=== PATIENT | male | born 1950 | race Caucasian/White ===

== ENCOUNTER → 2018-01-27 12:49 | Outpatient (CLI) | payer MEDICARE, OTHER, SELFPAY | PROVIDERS: Family Provider Family Medicine Geriatric Medicine; PCP Family Medicine Geriatric Medicine; Visit Provider Nurse Practitioner Adult Health | DX: N39.0 Urinary tract infection, site not specified (principal) | CPT/HCPCS: 87086; 87088; 87186 ==

== ENCOUNTER 2018-01-28 20:57 | Emergency (ER) | payer MEDICARE, OTHER, SELFPAY ==
[2018-01-28 20:58] VITALS: BP 137/77; PULSE 73; RESP 16; TEMP 36.6; O2SAT 94; BMI 28.8
--- NOTE | 2018-01-28 22:08 | ED.DCSUM_ITS ---
- ER Visit Summary Date of Service: 01/28/18 Chief Complaint: Urinary retention History of Present Illness: The patient is a 67 M who has urinary retention. He has not urinated since this afternoon. He was diagnosed with UTI yesterday. He is currently on Bactrim. He denies a fever. No history of retention or prostate problems. He sees Dr. Hemphill as his urologist. Physical Examination: Vital signs reviewed. HEENT exam unremarkable. Heart is regular rate and rhythm without murmurs. Lungs are clear to auscultation. Abdomen is soft with suprapubic tenderness to palpation. Extremities reveal no edema. Skin exam normal. Neurologic exam normal. Test Results: Urine culture obtained Emergency Department Course and Treatment: Patient had Zelaya catheter placed and had 800 cc of urine returned. He feels much better. He is on Bactrim which is appropriate. I will send a urine culture. He will follow-up with either his urologist or his PCP on Thursday for Zelaya removal Treatment Plan: [] Disposition: Discharge Impression: Urinary retention, UTI This note was generated with [employer] dictation software. It may contain incorrect words, spelling, and punctuation that were not noted in review of the chart prior to signing ED Disposition - Plan for ED Patient: Chief Complaint: Complaint Referrals: Torito Azul Chi, MD [Primary Care Provider] -
--- NOTE | 2018-01-28 22:08 | ED.DEP ---
ED Disposition - Plan for ED Patient: Disposition: Home or Assisted Living Chief Complaint: Complaint Instructions: ED UTI Cystitis Male Referrals: Torito Azul Chi, MD [Primary Care Provider] -
[2018-01-28 22:33] VITALS: BP 132/60; PULSE 75; RESP 18; O2SAT 96
--- NOTE | 2018-01-28 22:47 | ED.RN ---
first catheter was accidently pulled out (balloon was not inflated)- 2nd catheter inserted. pt tolerated well and pleasant.
== END 2018-01-28 22:33 | disposition home or self-care (01) ==
LOC: ED 22:16
PROVIDERS: Emergency Provider Emergency Medicine; Family Provider Family Medicine Geriatric Medicine; PCP Family Medicine Geriatric Medicine
DX: R33.9 Retention of urine, unspecified (principal); N39.0 Urinary tract infection, site not specified; Z79.1 Long term (current) use of non-steroidal anti-inflammatories (NSAID); Z79.02 Long term (current) use of antithrombotics/antiplatelets; Z79.82 Long term (current) use of aspirin; Z79.899 Other long term (current) drug therapy
CPT/HCPCS: 51702; 87086; 99283

== ENCOUNTER 2018-01-30 13:15 | Emergency (ER) | payer MEDICARE, OTHER, SELFPAY ==
[2018-01-30 13:17] VITALS: BP 126/63; PULSE 75; RESP 14; TEMP 36.1; O2SAT 98; BMI 28.7
--- NOTE | 2018-01-30 13:44 | ED.DCSUM_ITS ---
- ER Visit Summary Date of Service: 01/30/18 Chief Complaint: Zelaya dysfunction History of Present Illness: The patient is a 67 M no Zelaya output since 9 AM this morning after draining it. Increasing suprapubic distention. Placed 2 days ago due to urine retention. He is on Flomax. Appointment with urology Dr. Hemphill in 2 days. Diagnosed UTI 3 days ago is on Bactrim. No fevers. No back pain. No vomiting. States mild leakage around Zelaya. States he was 700 mL of output with Zelaya placement 2 days ago. Physical Examination: General: Alert and oriented ?3, no acute distress HEENT: Normocephalic, atraumatic. Moist mucosa membranes Neck: supple, nontender. Cardiovascular: Regular rate and rhythm, no murmurs Respiratory: Normal breath sounds, symmetric, no distress Abdomen: Soft, suprapubic distention with tenderness, no guarding or rebound, nondistended Extremities: Nontender, no edema, pulses intact ?4 Neuro: no focal neurological deficits. Test Results: [] Emergency Department Course and Treatment: Patient Zelaya attempted flushing by nursing, reported 200 cc input with no output. Zelaya catheter was exchanged. There is good urine output, improved distention. Bedside ultrasound performed noted no urine in the bladder. Review records noted he had E. coli pansensitive on the . He is currently on Bactrim. He will finish his antibiotics. He is currently on Flomax. He will keep his appointment on Thursday with urology. Return if any worsening symptoms. Treatment Plan: [] Disposition: Discharge Impression: 1. Zelaya catheter dysfunction This note was generated with [employer] dictation software. It may contain incorrect words, spelling, and punctuation that were not noted in review of the chart prior to signing ED Disposition - Plan for ED Patient: Disposition: Home or Assisted Living Chief Complaint: Zelaya C/O Diagnosis: Zelaya catheter dysfunction Instructions: ED Catheter Care Zelaya Referrals: Torito Azul Chi, MD [Primary Care Provider] - Jeffery Hemphill MD [STAFF PHYSICIAN] - Keep Nancy appointment Additional Instructions: Finish current antibiotics, continue Flomax.
[2018-01-30] MEDS: Lidocaine Jelly 2% 20 ML Syringe (URO-JET) 20 APPLIC TOPICAL (14:07)
[2018-01-30 15:31] VITALS: BP 128/90; PULSE 62; RESP 18
== END 2018-01-30 15:32 | disposition home or self-care (01) ==
PROVIDERS: Emergency Provider Emergency Medicine; Family Provider Family Medicine Geriatric Medicine; PCP Family Medicine Geriatric Medicine
DX: T83.038A Leakage of other urinary catheter, initial encounter (principal); I25.10 Atherosclerotic heart disease of native coronary artery without angina pectoris; E11.9 Type 2 diabetes mellitus without complications; I10 Essential (primary) hypertension; Z79.84 Long term (current) use of oral hypoglycemic drugs; Z79.02 Long term (current) use of antithrombotics/antiplatelets; Z79.82 Long term (current) use of aspirin; Z79.899 Other long term (current) drug therapy; I25.2 Old myocardial infarction; Z87.440 Personal history of urinary (tract) infections; Z87.19 Personal history of other diseases of the digestive system; Z95.1 Presence of aortocoronary bypass graft
CPT/HCPCS: 51702; 99283

== ENCOUNTER → 2018-05-03 06:46 | Outpatient (CLI) | payer MEDICARE, OTHER, SELFPAY ==
[2018-05-03 07:50] LABS: AST(SGOT) 23 U/L (15-37); Alanine Aminotransfer ALT/SGPT 46 U/L (16-61); Alkaline Phosphatase 52 U/L (45-117); Bilirubin, Direct 0.27 mg/dL (0.00-0.30); Cholesterol 159 mg/dL (200); Globulin 3.1 g/dL (2.2-4.2); High Density Lipoprotein 42 mg/dL; Protein, Total 7.1 g/dL (6.4-8.2); Triglycerides 215 mg/dL; Very Low Density Lipoprotein 43 mg/dL (5-40)
== END ==
PROVIDERS: Family Provider Family Medicine Geriatric Medicine; PCP Family Medicine Geriatric Medicine; Visit Provider Physician Assistant Medical
DX: E78.5 Hyperlipidemia, unspecified (principal); Z79.899 Other long term (current) drug therapy
CPT/HCPCS: 36415; 80061; 80076

== ENCOUNTER → 2018-09-13 11:37 | Outpatient (CLI) | payer MEDICARE, OTHER, SELFPAY ==
[2018-05-06 09:24] VITALS: BMI 28.8
[2018-09-13 13:15] LABS: Absolute Lymphocyte Count 1.55 X10^3/ul (0.83-4.51); Absolute Neutrophil Count 3.3 X10^3/uL (2.0-7.7); Basophil# 0.04 X10^3/uL; Basophil% 0.7 % (0-1); Eosinophil# 0.11 X10^3/uL; Hematocrit 41.9 % (40-54); Hemoglobin 14.4 g/dl (13.0-16.5); Lymphocyte # 1.55 X10^3/ul (4.0); Lymphocyte % 28.8 % (19-41); Mean Corp Hgb Conc 34.4 g/gl (32-36); Mean Corpuscular Hgb 32.5 pg (27.0-32.0); Mean Corpuscular Volume 94.6 fL (80-94); Mean Platelet Vol. 10.9 fl (6.2-12.0); Monocyte# 0.42 X10^3/uL; Monocyte% 7.8 % (0-10); Neutrophil # 3.25 X10^3/uL (2.7-7.7); Neutrophil % 60.5 % (47-70); Platelet Count 204 K/mm3 (150-450); RBC Distribution Width CV 12.2 % (11.6-14.6); RBC Distribution Width SD 41.1 fl (35.1-43.9); Red Blood Count 4.43 M/mm3 (4.6-6.2); White Blood Count 5.4 K/mm3 (4.4-11.0)
[2018-09-13 13:17] LABS: POSITIVE COUNT NO; POSITIVE DIFFERENTIAL NO; POSITIVE MORPHOLOGY NO
[2018-09-13 13:20] LABS: Vitamin D,25 Hydroxy 21.9 ng/mL (29.95-100.01)
[2018-09-13 13:21] LABS: ALB/GLOB Ratio 1.2 RATIO (0.9-2.4); AST(SGOT) 31 U/L (15-37); Alanine Aminotransfer ALT/SGPT 64 U/L (16-61); Alkaline Phosphatase 54 U/L (45-117); Anion Gap 10 (5-15); BUN 17 mg/dL (7-18); BUN/Creat Ratio 18.6 RATIO (10-20); Calcium,Total 9.4 mg/dL (8.5-10.1); Chloride 103 mmol/L (98-107); Creatinine, Serum 0.91 mg/dL (0.70-1.30); EST Glomerular Filtration Rate 87 mL/min (>60); Est Glom Filt Rate - Afr Amer 106 mL/min (>60); Globulin 3.3 g/dL (2.2-4.2); Glucose 190 mg/dL (74-106); PSA,Total - Annual Screen 1.19 ng/mL (0.00-4.00); Potassium 3.9 mmol/L (3.5-5.1); Protein, Total 7.3 g/dL (6.4-8.2); Sodium Level 141 mmol/L (136-145); Thyroid Stim Hormone (TSH) 1.09 uIU/mL (0.358-3.74)
== END ==
PROVIDERS: Family Provider Family Medicine Geriatric Medicine; PCP Family Medicine Geriatric Medicine; Visit Provider Family Medicine Geriatric Medicine
DX: E11.9 Type 2 diabetes mellitus without complications (principal); I10 Essential (primary) hypertension; E78.49 Other hyperlipidemia; E55.9 Vitamin D deficiency, unspecified; Z12.5 Encounter for screening for malignant neoplasm of prostate
CPT/HCPCS: 36415; 80053; 82306; 84153; 84443; 85025; G0103

== ENCOUNTER → 2018-09-16 07:39 | Outpatient (CLI) | payer MEDICARE, OTHER, SELFPAY ==
[2018-05-06 09:24] VITALS: BMI 28.8
--- NOTE | 2018-09-16 07:44 | US_ITS ---
STUDY: ABDOMINAL ULTRASOUND - RIGHT UPPER QUADRANT REASON FOR VISIT: Male, 67 years old. Bloating. Pain. TECHNIQUE: Ultrasound evaluation of the right upper quadrant was performed with real-time and static arenas-scale imaging. TECHNICAL QUALITY: Adequate. COMPARISON: CT dated 11/02/2015 FINDINGS: Liver: The liver measures 16.8 cm. There is increased echogenicity consistent with fatty infiltration. The bile ducts are within normal limits. There is hepatic color flow. The direction of portal flow is hepatopetal. There is no demonstrated mass lesion. Gallbladder: Normal distended gallbladder. The gallbladder wall measures 3 mm. There is a negative sonographic Phillip's sign. There is no pericholecystic fluid. There is a solitary echogenic gallstone within the gallbladder. Common Bile Duct (C.B.D.): The common bile duct measures 4 mm. Pancreas: Normal size of the head, body and tail of the pancreas. There is normal echogenicity of the pancreas. There is no demonstrated pancreatic mass or cyst. Right Kidney: Normal size of the right kidney. The right kidney measures 11.0 cm. Normal renal cortex. There is no demonstrated renal mass or cyst. There is no right hydronephrosis. US/Gallbladder IMPRESSION: Fatty liver. No focal hepatic lesions. Cholelithiasis without sonographic evidence of acute cholecystitis. Electronically Signed: Michael Day, at 22:32 EST Tel , Service support ,
--- OUTSIDE RECORDS SUMMARY | 2018-11-02 00:49 | XMS RPT_ITS ---
:1950 Author Organization OHIP Support Name Relationship Address Phone R Unavailable Unavailable Unavailable SAUTTER, ROSETTE Unavailable [address] + [place] [address] R Unavailable Unavailable Unavailable SAUTTER, ROSETTE Unavailable [address] + [place] [address] R Unavailable Unavailable Unavailable SAUTTER, ROSETTE Unavailable [address] + [place] [address] R Unavailable Unavailable Unavailable SAUTTER, ROSETTE Unavailable [address] + [place] [address] R Unavailable Unavailable Unavailable SAUTTER, ROSETTE Unavailable [address] + [place] [address] R Unavailable Unavailable Unavailable SAUTTER, ROSETTE Unavailable [address] + [place] [address] R Unavailable Unavailable Unavailable SAUTTER, ROSETTE Unavailable [address] + [place] [address] R Unavailable Unavailable Unavailable SAUTTER, ROSETTE Unavailable [address] + [place] [address] R Unavailable Unavailable Unavailable SAUTTER, ROSETTE Unavailable [address] + [place] [address] R Unavailable Unavailable Unavailable SAUTTER, ROSETTE Unavailable [address] + [place] [address] R Unavailable Unavailable Unavailable SAUTTER, ROSETTE Unavailable [address] + [place] [address] R Unavailable Unavailable Unavailable SAUTTER, ROSETTE Unavailable [address] + [place] [address] R Unavailable Unavailable Unavailable SAUTTER, ROSETTE Unavailable [address] + [place] [address] Care Team Providers Name Role Phone Jorge Alberto, Torito Chi Attending Unavailable Jorge Alberto, Torito Chi Referring Unavailable Jorge Alberto, Torito Chi Primary Care Unavailable Jorge Alberto, Torito Chi Attending Unavailable Jorge Alberto, Torito Chi Referring Unavailable Jorge Alberto, Torito Chi Primary Care Unavailable Tere Ibrahim Attending Unavailable Clinton, Elkin Attending Unavailable Jorge Alberto, Torito Chi Referring Unavailable Jorge Alberto, Torito Chi Primary Care Unavailable Clinton, Elkin Attending Unavailable Clinton, Elkin Referring Unavailable Jorge Alberto, Torito Chi Primary Care Unavailable Evon Cyr Attending Unavailable [place], Elkin Attending Unavailable SaySintia M Attending Unavailable Jorge Alberto, Torito Chi Primary Care Unavailable Sintia Deal M Referring Unavailable Jorge Alberto, Torito Chi Primary Care Unavailable Adriel Mackenzie Attending Unavailable Jorge Alberto, Torito Chi Primary Care Unavailable Solis Redding Attending Unavailable WestbrookKarina Attending Unavailable Karina Westbrook Referring Unavailable Jorge Alberto, Torito Chi Primary Care Unavailable Karina Westbrook Attending Unavailable Jorge Alberto, Torito Chi Referring Unavailable Jorge Alberto, Torito Chi Attending Unavailable Jorge Alberto, Torito Chi Primary Care Unavailable PROBLEMS PROBLEMS DATE TYPE CONDITION / CODE ATTENDING STATUS SOURCE 01/27/2018 Unknown N39.0 - Urinary Say, [place] Active [place] tract infection, M Community site not specified Hospital / N39.0(ICD-10) Repository 12/11/2017 Unknown Z86.79 - Personal [place], [place] Active [place] history of other Community diseases of the Hospital circulatory system Repository / Z86.79(ICD-10) 12/11/2017 Unknown R00.2 - [place], [place] Active [place] Palpitations / Community R00.2(ICD-10) Hospital Repository PROCEDURES PROCEDURES No Procedure Records FoundRESULTS RESULTS HEPATOBILLIARY IMG Observed: 09/21/2018 Status: F Source: [place] W/PHARM INT 11:24 AM [facility] REPOSITORY [facility] Imaging Services [address] [place] [address] Hepatobilliary Img w/Pharm Int MR#: [id number] Acct: [id number] Name: JUANJO KILLIAN Rep #: [id number] : 1950 M 67 From: Santo Catalan DO PCP: Jorge Alberto ENCARNACION,Torito Greenfield Status: REG CLI Study: Hepatobilliary Img w/Pharm Int Date of Exam: 09/21/18 Exam# [id number] Ordering Dr: Torito Azul MD CLINICAL: 67-year-old male with reported history of abdominal pain. RADIONUCLIDE HEPATOBILIARY SCINTIGRAPHY COMPARISON: Abdominal ultrasound report 09/16/2018 FINDINGS: Following the intravenous administration of 5.3 mCi of 99m Tc Mebrofenin, hepatobiliary images reveal: 1. Relatively prompt and homogeneous radiopharmaceutical concentration is noted by a normal sized liver. No parenchymal defects are identified. 2. Gallbladder activity is identified at 45 minutes post radiopharmaceutical administration. 3. Small intestinal tract is observed at 30 minutes following tracer injection. 4. Washout of the radiopharmaceutical by the hepatic parenchyma appears qualitatively normal. The patient was administered a fatty meal (8 ounces BOOST- 30 grams fat). The post fatty meal consumption gallbladder ejection fraction calculated at 60 minutes was noted to be 70.0 % (normal greater than 30%). NM/Hepatobilliary Img w/Pharm Int IMPRESSION: 1. NORMAL 99m Tc Mebrofenin hepatobiliary imaging examination with fatty meal ingestion. A. A gallbladder ejection fraction calculated to be greater than 30% following the administration of a consumed fatty meal makes the probability of functional hepatobiliary disease (gallbladder and/or sphincter of Oddi dyskinesia) and/or organic hepatobiliary disease (chronic acalculous cholecystitis and/or cystic duct syndrome) to be low. (Archie and Howard, J Nucl Med 43: 1603, 2002). Electronically Signed: Santo Catalan DO at 22:13 EST Tel , Service support , CC: Torito Azul MD Supervisor Plate Forming: Signed GALLBLADDER Observed: 09/16/2018 Status: F Source: [place] 7:44 AM [facility] Imaging Services [address] [place] [address] Gallbladder MR#: [id number] Acct: [id number] Name: JUANJO KILLIAN Rep #: [id number] : 1950 M 67 From: Michael Day MD PCP: Torito Azul MD, Chi Status: REG CLI Study: Gallbladder Date of Exam: 09/16/18 Exam# [id number] Ordering Dr: Torito Azul MD STUDY: ABDOMINAL ULTRASOUND - RIGHT UPPER QUADRANT REASON FOR VISIT: Male, 67 years old. Bloating. Pain. TECHNIQUE: Ultrasound evaluation of the right upper quadrant was performed with real-time and static arenas-scale imaging. TECHNICAL QUALITY: Adequate. COMPARISON: CT dated 11/02/2015 FINDINGS: Liver: The liver measures 16.8 cm. There is increased echogenicity consistent with fatty infiltration. The bile ducts are within normal limits. There is hepatic color flow. The direction of portal flow is hepatopetal. There is no demonstrated mass lesion. Gallbladder: Normal distended gallbladder. The gallbladder wall measures 3 mm. There is a negative sonographic Phillip's sign. There is no pericholecystic fluid. There is a solitary echogenic gallstone within the gallbladder. Common Bile Duct (C.B.D.): The common bile duct measures 4 mm. Pancreas: Normal size of the head, body and tail of the pancreas. There is normal echogenicity of the pancreas. There is no demonstrated pancreatic mass or cyst. Right Kidney: Normal size of the right kidney. The right kidney measures 11.0 cm. Normal renal cortex. There is no demonstrated renal mass or cyst. There is no right hydronephrosis. US/Gallbladder IMPRESSION: Fatty liver. No focal hepatic lesions. Cholelithiasis without sonographic evidence of acute cholecystitis. Electronically Signed: Michael Barb, at 22:32 EST Tel , Service support , CC: Torito Azul MD Supervisor Plate Forming: Signed CBC W/DIFF, AUTOMATED Collected: 09/13/2018 Status: F Source: [place] 11:40 AM [facility] TYPE CODE TESTS RESULT OUT OF RANGE REFERENCE UNITS LAB L100.1000 4.4-11.0 K/mm3 Normal WBC 5.4 LAB L100.1200 4.6-6.2 M/mm3 Low RBC 4.43 LAB L100.1300 13.0-16.5 g/dl Normal HGB 14.4 LAB L100.1400 40-54 % Normal HCT 41.9 LAB L100.1500 80-94 fL High MCV 94.6 LAB L100.1600 27.0-32.0 pg High MCH 32.5 LAB L100.1700 32-36 g/gl Normal MCHC 34.4 LAB L100.1810 11.6-14.6 % Normal RDW CV 12.2 LAB L100.1820 35.1-43.9 fl Normal RDW SD 41.1 LAB L100.1900 150-450 K/mm3 Normal PLT 204 LAB L100.2000 6.2-12.0 fl Normal MPV 10.9 LAB L100.2100 47-70 % Normal NEUT% 60.5 LAB L100.2200 19-41 % Normal LY% 28.8 LAB L100.2300 0-10 % Normal MONO% 7.8 LAB L100.2400 0-5 % Normal EO% 2.0 LAB L100.2500 0-1 % Normal BASO% 0.7 LAB L100.2550 0.0-0.9 % Normal IM GRAN % 0.200 Result Comment: IG% - Immature Granulocytes (promyelocytes, myelocytes and metamyelocytes) > 1% indicates that a LEFT SHIFT is Present. LAB L100.2620 2.0-7.7 X10 3/uL Normal Absolute Neut 3.3 LAB L100.2720 0.83-4.51 X10 3/ul Normal Absolute Lymph 1.55 Performed By: #### L100.0100 #### [facility] [address] [place], [address] VITAMIN D,25 HYDROXY Collected: 09/13/2018 Status: F Source: [place] 11:40 AM [facility] TYPE CODE TESTS RESULT OUT OF REFERENCE UNITS RANGE LAB L506.1000 29.95-100.01 ng/mL Low Vitamin D 21.9 25-OH Result Comment: Vitamin D 25(OH) Status Range Deficiency <20 ng/mL (50nmol/L) Insuffciency 20 - 30 ng/mL (50 - 75 nmol/L) Sufficiency 30 - 100 ng/mL (75 - 250 nmol/L) Toxicity >100 ng/mL (>250 nmol/L) Performed By: #### L506.1000 #### [facility] [address] [place], [address] COMPREHENSIVE METABOLIC Collected: 09/13/2018 Status: F Source: [place] [facility] 11:40 AM [facility] TYPE CODE TESTS RESULT OUT OF RANGE REFERENCE UNITS LAB L501.0100 74-106 mg/dL High GLU 190 Result Comment: Fasting Glucose result greater than or equal to 126 mg/dL suggests DIABETES MELLITUS per A.D.A. criteria. Please note revised GLUCOSE reference range effective 2017. LAB L501.1000 7-18 mg/dL Normal BUN 17 LAB L501.1100 0.70-1.30 mg/dL Normal CREAT,SERUM 0.91 Result Comment: The validity of the calculated GFR AND GFRAA in patients over 70 years has not been determined. Clinical correlation is essential. LAB L501.1110 >60 mL/min Normal EST GFR 87 Result Comment: Non- GFR Calc LAB L501.1115 >60 mL/min Normal EST GFR - AA 106 Result Comment: GFR Calc LAB L501.1300 10-20 RATIO Normal BUN/CRE 18.6 LAB L501.1500 6.4-8.2 g/dL T Normal PROT 7.3 LAB L501.1800 3.2-5.0 g/dL Normal ALB 4.0 LAB L501.1950 2.2-4.2 g/dL Normal GLOB 3.3 LAB L501.2000 0.9-2.4 RATIO Normal A/G 1.2 LAB L501.2200 8.5-10.1 mg/dL CA Normal 9.4 LAB L501.4100 15-37 U/L Normal AST 31 LAB L501.4305 45-117 U/L Normal ALK P 54 LAB L501.4405 16-61 U/L High ALT 64 LAB L501.4600 0.20-1.00 mg/dL High T BILI 1.50 LAB L501.5300 136-145 mmol/L NA Normal 141 LAB L501.5600 3.5-5.1 mmol/L K Normal 3.9 LAB L501.5900 98-107 mmol/L CL Normal 103 LAB L501.6100 21.0-32.0 mmol/L Normal CO2 28.0 LAB L501.6200 5-15 Normal GAP 10 Performed By: #### L500.4050, L501.9520, L501.9910 #### [facility] [address] [place], [address] THYROID STIM HORMONE Collected: 09/13/2018 Status: F Source: [place] (TSH) 11:40 AM [facility] TYPE CODE TESTS RESULT OUT OF RANGE REFERENCE UNITS LAB L501.9520 0.358-3.74 uIU/mL Normal TSH 1.09 Performed By: #### L500.4050, L501.9520, L501.9910 #### [facility] [address] [place], [address] PSA,TOTAL - ANNUAL Collected: 09/13/2018 Status: F Source: [place] SCREEN 11:40 AM [facility] TYPE CODE TESTS RESULT OUT OF RANGE REFERENCE UNITS LAB L501.9910 0.00-4.00 ng/mL Normal PSA,TOT 1.19 SCREEN Result Comment: This test was performed using the TPSA assay method for the Sypherlink chemistry system. Values obtained with different assay methods cannot be used interchangably. When changing PSA assays in the course of monitoring a patient, additional sequential testing should be carried out to confirm baseline values. Performed By: #### L500.4050, L501.9520, L501.9910 #### [facility] [address] [place], [address] CARDIOLOGY VISIT Observed: 05/07/2018 Status: F Source: [place] REPORT 6:35 AM [facility] [address] [place] [address] OFFICE VISIT Date of Service: 05/06/18 MR#: [id number] Acct: [id number] Name: JUANJO KILLIAN Rep #: [id number] : 1950 Provider: Karina Westbrook Age/Sex: 67/M Location: [facility] Status: Signed HPI HPI Details: JUANJO KILLIAN, is a 67 M who presents to the office today for a cardiovascular follow-up. He has a history of coronary artery disease with bypass surgery in 2002. He had an ROSE to the LAD, left radial to the first diagonal and SVG to the first obtuse and PDA. In 2015 he had stenting to his RCA. He also has a history of hypertension, hyperlipidemia and diabetes. From a cardiac standpoint, patient is doing well. He does not have any chest discomfort/heaviness/tightness. His exercise tolerance is stable for his age. He does not have any worsening symptoms of shortness of breath. He denies any PND. He does not have any orthopnea. He does not have any symptoms of congestive heart failure. He does not have any palpitations that he is aware of. He does not have any lightheadedness or dizziness. He does not have any near-syncope or syncope. He does not have any lower extremity edema. He does not have any symptoms of claudication. Intake Vital Signs05/06/18 Body Mass Index (BMI) 28.8 05/06/18 Blood Pressure 100/60 05/06/18 Height 5 ft 8 in 05/06/18 Weight: 194 lb 05/06/18 Body Mass Index (BMI) 29.5 05/06/18 Blood Pressure 144/70 05/06/18 Blood Pressure Location Lt brachial Intake Visit Reasons: 5 M Director Of Safety And Security Required: No Accompanied by: None Is patient in pain?: No Allergies Penicillins Allergy (Severe, Verified 05/06/18 09:25) Anaphylaxis chocolate Allergy (Severe, Uncoded 01/28/18 21:00) Respiratory Distress Medications Metformin HCl [Glucophage] 500 mg PO BIDCM 08/04/16 [History Confirmed 05/06/18] Aspirin [Adult Low Dose Aspirin EC] 81 mg PO 08/21/16 [History Confirmed 05/06/18] amlodipine 10 mg tablet 10 mg PO DAILY #90 tab 10/28/17 [Rx Confirmed 05/06/18] omega-3 acid ethyl esters 1 gram capsule 1 g PO BID #180 cap 10/28/17 [Rx Confirmed 05/06/18] multivitamin tablet 1 tab PO QDAY 01/31/18 [History Confirmed 05/06/18] nitroglycerin 0.4 mg sublingual tablet 0.4 mg SUBLINGUAL Q5M #30 tab 11/05/17 [Rx Confirmed 05/06/18] tamsulosin 0.4 mg capsule 0.4 mg PO QDAY 11/05/17 [History Confirmed 05/06/18] rosuvastatin 10 mg tablet 10 mg PO QDAY #90 tab 02/19/18 [Rx Confirmed 05/06/18] clopidogrel 75 mg tablet 75 mg PO DAILY #90 tab 05/06/18 [Rx Confirmed 05/06/18] lisinopril 5 mg tablet 5 mg PO DAILY #90 tab 05/06/18 [Rx Confirmed 05/06/18] Ejection fraction %: 55 to 59 PFSH Medical History Palpitations (Acute) History of non-ST elevation myocardial infarction (NSTEMI) (Chronic) History of atrial fibrillation (Chronic) Sinus bradycardia (Chronic) Diabetes mellitus, type II (Chronic) Hyperlipidemia (Chronic) Hypertension (Chronic) 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) History of diverticulitis (Chronic) History of partial colectomy (Resolved) Surgical History History of left heart catheterization (Chronic) S/P CABG x 4 (Chronic) Stented coronary artery (Chronic) History of appendectomy (Resolved) History of tonsillectomy (Resolved) Family History Father , age 81 blood clot in brain Congestive heart failure Heart valve disorder Mother , age 83 of CVA, had first CVA age 55 CVA (cerebral vascular accident) Sister , of lung cancer Lung cancer CAD (coronary artery disease) Hx angioplasty Sister Cardiac pacemaker in situ Brother Heart disease Brother Heart disease Social History Smoking Status: Former smoker alcohol intake: current alcohol intake frequency: 0-2 drinks per day Alcohol type: wine caffeine: Yes Type: coffee Number of servings: 1 ROS Const Const: Negative for weakness, fatigue, fever(s) or headache(s) Eyes Eyes: Negative for blind spots, loss of peripheral vision or transient loss of vision ENT ENT: Negative for headache(s), dizziness, tinnitus or Nosebleed/epistaxis Cardio Chest Pain: No Palpitations: No Edema: None Muscle aches with walking: None Resp Respiratory: Negative for SOB with activity, SOB at rest, SOB orthopnea\SOB lying down or Cough GI GI: Negative nausea, vomiting, heartburn or vomiting blood/hematemesis : Negative for hematuria Musc Musc: Negative for muscle aches/ myalgia Neuro Neuro: Negative for weakness, headache(s), dizziness, near syncope, syncope, lightheadedness or orthostatic symptoms Andrez Hematologic/Lymphatic: Negative for easy bleeding Endo Endo: Negative for fatigue Cardiology Exam Const Appearance: cooperative, no acute distress and well developed Orientation: alert, awake and oriented x3 Head Head: normocephalic and atraumatic Mouth: moist mucous membranes Eyes General: appearance normal, both eyes and all related structures Conjunctivae: conjunctivae normal Pupils: PERRL EOM: EOM intact bilaterally Neck Neck: normal visual inspection, no lymphadenopathy and no JVD Carotids: Negative bruit Neck Mass: Negative Neck mass Chest Chest inspection: normal inspection of the chest, symmetric chest movement and midline sternotomy incision Auscultation: Bilateral: Clear to Auscultation Cardio Palpation: normal PMI Rate: regular rate Rhythm: regular rhythm and ectopic beats Heart sounds: S1 normal and S2 normal; negative rub, gallop or murmur Murmur: soft, Grade 2/6 and mid systolic GI GI: normal to inspection, soft, no hepatosplenomegaly and bowel sounds present; negative tender Neuro General: alert, awake, oriented x3, CN's II-XI intact bilaterally and moves all extremities Extremities Pulses: Normal: Right Posterior Tibial Pulse, Left Posterior Tibial Pulse, Left Radial Pulse Lower Extremity Edema: None: Bilateral Psych Psychological: normal affect Supplemental Info Stress test in 2017 was negative for ischemia at a high workload. Assessment AND Plan 1. Atherosclerosis of robinson coronary artery of robinson heart without angina pectoris I25.10 ROSE to LAD, reverse SVG to First OM, to PDA and left radial to first DX 11/29/[address] @ [facility]; PTCA and OLI to distal RCA 08/04/16 @ [facility] per [address] Shah Plan MIYA Hyde Stable, from a cardiac standpoint patient does not have any symptoms of angina. We recommend that they continue with current aggressive medical management and risk factor modification. 2. Essential hypertension I10 MIYA Pate Blood pressure is well controlled on current medications, we do not recommend any changes at this time. 3. Pure hypercholesterolemia E78.00 Plan - MIYA Phillips We did decrease his Crestor at his last office visit. Recent lipid profile demonstrates total cholesterol 159, HDL 74, LDL 42. Triglycerides are slightly elevated at 215. His A1c is adequately controlled. For now we will continue with current medications and will continue to monitor. 4. History of atrial fibrillation Z86.79 Plan - MIYA Phillips Patient has occasionally had palpitations but they are not anything significant. He did have a 30 day event monitor in January which did not demonstrate any arrhythmias. He will continue with his current medications. We will continue to monitor. Plan Detail Other Medications New: Additional Comments - MIYA Phillips The above patient was discussed with Dr. Alonzo, he agrees with plan of care. Thank you for allowing us to participate in patient's plan of care, if you have any questions please do not hesitate to call. This note was generated using a voice recognition system and there may be incorrect words, spelling or punctuation errors that were not noted when reviewing the office note prior to saving. 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 transplanted heart: robinson heart Essential hypertension I10 Hypertension type: essential hypertension Pure hypercholesterolemia E78.00 Hyperlipidemia type: pure hypercholesterolemia History of atrial fibrillation Z86.79 Coding Level of Care Code Off vis,est,level 3 Diagnoses Atherosclerosis of robinson coronary artery of robinson heart without angina pectoris I25.10 [place] vs. transplanted heart: robinson heart Essential hypertension I10 Hypertension type: essential hypertension Pure hypercholesterolemia E78.00 Hyperlipidemia type: pure hypercholesterolemia History of atrial fibrillation Z86.79 05/06/18 1015 <Electronically signed by Karina HOLLIDAY> Date Karina HOLLIDAY 05/07/18 0635<Electronically signed by Elkin Alonzo MD> Cosigner Signature: Date (if applicable) Elkin Alonzo MD CC: Torito Azul MD LIVER PROFILE Collected: 05/03/2018 Status: F Source: [place] 6:51 AM [facility] TYPE CODE TESTS RESULT OUT OF RANGE REFERENCE UNITS LAB L501.1500 6.4-8.2 g/dL Normal T PROT 7.1 LAB L501.1800 3.2-5.0 g/dL Normal ALB 4.0 LAB L501.1950 2.2-4.2 g/dL Normal GLOB 3.1 LAB L501.4100 15-37 U/L Normal AST 23 LAB L501.4305 45-117 U/L Normal ALK P 52 LAB L501.4405 16-61 U/L Normal ALT 46 LAB L501.4600 0.20-1.00 mg/dL High T BILI 1.40 LAB L501.4700 0.00-0.30 mg/dL Normal D BILI 0.27 Performed By: #### L500.3400, L500.4100 #### [facility] [address] [place], [place], [address] LIPID PROFILE Collected: 05/03/2018 Status: F Source: [place] 6:51 AM [facility] TYPE CODE TESTS RESULT OUT OF RANGE REFERENCE UNITS LAB L501.4900 200 mg/dL Normal CHOL 159 Result Comment: <200 mg/dL Desirable 200-240 mg/dL Borderline >240 mg/dL High Risk LAB L501.5000 mg/dL High TRIG 215 Result Comment: The drugs N-Acetylcysteine and Metamizole may falsely depress this assay. Serum Triglycerides Reference Interval Normal <150 mg/dL Borderline high 150 - 199 mg/dL High 200 - 499 mg/dL Very High > or = 500 mg/dL LAB L501.6400 mg/dL Normal HDL 42 Result Comment: The drugs N-Acetylcysteine and Metamizole may falsely depress this assay. Reference Range HDL <40 mg/dL Low HDL Cholesterol HDL >or= 60 mg/dL High HDL Cholesterol LAB L501.6500 0-130 mg/dL Normal LDL 74 LAB L501.6600 5-40 mg/dL High VLDL 43 Performed By: #### L500.3400, L500.4100 #### [facility] [address] [facility] [place], [address] EMERGENCY DEPARTMENT Observed: 01/30/2018 Status: F Source: [place] SUMMARY 3:08 PM [facility] Medical Records Department [address] [place] [address] Emergency Department Summary 01/30/18 1343 MR#: [id number] Acct: [id number] Name: JUANJO KILLIAN Rep #: [id number] : 1950 67 From: Solis Kumari PCP: Torito Azul MD, Chi Status: REG ER - ER Visit Summary Date of Service: 01/30/18 Chief Complaint: Zelaya dysfunction History of Present Illness: The patient is a 67 M no Zelaya output since 9 AM this morning after draining it. Increasing suprapubic distention. Placed 2 days ago due to urine retention. He is on Flomax. Appointment with urology Dr. Hemphill in 2 days. Diagnosed UTI 3 days ago is on Bactrim. No fevers. No back pain. No vomiting. States mild leakage around Zelaya. States he was 700 mL of output with Zelaya placement 2 days ago. Physical Examination: General: Alert and oriented 3, no acute distress HEENT: Normocephalic, atraumatic. Moist mucosa membranes Neck: supple, nontender. Cardiovascular: Regular rate and rhythm, no murmurs Respiratory: Normal breath sounds, symmetric, no distress Abdomen: Soft, suprapubic distention with tenderness, no guarding or rebound, nondistended Extremities: Nontender, no edema, pulses intact 4 Neuro: no focal neurological deficits. Test Results: [] Emergency Department Course and Treatment: Patient Zelaya attempted flushing by nursing, reported 200 cc input with no output. Zelaya catheter was exchanged. There is good urine output, improved distention. Bedside ultrasound performed noted no urine in the bladder. Review records noted he had E. coli pansensitive on the . He is currently on Bactrim. He will finish his antibiotics. He is currently on Flomax. He will keep his appointment on Thursday with urology. Return if any worsening symptoms. Treatment Plan: [] Disposition: Discharge Impression: 1. Zelaya catheter dysfunction This note was generated with Arthena dictation software. It may contain incorrect words, spelling, and punctuation that were not noted in review of the chart prior to signing ED Disposition - Plan for ED Patient: Disposition: Home or Assisted Living Chief Complaint: Zelaya C/O Diagnosis: Zelaya catheter dysfunction Instructions: ED Catheter Care Zelaya Referrals: Torito Azul Chi, MD [Primary Care Provider] - Jeffery Hemphill MD [STAFF PHYSICIAN] - Keep Nancy appointment Additional Instructions: Finish current antibiotics, continue Flomax. What to do if you have Problems For any increased pain, shortness of breath, bleeding, nausea or vomiting, chest pain, or any unexpected problems, contact your Primary Care Provider. Call [facility] ([phone]) or report to the closest Emergency Room. Call 911 if necessary. 01/30/18 1508 <Electronically signed by Solis Kumari> Date Solis Kumari Cosigner Signature (If Indicated): Date CC: Torito Azul MD DISCHARGE INSTRUCTION Observed: 01/28/2018 Status: F Source: [place] 10:09 PM [facility] Medical Records Department [address] [place] [address] Discharge Instruction 01/28/182207 MR#: [id number] Acct: [id number] Name: JUANJO KILLIAN Rep #: [id number] : 1950 67 From: Adriel Mackenzie MD PCP: Torito Azul MD, Chi Status: PRE ER ED Disposition - Plan for ED Patient: Disposition: Home or Assisted Living Chief Complaint: Complaint Instructions: ED UTI Cystitis Male Referrals: Torito Azul Chi, MD [Primary Care Provider] - What to do if you have Problems For any increased pain, shortness of breath, bleeding, nausea or vomiting, chest pain, or any unexpected problems, contact your Primary Care Provider. Call [facility] ([phone]) or report to the closest Emergency Room. Call 911 if necessary. 01/28/182208 <Electronically signed by Adriel Mackenzie MD> Date Adriel Mackenzie MD Cosigner Signature (If Indicated): Date CC: Torito Azul MD EMERGENCY DEPARTMENT Observed: 01/28/2018 Status: F Source: [place] SUMMARY 10:08 PM [facility] Medical Records Department [address] [place] [address] Emergency Department Summary 01/28/182206 MR#: [id number] Acct: [id number] Name: JUANJO KILLIAN Rep #: [id number] : 1950 67 From: Adriel Mackenzie MD PCP: Torito Azul MD, Chi Status: PRE ER - ER Visit Summary Date of Service: 01/28/18 Chief Complaint: Urinary retention History of Present Illness: The patient is a 67 M who has urinary retention. He has not urinated since this afternoon. He was diagnosed with UTI yesterday. He is currently on Bactrim. He denies a fever. No history of retention or prostate problems. He sees Dr. Hemphill as his urologist. Physical Examination: Vital signs reviewed. HEENT exam unremarkable. Heart is regular rate and rhythm without murmurs. Lungs are clear to auscultation. Abdomen is soft with suprapubic tenderness to palpation. Extremities reveal no edema. Skin exam normal. Neurologic exam normal. Test Results: Urine culture obtained Emergency Department Course and Treatment: Patient had Zelaya catheter placed and had 800 cc of urine returned. He feels much better. He is on Bactrim which is appropriate. I will send a urine culture. He will follow-up with either his urologist or his PCP on Thursday for Zelaya removal Treatment Plan: [] Disposition: Discharge Impression: Urinary retention, UTI This note was generated with Client24ation software. It may contain incorrect words, spelling, and punctuation that were not noted in review of the chart prior to signing ED Disposition - Plan for ED Patient: Chief Complaint: Complaint Referrals: Torito Azul Chi, MD [Primary Care Provider] - What to do if you have Problems For any increased pain, shortness of breath, bleeding, nausea or vomiting, chest pain, or any unexpected problems, contact your Primary Care Provider. Call [facility] ([phone]) or report to the closest Emergency Room. Call 911 if necessary. 01/28/182207 <Electronically signed by Adriel Mackenzie MD> Date Adriel Mackenzie MD Cosigner Signature (If Indicated): Date CC: Torito Azul MD Observed: 01/28/2018 Status: F Source: JOSH CULTURE, URINE 10:04 PM [facility] Order Date: 01/28/18 Comments: [facility] Urine Culture Culture exhibits no growth. Performed By: #### M100.0650 #### [facility] [place], [address] Observed: 01/27/2018 Status: F Source: JOSH CULTURE, URINE 9:26 AM [facility] Urine Culture ORGANISM 1: Presumptive E. coli [place] Count >100,000 Presumptive E. coli: REACTION Amoxacillin/Clavulanic Acid $ <=2 S Ampicillin $ 4 S Ampicillin/Sulbactam $ <=2 S Cefazolin $ <=4 S Cefepime $ <=1 S Ceftriaxone $ <=1 S Ciprofloxacin $ <=0.25 S ESBL - Ertapenim $$$ <=0.5 S Gentamicin $ <=1 S Imipenem *NF <=0.25 S Levofloxacin $ <=0.12 S Nitrofurantoin $ <=16 S Piperacillin/Tazobactam $$ <=4 S Tobramycin $ <=1 S Trimethoprim/Sulfametho $ <=20 S (NF) indicates non-formulary drug at [facility]. Approval by Infectious Disease Specialist required before non-formulary drugs may be ordered and/or dispensed. Performed By: #### M100.0650 #### [facility] [address] [place], [address] CARDIOLOGY VISIT Observed: 11/06/2017 Status: F Source: [place] REPORT 3:31 PM [facility] [address] [place] [address] OFFICE VISIT Date of Service: 11/05/17 MR#: [id number] Acct: [id number] Name: JUANJO KILLIAN Rep #: [id number] : 1950 Provider: Elkin Alonzo MD Age/Sex: 66/M Location: [facility] Status: Signed HPI 6 M FU (we moved from 10-20-17): Chief Complaint: Follow-up visit. Details: JUANJO KILLIAN, is a 66 M who presents to the office today for a follow-up visit. He is a gentleman who sustained a non-ST elevation myocardial infarction in July 2016. He underwent angioplasty and stenting of the saphenous vein graft to the lateral extension of the right coronary artery. He returns for routine follow-up visit he denies any chest pain or shortness breath or paroxysmal nocturnal dyspnea or pedal edema has been compliant with his medications he wants to know if he can discontinue his omeprazole. He has had no neck arm or jaw discomfort suggest angina. He did undergo stress testing in October 2016 which demonstrated no evidence of ischemia. He does continue to have some residual disease which will be defined below. His physical exam today demonstrates clear lung amador regular rate and rhythm with frequent ectopic beats and no pedal edema. His electrocardiogram did confirm that he is still in sinus rhythm with a rate of 69 bpm and occasional premature atrial complexes. Intake Vital Signs11/05/17 Height 5 ft 8 in 11/05/17 Weight: 190 lb 11/05/17 Body Mass Index (BMI) 28.8 11/05/17 Blood Pressure 100/60 Intake Visit Reasons: 6 M FU (we moved from 10-20-17) Is patient in pain?: No Allergies Penicillins Allergy (Severe, Verified 11/04/17 08:51) Anaphylaxis chocolate Allergy (Severe, Uncoded 11/04/17 08:51) Respiratory Distress Medications Metformin HCl [Glucophage] 500 mg PO BIDCM 08/04/16 [History Confirmed 11/05/17] Aspirin [Adult Low Dose Aspirin EC] 81 mg PO 08/21/16 [History Confirmed 11/05/17] Clopidogrel Bisulfate [Plavix] 75 mg PO DAILY 08/21/16 [History Confirmed 11/05/17] Lisinopril [Zestril] 5 mg PO DAILY 08/21/16 [History Confirmed 11/05/17] amlodipine 10 mg tablet 10 mg PO DAILY #90 tab 10/28/17 [Rx Confirmed 11/05/17] omega-3 acid ethyl esters 1 gram capsule 1 g PO BID #180 cap 10/28/17 [Rx Confirmed 11/05/17] rosuvastatin 20 mg tablet 20 mg PO DAILY #90 tab 10/28/17 [Rx Confirmed 11/05/17] multivitamin tablet 1 tab PO QDAY 11/04/17 [History Confirmed 11/05/17] nitroglycerin 0.4 mg sublingual tablet 0.4 mg SUBLINGUAL Q5M #30 tab 11/05/17 [Rx Confirmed 11/05/17] tamsulosin 0.4 mg capsule 0.4 mg PO QDAY 11/05/17 [History Confirmed 11/05/17] Ejection fraction %: 50 to 54 [facility] Medical History History of non-ST elevation myocardial infarction (NSTEMI) (Chronic) History of atrial fibrillation (Chronic) Sinus bradycardia (Chronic) Diabetes mellitus, type II (Chronic) Hyperlipidemia (Chronic) Hypertension (Chronic) 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) Surgical History History of left heart catheterization (Chronic) S/P CABG x 4 (Chronic) Stented coronary artery (Chronic) Family History Father , age 81 blood clot in brain Congestive heart failure Heart valve disorder Mother , age 83 of CVA, had first CVA age 55 CVA (cerebral vascular accident) Sister , of lung cancer Lung cancer CAD (coronary artery disease) Hx angioplasty Sister Cardiac pacemaker in situ Social History Smoking Status: Former smoker ROS Const Const: Positive for fatigue (Has had two upper respiratory infections since September); negative for body ache, fever(s), chills, night sweats, daytime sleepiness, difficulty sleeping, weight gain, weight loss, increased appetite, poor appetite, anorexia or other Eyes Eyes: Negative for blind spots, loss of peripheral vision, transient loss of vision, blurry vision, change in vision, double vision, floaters, tunnel vision or other Cardio Chest Pain: No Palpitations: Negative for Yes or No Edema: None Muscle aches with walking: None Resp Respiratory: Positive for other (Productive cough, clear sputum); negative for SOB with activity, SOB at rest, SOB orthopnea\SOB lying down, Coughing up blood/hemoptysis, chest congestion, pain on inspiration, snoring, stridor, wheezing, crackles or paroxysmal nocturnal dyspnea GI GI: Negative nausea, vomiting, heartburn, constipation, belching, bloating, cramping, vomiting blood/hematemesis, bright, red blood in stools, black,tarry stools, loose stools, Difficulty Swallowing or other Musc Musc: Negative for muscle aches/ myalgia, muscle weakness or joint pain Neuro Neuro: Negative for blurry vision, Negative for double vision Endo Endo: Positive for fatigue (Has had two upper respiratory infections since September) Cardiology Exam Const Appearance: cooperative, healthy appearing, well developed, well groomed and no acute distress Nutritional Appearance: well nourished and average body habitus Orientation: alert, awake and oriented x3 Head Head: normal to inspection, normocephalic and atraumatic Ears: hearing grossly normal bilaterally and external ears normal Nose: external nose normal, nasal mucous membranes and turbinates normal, nares normal, septum normal, no nasal discharge Face and Sinus: face symmetric Mouth: oral mucosae normal, tongue normal, oropharynx normal and moist mucous membranes Teeth and gingiva: dentition normal Throat: posterior oropharynx normal, tonsils normal and uvula midline Eyes General: appearance normal, both eyes and all related structures Eyelids: eyelids normal Conjunctivae: conjunctivae normal Pupils: PERRL, normal by confrontation and accommodation normal EOM: EOM intact bilaterally Neck Neck: normal visual inspection, trachea midline and no JVD JVD: +5 Carotids: normal carotid upstroke and bounding pulses Chest Chest inspection: normal inspection of the chest, symmetric chest movement and normal respiratory effort Auscultation: Bilateral: Clear to Auscultation Cardio Palpation: normal PMI Rate: regular rate Rhythm: regular rhythm and ectopic beats Heart sounds: S1 normal and S2 normal GI GI: normal to inspection, soft, no hepatosplenomegaly and bowel sounds present Neuro General: alert, awake, oriented x3, no focal sensory deficit, gait normal and moves all extremities Skin Skin: no rashes or lesions noted Extremities Pulses: Normal: Right Femoral Pulse, Left Femoral Pulse, Right Dorsalis Pedis Pulse, Left Dorsalis Pedis Pulse, Right Posterior Tibial Pulse, Left Posterior Tibial Pulse, Right Radial Pulse, Left Radial Pulse Lower Extremity Edema: None: Bilateral Musculoskel Musculoskeletal: No joint tenderness Psych Psychological: normal affect Assessment AND Plan 1. History of non-ST elevation myocardial infarction (NSTEMI) I25.06 July 2016 Plan He appears to be doing well at this time his last catheterization in July 2016 demonstrated total occluded left anterior descending artery 90% circumflex artery stenosis right coronary to 95% stenosis which was angioplastied and stented. The saphenous vein graft to the right coronary artery was 100% occluded and this was also angioplastied and stented. With his last stress test done a year ago demonstrating no evidence of ischemia my recommendation is that we will continue him on the current medical therapy without making any changes. 2. S/P CABG x 4 Z95.1 ROSE to LAD, reverse SVG to First OM, to PDA and left radial to first DX 11/29/[address] @ [facility] Plan Patient appears to be stable with lesions as noted above. 3. History of atrial fibrillation Z86.79 Plan As remember his Eliquis was discontinued he is not in atrial fibrillation anymore as evidenced by his EKG today. He does have premature atrial complexes however noted. No changes to his medications will be made. Orders Orders: 4. Essential hypertension I10 Plan His blood pressure appears to be under excellent control no major changes will be made he will remain on his lisinopril as well as amlodipine. He is not on a beta-sher because he developed significant bradycardia from the above. 5. Pure hypercholesterolemia E78.00; E78.0 Plan His most recent lipid profile demonstrated total cholesterol 143 HDL 46 LDL 64 and triglycerides of 163. His liver function tests were within normal limits. He also tells me that his gastroesophageal reflux disease has improved and at this time we can stop his omeprazole and see how he does. Thank you for allowing me to participate in his care. You remember we had wanted to enroll him in the CIRT trial but he does have a history of Gilbert's disease and we did not want to risk putting him on for this. We would however keep him in mind should the entry criteria change. Plan Detail Other Medications Changed: Discontinued: Follow Up 6 Months (mmm) Coding Level of Care Code Off vis,est,level 4 Diagnoses History of non-ST elevation myocardial infarction (NSTEMI) I25.2 S/P CABG x 4 Z95.1 History of atrial fibrillation Z86.79 Essential hypertension I10 Hypertension type: essential hypertension Pure hypercholesterolemia E78.00; E78.0 Hyperlipidemia type: pure hypercholesterolemia Coding Level of Care Code Off vis,est,level 4 Diagnoses History of non-ST elevation myocardial infarction (NSTEMI) I25.2 S/P CABG x 4 Z95.1 History of atrial fibrillation Z86.79 Essential hypertension I10 Hypertension type: essential hypertension Pure hypercholesterolemia E78.00; E78.0 Hyperlipidemia type: pure hypercholesterolemia 11/06/17 1531 <Electronically signed by Elkin Alonzo MD> Date Elkin Alonzo MD Cosigner Signature: Date (if applicable) CC: ALLERGIES ALLERGIES DATE TYPE / CODE NAME / CODE REACTION SEVERITY SOURCE Drug Penicillins/F0 Anaphylaxis [place] 8 Allergy/230556883( 75119618(RXNOR [facility]) M) Hospital Repository Miscellaneous chocolate respiratory SV [place] 8 Allergy/217951699( distress [facility]) Hospital Repository ENCOUNTERS ENCOUNTERS ADMIT/DISCHARGE ACCOUNT ADMITTING ENCOUNTER LOCATION SOURCE NUMBER CLASS 09/21/2018 [id number] Ambulatory [place] 7 [facility] ing:NM Repository 09/16/2018 [id number] Ambulatory Josh [place] 4 [facility] ing:US Repository 09/13/2018 [id number] Ambulatory Josh [place] 7 [facility] ing:POLAB3 Repository 05/06/2018/ [id number] Ambulatory BMSBuilding:B [place] 8 1 [facility] Repository 05/03/2018 [id number] Ambulatory [place] 3 [facility] ing:LAB Repository 01/30/2018/ [id number] Emergency [place] 8 1 [facility] ing:ED Repository 01/28/2018/ [id number] Emergency Josh [place] 8 0 [facility] ing:ED Repository 01/27/2018 [id number] Ambulatory Josh [place] 3 [facility] ing:LABSPEC Repository 01/06/2018 [id number] Ambulatory BMSBuilding:B [place] 1 [facility] Repository 12/11/2017 [id number] Ambulatory [place] 1 [facility] ing:[facility]S Repository 12/11/2017 [id number] Ambulatory BMSBuilding:W [place] 1 [facility] Repository 11/05/2017/ [id number] Ambulatory BMSBuilding:B [place] 8 9 [facility] Repository 11/04/2017 [id number] Ambulatory BMSBuilding:B [place] 0 [facility] Repository PAYERS PAYERS ENCOUNTER GUARANTOR PAYER SUBSCRIBER SOURCE 09/21/2018 JUANJO Altamirano Primary JUANJO Moreno [id number] E Insurance:MEDICARE SAUTTERDOB: [facility] PART A BPolicy Number: [id number] [id number] Repository 11178Rql: (330) Date:2018-09-13 [phone] () 09/21/2018 Secondary JUANJO Moreno Insurance:HUMANA SAUTTERDOB: Community COMMERCIALPolicy [id number] Hospital Number: Repository [id number] Date:1342-62-23TI [address] [place] [address]TY: 09/21/2018 Tertiary NOT GIVENUNK [place] Insurance:SELF PAY [facility] Number: Effective Repository Date:2018-09-13 09/16/2018 JUANJO Altamirano Primary JUANJO Brunneroster [id number] E Insurance:MEDICARE SAUTTERDOB: Community CALE PART A BPolicy Number: [id number] [id number] Repository [address]Pwx: (672) Date:2018-09-13 [phone] () 09/16/2018 Secondary JUANJO L [place] Insurance:HUMANA SAUTTERDOB: Community COMMERCIALPolicy [id number] Hospital Number: Repository [id number] Date:8575-28-44[address] [address]YY: 09/16/2018 Tertiary NOT GIVENUNK [place] Insurance:SELF PAY [facility] Number: Effective Repository Date:2018-09-13 09/13/2018 JUANJO Altamirano Primary JUANJO Brun[address]oster [id number] E Insurance:MEDICARE SAUTTERDOB: Community CALE PART A BPolicy Number: [id number], [place] [id number] Repository [address]Hva: 330) Date:2018-09-13 [phone] () 09/13/2018 Secondary JUANJO L Josh Insurance:HUMANA SAUTTERDOB: Community COMMERCIALPolicy [id number] Hospital Number: Repository [id number] Date:9340-03-12OV [address] [place] [address]DF: 09/13/2018 Tertiary NOT GIVENUNK Josh Insurance:SELF PAY [facility] Number: Effective Repository Date:2018-09-13 05/06/2018 JUANJO L Primary JUANJO L Josh [id number] E Insurance:MEDICARE SAUTTERDOB: Community CALE PART A BPolicy Number: [id number], [place] [id number] Repository [address]Bec: (330) Date:2017-11-05 [phone] () 05/06/2018 Secondary JUANJO Altamirano [place] Insurance:HUMANA SAUTTERDOB: Community COMMERCIALPolicy [id number] Hospital Number: Repository [id number] Date:8681-65-12NA [address] [place] [address]CJ: 05/06/2018 Tertiary NOT GIVENUNK [place] Insurance:SELF PAY [facility] Number: Effective Repository Date:2018-05-06 05/03/2018 JUANJO Altamirano Primary JUANJO Moreno [id number] E Insurance:MEDICARE SAUTTERDOB: Community CALE PART A BPolicy Number: [id number], [place] [id number] Repository [address]Uvm: (330) Date:2018-05-03 [phone] () 05/03/2018 Secondary JUANJO L [place] Insurance:HUMANA SAUTTERDOB: [facility] COMMERCIALPolicy [id number] Hospital Number: Repository [id number] Date:5101-66-32VB [address] [place] [address]QT: 05/03/2018 Tertiary NOT GIVENUNK Josh Insurance:SELF PAY [facility] Number: Effective Repository Date:2018-05-03 01/30/2018 JUANJO L Primary JUANJO Moreno [id number] E Insurance:MEDICARE SAUTTERDOB: Community CALE PART A BPolicy Number: [id number] [id number] Repository [address]Qsp: (330) Date:2018-01-30 [phone] () 01/30/2018 Secondary JUANJO L Josh Insurance:HUMANA SAUTTERDOB: Community COMMERCIALPolicy [id number] Hospital Number: Repository [id number] Date:6905-87-97YH [address] [place] [address]XE: 01/30/2018 Tertiary NOT GIVENUNK [place] Insurance:SELF PAY [facility] Number: Effective Repository Date:2018-01-30 01/28/2018 JUANJO Moreno [id number] E Insurance:MEDICARE SAUTTERDOB: Community CALE PART A BPolicy Number: [id number], [place] [id number] Repository 689[address]Ehg: (330) Date:2018-01-28 [phone] () 01/28/2018 Secondary JUANJO Moreno Insurance:HUMANA SAUTTERDOB: Community COMMERCIALPolicy [id number] Hospital Number: Repository [id number] Date:1030-61-92VM [address] [address]AM: 01/28/2018 Tertiary NOT GIVENUNK Josh Insurance:SELF PAY [facility] Number: Effective Repository Date:2018-01-28 01/27/2018 JUANJO Moreno [id number] E Insurance:MEDICARE SAUTTERDOB: Community CALE PART A BPolicy Number: [id number], [place] [id number] Repository [address]Rav: (330) Date:2018-01-27 [phone] () 01/27/2018 Secondary JUANJO Moreno Insurance:HUMANA SAUTTERDOB: [facility] [id number] Hospital Number: Repository [id number] Date:3783-23-29IQ [address] [place] [address]LY: 01/27/2018 Tertiary NOT GIVENUNK [place] Insurance:SELF PAY [facility] Hospital Number: Effective Repository Date:2018-01-27 01/06/2018 JUANJO Moreno [id number] E Insurance:MEDICARE SAUTTERDOB: Community CALE PART A BPolicy Number: [id number], [place] [id number] Repository [address]Dsf: (330) Date:2018-01-06 [phone] (HP) 01/06/2018 Secondary JUANJO L Josh Insurance:HUMANA SAUTTERDOB: Community COMMERCIALPolicy [id number] Hospital Number: Repository [id number] Date:1590-20-55TF [address] [place] [address]YU: 01/06/2018 Tertiary NOT GIVENUNK Josh Insurance:SELF PAY [facility] Number: Effective Repository Date:2018-01-06 12/11/2017 JUANJO Altamirano Primary Insurance:SELF NOT GIVENUNK [place] [id number] E PAY [facility] Number: Effective [place] Date:2017-12-09 Repository 539[address]Mug: () 12/11/2017 JUANJO Altamirano Primary JUANJO Brunneroster [id number] E Insurance:MEDICARE SAUTTERDOB: Community CALE PART A BPolicy Number: [id number], [place] [id number] Repository 880[address]Plq: (758) Date:2017-09-09 [phone] (HP) 12/11/2017 Secondary JUANJO Altamirano Josh Insurance:HUMANA SAUTTERDOB: Community COMMERCIALPolicy [id number] Hospital Number: Repository [id number] Date:9281-70-39ZU [address] [place] [address]UY: 12/11/2017 Tertiary NOT GIVENUNK [place] Insurance:SELF PAY [facility] Number: Effective Repository Date:2017-12-11 11/05/2017 JUANJO Altamirano Primary JUANJO Moreno [id number] E Insurance:MEDICARE SAUTTERDOB: Community CALE PART A BPolicy Number: [id number], [place] [id number] Repository [address]Ffw: (575) Date:2017-09-09 [phone] (HP) 11/05/2017 Secondary JUANJO Altamirano Josh Insurance:HUMANA SAUTTERDOB: Community COMMERCIALPolicy [id number] Hospital Number: Repository [id number] Date:8131-27-17UZ [address] [place] [address]CD: 11/05/2017 Tertiary NOT GIVENUNK Josh Insurance:SELF PAY Critical [facility] Effective Repository Date:2017-09-09 11/04/2017 Juanjo Altamirano Primary Juanjo Moreno [id number] E Insurance:MEDICARE SautterDOB: Community [place] PART A BPolicy Number: [id number] [id number] Repository 10013Els: (330) Date:2017-11-04 [phone] (HP) 11/04/2017 Secondary Juanjo Moreno Insurance:HUMANA SautterDOB: Community COMMERCIALPolicy [id number] Hospital Number: Repository [id number] Date:8496-45-33BR [address] [address]ON: 11/04/2017 Tertiary NOT GIVENUNK [place] Insurance:SELF PAY [facility] Number: Effective Repository Date:2017-11-04
== END ==
PROVIDERS: Family Provider Family Medicine Geriatric Medicine; PCP Family Medicine Geriatric Medicine; Referring Provider Family Medicine Geriatric Medicine; Visit Provider Family Medicine Geriatric Medicine
DX: R10.9 Unspecified abdominal pain (principal)
CPT/HCPCS: 76705

== ENCOUNTER → 2018-09-21 11:18 | Outpatient (CLI) | payer MEDICARE, OTHER, SELFPAY ==
[2018-05-06 09:24] VITALS: BMI 28.8
--- NOTE | 2018-09-21 11:24 | NM_ITS ---
CLINICAL: 67-year-old male with reported history of abdominal pain. RADIONUCLIDE HEPATOBILIARY SCINTIGRAPHY COMPARISON: Abdominal ultrasound report 09/16/2018 FINDINGS: Following the intravenous administration of 5.3 mCi of 99m Tc Mebrofenin, hepatobiliary images reveal: 1. Relatively prompt and homogeneous radiopharmaceutical concentration is noted by a normal sized liver. No parenchymal defects are identified. 2. Gallbladder activity is identified at 45 minutes post radiopharmaceutical administration. 3. Small intestinal tract is observed at 30 minutes following tracer injection. 4. Washout of the radiopharmaceutical by the hepatic parenchyma appears qualitatively normal. The patient was administered a fatty meal (8 ounces BOOST-30 grams fat). The post fatty meal consumption gallbladder ejection fraction calculated at 60 minutes was noted to be 70.0 % (normal greater than 30%). UT/Hepatobilliary Img w/Pharm Int IMPRESSION: 1. NORMAL 99m Tc Mebrofenin hepatobiliary imaging examination with fatty meal ingestion. A. A gallbladder ejection fraction calculated to be greater than 30% following the administration of a consumed fatty meal makes the probability of functional hepatobiliary disease (gallbladder and/or sphincter of Oddi dyskinesia) and/or organic hepatobiliary disease (chronic acalculous cholecystitis and/or cystic duct syndrome) to be low. (Archie and Howard, J Nucl Med 43: 1603, 2002). Electronically Signed: Santo Catalan DO at 22:13 EST Tel , Service support ,
--- OUTSIDE RECORDS SUMMARY | 2018-12-23 20:14 | XMS RPT_ITS ---
:1950 Author Organization OHIP Support Name Relationship Address Phone R Unavailable Unavailable Unavailable SAUTTER, ROSETTE Unavailable [address] + [place] [address] R Unavailable Unavailable Unavailable SAUTTER, ROSETTE Unavailable [address] + [place] [address] R Unavailable Unavailable Unavailable SAUTTER, ROSETTE Unavailable [address] + [place] [address] R Unavailable Unavailable Unavailable SAUTTER, ROSETTE Unavailable [address] + [place] [address] R Unavailable Unavailable Unavailable SAUTTER, ROSETTE Unavailable [address] + [place] [address] R Unavailable Unavailable Unavailable SAUTTER, ROSETTE Unavailable [address] + [place] [address] R Unavailable Unavailable Unavailable SAUTTER, ROSETTE Unavailable [address] + [place] [address] R Unavailable Unavailable Unavailable SAUTTER, ROSETTE Unavailable [address] + [place] [address] R Unavailable Unavailable Unavailable SAUTTER, ROSETTE Unavailable [address] + [place] [address] R Unavailable Unavailable Unavailable SAUTTER, ROSETTE Unavailable [address] + [place] [address] R Unavailable Unavailable Unavailable SAUTTER, ROSETTE Unavailable [address] + [place] [address] R Unavailable Unavailable Unavailable SAUTTER, ROSETTE Unavailable [address] + [place] [address] R Unavailable Unavailable Unavailable SAUTTER, ROSETTE Unavailable [address] + [place] [address] Care Team Providers Name Role Phone Jorge [...] Repository 12/11/2017 Unknown Z86.79 - Personal [place] Active [place] history of other Community diseases of the Hospital circulatory system Repository / Z86.79(ICD-10) 12/11/2017 Unknown R00.2 - [place] Active [place] Palpitations / Community R00.2(ICD-10) Hospital Repository PROCEDURES PROCEDURES No Procedure Records FoundRESULTS RESULTS HEPATOBILLIARY IMG Observed: 09/21/2018 Status: F Source: [place] W/PHARM INT 11:24 AM [facility] Imaging Services [address] [place] [address] Hepatobilliary Img w/Pharm Int MR#: [id number] Acct: [id number] Name: JUANJO KILLIAN Rep #: [id number] : 1950 M 67 From: Santo Catalan DO PCP: Jorge Alberto ENCARNACION,Torito Greenfield Status: REG CLI Study: Hepatobilliary Img w/Pharm Int Date of Exam: 09/21/18 Exam# [id number] Ordering Dr: Torito Azul MD CLINICAL: 67-year-old [...] Service support , CC: Torito Azul MD [place] Worker: Signed GALLBLADDER Observed: 09/16/2018 Status: F Source: [place] 7:[address] [facility] REPOSITORY [facility] Imaging Services [address] [place] [address] Gallbladder MR#: [id number] Acct: [id number] Name: JUANJO KILLIAN Rep #: [id number] : 1950 M 67 From: Michael Day MD PCP: Torito Azul MD, Chi Status: REG CLI Study: Gallbladder Date of Exam: 09/16/18 Exam# [id number] Ordering Dr: Torito Azul MD STUDY: ABDOMINAL [...] Service support , CC: Torito Azul MD [place] Worker: Signed CBC W/DIFF, AUTOMATED Collected: 09/13/2018 Status: F Source: [place] 11:[address] [facility] REPOSITORY TYPE CODE TESTS RESULT OUT OF [...] Lymph 1.55 Performed By: #### L100.0100 #### [facility] [address] [place], [address] VITAMIN D,25 HYDROXY Collected: 09/13/2018 Status: F Source: [place] 11:[address] [facility] REPOSITORY TYPE CODE TESTS RESULT OUT OF REFERENCE UNITS RANGE LAB L506.1000 29.95-100.01 ng/mL Low Vitamin D 21.9 25-OH Result Comment: Vitamin D 25(OH) Status Range Deficiency <20 ng/mL (50nmol/L) Insuffciency 20 - 30 ng/mL (50 - 75 nmol/L) Sufficiency 30 - 100 ng/mL (75 - 250 nmol/L) Toxicity >100 ng/mL (>250 nmol/L) Performed By: #### L506.1000 #### [facility] [address] [place], [address] COMPREHENSIVE METABOLIC Collected: 09/13/2018 Status: F Source: [place] [facility] 11:[address] [facility] REPOSITORY TYPE CODE TESTS RESULT OUT OF [...] Performed By: #### L500.4050, L501.9520, L501.9910 #### [facility] [address] [place], [address] THYROID STIM HORMONE Collected: 09/13/2018 Status: F Source: [place] (TSH) 11:[address] [facility] REPOSITORY TYPE CODE TESTS RESULT OUT OF RANGE REFERENCE UNITS LAB L501.9520 0.358-3.74 uIU/mL Normal TSH 1.09 Performed By: #### L500.4050, L501.9520, L501.9910 #### [facility] [address] [place], [address] PSA,TOTAL - ANNUAL Collected: 09/13/2018 Status: F Source: [place] SCREEN 11:[address] [facility] REPOSITORY TYPE CODE TESTS RESULT OUT OF RANGE REFERENCE UNITS LAB L501.9910 0.00-4.00 ng/mL Normal PSA,TOT 1.19 SCREEN Result Comment: This test was performed using the TPSA assay method for the [employer] chemistry system. Values obtained with different assay methods cannot be used interchangably. When changing PSA assays in the course of monitoring a patient, additional sequential testing should be carried out to confirm baseline values. Performed By: #### L500.4050, L501.9520, L501.9910 #### [facility] [address] [place], [address] CARDIOLOGY VISIT Observed: 05/07/2018 Status: F Source: [place] REPORT 6:[address] [facility] REPOSITORY [facility] [address] [place] [address] OFFICE VISIT Date of Service: 05/06/18 MR#: [id number] Acct: [id number] Name: JUANJO KILLIAN Rep #: [id number] : 1950 Provider: Karina Westbrook Age/Sex: 67/M [...] Lt brachial Intake Visit Reasons: 5 M Grizzlyman Required: No Accompanied by: None Is patient [...] (Chronic) Hypertension (Chronic) Atherosclerotic heart disease of [place] coronary artery without angina pectoris (Chronic) History [...] workload. Assessment AND Plan 1. Atherosclerosis of [place] coronary artery of [place] heart without angina pectoris I25.10 ROSE to LAD, reverse SVG to First OM, to PDA and left radial to first DX 11/29/[address] @ [facility]; PTCA and OLI to distal RCA 08/04/16 [...] prior to saving. 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 transplanted heart: [place] heart Essential hypertension I10 Hypertension type: essential hypertension Pure hypercholesterolemia E78.00 Hyperlipidemia type: pure hypercholesterolemia History of atrial fibrillation Z86.79 Coding Level of Care Code Off vis,est,level 3 Diagnoses Atherosclerosis of [place] coronary artery of [place] heart without angina pectoris I25.10 [place] vs. transplanted heart: [place] heart Essential hypertension I10 Hypertension type: essential hypertension Pure hypercholesterolemia E78.00 Hyperlipidemia type: pure hypercholesterolemia History of atrial fibrillation Z86.79 05/06/18 1015 <Electronically signed by Karina HOLLIDAY> Date Karina HOLLIDAY 05/07/18 0635<Electronically signed by Eklin Alonzo MD> Cosigner Signature: Date (if applicable) Elkin Alonzo MD CC: Torito Azul MD LIVER PROFILE Collected: 05/03/2018 Status: F Source: [place] 6:[address] [facility] REPOSITORY TYPE CODE TESTS RESULT OUT OF [...] 0.27 Performed By: #### L500.3400, L500.4100 #### [facility] [address] [place], [place], [address] LIPID PROFILE Collected: 05/03/2018 Status: F Source: [place] 6:[address] [facility] REPOSITORY TYPE CODE TESTS RESULT OUT OF [...] 43 Performed By: #### L500.3400, L500.4100 #### [facility] [address] [place], [address] EMERGENCY DEPARTMENT Observed: 01/30/2018 Status: F Source: [place] SUMMARY 3:[address] [facility] REPOSITORY [facility] Medical Records Department [address] [place] [address] Emergency Department Summary 01/30/18 1343 MR#: [id number] Acct: [id number] Name: JUANJO KILLIAN Rep #: [id number] : 1950 67 From: Solis Kumari PCP: [...] catheter dysfunction This note was generated with Neocleus dictation software. It may contain incorrect words, [...] your Primary Care Provider. Call [facility] ([phone]) or report to the closest Emergency Room. Call 911 if necessary. 01/30/18 1508 <Electronically signed by Solis Kumari> Date Solis Kumari Cosigner Signature (If Indicated): Date CC: Torito Azul MD DISCHARGE INSTRUCTION Observed: 01/28/2018 Status: F Source: [place] 10:[address] [facility] REPOSITORY [facility] Medical Records Department [address] [place] [address] Discharge Instruction 01/28/182207 MR#: [id number] Acct: [id number] Name: JUANJO KILLIAN Rep #: [id number] : 1950 67 From: Adriel Mackenzie MD [...] your Primary Care Provider. Call [facility] ([phone]) or report to the closest Emergency Room. Call 911 if necessary. 01/28/182208 <Electronically signed by Adriel Mackenzie MD> Date Adriel Mackenzie MD Cosigner Signature (If Indicated): Date CC: Torito Azul MD EMERGENCY DEPARTMENT Observed: 01/28/2018 Status: F Source: [place] SUMMARY 10:[address] [facility] RE[facility]ITORY [facility] Medical Records Department [address] [place] [address] Emergency Department Summary 01/28/182206 MR#: [id number] Acct: [id number] Name: JUANJO KILLIAN Rep #: [id number] : 1950 67 From: Adriel Mackenzie MD [...] retention, UTI This note was generated with [employer] Loveation software. It may contain incorrect words, spelling, [...] your Primary Care Provider. Call [facility] ([phone]) or report to the closest Emergency Room. Call 911 if necessary. 01/28/182207 <Electronically signed by Adriel Mackenzie MD> Date Adriel Mackenzie MD Cosigner Signature (If Indicated): Date CC: Torito Azul MD Observed: 01/28/2018 Status: F Source: [place] CULTURE, URINE 10:[address] [facility] REPOSITORY Order Date: 01/28/18 Comments: [facility] Urine Culture Culture exhibits no growth. Performed By: #### M100.0650 #### [facility] [place], [address] Observed: 01/27/2018 Status: F Source: [place] CULTURE, URINE 9:[address] [facility] REPOSITORY Urine Culture ORGANISM 1: Presumptive E. coli [place] Count >100,000 Presumptive E. coli: REACTION Amoxacillin/Clavulanic [...] <=20 S (NF) indicates non-formulary drug at [facility]. Approval by Infectious Disease Specialist required before non-formulary drugs may be ordered and/or dispensed. Performed By: #### M100.0650 #### [facility] [address] [place], [address] CARDIOLOGY VISIT Observed: 11/06/2017 Status: F Source: [place] REPORT 3:[address] [facility] REPOSITORY [facility] [address] [place] [address] OFFICE VISIT Date of Service: 11/05/17 MR#: [id number] Acct: [id number] Name: JUANJO KILLIAN Rep #: [id number] : 1950 Provider: Elkin Alonzo MD Age/Sex: 66/M Location: [facility] [place] Status: Signed HPI 5 M [...] 11/05/17] Ejection fraction %: 50 to 54 [facility] Medical History History of non-ST elevation myocardial infarction (NSTEMI) (Chronic) History of atrial fibrillation (Chronic) Sinus bradycardia (Chronic) Diabetes mellitus, type II (Chronic) Hyperlipidemia (Chronic) Hypertension (Chronic) Atherosclerotic heart disease of [place] coronary artery without angina pectoris (Chronic) Surgical [...] first DX 11/29/[address] @ [facility] Plan Patient appears to be stable with [...] REACTION SEVERITY SOURCE Drug Penicillins/F0 Anaphylaxis SV [place] 8 Allergy/772151937( 59497949(RXNOR Community SNOMED CT) M) Hospital Repository Miscellaneous chocolate respiratory SV [place] 8 Allergy/865767083( distress Community SNOMED CT) Hospital Repository ENCOUNTERS ENCOUNTERS ADMIT/DISCHARGE ACCOUNT ADMITTING ENCOUNTER LOCATION SOURCE NUMBER CLASS 09/21/2018 [id number] Ambulatory [place] 7 [facility] Hospital ing:NM Repository 09/16/2018 [id number] Ambulatory [place] 4 [facility] Hospital ing:US Repository 09/13/2018 [id number] Ambulatory [place] 7 [facility] ing:POLAB3 Repository 05/06/2018/ [id number] Ambulatory BMSBuilding:B [place] 8 1 [facility] Repository 05/03/2018 [id number] Ambulatory [place] [facility] ing:LAB Repository 01/30/2018/ [id number] Emergency [place] 8 1 [facility] ing:ED Repository 01/28/2018/ [id number] Emergency [place] 8 0 [facility] ing:ED Repository 01/27/2018 [id number] Ambulatory [place] 3 [facility] ing:LABSPEC Repository 01/06/2018 [id number] Ambulatory BMSBuilding:B [place] 1 [facility] Repository 12/11/2017 [id number] Ambulatory [place] 1 [facility] Hospital ing:CVS Repository 12/11/2017 [id number] Ambulatory BMSBuilding:W [place] 1 [facility] Repository 11/05/2017/ [id number] Ambulatory BMSBuilding:B [place] 8 9 [facility] Repository 11/04/2017 [id number] Ambulatory BMSBuilding:B [place] 0 [facility] Repository PAYERS PAYERS ENCOUNTER GUARANTOR PAYER SUBSCRIBER SOURCE 09/21/2018 JUANJO Altamirano Primary JUANJO Moreno [id number] E Insurance:MEDICARE SAUTTERDOB: [facility] PART A BPolicy Number: [id number] [id number] Repository [address]Jyw: (330) Date:2018-09-13 [phone] () 09/21/2018 Secondary JUANJO Moreno Insurance:HUMANA SAUTTERDOB: Community COMMERCIALPolicy [id number] Hospital Number: Repository [id number] Date:2616-75-21NH [address] [place] [address]OL: 09/21/2018 Tertiary NOT GIVENUNK [place] Insurance:SELF PAY [facility] Number: Effective Repository Date:2018-09-13 09/16/2018 JUANJO Altamirano Primary JUANJO Brunneroster [id number] E Insurance:MEDICARE SAUTTERDOB: Community [place] PART A BPolicy Number: [id number] [id number] Repository [address]Kxj: (402) Date:2018-09-13 [phone] () 09/16/2018 Secondary JUANJO L [place] Insurance:HUMANA SAUTTERDOB: Community COMMERCIALPolicy [id number] Hospital Number: Repository [id number] Date:5880-17-[address] [address]LU: 09/16/2018 Tertiary NOT GIVENUNK [place] Insurance:SELF PAY [facility] Hospital Number: Effective Repository Date:2018-09-13 09/13/2018 JUANJO Altamirano Primary JUANJO Brunneroster [id number] E Insurance:MEDICARE SAUTTERDOB: Community [place] PART A BPolicy Number: [id number], [place] [id number] Repository [address]Azn: 330) Date:2018-09-13 [phone] () 09/13/2018 Secondary JUANJO L [place] Insurance:HUMANA SAUTTERDOB: Community COMMERCIALPolicy [id number] Hospital Number: Repository [id number] Date:5817-10-10FG [address] [place] [address]OI: 09/13/2018 Tertiary NOT GIVENUNK [place] Insurance:SELF PAY [facility] Hospital Number: Effective Repository Date:2018-09-13 05/06/2018 JUANJO L Primary JUANJO L [place] [id number] E Insurance:MEDICARE SAUTTERDOB: Community [place] PART A BPolicy Number: [id number], [place] [id number] Repository [address]Mrb: (330) Date:2017-11-05 [phone] () 05/06/2018 Secondary JUANJO Altamirano [place] Insurance:HUMANA SAUTTERDOB: Community COMMERCIALPolicy [id number] Hospital Number: Repository [id number] Date:5969-18-12WY [address] [place] [address]UY: 05/06/2018 Tertiary NOT GIVENUNK [place] Insurance:SELF PAY [facility] Hospital Number: Effective Repository Date:2018-05-06 05/03/2018 JUANJO Altamirano Primary JUANJO Moreno [id number] E Insurance:MEDICARE SAUTTERDOB: Community [place] PART A BPolicy Number: [id number], [place] [id number] Repository [address]Kso: (330) Date:2018-05-03 [phone] () 05/03/2018 Secondary JUANJO L [place] Insurance:HUMANA SAUTTERDOB: [facility] COMMERCIALPolicy [id number] Hospital Number: Repository [id number] Date:3312-89-02DS [address] [place] [address]AW: 05/03/2018 Tertiary NOT GIVENUNK [place] Insurance:SELF PAY [facility] Hospital Number: Effective Repository Date:2018-05-03 01/30/2018 JUANJO L Primary JUANJO Moreno [id number] E Insurance:MEDICARE SAUTTERDOB: Community [place] PART A BPolicy Number: [id number], [place] [id number] Repository [address]Nlu: (330) Date:2018-01-30 [phone] () 01/30/2018 Secondary JUANJO L [place] Insurance:HUMANA SAUTTERDOB: Community COMMERCIALPolicy [id number] Hospital Number: Repository [id number] Date:3331-26-45AF [address] [place] [address]TP: 01/30/2018 Tertiary NOT GIVENUNK [place] Insurance:SELF PAY [facility] Hospital Number: Effective Repository Date:2018-01-30 01/28/2018 JUANJO Moreno [id number] E Insurance:MEDICARE SAUTTERDOB: Community [place] PART A BPolicy Number: [id number], [place] [id number] Repository [address]Cjw: (330) Date:2018-01-28 [phone] () 01/28/2018 Secondary JUANJO Moreno Insurance:HUMANA SAUTTERDOB: Community COMMERCIALPolicy [id number] Hospital Number: Repository [id number] Date:0453-44-54AW [address] [address]VU: 01/28/2018 Tertiary NOT GIVENUNK [place] Insurance:SELF PAY [facility] Hospital Number: Effective Repository Date:2018-01-28 01/27/2018 JUANJO Moreno [id number] E Insurance:MEDICARE SAUTTERDOB: Community [place] PART A BPolicy Number: [id number], [place] [id number] Repository [address]Azt: (330) Date:2018-01-27 [phone] () 01/27/2018 Secondary JUANJO Moreno Insurance:HUMANA SAUTTERDOB: [facility] [id number] Hospital Number: Repository [id number] Date:9440-57-30MO [address] [place] [address]JC: 01/27/2018 Tertiary NOT GIVENUNK [place] Insurance:SELF PAY [facility] Hospital Number: Effective Repository Date:2018-01-27 01/06/2018 JUANJO Moreno [id number] E Insurance:MEDICARE SAUTTERDOB: Community [place] PART A BPolicy Number: [id number], [place] [id number] Repository [address]Ncu: (330) Date:2018-01-06 [phone] (HP) 01/06/2018 Secondary JUANJO L [place] Insurance:HUMANA SAUTTERDOB: Community COMMERCIALPolicy [id number] Hospital Number: Repository [id number] Date:5301-12-98DD [address] [place] [address]OA: 01/06/2018 Tertiary NOT GIVENUNK [place] Insurance:SELF PAY [facility] Hospital Number: Effective Repository Date:2018-01-06 12/11/2017 JUANJO Altamirano Primary Insurance:SELF NOT GIVENUNK [place] [id number] E PAY Community Health Number: Effective [place] Date:2017-12-09 Repository 985[address]Lvs: () 12/11/2017 JUANJO Altamirano Primary JUANJO Brunneroster [id number] E Insurance:MEDICARE SAUTTERDOB: Community [place] PART A BPolicy Number: [id number], [place] [id number] Repository [address]Vnj: (190) Date:2017-09-09 [phone] (HP) 12/11/2017 Secondary JUANJO Altamirano Josh Insurance:HUMANA SAUTTERDOB: Community COMMERCIALPolicy [id number] Hospital Number: Repository [id number] Date:6469-79-14CS [address] [place] [address]WR: 12/11/2017 Tertiary NOT GIVENUNK [place] Insurance:SELF PAY [facility] Hospital Number: Effective Repository Date:2017-12-11 11/05/2017 JUANJO Altamirano Primary JUANJO Moreno [id number] E Insurance:MEDICARE SAUTTERDOB: Community [place] PART A BPolicy Number: [id number], [place] [id number] Repository 17776Sea: (969) Date:2017-09-09 [phone] (HP) 11/05/2017 Secondary JUANJO Altamirano Josh Insurance:HUMANA SAUTTERDOB: Community COMMERCIALPolicy [id number] Hospital Number: Repository [id number] Date:5093-18-19YF [address] [place] [address]CS: 11/05/2017 Tertiary NOT GIVENUNK Josh Insurance:SELF PAY [facility] Hospital Number: Effective Repository Date:2017-09-09 11/04/2017 Juanjo Altamirano Primary Juanjo Mroeno [id number] E Insurance:MEDICARE SautterDOB: Community [place] PART A BPolicy Number: [id number], [place] [id number] Repository 555[address]Dfh: (330) Date:2017-11-04 [phone] (HP) 11/04/2017 Secondary Juanjo Moreno Insurance:HUMANA SautterDOB: Community COMMERCIALPolicy [id number] Hospital Number: Repository [id number] Date:3191-04-71AN [address] [address]ON: 11/04/2017 Tertiary NOT GIVENUNK [place] Insurance:SELF PAY [facility] Hospital Number: Effective Repository Date:2017-11-04
== END ==
PROVIDERS: Family Provider Family Medicine Geriatric Medicine; PCP Family Medicine Geriatric Medicine; Referring Provider Family Medicine Geriatric Medicine; Visit Provider Family Medicine Geriatric Medicine
DX: R10.9 Unspecified abdominal pain (principal)
CPT/HCPCS: 78227; A9537

== ENCOUNTER → 2019-03-17 06:51 | Outpatient (CLI) | payer MEDICARE, OTHER, SELFPAY ==
[2018-05-06 09:24] VITALS: BMI 28.8
[2019-03-17 07:50] LABS: AST(SGOT) 31 U/L (15-37); Alanine Aminotransfer ALT/SGPT 64 U/L (16-61); Albumin, Serum 4.1 g/dL (3.2-5.0); Alkaline Phosphatase 52 U/L (45-117); Bilirubin, Direct 0.31 mg/dL (0.00-0.30); Cholesterol 138 mg/dL (200); Globulin 3.3 g/dL (2.2-4.2); High Density Lipoprotein 40 mg/dL; Protein, Total 7.4 g/dL (6.4-8.2); Triglycerides 155 mg/dL; Very Low Density Lipoprotein 31 mg/dL (5-40)
== END ==
PROVIDERS: Physician Assistant Medical; Family Provider Family Medicine Geriatric Medicine; PCP Family Medicine Geriatric Medicine; Referring Provider Internal Medicine Cardiovascular Disease; Visit Provider Internal Medicine Cardiovascular Disease
DX: E78.5 Hyperlipidemia, unspecified (principal)
CPT/HCPCS: 36415; 80061; 80076

== ENCOUNTER → 2019-08-09 12:11 | Outpatient (CLI) | payer MEDICARE, OTHER, SELFPAY ==
[2019-03-18 09:10] VITALS: BMI 29.7
--- NOTE | 2019-08-09 12:13 | RAD_ITS ---
STUDY: X-RAY CHEST REASON FOR EXAM: Male, 68 years old. Chest pain TECHNIQUE: PA and lateral views of the chest. COMPARISON: Prior study of 08/04/2016 FINDINGS: There is a calcified granuloma of the right lung base. There is no demonstrated pleural abnormality. The heart size is within normal limits. Status post sternotomy changes are present. Normal mediastinum and richard. Normal visualized pulmonary arteries. There are calcified plaques of the aortic arch. There are diffuse degenerative changes of the visualized thoracic spine. Normal visualized ribs, clavicles, and shoulders. There is no demonstrated abnormality of the visualized soft tissue structures of the upper abdomen. RAD/Chest PA and Lateral IMPRESSION: 1. Calcified granuloma the right lung base. 2. Status post sternotomy. 3. Calcified plaques of the aortic arch. 4. Mild degenerative changes of the thoracic spine. Electronically Signed: Tom Rai MD at 22:52 EST , Service support ,
[2019-08-09 13:27] LABS: Absolute Lymphocyte Count 1.92 X10^3/uL (0.83-4.51); Absolute Neutrophil Count 4.1 X10^3/uL (2.0-7.7); Basophil# 0.06 X10^3/uL; Basophil% 0.9 % (0-1); Eosinophil# 0.12 X10^3/uL; Eosinophils% 1.7 % (0-5); Hematocrit 45.6 % (40-54); Hemoglobin 15.4 g/dL (13.0-16.5); Lymphocyte # 1.92 X10^3/ul (4.0); Lymphocyte % 27.7 % (19-41); Mean Corp Hgb Conc 33.8 g/dL (32-36); Mean Corpuscular Hgb 32.4 pg (27.0-32.0); Mean Corpuscular Volume 95.8 fL (80-94); Mean Platelet Vol. 10.6 fl (6.2-12.0); Monocyte# 0.68 X10^3/uL; Monocyte% 9.8 % (0-10); NRBC Flagged by Analyzer 0 % (0-5); Neutrophil # 4.13 X10^3/uL (2.7-7.7); Neutrophil % 59.6 % (47-70); Platelet Count 224 K/mm3 (150-450); RBC Distribution Width CV 11.8 % (11.6-14.6); RBC Distribution Width SD 41.6 fl (35.1-43.9); Red Blood Count 4.76 M/mm3 (4.6-6.2); White Blood Count 6.9 K/mm3 (4.4-11.0)
[2019-08-09 13:50] LABS: ALB/GLOB Ratio 1.2 RATIO (0.9-2.4); AST(SGOT) 32 U/L (15-37); Alanine Aminotransfer ALT/SGPT 71 U/L (16-61); Albumin, Serum 4.3 g/dL (3.2-5.0); Alkaline Phosphatase 56 U/L (45-117); Anion Gap 5 (5-15); BUN 14 mg/dL (7-18); BUN/Creat Ratio 16.6 RATIO (10-20); Calcium,Total 9.9 mg/dL (8.5-10.1); Chloride 103 mmol/L (98-107); Creatinine, Serum 0.84 mg/dL (0.70-1.30); EST Glomerular Filtration Rate 96 mL/min (>60); Est Glom Filt Rate - Afr Amer 116 mL/min (>60); Globulin 3.6 g/dL (2.2-4.2); Glucose 130 mg/dL (74-106); Potassium 3.7 mmol/L (3.5-5.1); Protein, Total 7.9 g/dL (6.4-8.2); Sodium Level 138 mmol/L (136-145); Thyroid Stim Hormone (TSH) 1.44 uIU/mL (0.358-3.74)
== END ==
PROVIDERS: Family Provider Family Medicine Geriatric Medicine; PCP Family Medicine Geriatric Medicine; Referring Provider Family Medicine Geriatric Medicine; Visit Provider Family Medicine Geriatric Medicine
DX: R07.9 Chest pain, unspecified (principal); R53.83 Other fatigue
CPT/HCPCS: 36415; 71046; 80053; 84443; 85025

== ENCOUNTER → 2019-08-10 17:39 | Outpatient (CLI) | payer MEDICARE, OTHER, SELFPAY ==
[2019-03-18 09:10] VITALS: BMI 29.7
--- NOTE | 2019-08-10 18:10 | CT_ITS ---
STUDY: CT ABDOMEN AND PELVIS WITH CONTRAST REASON FOR EXAM: Male, 68 years old. Right upper quadrant pain. RADIATION DOSAGE (If Supplied By Facility): CTDIvol = ( 12.74 ) mGy, DLP = ( 1194.08 ) mGycm TECHNIQUE: Transaxial images were obtained from the dome of the diaphragm to the symphysis pubis with oral contrast. IV/Oral Isovue 300 50 was administered. Sagittal and coronal images were reconstructed. Individualized dose optimization techniques were used for this CT. COMPARISON: None. FINDINGS: The visualized lung bases are unremarkable. Stable calcified granuloma in the right lung base. The visualized portions of the heart are within normal limits. Normal liver. There is a solitary gallstone. Normal spleen. Normal pancreas. Normal bilateral adrenal glands. Normal right kidney. Normal left kidney. Normal visualized stomach. Normal small intestine. Moderate to marked diffuse fecal retention throughout the colon. There is non-visualization of the appendix. There is diffuse atherosclerotic calcification of the abdominal aorta, without a demonstrated aneurysm. Normal inferior vena cava. Normal retroperitoneum. Normal urinary bladder. There is enlargement of the prostate gland. Radiotherapy seeds are seen in the prostate consistent with prostate cancer. Normal abdominal wall. Bilateral pars defects of L5 with mild anterolisthesis and degenerative disc disease at L5-S1. CT/Abdomen/Pelvis WITH Contrast IMPRESSION: No definite acute abnormality. [id number] diffuse fecal retention. Cholelithiasis which was also present previously. Electronically Signed: Lonnie Harrington MD at 19:32 EST , Service support ,
== END ==
PROVIDERS: Family Provider Family Medicine Geriatric Medicine; PCP Family Medicine Geriatric Medicine; Referring Provider Family Medicine Geriatric Medicine; Visit Provider Family Medicine Geriatric Medicine
DX: R10.9 Unspecified abdominal pain (principal)
CPT/HCPCS: 74177; Q9967; A4216

== ENCOUNTER → 2019-09-20 14:43 | Outpatient (CLI) | payer MEDICARE, OTHER, SELFPAY ==
[2019-03-18 09:10] VITALS: BMI 29.7
[2019-09-20 17:10] LABS: Absolute Lymphocyte Count 1.88 X10^3/uL (0.83-4.51); Absolute Neutrophil Count 4.4 X10^3/uL (2.0-7.7); Basophil# 0.06 X10^3/uL; Basophil% 0.8 % (0-1); Eosinophil# 0.16 X10^3/uL; Eosinophils% 2.2 % (0-5); Hemoglobin 14.5 g/dL (13.0-16.5); Lymphocyte # 1.88 X10^3/ul (4.0); Lymphocyte % 25.9 % (19-41); Mean Corp Hgb Conc 34.5 g/dL (32-36); Mean Corpuscular Hgb 32.8 pg (27.0-32.0); Mean Platelet Vol. 10.9 fl (6.2-12.0); Monocyte# 0.67 X10^3/uL; Monocyte% 9.2 % (0-10); NRBC Flagged by Analyzer 0 % (0-5); Neutrophil # 4.44 X10^3/uL (2.7-7.7); Neutrophil % 61.3 % (47-70); Platelet Count 197 K/mm3 (150-450); RBC Distribution Width CV 11.9 % (11.6-14.6); RBC Distribution Width SD 41.1 fl (35.1-43.9); Red Blood Count 4.42 M/mm3 (4.6-6.2); White Blood Count 7.3 K/mm3 (4.4-11.0)
[2019-09-20 17:38] LABS: ALB/GLOB Ratio 1.3 RATIO (0.9-2.4); AST(SGOT) 34 U/L (15-37); Alanine Aminotransfer ALT/SGPT 81 U/L (16-61); Albumin, Serum 4.1 g/dL (3.2-5.0); Alkaline Phosphatase 56 U/L (45-117); Anion Gap 6 (5-15); BUN 18 mg/dL (7-18); BUN/Creat Ratio 18.3 RATIO (10-20); Calcium,Total 9.7 mg/dL (8.5-10.1); Chloride 106 mmol/L (98-107); Creatinine, Serum 0.98 mg/dL (0.70-1.30); EST Glomerular Filtration Rate 80 mL/min (>60); Est Glom Filt Rate - Afr Amer 97 mL/min (>60); Globulin 3.2 g/dL (2.2-4.2); Glucose 190 mg/dL (74-106); PSA,Total - Annual Screen 1.37 ng/mL (0.00-4.00); Protein, Total 7.3 g/dL (6.4-8.2); Sodium Level 141 mmol/L (136-145); Thyroid Stim Hormone (TSH) 1.65 uIU/mL (0.358-3.74)
[2019-09-20 17:49] LABS: Vitamin D,25 Hydroxy 21.2 ng/mL (29.95-100.01)
== END ==
PROVIDERS: Family Provider Family Medicine Geriatric Medicine; PCP Family Medicine Geriatric Medicine; Visit Provider Family Medicine Geriatric Medicine
DX: E11.9 Type 2 diabetes mellitus without complications (principal); I10 Essential (primary) hypertension; E55.9 Vitamin D deficiency, unspecified; Z12.5 Encounter for screening for malignant neoplasm of prostate
CPT/HCPCS: 36415; 80053; 82306; 84153; 84443; 85025; G0103

== ENCOUNTER → 2019-11-22 14:02 | Outpatient (CLI) | payer MEDICARE, OTHER, SELFPAY ==
[2019-03-18 09:10] VITALS: BMI 29.7
== END ==
PROVIDERS: PCP Family Medicine Geriatric Medicine; Referring Provider Physician Assistant Medical; Visit Provider Physician Assistant Medical
DX: I25.810 Atherosclerosis of coronary artery bypass graft(s) without angina pectoris (principal); Z95.1 Presence of aortocoronary bypass graft; I10 Essential (primary) hypertension; I48.0 Paroxysmal atrial fibrillation; I25.2 Old myocardial infarction; Z95.5 Presence of coronary angioplasty implant and graft; E78.5 Hyperlipidemia, unspecified
CPT/HCPCS: 93225; 93226

== ENCOUNTER → 2019-12-16 11:42 | Outpatient (CLI) | payer MEDICARE, OTHER, SELFPAY ==
[2019-12-16 11:02] VITALS: BMI 30.2
[2019-12-16 13:22] LABS: AST(SGOT) 40 U/L (15-37); Alanine Aminotransfer ALT/SGPT 84 U/L (16-61); Albumin, Serum 4.3 g/dL (3.2-5.0); Alkaline Phosphatase 58 U/L (45-117); Bilirubin, Direct 0.36 mg/dL (0.00-0.30); Cholesterol 157 mg/dL (200); Globulin 3.5 g/dL (2.2-4.2); High Density Lipoprotein 38 mg/dL; Protein, Total 7.8 g/dL (6.4-8.2); Triglycerides 290 mg/dL; Very Low Density Lipoprotein 58 mg/dL (5-40)
== END ==
PROVIDERS: PCP Family Medicine Geriatric Medicine; Referring Provider Internal Medicine Cardiovascular Disease; Visit Provider Internal Medicine Cardiovascular Disease
DX: E78.00 Pure hypercholesterolemia, unspecified (principal); Z95.1 Presence of aortocoronary bypass graft
CPT/HCPCS: 36415; 80061; 80076

== ENCOUNTER → 2019-12-26 06:14 | Outpatient (CLI) | payer MEDICARE, OTHER, SELFPAY ==
[2019-12-16 11:02] VITALS: BMI 30.2
--- NOTE | 2019-12-26 06:16 | ECHOD_ITS ---
Reason For Study: Arrhythmia Procedure This was a 2D Doppler, Color Flow transthoracic echocardiogram. Exam performed in department. Left Ventricle Normal LV size. Left ventricular systolic function is lower limits of normal. The estimated ejection fraction is 53 %. Post operative septal motion. Mid-anteroseptal : Hypokinetic. Right Ventricle Normal RV size. Normal systolic function. Atria Normal left atrium. Normal right atrium. Bubble contrast study negative for right to left interatrial shunt. Mitral Valve Normal mitral valve. Mild (1+) anteriorly directed mitral valve insufficiency. Tricuspid Valve Normal tricuspid valve. Mild (1+) tricuspid valve insufficiency. Pulmonary artery systolic pressure is 28 mmHg. Aortic Valve Trisinus/trileaflet aortic valve. Mild focal aortic valve calcification. Great Vessels Normal aortic root. The pulmonary artery is normal size. Normal inferior vena cava. Pericardium/Pleural No pericardial effusion. Medication Performed a rapid injection of agitated mix of 9 cc saline and 1cc air to assess for atrial septal defect. MMode/2D Measurements & Calculations LVIDd: 4.9 cm IVSd: 1.0 cm Ao root diam: 3.7 cm LVIDs: 3.2 cm LVPWd: 1.1 cm RVDd: 3.8 cm FS: 35.7 % LAV(MOD-bp): 55.2 ml LA A4 area: 17.1 cm2 LA dimension(2D): 4.6 cm LAV(MOD-bp) Indexed: 27.1 ml/m2 LAV(MOD-sp2): 63.2 ml LAV(MOD-sp4): 47.7 ml RA A4 area: 12.0 cm2 Doppler Measurements & Calculations MV E max hayes: 58.6 cm/sec Lat Peak E' Hayes: 8.1 cm/sec Med Peak E' Hayes: 6.2 cm/sec MV A max hayes: 89.2 cm/sec E/E' lat: 7.2 E/E' med: 9.4 MV E/A: 0.66 Ao V2 max: 157.7 cm/sec LV V1 max: 115.4 cm/sec PA V2 max: 106.8 cm/sec Ao max P.0 mmHg LV V1 max P.3 mmHg TR max hayes: 241.7 cm/sec TR max P.4 mmHg Interpretation Summary Normal LV size. Left ventricular systolic function is lower limits of normal. The estimated ejection fraction is 53 %. Bubble contrast study negative for right to left interatrial shunt. Compared to previous study, the left ventricular systolic function is the same.. Ordering Physician: Elkin Alonzo Referring Physician: Torito Azul Chi Performed By: Stefany Ireland RDCS
--- NOTE | 2019-12-26 12:37 | STRESSREP ---
Stress Test Report Pharmacologic myocardial perfusion stress test. 69-year-old man with a history of previous coronary artery bypass surgery with a saphenous vein graft to the obtuse marginal branch, PDA, radial graft to the diagonal branch and ROSE to the LAD. Stress protocol: Resting EKG demonstrates normal sinus rhythm with premature atrial complexes. The maximum heart rate is 74 bpm with a resting heart rate of 63 bpm. The resting blood pressure 132/84 mmHg. At rest there were no ST or T wave changes noted to suggest abnormal flow reserve a peak infusion nonspecific ST-T wave changes were noted with no meet the criteria for abnormal flow reserve. No clinical angina was noted. The resting blood pressure was 132/84 with a final blood pressure 122/70. Myocardial perfusion protocol. 14.3 mCi of technetium 99m sestamibi was injected at rest. 0.4 mg of regadenoson was infused per usual protocol peak infusion 44.5 mCi of technetium 99m sestamibi was injected stress images were obtained stress and rest images were reconstructed and compared in the short axis vertical long horizontal long axis. Gated images were also obtained Perfusion SPECT analysis: Review of the stress images demonstrate normal uptake of tracer noted in all areas of the myocardium the resting images similarly demonstrate normal uptake of tracer noted in all areas of the myocardium. No reversibility is noted to suggest ischemia and no previous infarct is noted. Gated SPECT analysis: The gated ejection fraction is noted to be 62%. Conclusion: Normal pharmacologic myocardial perfusion stress test. Preserved ejection fraction.
== END ==
PROVIDERS: PCP Family Medicine Geriatric Medicine; Referring Provider Internal Medicine Cardiovascular Disease; Visit Provider Internal Medicine Cardiovascular Disease
DX: I25.810 Atherosclerosis of coronary artery bypass graft(s) without angina pectoris (principal); I25.10 Atherosclerotic heart disease of native coronary artery without angina pectoris; Z95.1 Presence of aortocoronary bypass graft
CPT/HCPCS: 78452; 93017; 93306; A9500; A4216; J2785

== ENCOUNTER → 2020-03-15 | Outpatient (CLI) | payer MEDICARE, OTHER, SELFPAY ==
[2019-12-16 11:02] VITALS: BMI 30.2
[2020-03-15 08:40] LABS: AST(SGOT) 20 U/L (15-37); Alanine Aminotransfer ALT/SGPT 58 U/L (16-61); Albumin, Serum 4.1 g/dL (3.2-5.0); Alkaline Phosphatase 50 U/L (45-117); Bilirubin, Direct 0.36 mg/dL (0.00-0.30); Cholesterol 181 mg/dL (200); Globulin 3.3 g/dL (2.2-4.2); High Density Lipoprotein 45 mg/dL; Protein, Total 7.4 g/dL (6.4-8.2); Triglycerides 183 mg/dL; Very Low Density Lipoprotein 37 mg/dL (5-40)
== END | disposition home or self-care (01) ==
LOC: LAB 07:34
PROVIDERS: PCP Family Medicine Geriatric Medicine; Referring Provider Internal Medicine Cardiovascular Disease; Visit Provider Internal Medicine Cardiovascular Disease
DX: E78.5 Hyperlipidemia, unspecified (principal)
CPT/HCPCS: 36415; 80061; 80076

== ENCOUNTER → 2020-06-12 | Outpatient (CLI) | payer MEDICARE, OTHER, SELFPAY ==
[2019-12-16 11:02] VITALS: BMI 30.2
== END | disposition home or self-care (01) ==
LOC: LABSPEC 17:21
PROVIDERS: PCP Family Medicine Geriatric Medicine; Visit Provider Urology
DX: R39.15 Urgency of urination (principal)
CPT/HCPCS: 87086

== ENCOUNTER → 2020-10-04 14:20 | Outpatient (CLI) | payer MEDICARE, OTHER, SELFPAY ==
[2020-10-04 16:02] LABS: Absolute Lymphocyte Count 1.78 X10^3/uL (0.83-4.51); Absolute Neutrophil Count 3.9 X10^3/uL (2.0-7.7); Basophil# 0.05 X10^3/uL; Basophil% 0.8 % (0-1); Eosinophil# 0.12 X10^3/uL; Eosinophils% 1.9 % (0-5); Hematocrit 41.8 % (40-54); Hemoglobin 14.6 g/dL (13.0-16.5); Lymphocyte # 1.78 X10^3/ul (4.0); Lymphocyte % 28.2 % (19-41); Mean Corp Hgb Conc 34.9 g/dL (32-36); Mean Corpuscular Hgb 32.2 pg (27.0-32.0); Mean Corpuscular Volume 92.3 fL (80-94); Mean Platelet Vol. 10.9 fl (6.2-12.0); Monocyte# 0.47 X10^3/uL; Monocyte% 7.4 % (0-10); NRBC Flagged by Analyzer 0 % (0-5); Neutrophil # 3.86 X10^3/uL (2.7-7.7); Neutrophil % 61.2 % (47-70); Platelet Count 218 K/mm3 (150-450); RBC Distribution Width CV 11.7 % (11.6-14.6); RBC Distribution Width SD 39.7 fl (35.1-43.9); Red Blood Count 4.53 M/mm3 (4.6-6.2); White Blood Count 6.3 K/mm3 (4.4-11.0)
[2020-10-04 16:17] LABS: Vitamin D,25 Hydroxy 17.9 ng/mL
[2020-10-04 16:31] LABS: ALB/GLOB Ratio 1.3 RATIO (0.9-2.4); AST(SGOT) 25 U/L (15-37); Alanine Aminotransfer ALT/SGPT 62 U/L (16-61); Albumin, Serum 4.2 g/dL (3.2-5.0); Alkaline Phosphatase 58 U/L (45-117); Anion Gap 8 (5-15); BUN 17 mg/dL (7-18); BUN/Creat Ratio 15.7 RATIO (10-20); Calcium,Total 9.9 mg/dL (8.5-10.1); Chloride 105 mmol/L (98-107); Creatinine, Serum 1.08 mg/dL (0.70-1.30); EST Glomerular Filtration Rate 72 mL/min (>60); Est Glom Filt Rate - Afr Amer 87 mL/min (>60); Globulin 3.2 g/dL (2.2-4.2); Glucose 214 mg/dL (74-106); Potassium 3.7 mmol/L (3.5-5.1); Protein, Total 7.4 g/dL (6.4-8.2); Sodium Level 141 mmol/L (136-145); Thyroid Stim Hormone (TSH) 1.05 uIU/mL (0.358-3.74)
[2020-10-13 03:06] LABS: Lyme IgG P18 Ab Absent (.); Lyme IgG P23 Ab Present (.); Lyme IgG P28 Ab Absent (.); Lyme IgG P30 Ab Absent (.); Lyme IgG P39 Ab Absent (.); Lyme IgG P41 Ab Absent (.); Lyme IgG P45 Ab Absent (.); Lyme IgG P58 Ab Absent (.); Lyme IgG P66 Ab Absent (.); Lyme IgG P93 Ab Present (.); Lyme IgM P23 Ab Absent (.); Lyme IgM P39 Ab Absent (.); Lyme IgM P41 Ab Absent (.)
[2020-10-13 08:37] LABS: Lyme IgG WB Interpretation Negative (.); Lyme IgM WB Interpretation Negative (.)
== END ==
PROVIDERS: PCP Family Medicine Geriatric Medicine; Visit Provider Family Medicine Geriatric Medicine
DX: E11.9 Type 2 diabetes mellitus without complications (principal); I10 Essential (primary) hypertension; E55.9 Vitamin D deficiency, unspecified; Z12.5 Encounter for screening for malignant neoplasm of prostate
CPT/HCPCS: 36415; 80053; 82306; 84153; 84443; 85025; 86617; G0103

== ENCOUNTER → 2020-10-19 07:56 | Outpatient (CLI) | payer MEDICARE, OTHER, SELFPAY ==
--- NOTE | 2020-10-19 08:10 | US_ITS ---
STUDY: ABDOMINAL ULTRASOUND - RIGHT UPPER QUADRANT REASON FOR VISIT: Male, 69 years old fatty liver TECHNIQUE: Ultrasound evaluation of the right upper quadrant was performed with real-time and static arenas-scale imaging. TECHNICAL QUALITY: Adequate. COMPARISON: Comparison is made with prior examination dated 09/16/2018. FINDINGS: Liver: The liver measures 17.8 cm. There is increased echogenicity consistent with fatty infiltration. The bile ducts are within normal limits. There is hepatic color flow. The direction of portal flow is hepatopetal. There is no demonstrated mass lesion. Gallbladder: Normal distended gallbladder. The gallbladder wall measures 2.2 mm. There is a negative sonographic Phillip''s sign. There is no pericholecystic fluid. There is a solitary echogenic gallstone within the gallbladder. Common Bile Duct (C.B.D.): The common bile duct measures 3.3 mm. Pancreas: Normal size of the head, body and tail of the pancreas. There is increased echogenicity of the pancreas. There is no demonstrated pancreatic mass or cyst. Right Kidney: Normal size of the right kidney. The right kidney measures 11.5 cm x 6.2 cm x 5.8 cm. Normal renal cortex. The right cortex measures 1.5 cm. There is no demonstrated renal mass or cyst. There is no right hydronephrosis. IMPRESSION: Fatty infiltration of the liver. Solitary gallstone. Electronically Signed: Jaleel Monroy, at 13:44 EST , Service support , STUDY: ABDOMINAL ULTRASOUND - ELASTOGRAPHY REASON FOR VISIT: Male, 69 years old. Fatty infiltration of the liver. TECHNIQUE: Liver stiffness measurements were obtained on a Little1 85 ultrasound machine using a CA 1-7 probe following the SRU guidelines. 3 measurements were obtained using a 2-D-SWE method. The IQR/M was 19% suggesting a quality data set. TECHNICAL QUALITY: Adequate. COMPARISON: None. FINDINGS: Liver: Diffuse fatty infiltration of the liver. Median liver stiffness measured 7.3 kPa. US/Abdomen Limited IMPRESSION: Liver stiffness measures 7.3 kPa compatible with F2 -- F3 Metavir score. Electronically Signed: Jaleel Monroy, at 13:46 EST , Service support ,
[2020-10-19 08:50] LABS: AST(SGOT) 22 U/L (15-37); Alanine Aminotransfer ALT/SGPT 49 U/L (16-61); Albumin, Serum 4.3 g/dL (3.2-5.0); Alkaline Phosphatase 54 U/L (45-117); Bilirubin, Direct 0.33 mg/dL (0.00-0.30); Cholesterol 135 mg/dL (200); High Density Lipoprotein 38 mg/dL; Protein, Total 7.3 g/dL (6.4-8.2); Triglycerides 168 mg/dL; Very Low Density Lipoprotein 34 mg/dL (5-40)
[2020-10-20 05:07] LABS: HEPATITIS B SURFACE AG Negative (Negative); Hepatitis A AB, Total Negative (Negative); Hepatitis A IgM Antibody Negative (Negative); Hepatitis B Core AB IgM Negative (Negative); Hepatitis B Core Ab Total Negative (Negative); Hepatitis C Ab 0.1 s/co ratio (0.0-0.9)
[2020-10-20 07:58] LABS: Hep B Surface Antibodies Non Reactive (.)
== END ==
PROVIDERS: Internal Medicine Cardiovascular Disease; PCP Family Medicine Geriatric Medicine; Referring Provider Family Medicine Geriatric Medicine; Visit Provider Family Medicine Geriatric Medicine
DX: R74.8 Abnormal levels of other serum enzymes (principal); K76.0 Fatty (change of) liver, not elsewhere classified; E78.00 Pure hypercholesterolemia, unspecified; E78.5 Hyperlipidemia, unspecified
CPT/HCPCS: 36415; 76705; 76981; 80061; 80076; 86704; 86705; 86706; 86708; 86709; 86803; 87340

== ENCOUNTER → 2021-01-02 15:09 | Outpatient (CLI) | payer MEDICARE, OTHER, SELFPAY ==
[2021-01-02 16:39] LABS: Absolute Lymphocyte Count 1.65 X10^3/uL (0.83-4.51); Absolute Neutrophil Count 3.4 X10^3/uL (2.0-7.7); Basophil# 0.07 X10^3/uL; Basophil% 1.2 % (0-1); Eosinophil# 0.15 X10^3/uL; Eosinophils% 2.6 % (0-5); Hematocrit 42.1 % (40-54); Lymphocyte # 1.65 X10^3/ul (4.0); Lymphocyte % 28.1 % (19-41); Mean Corp Hgb Conc 33.3 g/dL (32-36); Mean Corpuscular Hgb 31.9 pg (27.0-32.0); Mean Corpuscular Volume 95.9 fL (80-94); Mean Platelet Vol. 10.7 fl (6.2-12.0); Monocyte# 0.54 X10^3/uL; Monocyte% 9.2 % (0-10); NRBC Flagged by Analyzer 0 % (0-5); Neutrophil # 3.44 X10^3/uL (2.7-7.7); Neutrophil % 58.6 % (47-70); Platelet Count 222 K/mm3 (150-450); RBC Distribution Width CV 12.2 % (11.6-14.6); RBC Distribution Width SD 43.5 fl (35.1-43.9); Red Blood Count 4.39 M/mm3 (4.6-6.2); White Blood Count 5.9 K/mm3 (4.4-11.0)
[2021-01-02 17:11] LABS: Vitamin D,25 Hydroxy 28.3 ng/mL
[2021-01-02 17:23] LABS: ALB/GLOB Ratio 1.3 RATIO (0.9-2.4); AST(SGOT) 15 U/L (15-37); Alanine Aminotransfer ALT/SGPT 34 U/L (16-61); Albumin, Serum 4.1 g/dL (3.2-5.0); Alkaline Phosphatase 46 U/L (45-117); Anion Gap 3 (5-15); BUN 20 mg/dL (7-18); BUN/Creat Ratio 22.8 RATIO (10-20); Calcium,Total 9.7 mg/dL (8.5-10.1); Chloride 106 mmol/L (98-107); Creatinine, Serum 0.88 mg/dL (0.70-1.30); EST Glomerular Filtration Rate 91 mL/min (>60); Est Glom Filt Rate - Afr Amer 110 mL/min (>60); Globulin 3.1 g/dL (2.2-4.2); Glucose 126 mg/dL (74-106); Potassium 3.7 mmol/L (3.5-5.1); Protein, Total 7.2 g/dL (6.4-8.2); Sodium Level 140 mmol/L (136-145); Thyroid Stim Hormone (TSH) 0.96 uIU/mL (0.358-3.74)
== END ==
PROVIDERS: PCP Family Medicine Geriatric Medicine; Visit Provider Family Medicine Geriatric Medicine
DX: E11.9 Type 2 diabetes mellitus without complications (principal); E55.9 Vitamin D deficiency, unspecified; I10 Essential (primary) hypertension
CPT/HCPCS: 36415; 80053; 82306; 84443; 85025

== ENCOUNTER → 2021-04-04 10:18 | Outpatient (CLI) | payer MEDICARE, OTHER, SELFPAY ==
[2021-03-07 09:16] VITALS: BMI 28.4
[2021-04-04 12:05] LABS: Absolute Lymphocyte Count 1.65 X10^3/uL (0.83-4.51); Absolute Neutrophil Count 4.5 X10^3/uL (2.0-7.7); Basophil# 0.06 X10^3/uL; Basophil% 0.9 % (0-1); Eosinophil# 0.09 X10^3/uL; Eosinophils% 1.3 % (0-5); Hemoglobin 14.8 g/dL (13.0-16.5); Lymphocyte # 1.65 X10^3/ul (0.83-4.51); Lymphocyte % 24.1 % (19-41); Mean Corp Hgb Conc 33.6 g/dL (32-36); Mean Corpuscular Hgb 32.2 pg (27.0-32.0); Mean Corpuscular Volume 95.9 fL (80-94); Mean Platelet Vol. 10.6 fl (6.2-12.0); Monocyte# 0.55 X10^3/uL; NRBC Flagged by Analyzer 0 % (0-5); Neutrophil # 4.47 X10^3/uL (2.7-7.7); Neutrophil % 65.1 % (47-70); Platelet Count 225 K/mm3 (150-450); RBC Distribution Width CV 12.7 % (11.6-14.6); RBC Distribution Width SD 44.7 fl (35.1-43.9); Red Blood Count 4.59 M/mm3 (4.6-6.2); White Blood Count 6.9 K/mm3 (4.4-11.0)
[2021-04-04 12:16] LABS: Vitamin D,25 Hydroxy 29.6 ng/mL
[2021-04-04 12:26] LABS: ALB/GLOB Ratio 1.3 RATIO (0.9-2.4); AST(SGOT) 17 U/L (15-37); Alanine Aminotransfer ALT/SGPT 33 U/L (16-61); Albumin, Serum 4.1 g/dL (3.2-5.0); Alkaline Phosphatase 44 U/L (45-117); Anion Gap 4 (5-15); BUN 15 mg/dL (7-18); BUN/Creat Ratio 17.8 RATIO (10-20); Calcium,Total 9.6 mg/dL (8.5-10.1); Chloride 103 mmol/L (98-107); Creatinine, Serum 0.84 mg/dL (0.70-1.30); EST Glomerular Filtration Rate 96 mL/min (>60); Est Glom Filt Rate - Afr Amer 116 mL/min (>60); Globulin 3.1 g/dL (2.2-4.2); Glucose 152 mg/dL (74-106); Potassium 3.7 mmol/L (3.5-5.1); Protein, Total 7.2 g/dL (6.4-8.2); Sodium Level 138 mmol/L (136-145)
== END ==
PROVIDERS: PCP Family Medicine Geriatric Medicine; Visit Provider Family Medicine Geriatric Medicine
DX: E11.9 Type 2 diabetes mellitus without complications (principal); E55.9 Vitamin D deficiency, unspecified; I10 Essential (primary) hypertension
CPT/HCPCS: 36415; 80053; 82306; 84443; 85025

== ENCOUNTER → 2021-07-29 08:27 | Outpatient (CLI) | payer MEDICARE, OTHER, SELFPAY | PROVIDERS: PCP Family Medicine Geriatric Medicine; Referring Provider Physician Assistant; Visit Provider Physician Assistant | DX: Z11.59 Encounter for screening for other viral diseases (principal) | CPT/HCPCS: 87635; C9803; U0005; U0003 ==

== ENCOUNTER 2021-10-30 13:16 | Outpatient (CLI) | payer MEDICARE, OTHER, SELFPAY ==
[2021-10-30 16:10] LABS: Absolute Lymphocyte Count 2.12 X10^3/uL (0.83-4.51); Absolute Neutrophil Count 6.4 X10^3/uL (2.0-7.7); Basophil# 0.06 X10^3/uL; Basophil% 0.6 % (0-1); Eosinophils% 1.1 % (0-5); Hematocrit 43.1 % (40-54); Hemoglobin 14.9 g/dL (13.0-16.5); Lymphocyte # 2.12 X10^3/ul (0.83-4.51); Lymphocyte % 22.6 % (19-41); Mean Corp Hgb Conc 34.6 g/dL (32-36); Mean Corpuscular Hgb 32.4 pg (27.0-32.0); Mean Corpuscular Volume 93.7 fL (80-94); Mean Platelet Vol. 10.7 fl (6.2-12.0); Monocyte# 0.67 X10^3/uL; Monocyte% 7.1 % (0-10); NRBC Flagged by Analyzer 0 % (0-5); Neutrophil # 6.41 X10^3/uL (2.7-7.7); Neutrophil % 68.2 % (47-70); Platelet Count 247 K/mm3 (150-450); RBC Distribution Width CV 12.5 % (11.6-14.6); RBC Distribution Width SD 42.5 fl (35.1-43.9); White Blood Count 9.4 K/mm3 (4.4-11.0)
[2021-10-31 07:21] LABS: ALB/GLOB Ratio 1.3 RATIO (0.9-2.4); AST(SGOT) 21 U/L (15-37); Alanine Aminotransfer ALT/SGPT 36 U/L (16-61); Albumin, Serum 4.2 g/dL (3.2-5.0); Alkaline Phosphatase 49 U/L (45-117); Anion Gap 5 (5-15); BUN 15 mg/dL (7-18); Calcium,Total 9.7 mg/dL (8.5-10.1); Chloride 105 mmol/L (98-107); EST Glomerular Filtration Rate 78 mL/min (>60); Est Glom Filt Rate - Afr Amer 95 mL/min (>60); Globulin 3.3 g/dL (2.2-4.2); Glucose 122 mg/dL (74-106); PSA,Total - Annual Screen 1.44 ng/mL (0.00-4.00); Potassium 3.8 mmol/L (3.5-5.1); Protein, Total 7.5 g/dL (6.4-8.2); Sodium Level 142 mmol/L (136-145); Thyroid Stim Hormone (TSH) 1.53 uIU/mL (0.358-3.74)
== END 2021-10-30 23:59 | disposition short-term general hospital (02) ==
LOC: POLAB3 13:17
PROVIDERS: PCP Family Medicine Geriatric Medicine; Visit Provider Family Medicine Geriatric Medicine
DX: E11.9 Type 2 diabetes mellitus without complications (principal); E55.9 Vitamin D deficiency, unspecified; I10 Essential (primary) hypertension; Z12.5 Encounter for screening for malignant neoplasm of prostate
CPT/HCPCS: 36415; 80053; 82306; 84153; 84443; 85025; G0103

== ENCOUNTER → 2022-03-14 | Outpatient (CLI) | payer MEDICARE, OTHER, SELFPAY ==
[2022-03-14 08:34] LABS: AST(SGOT) 25 U/L (15-37); Alanine Aminotransfer ALT/SGPT 40 U/L (16-61); Albumin, Serum 4.1 g/dL (3.2-5.0); Alkaline Phosphatase 46 U/L (45-117); Bilirubin, Direct 0.32 mg/dL (0.00-0.30); Cholesterol 128 mg/dL (200); Globulin 3.2 g/dL (2.2-4.2); High Density Lipoprotein 40 mg/dL; Protein, Total 7.3 g/dL (6.4-8.2); Triglycerides 160 mg/dL; Very Low Density Lipoprotein 32 mg/dL (5-40)
== END | disposition home or self-care (01) ==
LOC: LAB 07:50
PROVIDERS: PCP Family Medicine Geriatric Medicine; Referring Provider Internal Medicine Cardiovascular Disease; Visit Provider Internal Medicine Cardiovascular Disease
DX: E78.00 Pure hypercholesterolemia, unspecified (principal)
CPT/HCPCS: 36415; 80061; 80076

== ENCOUNTER → 2022-05-05 | Outpatient (CLI) | payer MEDICARE, OTHER, SELFPAY ==
[2022-05-05 10:30] LABS: Absolute Lymphocyte Count 1.56 X10^3/uL (0.83-4.51); Absolute Neutrophil Count 3.5 X10^3/uL (2.0-7.7); Basophil# 0.07 X10^3/uL; Basophil% 1.2 % (0-1); Eosinophil# 0.15 X10^3/uL; Eosinophils% 2.6 % (0-5); Hematocrit 42.7 % (40-54); Hemoglobin 14.7 g/dL (13.0-16.5); Lymphocyte # 1.56 X10^3/ul (0.83-4.51); Mean Corp Hgb Conc 34.4 g/dL (32-36); Mean Corpuscular Hgb 32.5 pg (27.0-32.0); Mean Corpuscular Volume 94.3 fL (80-94); Mean Platelet Vol. 10.4 fl (6.2-12.0); Monocyte# 0.49 X10^3/uL; Monocyte% 8.5 % (0-10); NRBC Flagged by Analyzer 0 % (0-5); Neutrophil # 3.49 X10^3/uL (2.7-7.7); Neutrophil % 60.4 % (47-70); Platelet Count 206 K/mm3 (150-450); RBC Distribution Width CV 12.2 % (11.6-14.6); RBC Distribution Width SD 42.4 fl (35.1-43.9); Red Blood Count 4.53 M/mm3 (4.6-6.2); White Blood Count 5.8 K/mm3 (4.4-11.0)
[2022-05-05 10:48] LABS: Vitamin D,25 Hydroxy 38.6 ng/mL
[2022-05-05 10:52] LABS: ALB/GLOB Ratio 1.2 RATIO (0.9-2.4); AST(SGOT) 18 U/L (15-37); Alanine Aminotransfer ALT/SGPT 36 U/L (16-61); Albumin, Serum 4.1 g/dL (3.2-5.0); Alkaline Phosphatase 49 U/L (45-117); Anion Gap 5 (5-15); BUN 16 mg/dL (7-18); Calcium,Total 9.9 mg/dL (8.5-10.1); Chloride 103 mmol/L (98-107); Creatinine, Serum 0.89 mg/dL (0.70-1.30); EST Glomerular Filtration Rate 90 mL/min (>60); Est Glom Filt Rate - Afr Amer 108 mL/min (>60); Globulin 3.3 g/dL (2.2-4.2); Glucose 192 mg/dL (74-106); Potassium 3.7 mmol/L (3.5-5.1); Protein, Total 7.4 g/dL (6.4-8.2); Sodium Level 138 mmol/L (136-145); Thyroid Stim Hormone (TSH) 1.44 uIU/mL (0.358-3.74)
== END | disposition home or self-care (01) ==
LOC: POLAB3 09:08
PROVIDERS: PCP Family Medicine Geriatric Medicine; Visit Provider Family Medicine Geriatric Medicine
DX: I10 Essential (primary) hypertension (principal); E11.9 Type 2 diabetes mellitus without complications; E55.9 Vitamin D deficiency, unspecified
CPT/HCPCS: 36415; 80053; 82306; 84443; 85025

== ENCOUNTER → 2022-05-13 | Outpatient (CLI) | payer MEDICARE, OTHER, SELFPAY ==
--- NOTE | 2022-05-13 14:12 | RAD_ITS ---
STUDY: X-RAY - SACRUM/COCCYX REASON FOR EXAM: Male, 71 years old. PAIN TECHNIQUE: 3 view(s) of the sacrum and coccyx were obtained. COMPARISON: None. FINDINGS: There is degenerative arthrosis of the bilateral sacroiliac joints. Normal visualized sacral ala and fused sacral bodies. Normal sacrococcygeal junction with a normal angulation. Normal coccygeal segments. Grade 1 anterior listhesis of L4-5 on S1 with spondylolysis. The presacral soft tissue structures are unremarkable. Phleboliths are seen in the pelvis. 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 RAD/Sacrum-Coccyx min 2 Views IMPRESSION: Degenerative changes. Grade 1 anterolisthesis of L5 on S1 with spondylolysis of the pars interarticularis of the L5 vertebrae. Electronically Signed: Jaleel Monroy MD at 15:39 EDT ,
== END | disposition home or self-care (01) ==
LOC: RAD 13:58
PROVIDERS: PCP Family Medicine Geriatric Medicine; Referring Provider Surgery; Visit Provider Surgery
DX: M53.3 Sacrococcygeal disorders, not elsewhere classified (principal)
CPT/HCPCS: 72220

== ENCOUNTER 2022-07-17 08:43 | Day surgery (SDC) | payer MEDICARE, OTHER, SELFPAY ==
--- NOTE | 2022-07-14 08:11 | EKG12_ITS ---
Test Reason : PREOP Blood Pressure : / mmHG Vent. Rate : 057 BPM Atrial Rate : 057 BPM P-R Int : 210 ms QRS Dur : 104 ms QT Int : 400 ms P-R-T Axes : 025 -16 042 degrees QTc Int : 389 ms Sinus bradycardia with marked sinus arrhythmia with 1st degree A-V block Septal infarct , age undetermined Inferior infarct , age undetermined Abnormal ECG Confirmed by BRI ENCARNACION, DANNY ([id number]), editor managing newspaper MATTEO SIN ([id number]) on 07/15/2022 9:19:20 AM Referred By: JEAN-PIERRE Confirmed By:DANNY GREGORY MD
[2022-07-14 08:44] LABS: Hematocrit 40.8 % (40-54); Hemoglobin 13.8 g/dL (13.0-16.5); Mean Corp Hgb Conc 33.8 g/dL (32-36); Mean Corpuscular Hgb 32.3 pg (27.0-32.0); Mean Corpuscular Volume 95.6 fL (80-94); Mean Platelet Vol. 10.3 fl (6.2-12.0); Platelet Count 211 K/mm3 (150-450); RBC Distribution Width CV 12.1 % (11.6-14.6); RBC Distribution Width SD 42.4 fl (35.1-43.9); Red Blood Count 4.27 M/mm3 (4.6-6.2); White Blood Count 6.2 K/mm3 (4.4-11.0)
[2022-07-14 09:36] LABS: Anion Gap 6 (5-15); BUN 17 mg/dL (7-18); BUN/Creat Ratio 21.2 RATIO (10-20); Calcium,Total 9.4 mg/dL (8.5-10.1); Chloride 103 mmol/L (98-107); EST Glomerular Filtration Rate 101 mL/min (>60); Est Glom Filt Rate - Afr Amer 122 mL/min (>60); Glucose 194 mg/dL (74-106); Potassium 3.7 mmol/L (3.5-5.1); Sodium Level 138 mmol/L (136-145)
[2022-07-17] VITALS (8 sets, daily range): BP systolic 99–141; BP diastolic 59–95; PULSE 53–65; RESP 16–18; TEMP 36.1–36.3; O2SAT 96–97; BMI 29.1
[2022-07-17] MEDS: Lactated Ringers 1,000 ML 15 ML IV (09:00)
--- NOTE | 2022-07-17 09:19 | HP.PCM_ITS ---
History and Physical Date of Admission: 07/17/22 Allergies Penicillins Allergy (Severe, Verified 06/06/22 11:58) Anaphylaxis Medications multivitamin 1 tab PO QDAY 11/04/17 [History Confirmed 06/06/22] tamsulosin 0.4 mg capsule 0.4 mg PO DAILY 07/13/20 [History Confirmed 06/06/22] metformin 500 mg tablet 1,000 mg PO BIDCM 03/07/21 [History Confirmed 06/06/22] aspirin 81 mg tablet,delayed release (Adult Low Dose Aspirin) 81 mg PO .QOD #60 tabs 09/20/21 [Rx Confirmed 06/06/22] icosapent ethyl 1 gram capsule (Vascepa) See Rx Instructions .Route .COMPLEX #360 caps 10/24/21 [Rx Confirmed 06/06/22] lisinopril 5 mg tablet 5 mg PO DAILY #90 tabs 11/15/21 [Rx Confirmed 06/06/22] rosuvastatin 10 mg tablet (Crestor) 10 mg PO QDAY #90 tabs 11/15/21 [Rx Confirmed 06/06/22] apixaban 5 mg tablet (Eliquis) 5 mg PO BID #180 tabs 12/23/21 [Rx Confirmed 06/06/22] metoprolol tartrate 25 mg tablet 12.5 mg PO DAILY #45 tabs 01/14/22 [Rx Confirmed 06/06/22] nitroglycerin 0.4 mg sublingual tablet 0.4 mg sublingual Q5M #25 tabs 03/21/22 [Rx Confirmed 06/06/22] amlodipine 10 mg tablet (Norvasc) 10 mg PO DAILY 05/13/22 [History Confirmed 06/06/22] ipratropium bromide 42 mcg (0.06 %) nasal spray 2 spray intranasal TID 05/13/22 [History Confirmed 06/06/22] PFSH Medical History? Atherosclerosis of coronary artery bypass graft without angina pectoris Atherosclerotic heart disease of [place] coronary artery without angina pectoris Essential (primary) hypertension [place] disease History of diverticulitis History of non-ST elevation myocardial infarction (NSTEMI) (07/2016) Hyperlipidemia Palpitations Paroxysmal atrial fibrillation Sinus bradycardia Type 2 diabetes mellitus Surgical History? H/O coronary artery bypass surgery (11/29/02) History of appendectomy History of coronary artery stent placement (08/04/16) History of left heart catheterization History of partial colectomy History of tonsillectomy prostate lift Family History? Father?? ,? age 81 blood clot in brain Congestive heart failure Heart valve disorderMother?? ,? age 83 of CVA, had first CVA age 55 CVA (cerebral vascular accident)Sister?? ,? of lung cancer Lung cancer CAD (coronary artery disease) ?? ? Hx angioplastySister Cardiac pacemaker in situBrother Heart diseaseBrother Heart disease Social History? Smoking Status:? Former smoker alcohol intake:? current alcohol intake frequency: 0-2 drinks per day Alcohol type: wine caffeine:? Yes Type: coffee Number of servings: 1 HPI HPI HPI: 71-year-old gentleman presents today to discuss potential treatment options for what is felt to be a recurrent pilonidal cyst.? I initially saw this patient on May 13, 2022.? He had had a pilonidal cystectomy 50 years prior.? He claims that he had had a partial coccygectomy but we got coccygeal x-rays on him and it does not demonstrate that.? I questioned whether I should offer the patient a more limited resection.? The patient presents today stating that for the last couple days its become more angry and is seeping a clear fluid. Visit Reasons:?PILONIDAL CYST Chief Complaint: lump near tailbone Director Of Infection Prevention Required: No Is patient in pain?: No Allergies Penicillins Allergy (Severe, Verified 05/13/22 13:29) Anaphylaxis Medications multivitamin 1 tab PO QDAY 11/04/17 [History Confirmed 05/13/22] tamsulosin 0.4 mg capsule 0.4 mg PO DAILY 07/13/20 [History Confirmed 05/13/22] metformin 500 mg tablet 1,000 mg PO BIDCM 03/07/21 [History Confirmed 05/13/22] aspirin 81 mg tablet,delayed release (Adult Low Dose Aspirin) 81 mg PO .QOD #60 tabs 09/20/21 [Rx Confirmed 05/13/22] icosapent ethyl 1 gram capsule (Vascepa) See Rx Instructions .Route .COMPLEX #360 caps 10/24/21 [Rx Confirmed 05/13/22] lisinopril 5 mg tablet 5 mg PO DAILY #90 tabs 11/15/21 [Rx Confirmed 05/13/22] rosuvastatin 10 mg tablet (Crestor) 10 mg PO QDAY #90 tabs 11/15/21 [Rx Confirmed 05/13/22] apixaban 5 mg tablet (Eliquis) 5 mg PO BID #180 tabs 12/23/21 [Rx Confirmed 05/13/22] metoprolol tartrate 25 mg tablet 12.5 mg PO DAILY #45 tabs 01/14/22 [Rx Confirmed 05/13/22] nitroglycerin 0.4 mg sublingual tablet 0.4 mg sublingual Q5M #25 tabs 03/21/22 [Rx Confirmed 05/13/22] amlodipine 10 mg tablet (Norvasc) 10 mg PO DAILY 05/13/22 [History Confirmed 05/13/22] ipratropium bromide 42 mcg (0.06 %) nasal spray 2 spray intranasal TID 05/13/22 [History Confirmed 05/13/22] PFSH Medical History? Atherosclerosis of coronary artery bypass graft without angina pectoris Atherosclerotic heart disease of [place] coronary artery without angina pectoris Essential (primary) hypertension [place] disease History of diverticulitis History of non-ST elevation myocardial infarction (NSTEMI) (07/2016) Hyperlipidemia Palpitations Paroxysmal atrial fibrillation Sinus bradycardia Type 2 diabetes mellitus Surgical History? H/O coronary artery bypass surgery (11/29/02) History of appendectomy History of coronary artery stent placement (08/04/16) History of left heart catheterization History of partial colectomy History of tonsillectomy prostate lift Family History? Father?? ,? age 81 blood clot in brain Congestive heart failure Heart valve disorderMother?? ,? age 83 of CVA, had first CVA age 55 CVA (cerebral vascular accident)Sister?? ,? of lung cancer Lung cancer CAD (coronary artery disease) ?? ? Hx angioplastySister Cardiac pacemaker in situBrother Heart diseaseBrother Heart disease Social History? Smoking Status:? Former smoker alcohol intake:? current alcohol intake frequency: 0-2 drinks per day Alcohol type: wine caffeine:? Yes Type: coffee Number of servings: 1 HPI HPI HPI: EMELY KILLIAN, is a 71 M who presents to the office today for surgical consultation regarding a draining left buttock lesion.? By report the patient has a history of a pilonidal cyst.? The patient is referred by Dr. Torito Azul and a written compromise surgical consult and recommendations will return to him.? Among his other medications he is on Eliquis and low-dose aspirin therapy with a history of coronary artery disease and atrial fibrillation..? He also has diabetes mellitus and sleep apnea. Patient states that literally 50 years ago he had a pilonidal cystectomy.? He has had no spines I that a portion of the coccyx was excised at that time.? He healed and has not had any further problem until just a month ago were drainage started.? Apparently this occurred after he was sitting for a long time on a hard bench.? It has intermittently drained from the small site on the left.? He states that he can feel a little nodule in that area.? He states that it was inflamed to a degree get a little bit larger little bit tender but then it will drain.? Currently he states its not tender ROS General General: No weight change, appetite, fatigue, colon cancer, breast cancer or weakness HEENT HEENT: No difficulty swallowing, eye injury, eye surgery, swollen glands or hoarseness Endo Endocrine: Yes diabetes mellitus; No thyroid disease, thyroid cancer, Hair loss, heat intolerance or cold intolerance Musc Musculoskeletal: Yes arthritis; No back problems, rheumatoid arthritis, gout or joint pain Cardio Cardiovascular: Yes atrial fibrillation, high blood pressure, heart attack and heart stent; No murmur, pacemaker, heart disease, palpitations, shortness of breat with exertion or chest pain Psych Psychiatric: No depression, anxiety or hearing voices Resp Respiratory: No shortness of breath, Yes sleep apnea, No cough, No COPD, No asthma, No emphysema and No wheezing Gastro Gastrointestinal: No abdominal pain, No nausea or vomiting, No diarrhea, No constipation, No blood in stool, No acid reflux, No hemorrhoids, No ulcers, No gallbladder problem and No black,tarry stools Andrez Hematologic: Yes blood thinners, No blood disorders, No bleeding, No anemia and No blood clots Neuro Neurologic: No weakness Exam Const General: cooperative, healthy appearing and comfortable [facility] Head: normal to inspection Resp Effort & Inspection: normal respiratory effort Auscultation: clear to auscultation bilaterally Cardio Rate: regular rate Rhythm: regular rhythm GI Inspection: normal to inspection Skin Other: Vertical scar overlying the sacrococcygeal area with a small pilonidal pit inferiorly but no erythema no drainage no significant hair excrescence.? To the left there is a punctate 5 mm area of erythema with some mild induration.? No expressible drainage. Neuro General: patient alert and patient awake Assessment and Plan Assessment and Plan (1) Cyst near coccyx: ?Status:?Acute ?Plan: The patient's presentation is unusual.? To have had a pilonidal cystectomy 50 years ago and only now have recurrent disease is unusual.? The patient states that at his original surgery he had a partial coccygectomy.? That also seems like that would have been unusual when the patient was just 19.? We are not able to get medical records from that far back. I recommend to him that we obtain plain films of the coccyx.? This will be in an effort to see if there is normal anatomy present or whether there is evidence of a previous resection.? The patient may very well have chronic indolent osteomyelitis of the coccyx and if that is the case then the surgical treatment would be different and require some bone resection. Otherwise if the coccyx is completely intact then we could offer the patient a pilonidal pit ectomy that area could also be treated with phenol.? I do not believe that he would benefit at this moment from an aggressive review pilonidal resection as there is no obvious active midline disease. He has had an opportunity to ask and have questions answered.? He does not want the cure to be worse than the disease.? We will obtain x-rays of the coccyx and then we will contact the patient with additional thoughts and recommendations.? I appreciate the opportunity of assisting with the surgical care. Copy: Ирина Husain chi.D., F.A.C.S [facility] General General: No weight change, appetite, fatigue, colon cancer, breast cancer or weakness HEENT HEENT: No difficulty swallowing, eye injury, eye surgery, swollen glands or hoarseness Endo Endocrine: Yes diabetes mellitus; No thyroid disease, thyroid cancer, Hair loss, heat intolerance or cold intolerance Musc Musculoskeletal: Yes arthritis; No back problems, rheumatoid arthritis, gout or joint pain Cardio Cardiovascular: Yes atrial fibrillation, high blood pressure, heart attack and heart stent; No murmur, pacemaker, heart disease, palpitations, shortness of breat with exertion or chest pain Psych Psychiatric: No depression, anxiety or hearing voices Resp Respiratory: No shortness of breath, Yes sleep apnea, No cough, No COPD, No asthma, No emphysema and No wheezing Gastro Gastrointestinal: No abdominal pain, No nausea or vomiting, No diarrhea, No constipation, No blood in stool, No acid reflux, No hemorrhoids, No ulcers, No gallbladder problem and No black,tarry stools Andrez Hematologic: Yes blood thinners, No blood disorders, No bleeding, No anemia and No blood clots Neuro Neurologic: No weakness Exam Skin Other: Left pericoccygeal buttock there is a 9 mm long exophytic area of erythema suspected granulation tissue. Assessment and Plan Assessment and Plan (1) Pilonidal abscess: ?Status:?Acute ?Plan: To the left of the midline pericoccygeal there appears to be a pilonidal abscess track.? Very unusual that would present 50 years after original surgery.? The patient on previous x-ray did not show any defect of the coccyx suggesting no coccygectomy at the time of his previous her surgery.? There is some induration that seems to extend from the external drainage site down to the coccygeal area.? I propose for the patient a cleft lift procedure.? I described technique, benefit, risk and alternatives.? Unfortunately there are no guarantees of success.? He has had an opportunity ask and have questions answered He does take Eliquis for paroxysmal atrial fibrillation.? Dr. 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 We will have the patient hold his Eliquis 2 days prior the day of and likely he will require at least 2 days postprocedure being off the medication.? He may be maintained on his low-dose aspirin therapy.? He is aware that we may need to place a drain.? He is aware that even though I am planning a significant resection that there is still risk of recurrence. He has had an opportunity to ask and have questions answered.? He would like to schedule and proceed as noted. Copy: Dr. Elkin Alonzo and Dr. Torito Montague M.D., F.A.C.S The patient notes that since his most recent office visit he has had intermittent swelling and then drainage from the pilonidal site. Currently he just drained several days ago. It is superficially tender. Does not seem to have any deep tenderness. He does elect to proceed with a complete excision of the area. He and his have had an opportunity to ask and have questions answered and we will proceed as noted. Félix Montague M.D., F.A.C.S.
--- NOTE | 2022-07-17 09:36 | EKG12_ITS ---
Test Reason : PRE OP Blood Pressure : / mmHG Vent. Rate : 060 BPM Atrial Rate : 060 BPM P-R Int : 230 ms QRS Dur : 094 ms QT Int : 408 ms P-R-T Axes : 023 -10 049 degrees QTc Int : 408 ms Sinus rhythm with marked sinus arrhythmia with 1st degree A-V block Septal infarct , age undetermined Abnormal ECG Confirmed by CRYS ENCARNACION, PIPE ([id number]), writer editor MATTEO SIN ([id number]) on 07/22/2022 11:07:58 AM Referred By: Félix Montague Confirmed By:PIPE SPANGLER MD
[2022-07-17 10:10] LABS: Bedside Glucose 179 mg/dL (74-106)
--- NOTE | 2022-07-17 10:18 | EX.PCM.DISCH ---
Discharge Instructions Diet Discharge Diet: Light diet - advance as tolerated Activity Discharge Activity: May Not Drive (No driving for 3 days.) and May Not Shower Lifting Restrictions: No lifting more than 10 pounds Dressing / Incision Call your doctor if your incision/area has: Continuous Slow Oozing, Increased Redness and Foul Smelling Discharge Call your doctor if you observe: Fever of 101 or Higher Suture Line Care: Avoid Pulling/Pushing Additional Dressing/Incision Instructions:: You may use a Q-tip and peroxide to cleanse around the drain exit site once daily and then reapply dry gauze and tape Follow Up Care Please Follow Up With: Félix Montague MD When: [phone] Please call for office follow-up as instructed by myself If you have no bleeding you may resume your Eliquis therapy on Wednesday, July 20, 2022 Test Results: Empty, measure, record drain output and bring to your office visit please Discharge Plan Admission Primary Reason for Your Visit: Recurrent pilonidal abscess Attending Provider: Félix Montague Primary Care Provider: Torito Azul Chi Discharge Orders/Prescriptions Prescriptions: New hydrocodone-acetaminophen 5-325 mg tablet 1 tab PO Q8H PRN (Reason: pain) 2 Days Qty: 6 0RF Continued multivitamin tablet 1 tab PO QDAY tamsulosin 0.4 mg capsule 0.4 mg PO DAILY aspirin [Adult Low Dose Aspirin] 81 mg tablet,delayed release (DR/EC) 81 mg PO .QOD Qty: 60 3RF nitroglycerin 0.4 mg tablet, sublingual 0.4 mg SUBLINGUAL Q5M Qty: 25 2RF amlodipine [Norvasc] 10 mg tablet 10 mg PO DAILY ipratropium bromide 42 mcg (0.06 %) spray,non-aerosol 2 spray intranasal DAILY Label Comments: Take 2 Sprays intranasally once per Day for 30 Days Take in evening metformin 500 mg tablet 1,000 mg PO BIDCM Vascepa 1 gram capsule See Rx Instructions .ROUTE .COMPLEX Qty: 360 3RF Dose Instruction: TAKE 2 CAPSULES TWICE A DAY Rx Instructions: TAKE 2 CAPSULES TWICE A DAY lisinopril 5 mg tablet 5 mg PO DAILY Qty: 90 3RF rosuvastatin [Crestor] 10 mg tablet 10 mg PO QDAY Qty: 90 3RF Eliquis 5 mg tablet 5 mg PO BID Qty: 180 3RF Rx Instructions: LAST DOSE 10/10 PM metoprolol tartrate 25 mg tablet 12.5 mg PO DAILY Qty: 45 3RF Other Ambulatory Orders: 12 Lead EKG (Routine) Timeframe: [id number] Location: None Selected Ordered By: Dr. Félix Montague Referrals / Follow Up: Torito Azul Chi, MD [Primary Care Provider] - Disposition Disposition (needs filled in before D/C Order can be placed): Home, Self Care
[2022-07-17] MEDS: Clindamycin 900 MG/50 ML BAG 75 MG IV (10:22)
--- NOTE | 2022-07-17 10:30 | PILCYST_PTH ---
PATIENT: EMELY KILLIAN LOC: [facility] [place] U[place][id number] AGE/SX: 71/M ROOM: RE07/17/[address]: Dr. Félix Montague MD : 1950 BED: DIS: 07/17/2022 SPEC #: [id number] RECD: 07/17/22 14:33 STATUS: CHICHO REQ #: [id number] FATOU: 07/17/22 10:[address]: Félix Montague DEPT: SURGICAL PATHOLOGY RECD BY: Wendy Null ENTERED: 07/18/22 07:56 SP TYPE: Pilonidal OTHR DR: Dr. Torito Azul MD Tissues: PILONIDAL TISSUE Procedures: Surgery Specimen Level III HEADER OPERATION: Pilonidal cystectomy with cleft lift procedure PRE-OP DIAGNOSIS: Pilonidal abscess TISSUE SUBMITTED: Pilonidal abscess MICROSCOPIC DIAGNOSIS Pilonidal cyst, excision: Pilonidal cyst with associated acute and chronic inflammation and granulation. AM:miguel 07/21/2022 MICROSCOPIC DESCRIPTION Slides are reviewed. GROSS DESCRIPTION Received in fixative is one container labeled with the patient's name and designated pilonidal abscess. The specimen consists of a piece of skin with underlying tissue measuring 9.8 x 4 cm and up to 1.7 cm in thickness. Also present in the container is a small piece of beltre-white skin measuring 0.7 x 0.7 x 0.5 cm. A lesion is noted with blue dye discoloration on the site of the cyst. The cyst is present up to a depth of 1 cm. Toy Painter sections are submitted in two cassettes. / SJ:miguel 07/18/2022 TC:2 CPT: 34272
--- NOTE | 2022-07-17 12:08 | PCM.OPRPT ---
Report of Operation Date of Procedure: 07/17/22 Pre-Operative Diagnosis: Left pericoccygeal pilonidal abscess Post-Operative Diagnosis: Same Surgery/Procedure Performed:: Pilonidal cystectomy with cleft lift procedure Description of Surgical Findings:: Timeout informed consent was obtained. 71-year-old gentleman was taken to the operating room underwent general endotracheal ovation esthesia he was placed prone on the table the pericoccygeal area was taped exposed and then prepped with Betadine. Based to the left of the midline the apex and inferior portion of the incision was mapped out and then a incision was made on the right aspect of the ellipse down through the skin and subtenons tissue I then raised flaps to the right very generously due to the amount of tissue that had to be removed. 6 cm length flaps were required to get the skin to move laterally. I then excised the tissue to the left of the pilonidal abscess and I had previously injected the abscess with methylene blue. The C excised tissue failed to demonstrate any blue dye tracking. There was scar tissue midline from the previous vertical pilonidal cystectomy and this was transected. There was no purulence encountered I felt they had good clearance. 10 round drain was exited to the left of the midline in place mostly to the right side where the flap was. I then brought the flap over and approximated to the deep tissue with interrupted 3-0 Vicryl's to try to obliterate space. Then approximated to the opposite incision with subdermal tissues of interrupted 3-0 Vicryl. Good approximation was achieved. The skin edges were then approximated with 3-0 nylon's. Small dogear inferiorly was excised and approximated. Good closure and approximation was achieved. The periincisional areas anesthetized with 0.25% Marcaine. 30 cc was used. Sterile dressings applied. Sponge and instrument and needle counts were reported to the surgeon to be correct. Specimen is pilonidal abscess and skin. Drains 10 round DYLAN. Blood loss minimal. The patient was taken to recovery room in status condition without apparent complication Félix Montague M.D., F.A.C.S. Surgeon: Félix Montague Type of Anesthesia: General and Local Anesthesiologist: Amado Mullen
[2022-07-17] MEDS: Acetaminophen 325 MG Tablet 650 MG PO (14:53)
== END 2022-07-17 15:10 | disposition home or self-care (01) ==
LOC: SDC 08:45 → AC 08:45
PROVIDERS: PCP Family Medicine Geriatric Medicine; Referring Provider Surgery; Visit Provider Surgery
PROC: (CPT 11772; principal; 2022-07-17 10:15)
DX: L05.01 Pilonidal cyst with abscess (principal); I48.0 Paroxysmal atrial fibrillation; E11.9 Type 2 diabetes mellitus without complications; I25.810 Atherosclerosis of coronary artery bypass graft(s) without angina pectoris; I25.10 Atherosclerotic heart disease of native coronary artery without angina pectoris; G47.30 Sleep apnea, unspecified; I10 Essential (primary) hypertension; E80.4 Gilbert syndrome; E78.00 Pure hypercholesterolemia, unspecified; I25.2 Old myocardial infarction; Z79.01 Long term (current) use of anticoagulants; Z79.84 Long term (current) use of oral hypoglycemic drugs; Z87.891 Personal history of nicotine dependence; Z90.49 Acquired absence of other specified parts of digestive tract; Z95.1 Presence of aortocoronary bypass graft; Z95.5 Presence of coronary angioplasty implant and graft
CPT/HCPCS: 11772; 00300; 36415; 80048; 82962; 85027; 88304; 93005; J7120; Q9968

== ENCOUNTER → 2022-09-18 | Outpatient (CLI) | payer MEDICARE, OTHER, SELFPAY ==
[2022-09-18 08:00] LABS: AST(SGOT) 17 U/L (15-37); Alanine Aminotransfer ALT/SGPT 34 U/L (16-61); Albumin, Serum 3.9 g/dL (3.2-5.0); Alkaline Phosphatase 50 U/L (45-117); Bilirubin, Direct 0.29 mg/dL (0.00-0.30); Cholesterol 131 mg/dL (200); Globulin 3.2 g/dL (2.2-4.2); High Density Lipoprotein 37 mg/dL; Protein, Total 7.1 g/dL (6.4-8.2); Triglycerides 173 mg/dL; Very Low Density Lipoprotein 35 mg/dL (5-40)
== END | disposition home or self-care (01) ==
LOC: LAB 06:26
PROVIDERS: PCP Family Medicine Geriatric Medicine; Referring Provider Internal Medicine Cardiovascular Disease; Visit Provider Internal Medicine Cardiovascular Disease
DX: E78.5 Hyperlipidemia, unspecified (principal)
CPT/HCPCS: 36415; 80061; 80076

== ENCOUNTER 2022-11-02 08:34 | Emergency (ER) | payer MEDICARE, OTHER, SELFPAY ==
[2022-11-02 08:36] VITALS: BP 122/75; PULSE 75; RESP 17; TEMP 35.9; O2SAT 94; BMI 29.4
--- NOTE | 2022-11-02 08:58 | EX.ED.GUMALE ---
HPI History of Present Illness Chief Complaint: Complaint Detail of Chief Complaint: Dysuria and difficulty urinating. Informant: patient Pain Onset: Days Context: Gradual Onset Timing: Continuous Current Severity: Mild Maximum Severity: Mild Narrative Narrative: 71-year-old male history of BPH. Diabetes and hypertension. 86 prior MS. He had mild hematuria 1 to 2 weeks ago. Had a scope done by his urologist Dr. Dandy Hemphill who found a large prostate and the patient's had a prior UroLift procedure. They found a loose staple. He is scheduled to have an upcoming TURP procedure and removal that stable. In the last several days he has had difficulty urinating and urinary frequency with some dysuria. No gross blood or clots. No fever but he has had some chills. Prior similar symptoms: Yes Recent Illness/Hospitalization: No PFSH PFS Medical History Abrasion Acute coccygeal pain Alcohol use Atherosclerosis of coronary artery bypass graft without angina pectoris Atherosclerotic heart disease of [place] coronary artery without angina pectoris BPH (benign prostatic hyperplasia) Cardiology follow-up encounter CPAP (continuous positive airway pressure) dependence Diabetes Easy bruising Essential (primary) hypertension Former smoker [place] disease High cholesterol History of atrial fibrillation History of diverticulitis History of echocardiogram History of non-ST elevation myocardial infarction (NSTEMI) (07/2016) History of stress test Hyperlipidemia Palpitations Paroxysmal atrial fibrillation Paroxysmal atrial fibrillation Pilonidal abscess Prostate disease Sinus bradycardia Sleep apnea Type 2 diabetes mellitus Wears glasses Home Medications multivitamin 1 tab PO QDAY 11/04/17 [History Last Taken 01/30/18] tamsulosin 0.4 mg capsule 0.4 mg PO DAILY 07/13/20 [History Last Taken Unknown] metformin 500 mg tablet 1,000 mg PO BIDCM 03/07/21 [History Last Taken Unknown] aspirin 81 mg tablet,delayed release (Adult Low Dose Aspirin) 81 mg PO .QOD #60 tabs 09/20/21 [Rx Last Taken 07/14/22] icosapent ethyl 1 gram capsule (Vascepa) See Rx Instructions .Route .COMPLEX #360 caps 10/24/21 [Rx Last Taken Unknown] lisinopril 5 mg tablet 5 mg PO DAILY #90 tabs 11/15/21 [Rx Last Taken Unknown] rosuvastatin 10 mg tablet (Crestor) 10 mg PO QDAY #90 tabs 11/15/21 [Rx Last Taken Unknown] apixaban 5 mg tablet (Eliquis) 5 mg PO BID #180 tabs 12/23/21 [Rx Last Taken Unknown] metoprolol tartrate 25 mg tablet 12.5 mg PO DAILY #45 tabs 01/14/22 [Rx Last Taken Unknown] nitroglycerin 0.4 mg sublingual tablet 0.4 mg sublingual Q5M #25 tabs 03/21/22 [Rx Last Taken Unknown] amlodipine 10 mg tablet (Norvasc) 10 mg PO DAILY 05/13/22 [History Last Taken 07/17/22 09:00] ipratropium bromide 42 mcg (0.06 %) nasal spray 2 spray intranasal DAILY 05/13/22 [History Last Taken Unknown] ciprofloxacin HCl 500 mg tablet (Cipro) 500 mg PO BID 10 days #20 tabs 11/02/22 [Rx Last Taken Unknown] Allergy/AdvReac Type Severity Reaction Status Date / Time Penicillins Allergy Severe Anaphylaxis Verified 11/02/22 08:35 Family History Father , age 81 blood clot in brain Congestive heart failure Heart valve disorder Mother , age 83 of CVA, had first CVA age 55 CVA (cerebral vascular accident) Sister , of lung cancer Lung cancer CAD (coronary artery disease) Hx angioplasty Sister Cardiac pacemaker in situ Brother Heart disease Brother Heart disease Surgical History H/O coronary artery bypass surgery (11/29/02) History of appendectomy History of coronary artery stent placement (08/04/16) History of excision of pilonidal cyst History of left heart catheterization History of partial colectomy History of tonsillectomy prostate lift Social History Smoking Status: Former smoker alcohol intake: current alcohol intake frequency: 0-2 drinks per day Alcohol type: wine caffeine: Yes Type: coffee Number of servings: 1 ROS ROS ED ROS Narrative Chills. Dysuria. Urinary frequency. Review of Systems ROS Unobtainable: Denies due to encephalopathy Constitutional Constitutional ED: Reports chills; Denies fever(s) Eyes Eyes: Denies blurry vision ENT ENT ED: Denies ear pain Cardiovascular Cardiovascular: Denies chest pain Respiratory/Chest Respiratory/Chest: Denies cough or dyspnea Gastrointestinal Gastrointestinal: Denies abdominal pain, constipation, diarrhea, melena, nausea or vomiting Genitourinary Genitourinary ED: Reports dysuria and urinary frequency; Denies hematuria Musculoskeletal Musculoskeletal: Denies arthralgias or back pain Integumentary Denies abscess Neurologic Neurologic: Denies headache(s) Psychiatric Psychiatric: Denies anxiety Endocrine Endocrinology: Denies polydipsia Hematologic/Lymphatic Hematologic/Lymphatic: Denies easy bleeding Allergic/Immunologic Allergic/Immunologic ED: Denies mouth swelling or tongue swelling EXAM Physical Exam Narrative Exam Narrative: Well-appearing 71-year-old male vital signs stable afebrile. He does not look septic or toxic. He is in no distress. Significant other at bedside. H EENT exam unremarkable. Moist Riis membranes. Lungs clear. Heart regular rhythm. Abdomen soft, nontender, nondistended normal bowel sounds no peritoneal signs. No suprapubic tenderness. Moving all 4 extremities. Calves are nontender without edema or cords. Neurologically is awake and alert. Back nontender. Const Vital Signs: 11/02/22 08:36 11/02/22 10:45 Temperature 96.6 F L Temperature Source Temporal Pulse Rate 75 Respiratory Rate 17 16 Blood Pressure 122/75 H Blood Pressure Mean 90 Pulse Ox 94 Oxygen Delivery Method Room Air Positive well nourished and well developed; Negative for obese, cachectic, contractures or unkempt General Appearance ED: well developed and NAD; Negative for unkempt, cachectic, contractures or pallor Nutritional Appearance: Negative for cachectic or obese HEENT Reports moist mucous membranes; Denies dry mucous membranes normocephalic and atraumatic; Negative for trauma or tenderness Mouth ED: No dry mucous membranes Mouth: No dry mucous membranes Eyes PERRL and EOMs intact bilaterally General Eye ED: Negative for pale conjunctiva or scleral icterus Neck no lymphadenopathy, supple and no JVD General: Negative for tenderness Resp normal respiratory effort and clear to auscultation bilaterally Effort and Inspection: Negative for retractions Auscultation: Negative for rales, rhonchi or wheezes Cardio regular rate, regular rhythm, S1 normal heart sound, S2 normal heart sound and no murmurs Rhythm: Negative for abnormal rhythm GI non-tender, non-distended and no masses Inspection: Negative for abdominal distention Auscultation: normoactive bowel sounds Palpation: soft; Negative for tender or guarding no CVA tenderness Bladder / Kidney Exam: No CVA tenderness Groin / Perineum Exam: Negative for edema or lesions Back/Spine no CVA tenderness General Back: Negative for CVA tenderness Cervical Spine: Negative for cervical spine tenderness Thoracic Spine / Upper Back: Negative for thoracic spinal tenderness Lumbar Spine / Lower Back: Negative for lumbar spinal tenderness Extremity normal to inspection General Extremety ED: Negative for edema or pulses abnormal General Extremity: Negative for edema or pulses abnormal Neuro oriented x3, CN's II-XII intact bilaterally, moves all extremities, no focal motor deficits and no sensory deficits noted Sensorium / Orientation: alert, oriented to person, oriented to place and oriented to time; Negative for orientation impaired, confused, lethargic or stuporous Motor Exam: strength 5/5 throughout Psych mental status grossly normal Appearance: Negative for unkempt Attitude: No agitated Mood & Affect: Negative for depressed, anxious or tearful Thought Process: normal thought process Thought Content: normal thought content Skin General Skin Exam: Negative for jaundice or pallor Lesions: no lesions Rashes: no rashes MDM MDM MDM Narrative Medical decision making narrative: 71-year-old male history of BPH prior UroLift procedure. Complaining of dysuria and urinary frequency. Differential would include urinary retention secondary to BPH, UTI versus other etiologies. CBC and chemistry being obtained. Urinalysis and bladder scan. He is in no distress. Repeat exam at 11:12 AM patient is doing well. He is able to urinate urinated after they did a bladder scan. Will be treated as UTI. Urine culture be sent. He will be started on Cipro 500 twice daily for 10 days. He will follow-up with Dr. Dr. Dandy Hemphill his urologist. He has a scheduled TURP procedure on November 12. He has been on the antibiotics Cipro before and it worked well for him. He knows return if he is unable to urinate. Patient is already on Flomax. Lab Data Attestation: I reviewed the patient's lab results. Lab results narrative: Bladder scan postvoid residual is 140. CBC shows elevated white count of 14.5. H&H 13.3 and 39. Platelets of 200. Electrolytes unremarkable gap of 8 normal BUN of 15 creatinine 0.8. Glucose 204. Urine had positive nitrates 5-10 white cells no bacteria. No red cells. A culture will be sent. This will be treated as a UTI. Labs: Laboratory Results - last 24 hr 11/02/22 11/02/22 11/02/22 09:00 09:10 09:10 WBC 14.5 H RBC 4.25 L Hgb 13.3 Hct 39.7 L MCV 93.4 MCH 31.3 MCHC 33.5 RDW Std Deviation 45.9 H RDW Coeff of Andrea 13.5 Plt Count 200 MPV 10.3 Immature Gran % (Auto) 0.500 Neut % (Auto) 78.5 H Lymph % (Auto) 11.8 L [place] % (Auto) 8.5 Eos % (Auto) 0.3 Baso % (Auto) 0.4 Absolute Neuts (auto) 11.4 H Absolute Lymphs (auto) 1.72 Nucleated RBC % 0 Sodium 137 Potassium 3.8 Chloride 101 Carbon Dioxide 28.0 Anion Gap 8 BUN 15 Creatinine 0.83 Estim Creat Clear Calc 77.83 Est GFR (MDRD) Af Amer 117 Est GFR (MDRD) Non-Af 96 BUN/Creatinine Ratio 18.1 Glucose 204 H Calcium 9.7 Urine Color Radha Urine Clarity Clear Urine pH 6.0 Ur Specific [employer] 1.015 Urine Protein 30 H Urine Glucose (UA) Normal Urine Ketones 15 H Urine Occult Blood 10 H Urine Nitrite Positive H Urine Bilirubin 3 H Urine Urobilinogen 4 H Ur Leukocyte Esterase 25 H Urine RBC 0 SEEN Urine WBC 5-10 SEEN Ur Squamous Epith Cells 0 SEEN Urine Bacteria 0 SEEN Urine Mucus 0 SEEN Discharge Plan Triage Chief Complaint: Complaint ED Provider: Nathan Grissom Dx/Rx/DC Orders Clinical Impression: Acute UTI, Paroxysmal atrial fibrillation, History of coronary artery stent placement, Benign prostatic hyperplasia, Urinary retention Instructions: ED Urinary Tract Infections in Men Prescriptions: New ciprofloxacin HCl [Cipro] 500 mg tablet 500 mg PO BID 10 Days Qty: 20 0RF No Action multivitamin tablet 1 tab PO QDAY tamsulosin 0.4 mg capsule 0.4 mg PO DAILY aspirin [Adult Low Dose Aspirin] 81 mg tablet,delayed release (DR/EC) 81 mg PO .QOD Qty: 60 3RF nitroglycerin 0.4 mg tablet, sublingual 0.4 mg SUBLINGUAL Q5M Qty: 25 2RF amlodipine [Norvasc] 10 mg tablet 10 mg PO DAILY ipratropium bromide 42 mcg (0.06 %) spray,non-aerosol 2 spray intranasal DAILY Label Comments: Take 2 Sprays intranasally once per Day for 30 Days Take in evening metformin 500 mg tablet 1,000 mg PO BIDCM Vascepa 1 gram capsule See Rx Instructions .ROUTE .COMPLEX Qty: 360 3RF Dose Instruction: TAKE 2 CAPSULES TWICE A DAY Rx Instructions: TAKE 2 CAPSULES TWICE A DAY lisinopril 5 mg tablet 5 mg PO DAILY Qty: 90 3RF rosuvastatin [Crestor] 10 mg tablet 10 mg PO QDAY Qty: 90 3RF Eliquis 5 mg tablet 5 mg PO BID Qty: 180 3RF Rx Instructions: LAST DOSE 10/10 PM metoprolol tartrate 25 mg tablet 12.5 mg PO DAILY Qty: 45 3RF Primary Care Provider: Torito Azul Chi Referrals: Jeffery Hemphill MD [Med Staff - Active Staff] - As soon as possible Torito Azul Chi, MD [Primary Care Provider] - Activity Restrictions/Additional Instructions: The antibiotics Cipro 1 pill twice a day for the next 10 days for urinary tract infection. Continue your other medications. Follow-up with Dr. Hemphill. If it gets worse and you are unable to urinate return to the emergency department to have Zelaya catheter placed. Disposition Disposition: Home, Self Care
[2022-11-02 09:15] LABS: Bacteria 0 SEEN /hpf (None Seen); Mucous, Urine 0 SEEN /hpf (<or=2+); Red Blood Cells-Urine 0 SEEN /hpf (0-5); Squamous Epithelial Cells - UA 0 SEEN /hpf (0-5)
[2022-11-02 09:32] LABS: Absolute Lymphocyte Count 1.72 X10^3/uL (0.83-4.51); Absolute Neutrophil Count 11.4 X10^3/uL (2.0-7.7); Basophil# 0.06 X10^3/uL; Basophil% 0.4 % (0-1); Eosinophil# 0.05 X10^3/uL; Eosinophils% 0.3 % (0-5); Hematocrit 39.7 % (40-54); Hemoglobin 13.3 g/dL (13.0-16.5); Lymphocyte # 1.72 X10^3/ul (0.83-4.51); Lymphocyte % 11.8 % (19-41); Mean Corp Hgb Conc 33.5 g/dL (32-36); Mean Corpuscular Hgb 31.3 pg (27.0-32.0); Mean Corpuscular Volume 93.4 fL (80-94); Mean Platelet Vol. 10.3 fl (6.2-12.0); Monocyte# 1.24 X10^3/uL; Monocyte% 8.5 % (0-10); NRBC Flagged by Analyzer 0 % (0-5); Neutrophil # 11.39 X10^3/uL (2.7-7.7); Neutrophil % 78.5 % (47-70); Platelet Count 200 K/mm3 (150-450); RBC Distribution Width CV 13.5 % (11.6-14.6); RBC Distribution Width SD 45.9 fl (35.1-43.9); Red Blood Count 4.25 M/mm3 (4.6-6.2); White Blood Count 14.5 K/mm3 (4.4-11.0)
[2022-11-02 09:33] LABS: Anion Gap 8 (5-15); BUN 15 mg/dL (7-18); BUN/Creat Ratio 18.1 RATIO (10-20); Calcium,Total 9.7 mg/dL (8.5-10.1); Chloride 101 mmol/L (98-107); Creatinine, Serum 0.83 mg/dL (0.70-1.30); EST Glomerular Filtration Rate 96 mL/min (>60); Est Glom Filt Rate - Afr Amer 117 mL/min (>60); Estimated Creatinine Clearance 77.83 ml/min; Glucose 204 mg/dL (74-106); Potassium 3.8 mmol/L (3.5-5.1); Sodium Level 137 mmol/L (136-145)
[2022-11-02 09:33] LABS: Color, Urine Amber (Yellow); Glucose, Dipstick Normal (Normal); Ketone-Dipstick 15 mg/dl (Negative); Leukocyte Esterase-Dipstick 25 /ul (Negative); Nitrite-Dipstick Positive (Negative); Occult Blood-Urine 10 /ul (Negative); Protein-Dipstick 30 mg/dl (Negative); Specific Gravity, Urine 1.015 (1.002-1.030); Urine Bilirubin Dipstick 3 mg/dL (Negative); Urine Clarity Clear (Clear); Urine Urobilinogen 4 mg/dl (Normal)
[2022-11-02 09:49] LABS: White Blood Cells 5-10 SEEN /hpf (0-5)
[2022-11-02 10:45] VITALS: RESP 16
[2022-11-02 11:29] VITALS: RESP 18
[2022-11-02] MEDS: Ciprofloxacin 500 MG Tablet PO (11:30)
[2022-11-05 15:32] LABS: AST(SGOT) 21 U/L (15-37); Alanine Aminotransfer ALT/SGPT 23 U/L (16-61); Albumin, Serum 3.5 g/dL (3.2-5.0); Alkaline Phosphatase 55 U/L (45-117); Thyroid Stim Hormone (TSH) 1.18 uIU/mL (0.358-3.74)
== END 2022-11-02 11:36 | disposition home or self-care (01) ==
PROVIDERS: Emergency Provider Emergency Medicine; PCP Family Medicine Geriatric Medicine; Visit Provider Emergency Medicine
DX: N39.0 Urinary tract infection, site not specified (principal); I48.0 Paroxysmal atrial fibrillation; E11.9 Type 2 diabetes mellitus without complications; N40.1 Benign prostatic hyperplasia with lower urinary tract symptoms; R33.8 Other retention of urine; R35.0 Frequency of micturition; I25.10 Atherosclerotic heart disease of native coronary artery without angina pectoris; I10 Essential (primary) hypertension; E78.00 Pure hypercholesterolemia, unspecified; I25.2 Old myocardial infarction; Z87.891 Personal history of nicotine dependence; Z95.5 Presence of coronary angioplasty implant and graft
CPT/HCPCS: 80048; 81001; 82040; 82247; 84075; 84443; 84450; 84460; 85025; 87086; 99283; A4216

== ENCOUNTER 2022-11-12 09:57 | Observation (INO) | payer MEDICARE, OTHER, SELFPAY ==
[2022-11-12] VITALS (10 sets, daily range): BP systolic 107–132; BP diastolic 57–83; PULSE 40–78; RESP 16–18; TEMP 36.1–36.6; O2SAT 95–100; BMI 28.5; BMI 28.3
--- NOTE | 2022-11-12 | IMM_PTH ---
PATIENT: EMELY KILLIAN LOC: [facility] U#:[id number] AGE/SX: 71/M ROOM: [facility] – [place], [place] RE11/12/[address]: [address]. Jeffery Hemphill MD : 1950 BED: 1 DIS: 11/13/2022 SPEC #: [id number] RECD: 11/14/22 12:37 STATUS: CHICHO REQ #: [id number] FATOU: 11/12/22 00:[address]: Jeffery Hemphill DEPT: IMMUNOHISTOCHEMISTRY RECD BY: Amelie Tavares ENTERED: 11/14/22 12:40 SP TYPE: IMMUNO OTHR DR: Dr. Torito Azul MD Tissues: A - Prostate, NOS Procedures: BCL-2 (add) CD15 (add) CD20 (add) CD30 (add) CD45 (add) CD5 (add) CD79A (add) CD3 (initial) PHYSICIAN & INSTITUTION [place] [id number] SPECIMEN INFORMATION: Tissue Source: A ? Prostate chips Clinical Info: Gross hematuria Specimen Number: [id number] CPT code: 93891, 38966 x7 METHODOLOGY: Deparaffinized sections of prefer/formalin-fixed tissue or PAP/DQ stained slides are incubated with monoclonal/polyclonal antibodies/oligonucleotide probes. Localization is made via biotin free immunoperoxidase method. Appropriate controls are performed and reacted as expected. Results on target cell population are indicated in the following table: RESULTS: ANTIBODY / CLONE RESULT Block A9 CD3 (PS1) positive CD5 (SP10) positive CD20 (L26) positive CD45 (RP2/18) positive CD79a (11E3) positive CD15 (MMA) negative CD30 (Neel-H2) negative BCL-2 (bcl-2/100/D5) positive These tests were developed and their performance characteristics determined by [facility]. They may not have been cleared or approved by the U.S. Food and Drug Administration. The FDA has determined that such clearance or approval is not necessary. The above immunohistochemical/dualISH markers are ordered and reviewed by the Pathologist. INTERPRETATION: A. Prostate chips, transurethral resection: Polytypic (benign) lymphoid tissue. AM:miguel 11/17/2022
[2022-11-12] MEDS: Lactated Ringers 1,000 ML 15 ML IV (07:15)
--- NOTE | 2022-11-12 07:28 | EKG12_ITS ---
Test Reason : Blood Pressure : / mmHG Vent. Rate : 060 BPM Atrial Rate : 053 BPM P-R Int : 000 ms QRS Dur : 098 ms QT Int : 420 ms P-R-T Axes : 000 -18 011 degrees QTc Int : 420 ms Normal sinus rhythm Premature atrial complexes Inferior infarct , age undetermined Anteroseptal infarct , age undetermined Abnormal ECG No previous ECGs available Confirmed by BRI ENCARNACION, DANNY ([id number]), publication editor MATTEO SIN ([id number]) on 11/17/2022 12:50:04 PM Referred By: Jeffery Hemphill Confirmed By:DANNY GREGORY MD
[2022-11-12] MEDS: levoFLOXacin IV 500 MG/100 ML BAG 100 MG IV (08:38)
--- NOTE | 2022-11-12 08:55 | PROS_PTH ---
PATIENT: EMELY KILLIAN LOC: [facility] U#:[id number] AGE/SX: 71/M ROOM: [facility] [place] RE11/12/[address]: Dr. Jeffery Hemphill MD : 1950 BED: 1 DIS: 11/13/2022 SPEC #: [id number] RECD: 11/12/22 13:57 STATUS: CHICHO CRUZ #: [id number] FATOU: 11/12/22 08:[address]: Jeffery Hemphill DEPT: SURGICAL PATHOLOGY RECD BY: Ivelisse Magdaleno ENTERED: 11/13/22 09:56 SP TYPE: TURP OTHR DR: Dr. Torito Azul MD Tissues: A - Prostate, NOS B - FOREIGN BODY Procedures: Surgery Specimen Level I Surgery Specimen Level IV HEADER OPERATION: Cysto, TUR prostate, Olympus, removal of UroLift clips PRE-OP DIAGNOSIS: Gross hematuria, PH TISSUE SUBMITTED: A ? Prostate chips, B ? UroLift clips MICROSCOPIC DIAGNOSIS A. Prostate, transurethral resection: Benign nodular hyperplasia. Chronic prostatitis with focal acute prostatitis. Non-necrotizing granulomatous inflammation. See comment. B. UroLift clips, removal: Unremarkable clips (gross diagnosis only). SHON:miguel 11/14/2022 COMMENT A. Immunohistochemistry ([id number]) supports the above diagnosis. MICROSCOPIC DESCRIPTION Slides are reviewed. GROSS DESCRIPTION A - Received is one container labeled with the patient's name and designated prostate tissue. The specimen consists of multiple irregular fragments of pink-beltre, rubbery, soft tissue that in aggregate weigh 11.7 gm and measure in aggregate 5 x 5 x 2 cm. A few metallic clips are also noted. Neuroscientist sections are submitted in ten cassettes. The metallic clips are for gross identification. 90% of the specimen is submitted. B - Received is one container labeled with the patient's name and designated UroLift. The specimen consists of three metallic clips each measuring 0.8 cm in length and 0.1 cm in width. The specimen is for gross identification only. / SJ:miguel 11/13/2022 TC:3 CPT: 45623
--- NOTE | 2022-11-12 09:57 | HP.PCM_ITS ---
HPI - General HPI Narrative EMELY KILLIAN, is a 71 M who presents for resection of a bladder obstructing prostate with BPH and also removal of stone and UroLift clips [facility] Medical History (Updated 11/10/22 @ 00:01 by Background Corey) Abrasion Acute coccygeal pain Alcohol use Atherosclerosis of coronary artery bypass graft without angina pectoris Atherosclerotic heart disease of [place] coronary artery without angina pectoris BPH (benign prostatic hyperplasia) Cardiology follow-up encounter CPAP (continuous positive airway pressure) dependence Diabetes Easy bruising Essential (primary) hypertension Former smoker [place] disease High cholesterol History of atrial fibrillation History of diverticulitis History of echocardiogram History of non-ST elevation myocardial infarction (NSTEMI) (07/2016) History of stress test Hyperlipidemia Palpitations Paroxysmal atrial fibrillation Paroxysmal atrial fibrillation Pilonidal abscess Prostate disease Sinus bradycardia Sleep apnea Type 2 diabetes mellitus Wears glasses Home Medications multivitamin 1 tab PO QDAY 11/04/17 [History Last Taken 11/11/22] tamsulosin 0.4 mg capsule 0.4 mg PO DAILY 07/13/20 [History Last Taken 11/11/22] metformin 500 mg tablet 1,000 mg PO BIDCM 03/07/21 [History Last Taken 11/11/22] aspirin 81 mg tablet,delayed release (Adult Low Dose Aspirin) 81 mg PO .QOD #60 tabs 09/20/21 [Rx Last Taken 11/04/22] lisinopril 5 mg tablet 5 mg PO DAILY #90 tabs 11/15/21 [Rx Last Taken 11/12/22] rosuvastatin 10 mg tablet (Crestor) 10 mg PO QDAY #90 tabs 11/15/21 [Rx Last Taken 11/11/22] apixaban 5 mg tablet (Eliquis) 5 mg PO BID #180 tabs 12/23/21 [Rx Last Taken 11/08/22] metoprolol tartrate 25 mg tablet 12.5 mg PO DAILY #45 tabs 01/14/22 [Rx Last Taken 11/12/22] nitroglycerin 0.4 mg sublingual tablet 0.4 mg sublingual Q5M #25 tabs 03/21/22 [Rx Last Taken Unknown] ipratropium bromide 42 mcg (0.06 %) nasal spray 2 spray intranasal DAILY 05/13/22 [History Last Taken 11/11/22] ciprofloxacin HCl 500 mg tablet (Cipro) 500 mg PO BID 10 days #20 tabs 11/02/22 [Rx Last Taken 11/11/22] icosapent ethyl 1 gram capsule (Vascepa) See Rx Instructions .Route .COMPLEX #360 caps 11/03/22 [Rx Last Taken 11/11/22] amlodipine 10 mg tablet (Norvasc) 10 mg PO DAILY #90 tabs 11/10/22 [Rx Last Taken 11/11/22] ciprofloxacin HCl 500 mg tablet (Cipro) 500 mg PO BID #10 tabs 11/12/22 [Rx Last Taken Unknown] Allergy/AdvReac Type Severity Reaction Status Date / Time Penicillins Allergy Severe Anaphylaxis Verified 11/05/22 11:22 Family History Father , age 81 blood clot in brain Congestive heart failure Heart valve disorder Mother , age 83 of CVA, had first CVA age 55 CVA (cerebral vascular accident) Sister , of lung cancer Lung cancer CAD (coronary artery disease) Hx angioplasty Sister Cardiac pacemaker in situ Brother Heart disease Brother Heart disease Surgical History (Updated 11/02/22 @ 11:[address] Nathan Grissom MD) H/O coronary artery bypass surgery (11/29/02) History of appendectomy History of coronary artery stent placement (08/04/16) History of excision of pilonidal cyst History of left heart catheterization History of partial colectomy History of tonsillectomy prostate lift Social History Smoking Status: Former smoker alcohol intake: current alcohol intake frequency: 0-2 drinks per day Alcohol type: wine caffeine: Yes Type: coffee Number of servings: 1 Vital Signs Vital Signs Vital Signs: 11/12/22 07:38 11/12/22 07:38 Temperature 97.1 F L Temperature Source Temporal Pulse Rate 40 L Respiratory Rate 18 Respiratory Pattern Normal Blood Pressure 131/83 H Blood Pressure Mean 99 Blood Pressure Source Monitor Blood Pressure Position Semi-Fowlers Blood Pressure Location Left Arm Pulse Ox 97 Oxygen Delivery Method Room Air Weight Weight: 85 kg Body Mass Index (BMI) 28.5
--- NOTE | 2022-11-12 09:58 | DCINST_ITS ---
Discharge Instructions Diet Discharge Diet: No restrictions, Light diet - advance as tolerated and Soft diet Follow Up Care Please Follow Up With: Jeffery Hemphill MD When: Call for appointment 2 weeks Test Results: Test results from this visit will be discussed in further detail at your follow- up appointment, if applicable. Discharge Plan Admission Primary Reason for Your Visit: turp Attending Provider: Jeffery Hemphill Primary Care Provider: Torito Azul Chi Discharge Orders/Prescriptions Prescriptions: New ciprofloxacin HCl [Cipro] 500 mg tablet 500 mg PO BID Qty: 10 0RF Continued multivitamin tablet 1 tab PO QDAY tamsulosin 0.4 mg capsule 0.4 mg PO DAILY aspirin [Adult Low Dose Aspirin] 81 mg tablet,delayed release (DR/EC) 81 mg PO .QOD Qty: 60 3RF nitroglycerin 0.4 mg tablet, sublingual 0.4 mg SUBLINGUAL Q5M Qty: 25 2RF ipratropium bromide 42 mcg (0.06 %) spray,non-aerosol 2 spray intranasal DAILY Label Comments: Take 2 Sprays intranasally once per Day for 30 Days Take in evening metformin 500 mg tablet 1,000 mg PO BIDCM ciprofloxacin HCl [Cipro] 500 mg tablet 500 mg PO BID 10 Days Qty: 20 0RF lisinopril 5 mg tablet 5 mg PO DAILY Qty: 90 3RF rosuvastatin [Crestor] 10 mg tablet 10 mg PO QDAY Qty: 90 3RF metoprolol tartrate 25 mg tablet 12.5 mg PO DAILY Qty: 45 3RF Vascepa 1 gram capsule See Rx Instructions .ROUTE .COMPLEX Qty: 360 4RF Dose Instruction: TAKE 2 CAPSULES TWICE A DAY Rx Instructions: TAKE 2 CAPSULES TWICE A DAY amlodipine [Norvasc] 10 mg tablet 10 mg PO DAILY Qty: 90 3RF Held Eliquis 5 mg tablet 5 mg PO BID Qty: 180 3RF Hold Instructions: Resume on 11/26/22. Rx Instructions: LAST DOSE 10/10 PM Referrals / Follow Up: Jeffery Hemphill MD [Med Staff - Active Staff] - Torito Azul Chi, MD [Primary Care Provider] - Disposition Disposition (needs filled in before D/C Order can be placed): Home, Self Care
--- NOTE | 2022-11-12 09:58 | PCM.OPRPT ---
Report of Operation Date of Procedure: 11/12/22 Pre-Operative Diagnosis: BPH with obstruction UroLift clips with the stones Post-Operative Diagnosis: Same Surgery/Procedure Performed:: Cystolitholapaxy removal of foreign object and bladder stones UroLift clips and transurethral resection of the prostate Description of Surgical Findings:: This is a 71-year-old male who had a UroLift procedure many years ago and he comes back to the office been having more difficulties with blood in the urine difficulty with urination on cystoscopy was found to have a UroLift clip that migrated into the bladder at the bladder neck and a stone stuck in the clip that is causing irritation of the bladder and also has a significant blockage of the urinary channel and continues to have significant urinary symptoms so because of this recommended we proceed with the removal of the UroLift clips and the stones and also transurethral resection of the prostate Patient was taken back to the operating room at the formerly [facility] of anesthesia he was placed in dorsolithotomy position. The penis testicles prepped and draped in usual fashion. Went into the bladder with the cystoscope with 30 degree lens and inspected and identified the stone that was on the UroLift clip on the lateral aspect of the bladder neck I then used a grasper to grab this and extract extract the stone and the clip. I then switched over to the resectoscope and started resecting the prostate as it came a clot cross UroLift clips these prostate was switched over the button to then cauterize the clips and then remove the clips and intact and then continue with resection of the prostate until I had a nice wide open channel resected the right lobe of the prostate left lobe of the prostate the floor and then resected all the way down to the sphincter the sphincter was intact had a wide open flow cauterized extensively to get a good hemostasis and then once had hemostasis removed removed all the chips out of the bladder and up at the bladder continuous irrigation patient anesthetic was reversed he was taken back to the PACU in good condition successful removal of the clips and bladder stone and also TURP of the prostate. Surgeon: Jeffery Hemphill Type of Anesthesia: General Drains: vaughn Admit VTE Documentation VTE Present on Admission: No VTE Mechan Device Prophylaxis: SCD's VTE Pharm Prophylaxis ordered?: No
[2022-11-12 10:35] LABS: Bedside Glucose 137 mg/dL (74-106)
[2022-11-12] MEDS: Ketorolac 15 MG/ML Vial IV (11:37)
[2022-11-12] MEDS: 0.9% Normal Saline 1,000 ML 125 ML IV ×2 (11:39→18:43)
[2022-11-12 12:36] LABS: Bedside Glucose 159 mg/dL (74-106)
[2022-11-12] MEDS: metFORMIN HCl 500 MG Tablet 1000 MG PO (16:22)
[2022-11-12] MEDS: Atorvastatin Calcium 20 MG Tablet PO (20:19)
[2022-11-12] MEDS: Tamsulosin HCl 0.4 MG Capsule PO (20:19)
[2022-11-12] MEDS: Docusate Sodium 100 MG Capsule 200 MG PO (22:12)
[2022-11-13 02:06] VITALS: BP 118/74; PULSE 63; RESP 16; TEMP 36.5; O2SAT 92
[2022-11-13] MEDS: 0.9% Normal Saline 1,000 ML 125 ML IV (02:10)
[2022-11-13 05:52] VITALS: BP 136/73; PULSE 65; RESP 18; TEMP 36.8; O2SAT 94
[2022-11-13 07:46] VITALS: PULSE 76
[2022-11-13] MEDS: Lisinopril 5 MG Tablet PO (07:46)
[2022-11-13] MEDS: Metoprolol Tartrate 25 MG Tablet 12.5 MG PO (07:46)
[2022-11-13] MEDS: metFORMIN HCl 500 MG Tablet 1000 MG PO (07:47)
[2022-11-13] MEDS: Docusate Sodium 100 MG Capsule 200 MG PO (07:47)
[2022-11-13] MEDS: Multivitamins,Therapeutic Tablet 1 TABLET PO (07:48)
[2022-11-13] MEDS: levoFLOXacin IV 500 MG/100 ML BAG 100 MG IV (07:54)
[2022-11-13 08:00] VITALS: BP 148/68; PULSE 76; RESP 18; TEMP 36.7; O2SAT 98
[2022-11-13 09:12] VITALS: BP 148/68; PULSE 76; RESP 18; TEMP 36.7; O2SAT 97
== END 2022-11-13 11:00 | disposition home or self-care (01) ==
LOC: SDC 10:11 → MS3 10:11
PROVIDERS: Admitting Provider Urology; PCP Family Medicine Geriatric Medicine; Referring Provider Urology; Visit Provider Urology
PROC: (CPT 52601; principal; 2022-11-12 08:45)
DX: N40.1 Benign prostatic hyperplasia with lower urinary tract symptoms (principal); I48.0 Paroxysmal atrial fibrillation; E11.9 Type 2 diabetes mellitus without complications; I25.10 Atherosclerotic heart disease of native coronary artery without angina pectoris; N32.0 Bladder-neck obstruction; Z87.891 Personal history of nicotine dependence; I25.2 Old myocardial infarction; G47.30 Sleep apnea, unspecified; E78.00 Pure hypercholesterolemia, unspecified; Z79.899 Other long term (current) drug therapy; Z79.01 Long term (current) use of anticoagulants; Z79.82 Long term (current) use of aspirin; Z79.84 Long term (current) use of oral hypoglycemic drugs; Z95.1 Presence of aortocoronary bypass graft; R31.0 Gross hematuria
CPT/HCPCS: 52601; 00914; 52317; 82962; 88300; 88305; 88341; 88342; 93005; 94668; 96361; 96365; 96375; 99221; 99252; J7030; J7120; G0378; G0463; J2405

== ENCOUNTER → 2023-03-30 | Outpatient (CLI) | payer MEDICARE, OTHER, SELFPAY ==
[2023-03-30 10:05] LABS: PSA,Total - Annual Screen 1.35 ng/mL (0.00-4.00)
== END | disposition home or self-care (01) ==
LOC: LAB 09:00
PROVIDERS: PCP Family Medicine Geriatric Medicine; Referring Provider Urology; Visit Provider Urology
DX: Z12.5 Encounter for screening for malignant neoplasm of prostate (principal)
CPT/HCPCS: 36415; 84153; G0103

== ENCOUNTER → 2023-04-20 | Outpatient (CLI) | payer MEDICARE, OTHER, SELFPAY ==
[2023-04-20 08:08] LABS: AST(SGOT) 20 U/L (15-37); Alanine Aminotransfer ALT/SGPT 29 U/L (16-61); Alkaline Phosphatase 50 U/L (45-117); Bilirubin, Direct 0.36 mg/dL (0.00-0.30); Cholesterol 113 mg/dL (200); Globulin 3.2 g/dL (2.2-4.2); High Density Lipoprotein 41 mg/dL; Protein, Total 7.2 g/dL (6.4-8.2); Triglycerides 131 mg/dL; Very Low Density Lipoprotein 26 mg/dL (5-40)
== END | disposition home or self-care (01) ==
LOC: LAB 06:42
PROVIDERS: PCP Family Medicine Geriatric Medicine; Referring Provider Nurse Practitioner Family; Visit Provider Nurse Practitioner Family
DX: E78.00 Pure hypercholesterolemia, unspecified (principal)
CPT/HCPCS: 36415; 80061; 80076

== ENCOUNTER → 2023-05-06 | Outpatient (CLI) | payer MEDICARE, OTHER, SELFPAY ==
[2023-05-06 17:25] LABS: Absolute Lymphocyte Count 1.94 X10^3/uL (0.83-4.51); Absolute Neutrophil Count 4.5 X10^3/uL (2.0-7.7); Basophil# 0.06 X10^3/uL; Basophil% 0.8 % (0-1); Eosinophil# 0.15 X10^3/uL; Eosinophils% 2.1 % (0-5); Hematocrit 42.9 % (40-54); Hemoglobin 14.7 g/dL (13.0-16.5); Lymphocyte # 1.94 X10^3/ul (0.83-4.51); Lymphocyte % 26.6 % (19-41); Mean Corp Hgb Conc 34.3 g/dL (32-36); Mean Corpuscular Hgb 32.8 pg (27.0-32.0); Mean Corpuscular Volume 95.8 fL (80-94); Mean Platelet Vol. 10.8 fl (6.2-12.0); Monocyte# 0.62 X10^3/uL; Monocyte% 8.5 % (0-10); NRBC Flagged by Analyzer 0 % (0-5); Neutrophil # 4.47 X10^3/uL (2.7-7.7); Neutrophil % 61.3 % (47-70); Platelet Count 250 K/mm3 (150-450); RBC Distribution Width CV 12.3 % (11.6-14.6); RBC Distribution Width SD 42.9 fl (35.1-43.9); Red Blood Count 4.48 M/mm3 (4.6-6.2); White Blood Count 7.3 K/mm3 (4.4-11.0)
[2023-05-06 18:09] LABS: Vitamin D,25 Hydroxy 33.4 ng/mL
[2023-05-06 18:14] LABS: ALB/GLOB Ratio 1.2 RATIO (0.9-2.4); AST(SGOT) 21 U/L (15-37); Alanine Aminotransfer ALT/SGPT 34 U/L (16-61); Alkaline Phosphatase 53 U/L (45-117); Anion Gap 4 (5-15); BUN 16 mg/dL (7-18); BUN/Creat Ratio 18.5 RATIO (10-20); Calcium,Total 9.4 mg/dL (8.5-10.1); Chloride 107 mmol/L (98-107); Creatinine, Serum 0.87 mg/dL (0.70-1.30); EST Glomerular Filtration Rate 92 mL/min (>60); Est Glom Filt Rate - Afr Amer 111 mL/min (>60); Globulin 3.3 g/dL (2.2-4.2); Glucose 121 mg/dL (74-106); Potassium 3.9 mmol/L (3.5-5.1); Protein, Total 7.3 g/dL (6.4-8.2); Sodium Level 141 mmol/L (136-145); Thyroid Stim Hormone (TSH) 0.88 uIU/mL (0.358-3.74)
[2023-05-06 18:27] LABS: Hemoglobin A1c 6.2 % (3.8-5.6)
== END | disposition home or self-care (01) ==
PROVIDERS: PCP Family Medicine Geriatric Medicine; Visit Provider Family Medicine Geriatric Medicine
DX: E11.65 Type 2 diabetes mellitus with hyperglycemia (principal); E55.9 Vitamin D deficiency, unspecified; I10 Essential (primary) hypertension
CPT/HCPCS: 36415; 80053; 82306; 83036; 84443; 85025

== ENCOUNTER → 2023-11-11 | Outpatient (CLI) | payer MEDICARE, OTHER, SELFPAY ==
[2023-11-11 14:51] LABS: Absolute Lymphocyte Count 1.87 X10^3/uL (0.83-4.51); Absolute Neutrophil Count 4.2 X10^3/uL (2.0-7.7); Basophil# 0.06 X10^3/uL; Basophil% 0.9 % (0-1); Eosinophil# 0.13 X10^3/uL; Eosinophils% 1.9 % (0-5); Hematocrit 40.1 % (40-54); Hemoglobin 13.5 g/dL (13.0-16.5); Lymphocyte # 1.87 X10^3/ul (0.83-4.51); Lymphocyte % 27.1 % (19-41); Mean Corp Hgb Conc 33.7 g/dL (32-36); Mean Corpuscular Hgb 31.6 pg (27.0-32.0); Mean Corpuscular Volume 93.9 fL (80-94); Mean Platelet Vol. 10.2 fl (6.2-12.0); Monocyte# 0.61 X10^3/uL; Monocyte% 8.8 % (0-10); NRBC Flagged by Analyzer 0 % (0-5); Neutrophil # 4.21 X10^3/uL (2.7-7.7); Neutrophil % 60.9 % (47-70); Platelet Count 238 K/mm3 (150-450); RBC Distribution Width CV 12.3 % (11.6-14.6); RBC Distribution Width SD 41.9 fl (35.1-43.9); Red Blood Count 4.27 M/mm3 (4.6-6.2); White Blood Count 6.9 K/mm3 (4.4-11.0)
[2023-11-11 15:14] LABS: ALB/GLOB Ratio 1.4 RATIO (0.9-2.4); AST(SGOT) 21 U/L (15-37); Alanine Aminotransfer ALT/SGPT 35 U/L (16-61); Alkaline Phosphatase 53 U/L (45-117); Anion Gap 3 (5-15); BUN 23 mg/dL (7-18); BUN/Creat Ratio 24.2 RATIO (10-20); Calcium,Total 9.6 mg/dL (8.5-10.1); Chloride 107 mmol/L (98-107); Cholesterol 124 mg/dL (200); Creatinine, Serum 0.95 mg/dL (0.70-1.30); EST Glomerular Filtration Rate 82 mL/min (>60); Est Glom Filt Rate - Afr Amer 100 mL/min (>60); Globulin 2.9 g/dL (2.2-4.2); Glucose 141 mg/dL (74-106); High Density Lipoprotein 37 mg/dL; Potassium 3.5 mmol/L (3.5-5.1); Protein, Total 6.9 g/dL (6.4-8.2); Sodium Level 139 mmol/L (136-145); Thyroid Stim Hormone (TSH) 1.26 uIU/mL (0.358-3.74); Triglycerides 285 mg/dL; Very Low Density Lipoprotein 57 mg/dL (5-40)
[2023-11-11 16:50] LABS: Vitamin D,25 Hydroxy 27.6 ng/mL
== END | disposition home or self-care (01) ==
LOC: POLAB3 13:53
PROVIDERS: PCP Family Medicine Geriatric Medicine; Visit Provider Family Medicine Geriatric Medicine
DX: E11.65 Type 2 diabetes mellitus with hyperglycemia (principal); E55.9 Vitamin D deficiency, unspecified; E78.5 Hyperlipidemia, unspecified; I10 Essential (primary) hypertension
CPT/HCPCS: 36415; 80053; 80061; 82306; 84443; 85025

== ENCOUNTER → 2024-03-31 | Outpatient (CLI) | payer MEDICARE, OTHER, SELFPAY ==
[2024-03-31 09:06] LABS: PSA,Total - Annual Screen 1.17 ng/mL (0.00-4.00)
== END | disposition home or self-care (01) ==
LOC: LAB 08:15
PROVIDERS: PCP Family Medicine Geriatric Medicine; Referring Provider Nurse Practitioner; Visit Provider Nurse Practitioner
DX: Z12.5 Encounter for screening for malignant neoplasm of prostate (principal)
CPT/HCPCS: 36415; 84153; G0103

== ENCOUNTER → 2024-04-19 | Outpatient (CLI) | payer MEDICARE, OTHER, SELFPAY ==
[2024-04-19 07:56] LABS: AST(SGOT) 18 U/L (15-37); Alanine Aminotransfer ALT/SGPT 30 U/L (16-61); Albumin, Serum 4.1 g/dL (3.2-5.0); Alkaline Phosphatase 56 U/L (45-117); Bilirubin, Direct 0.34 mg/dL (0.00-0.30); Cholesterol 131 mg/dL (200); Globulin 3.3 g/dL (2.2-4.2); High Density Lipoprotein 43 mg/dL; Protein, Total 7.4 g/dL (6.4-8.2); Triglycerides 120 mg/dL; Very Low Density Lipoprotein 24 mg/dL (5-40)
== END | disposition home or self-care (01) ==
PROVIDERS: PCP Family Medicine Geriatric Medicine; Referring Provider Nurse Practitioner Family; Visit Provider Nurse Practitioner Family
DX: E78.00 Pure hypercholesterolemia, unspecified (principal)
CPT/HCPCS: 36415; 80061; 80076

== ENCOUNTER → 2024-05-17 | Outpatient (CLI) | payer MEDICARE, OTHER, SELFPAY ==
[2024-05-17 10:26] LABS: Absolute Lymphocyte Count 1.87 X10^3/uL (0.83-4.51); Absolute Neutrophil Count 5.2 X10^3/uL (2.0-7.7); Basophil# 0.05 X10^3/uL; Basophil% 0.6 % (0-1); Eosinophil# 0.12 X10^3/uL; Eosinophils% 1.5 % (0-5); Hematocrit 40.4 % (40-54); Hemoglobin 13.6 g/dL (13.0-16.5); Lymphocyte # 1.87 X10^3/ul (0.83-4.51); Lymphocyte % 23.5 % (19-41); Mean Corp Hgb Conc 33.7 g/dL (32-36); Mean Corpuscular Hgb 32.2 pg (27.0-32.0); Mean Corpuscular Volume 95.7 fL (80-94); Monocyte% 8.8 % (0-10); NRBC Flagged by Analyzer 0 % (0-5); Neutrophil # 5.19 X10^3/uL (2.7-7.7); Neutrophil % 65.2 % (47-70); Platelet Count 270 K/mm3 (150-450); RBC Distribution Width CV 12.5 % (11.6-14.6); RBC Distribution Width SD 43.1 fl (35.1-43.9); Red Blood Count 4.22 M/mm3 (4.6-6.2)
[2024-05-17 10:56] LABS: Vitamin D,25 Hydroxy 45.6 ng/mL
[2024-05-17 11:38] LABS: AST(SGOT) 17 U/L (15-37); Alanine Aminotransfer ALT/SGPT 24 U/L (16-61); Albumin, Serum 3.8 g/dL (3.2-5.0); Alkaline Phosphatase 60 U/L (45-117); Anion Gap 5 (5-15); BUN 20 mg/dL (7-18); BUN/Creat Ratio 21.5 RATIO (10-20); Chloride 103 mmol/L (98-107); Creatinine, Serum 0.93 mg/dL (0.70-1.30); EST Glomerular Filtration Rate 84 mL/min (>60); Est Glom Filt Rate - Afr Amer 102 mL/min (>60); Glucose 215 mg/dL (74-106); Potassium 3.7 mmol/L (3.5-5.1); Protein, Total 7.8 g/dL (6.4-8.2); Sodium Level 138 mmol/L (136-145)
== END | disposition home or self-care (01) ==
LOC: POLAB3 10:13
PROVIDERS: PCP Family Medicine Geriatric Medicine; Visit Provider Family Medicine Geriatric Medicine
DX: E11.65 Type 2 diabetes mellitus with hyperglycemia (principal); I10 Essential (primary) hypertension; E55.9 Vitamin D deficiency, unspecified
CPT/HCPCS: 36415; 80053; 82306; 84443; 85025

== ENCOUNTER → 2024-11-14 | Outpatient (CLI) | payer MEDICARE, OTHER, SELFPAY ==
[2024-11-14 09:46] LABS: Absolute Lymphocyte Count 2.02 X10^3/uL (0.83-4.51); Absolute Neutrophil Count 3.4 X10^3/uL (2.0-7.7); Basophil# 0.05 X10^3/uL; Basophil% 0.8 % (0-1); Eosinophil# 0.15 X10^3/uL; Eosinophils% 2.4 % (0-5); Hematocrit 41.1 % (40-54); Hemoglobin 14.2 g/dL (13.0-16.5); Lymphocyte # 2.02 X10^3/ul (0.83-4.51); Lymphocyte % 32.5 % (19-41); Mean Corp Hgb Conc 34.5 g/dL (32-36); Mean Corpuscular Hgb 32.6 pg (27.0-32.0); Mean Corpuscular Volume 94.3 fL (80-94); Mean Platelet Vol. 10.2 fl (6.2-12.0); Monocyte# 0.55 X10^3/uL; Monocyte% 8.8 % (0-10); NRBC Flagged by Analyzer 0 % (0-5); Neutrophil # 3.41 X10^3/uL (2.7-7.7); Neutrophil % 54.9 % (47-70); Platelet Count 218 K/mm3 (150-450); RBC Distribution Width CV 12.3 % (11.6-14.6); Red Blood Count 4.36 M/mm3 (4.6-6.2); White Blood Count 6.2 K/mm3 (4.4-11.0)
[2024-11-14 10:19] LABS: ALB/GLOB Ratio 1.1 RATIO (0.9-2.4); AST(SGOT) 20 U/L (15-37); Alanine Aminotransfer ALT/SGPT 32 U/L (16-61); Albumin, Serum 3.9 g/dL (3.2-5.0); Alkaline Phosphatase 55 U/L (45-117); Anion Gap 8 (5-15); BUN 18 mg/dL (7-18); Calcium,Total 9.6 mg/dL (8.5-10.1); Chloride 104 mmol/L (98-107); Creatinine, Serum 0.82 mg/dL (0.70-1.30); EST Glomerular Filtration Rate 98 mL/min (>60); Est Glom Filt Rate - Afr Amer 118 mL/min (>60); Globulin 3.6 g/dL (2.2-4.2); Glucose 210 mg/dL (74-106); Potassium 3.7 mmol/L (3.5-5.1); Protein, Total 7.5 g/dL (6.4-8.2); Sodium Level 138 mmol/L (136-145)
[2024-11-14 10:25] LABS: Vitamin D,25 Hydroxy 28.5 ng/mL
[2024-11-14 10:54] LABS: Bilirubin, Direct 0.36 mg/dL (0.00-0.30)
== END | disposition home or self-care (01) ==
LOC: POLAB3 09:19
PROVIDERS: Nurse Practitioner Family; PCP Family Medicine Geriatric Medicine; Visit Provider Family Medicine Geriatric Medicine
DX: E11.65 Type 2 diabetes mellitus with hyperglycemia (principal); I10 Essential (primary) hypertension; E55.9 Vitamin D deficiency, unspecified
CPT/HCPCS: 36415; 80053; 82248; 82306; 84443; 85025

== ENCOUNTER → 2025-03-10 | Outpatient (CLI) | payer MEDICARE, OTHER, SELFPAY | END | disposition home or self-care (01) | LOC: PSN 08:15 | PROVIDERS: PCP Family Medicine Geriatric Medicine; Referring Provider Physician Assistant Medical; Visit Provider Physician Assistant Medical | DX: I48.0 Paroxysmal atrial fibrillation (principal) | CPT/HCPCS: 93225; 93226 ==

== ENCOUNTER → 2025-03-31 | Outpatient (CLI) | payer MEDICARE, OTHER, SELFPAY ==
--- NOTE | 2025-03-31 06:36 | ECHOCS_ITS ---
Reason For Study Reason For Study: DYSPNEA Procedure This was a 2D Doppler, Color Flow transthoracic echocardiogram. The study was technically difficult. Contrast injection was performed. Exam performed in department. Left Ventricle Normal LV size. Left ventricular systolic function is normal. The left ventricular ejection fraction is 55 %. No regional wall motion abnormalities noted. Right Ventricle Normal RV size. Normal systolic function. Tricuspid Valve Normal tricuspid valve. Mild to moderate (1-2+) tricuspid valve insufficiency. Pulmonary artery systolic pressure is 44 mmHg. Aortic Valve Trisinus/trileaflet aortic valve. Mild focal aortic valve calcification. Great Vessels Normal aortic root. Pericardium/Pleural No pericardial effusion. Medication Diluted definity 3ml given slow IV push to enhance endocardial definition. MMode/2D Measurements & Calculations LVIDd: 5.0 cm IVSd: 1.3 cm LVOT diam: 2.0 cm LVIDs: 3.5 cm LVPWd: 1.1 cm LVOT area: 3.0 cm2 FS: 30.6 % Ao root diam: 3.8 cm LAV(MOD-bp): 62.3 ml LVAd ap4: 35.9 cm2 LAV(MOD-bp) Indexed: 31.3 ml/m2 LVLd ap4: 8.2 cm LAV(MOD-sp2): 62.2 ml EDV(MOD-sp4): 130.0 ml LAV(MOD-sp4): 58.1 ml EDV(sp4-el): 132.8 ml LVAs ap4: 19.6 cm2 LVLs ap4: 6.0 cm ESV(MOD-sp4): 50.9 ml ESV(sp4-el): 54.2 ml EF(MOD-sp4): 60.8 % EF(sp4-el): 59.2 % SV(MOD-sp4): 79.0 ml SV(sp4-el): 78.6 ml LA A4 area: 21.5 cm2 SI(MOD-sp4): 39.7 ml/m2 LA dimension(2D): 4.3 cm RA A4 area: 9.6 cm2 Time Measurements MV dec time: 0.23 sec Doppler Measurements & Calculations MV E max hayes: 74.8 cm/sec Lat Peak E' Hayes: 10.1 cm/sec Med Peak E' Hayes: 7.7 cm/sec MV A max hayes: 78.5 cm/sec E/E' lat: 7.4 E/E' med: 9.7 MV E/A: 0.95 MV V2 max: 85.6 cm/sec Ao V2 max: 181.5 cm/sec MV max P.9 mmHg MV dec slope: 321.8 cm/sec2 Ao max P.2 mmHg MV V2 mean: 52.9 cm/sec Ao V2 mean: 125.4 cm/sec MV mean P.3 mmHg Ao mean P.2 mmHg MV V2 VTI: 41.3 cm Ao V2 VTI: 44.3 cm AV (velocity ratio): 0.72 MVA(VTI): 2.3 cm2 KASSANDRA(I,D): 2.2 cm2 KASSANDRA(V,D): 2.2 cm2 LV V1 max: 130.8 cm/sec SV(LVOT): 95.8 ml PA V2 max: 95.2 cm/sec LV V1 max P.9 mmHg PA V2 mean: 61.6 cm/sec LV V1 mean P.5 mmHg LV V1 mean: 85.2 cm/sec LV V1 VTI: 31.8 cm TR max hayes: 316.7 cm/sec TR max P.1 mmHg ECHO/Echo Complete W/ Contrast Interpretation Summary Normal LV size. Left ventricular systolic function is normal. The left ventricular ejection fraction is 55 %. Pulmonary artery systolic pressure is 44 mmHg. Contrast injection was performed. Ordering Physician: Karina Westbrook Referring Physician: Karina Westbrook Performed By: Ana Rosa Lorenzo and Student
--- OUTSIDE RECORDS SUMMARY | 2025-03-31 06:37 | XMS RPT_ITS | CCD ---
Author Organization [facility] CliniSyms Care Team Providers Care Ve Teacher Name Role Phone Evon Cyr Unavailable Unavailable Zuleyma Olson Unavailable Unavailable Alexandria BROCK, Tere Murrieta Unavailable Unavailable MD Clinton, Elkin Biswas Unavailable Zuleyma Olson Unavailable Unavailable ORIN LANCASTER DR Attending Unavailable ORIN LANCASTER DR Primary Care Unavailable ORIN LANCASTER DR Admitting Unavailable Dr. Torito Azul Chi Primary Care Provider Dr. Torito Azul Chi Referring Provider Roof BEREAVEMENT COORDINATOR, BEREAVEMENT COORDINATOR-Ronald Devries Attending Provider CeDr. Félix lopez Attending Provider Dr. Félix Montague Referring Provider Dr. Félix Montague Other Provider Dr. Torito Azul Chi Primary Care Provider Dr. Torito Azul Chi Referring Provider Dr. Félix Montague Attending Provider Dr. Elkin Alonzo Attending Provider Dr. Félix Montague Referring Provider Dr. Rohit Green Attending Provider Dr. Félix Montague Other Provider GT Pugh Attending Provider Dr. Torito Azul Chi Primary Care Provider Dr. Félix Montague Attending Provider Dr. Torito Azul Chi Referring Provider Roof BEREAVEMENT COORDINATOR, CONSTANTIN-C Paige Devries Attending Provider [phone] Jorge Alberto, Dr. Torito Greenfield Primary Care Provider [phone] [address]. Félix Montague Referring Provider Jorge Alberto, Dr. Torito Greenfield Primary Care Provider Jorge Alberto, Dr. Torito Greenfield Referring Provider Roof BEREAVEMENT COORDINATOR, BEREAVEMENT COORDINATOR-C Paige Devries Attending Provider Dr. Torito Azul MD, Chi Primary Care Provider Dr. Torito Azul MD, Chi Attending Provider Jorge Alberto ENCARNACION, Dr. Torito Greenfield Referring Provider Karina Jorgensen Attending Provider Roof BEREAVEMENT COORDINATOR, Paige Devries Attending Unavailable Roof BEREAVEMENT COORDINATOR, Paige Devries Referring Unavailable Jorge Alberto, Torito Chi Primary Care Unavailable Karina Jorgensen Referring Unavail able Kate Storey Attending Unavailable Jorge Alberto, Torito Chi Primary Care Unavailable Roof BEREAVEMENT COORDINATOR, Paige Devries Attending Unavailable Jorge Alberto, Torito Chi Primary Care Unavailable Jorge Alberto, Torito Chi Referring Unavailable Karina Jorgensen Attending Unavail able Jorge Alberto, Torito Chi Referring Unavailable Jorge Alberto, Torito Chi Primary Care Unavailable Jorge Alberto, Torito Chi Primary Care Unavailable [place], Martha Attending Unavailable [place], Martha Referring Unavailable Jorge Alberto, Torito Chi Attending Unavailable Jorge Alberto, Torito Chi Primary Care Unavailable Jorge Alberto, Torito Chi Attending Unavailable Jorge Alberto, Torito Chi Primary Care Unavailable Karina Jorgensen Attending Unavail able Karina Jorgensen Referring Unavail able Jorge Alberto, Torito Chi Primary Care Unavailable Karina Jorgensen Referring Unavail able Jorge Alberto, Torito Chi Primary Care Unavailable Karina Jorgensen Attending Unavail able Allergies Allergy Classification Reported Allergen(s) Allergy Type Date of Onset Reaction(s) Facility (5 sources) Chocolate; Translations: [CHOCOLATE] food allergy 1 Respiratory distress [facility] Work Phone: [phone] (5 sources) penicillin drug allergy 1 Respiratory distress [facility] Work Phone: [phone] (12 sources) Penicillins; Translations: [Penicillins] Allergy to substance Anaphylaxis [facility] Medications Current Medications Medication Drug Class(es) Dates Sig (Normalized) Sig (Original) acetaminophen 325 mg / HYDROcodone bitartrate 5 mg oral tablet (2 sources) Opioid Agonist Start: 07-17-2022 take 1 tablet by mouth every eight hours Hydrocodone-Acet aminophen Active 1 TABLET PO Q8H 6 2 July 17, 2022 amLODIPine 10 mg oral tablet (20 sources) Dihydropyridine Calcium Channel Brigitte Start: 11-12-2022 End: 10-17-2024 Amlodipine 10 mg tablet Active 10 mg PO 1999October 17, 2024 1:53pm Start: 04-03-2015 End: 11-10-2022 take 1 tablet by mouth once daily Amlodipine 10 mg tablet Discontinued 10 mg PO DAILY November 15, 2021 4:25pm May 13, 2022 1:32pm Start: 04-03-2015 take 1 tablet by jena once daily NORVASC 5 MG TABS One tablet by mouth daily AMLODIPINE BESYLATE [id number] Karina Westbrook PA-C apixaban 5 mg oral tablet (20 sources) Factor Xa Inhibitor Start: 11-22-2019 End: 02-20-2025 take 1 tablet by mouth twice daily Apixaban (Eliquis) 5 mg tablet Active 5 mg PO TWICE A DAY February 20, 2025 1:42pm Start: 08-07-2016 End: 11-04-2017 take 1 tablet by mouth twice daily Apixaban 5 MG tablet Discontinued 5 mg PO TWICE A DAY August 21, 2016 1:00am November 04, 2017 10:00am aspirin 81 mg delayed release oral tablet (20 sources) Platelet Aggregation Inhibitor, Nonsteroidal Anti-inflammatory Drug Start: 09-20-2021 End: 04-28-2024 Aspirin (Adult Low Dose Aspirin) 81 mg tablet,delayed release (DR/EC) Active 81 mg PO April 28, 2024 8:38am Start: 08-21-2016 End: 04-29-2021 Aspirin 81 MG tablet,delayed release (DR/EC) Discontinued 81 mg PO August 21, 2016 1:00am April 29, 2021 1:00pm Start: 10-21-2013 End: 10-28-2017 take 1 tablet by mouth once daily Aspirin 81 MG tablet,delayed release (DR/EC) Discontinued 81 mg PO DAILY August 04, 2016 12:00am October 28, 2017 1:45pm Start: 02-03-2013 take 1 tablet by jena th once daily ASPIRIN 81 MG TABS One tablet by mouth daily ASPIRIN [id number] Elkin Alonzo MD Start: 02-03-2013 take 1 tablet by jena th once daily ASPIRIN 81 MG TABS One tablet by mouth daily ASPIRIN [id number] Elkin Alonzo MD Start: 03-10-2011 End: 02-03-2013 take 1 tablet by mouth once daily ASPIRIN 325 MG TABS One tablet by mouth daily ASPIRIN [id number] Elkin Alonzo MD fluticasone propionate 0.05 mg/actuat metered dose nasal spray (1 source) Corticosteroid Start: 04-28-2024 take 50 ug nasal route once daily Fluticasone Propionate (Flonase Allergy Relief) 50 mcg/actuation spray,suspension Active 1 NMA INTRANASAL DAILY April 28, 2024 12:00am administer into each nostril icosapent ethyl 1000 mg oral capsule (20 sources) Start: 01-13-2020 End: 02-20-2025 Icosapent Ethyl (Vascepa) 1 gram capsule Active 2 g PO TWICE A DAY February 20, 2025 1:41pm ipratropium bromide 0.042 mg/actuat metered dose nasal spray (9 sources) Anticholinergic Start: 05-13-2022 Ipratropium Br omide 42 mcg (0.06 %) spray,non-aerosol Active 2 NMA INTRANASAL DAILY May 13, 2022 12:00am Start: 05-13-2022 Ipratropium Br omide Active 2 SPRAY INTRANASAL DAILY May 12, 2022 11:00pm Start: 05-13-2022 Ipratropium Br omide Active 2 SPRAY INTRANASAL THREE TIMES A DAY May 13, 2022 12:00am losartan potassium 100 mg oral tablet (2 sources) Angiotensin 2 Receptor Brigitte Start: 09-03-2023 take 1 tablet by mouth once daily Losartan 100 mg tablet Active 100 mg PO DAILY September 03, 2023 1:00am 24 hr metFORMIN hydrochloride 500 mg extended release oral tablet (20 sources) Biguanide Start: 04-28-2024 Metformin 500 mg tablet extended release 24 hr Active 1000 mg PO TWICE A DAY April 28, 2024 12:00am Start: 09-03-2023 End: 04-28-2024 take 1 tablet by mouth twice daily at mealtime Metformin 500 mg tablet Discontinued 500 mg PO TWICE DAILY WITH MEALS September 03, 2023 9:29am April 28, 2024 8:39am Start: 03-07-2021 End: 09-03-2023 take 2 tablets by mouth twice daily at mealtime Metformin 500 mg tablet Discontinued 1000 mg PO TWICE DAILY WITH MEALS March 07, 2021 9:17am September 03, 2023 9:30am Start: 03-07-2021 End: 09-03-2023 take 1000 mg by mouth twice daily at mealtime Metformin Discontinued 1000 MG PO TWICE DAILY WITH MEALS March 07, 2021 8:17am September 03, 2023 8:30am Start: 08-03-2012 End: 03-07-2021 take 1 tablet by mouth twice daily at mealtime Metformin 500 MG tablet Discontinued 500 mg PO TWICE DAILY WITH MEALS August 04, 2016 12:00am March 07, 2021 9:18am metoprolol tartrate 25 mg oral tablet (20 sources) beta-Adrenergic Rbigitte Start: 11-25-2019 End: 01-02-2023 Metoprolol Tartrate 25 mg tablet Active 12.5 mg PO DAILY 45 January 02, 2023 4:31pm Start: 11-25-2019 End: 01-02-2023 take 12.5 mg by mouth once daily Metoprolol Tartrate Discontinued 12.5 MG PO DAILY 45 January 14, 2022 12:03pm January 02, 2023 3:31pm Start: 03-10-2011 End: 10-07-2016 take 0.5 tablet by mouth twice daily METOPROLOL TARTRATE 25 MG TABS 0.5 tablets by mouth twice daily METOPROLOL TARTRATE [id number] Elkin Alonzo MD Multivitamin preparation (10 sources) Start: 11-04-2017 take 1 tablet by mouth once daily Multivitamin Active 1 TABLET PO daily November 04, 2017 9:58am Start: 11-04-2017 take 1 tablet by jena th once daily Multivitamin Active 1 TABLET PO daily November 04, 2017 12:00am Start: 11-04-2017 take 1 tablet by jena th once daily Multivitamin Active 1 TABLET PO daily November 04, 2017 1:00am Multivitamin tablet (1 source) Start: 11-04-2017 Multivitamin t ablet Active 1 {tbl} PO daily November 04, 2017 1:00am nitroglycerin 0.4 mg sublingual tablet (20 sources) Nitrate Vasodilator Start: 08-21-2016 End: 09-03-2023 Nitroglycerin 0.4 mg tablet, sublingual Active 0.4 mg SL Q5M September 03, 2023 9:45am Start: 08-21-2016 End: 09-03-2023 Nitroglycerin Active 0.4 MG SL Q5M September 03, 2023 8:45am Start: 03-10-2011 NITROSTAT 0.4 MG SUBL 1 tablet under tongue every 5 min up to 3 X NITROGLYCERIN [id number] Elkin Alonzo MD rosuvastatin calcium 10 mg oral tablet (20 sources) HMG-CoA Reductase Inhibitor Start: 11-12-2022 End: 02-16-2024 take 1 tablet by mouth at bedtime Rosuvastatin 10 mg tablet Active 10 mg PO AT BEDTIME February 16, 2024 1:09pm Start: 01-06-2018 End: 11-15-2021 take 1 tablet by mouth once daily Rosuvastatin (Crestor) 10 mg tablet Discontinued 10 mg PO daily November 05, 2020 3:04pm November 15, 2021 4:26pm Start: 10-27-2013 End: 01-06-2018 take 1 tablet by mouth once daily Rosuvastatin 20 MG tablet Discontinued 20 mg PO DAILY October 28, 2017 1:46pm January 06, 2018 6:42pm Start: 03-10-2011 CRESTOR 40 MG TABS One half tablet by mouth daily ROSUVASTATIN CALCIUM [id number] Karina Westbrook PA-C Completed/Discontinued Medications Medication Drug Class(es) Dates Sig (Normalized) Sig (Original) ciprofloxacin 500 mg oral tablet (11 sources) Quinolone Antimicrobial Start: 11-02-2022 End: 09-03-2023 take 1 tablet by mouth twice daily Ciprofloxacin Hcl (Cipro) 500 mg tablet Discontinued 500 mg PO TWICE A DAY November 12, 2022 1:00am September 03, 2023 9:29am clopidogrel 75 mg oral tablet (20 sources) [id number] Platelet Inhibitor Start: 08-07-2016 End: 11-22-2019 take 1 tablet by mouth once daily Clopidogrel 75 MG tablet Discontinued 75 mg PO DAILY August 21, 2016 1:00am May 06, 2018 10:01am ezetimibe 10 mg oral tablet (10 sources) Dietary Cholesterol Absorption Inhibitor Start: 03-10-2011 End: 02-03-2013 take 1 tablet by mouth once daily ZETIA 10 MG TABS One tablet by mouth daily EZETIMIBE [id number] Elkin Alonzo MD ISOSORBIDE MONONITRATE (10 sources) Nitrate Vasodilator Start: 12-08-2011 End: 01-22-2012 take 1 tablet by mouth once daily IMDUR 30 MG [id number] One half tablet by mouth daily ISOSORBIDE MONONITRATE [id number] Bud Troy MD Start: 12-08-2011 take 1 tablet by jena th once daily IMDUR 30 MG [id number] One half tablet by mouth daily ISOSORBIDE MONONITRATE [id number] Bud Troy MD Start: 12-08-2011 End: 01-22-2012 IMDUR 30 MG [id number] One bone lf tablet by mouth daily ISOSORBIDE MONONITRATE [id number] Bud Troy MD Start: 12-08-2011 IMDUR 30 MG XR 24H-TAB One half tablet by mouth daily ISOSORBIDE MONONITRATE [id number] Bud Troy MD lisinopril 10 mg oral tablet (20 sources) Angiotensin Converting Enzyme Inhibitor Start: 04-30-2023 End: 09-03-2023 take 1 tablet by mouth once daily Lisinopril 10 mg tablet Discontinued 10 mg PO DAILY April 30, 2023 12:00am September 03, 2023 9:28am Start: 08-07-2016 End: 09-03-2023 take 1 tablet by mouth once daily Lisinopril 5 mg tablet Discontinued 5 mg PO DAILY November 15, 2021 4:25pm September 03, 2023 9:28am meloxicam 7.5 mg oral tablet (10 sources) Nonsteroidal Anti-inflammatory Drug Start: 03-16-2014 End: 08-12-2016 MELOXICAM 7.5 MG TABS as needed MELOXICAM [id number] Karina Westbrook PA-C MULTIPLE VITAMIN (3 sources) Start: 03-10-2011 take 1 tablet by mouth once daily MULTIVITAMINS TABS One tablet by mouth daily MULTIPLE VITAMIN [id number] Summer Perez MULTIPLE VITAMIN (2 sources) Start: 03-10-2011 take 1 tablet by mouth once daily MULTIVITAMINS TABS One tablet by mouth daily MULTIPLE VITAMIN [id number] Summer Perez nystatin 100 unt/mg topical powder (7 sources) Polyene Antifungal Start: 07-31-2022 End: 09-23-2022 Nystatin 100,000 unit/gram powder Discontinued 1 NMA TOPICAL TWICE A DAY July 31, 2022 12:00am September 23, 2022 9:34am Apply to lower part of the incision Start: 07-31-2022 End: 09-23-2022 Nystatin Discontinued 1 APPL IC TOPICAL TWICE A DAY July 30, 2022 11:00pm September 23, 2022 8:34am Apply to lower part of the incision omega-3 acid ethyl esters (chcf) 1000 mg oral capsule (20 sources) Start: 12-18-2011 End: 09-20-2021 take 1 capsule by mouth twice daily Swink-3 Acid Ethyl Esters 1 gram capsule Discontinued 1 g PO TWICE A DAY 180 December 01, 2019 10:28am September 20, 2021 10:48am Start: 12-18-2011 take 1 tablet by jena twice daily LOVAZA 1 GM CAPS One tablet by mouth twice daily [id number] ETHYL ESTERS [id number] Elkin Alonzo MD Start: 12-18-2011 take 1 tablet by jena twice daily LOVAZA 1 GM CAPS One tablet by mouth twice daily [id number] ETHYL ESTERS [id number] Elkin Alonzo MD Swink-3 Fatty Acids-Fish Oil (10 sources) Start: 08-04-2016 End: 10-28-2017 Swink-3 Fatty Acids-Fish Oil Discontinued 1 EACH PO DAILY August 04, 2016 9:43am October 28, 2017 1:46pm Start: 08-04-2016 End: 10-28-2017 Swink-3 Fatty Acids-Fish Oil Discontinued 1 EACH PO DAILY August 03, 2016 11:00pm October 28, 2017 12:46pm Start: 08-04-2016 End: 10-28-2017 Swink-3 Fatty Acids-Fish Oil Discontinued 1 EACH PO DAILY August 04, 2016 12:00am October 28, 2017 1:46pm Swink-3 Fatty Acids-Fish Oil 1 EACH capsule (1 source) Start: 08-04-2016 End: 10-28-2017 Swink-3 Fatty Acids-Fish Oil 1 EACH capsule Discontinued 1 NMA PO DAILY August 04, 2016 12:00am October 28, 2017 1:46pm omeprazole 40 mg delayed release oral capsule (20 sources) Proton Pump Inhibitor Start: 08-07-2016 End: 11-05-2017 take 1 capsule by mouth once daily Omeprazole 40 MG capsule Discontinued 40 mg PO DAILY August 21, 2016 1:00am November 05, 2017 11:51am Start: 08-07-2016 take 1 tablet by jena once daily OMEPRAZOLE 20 MG CPDR One tablet by mouth daily OMEPRAZOLE [id number] Paige Alvarado BEREAVEMENT COORDINATOR Start: 08-07-2016 take 2 tablets by mo tnh once daily OMEPRAZOLE 20 MG CPDR Two tablets by mouth daily OMEPRAZOLE [id number] Karina Westbrook PA-C pantoprazole 40 mg delayed release oral tablet (5 sources) Proton Pump Inhibitor Start: 08-07-2016 take 1 tablet by mouth once daily PANTOPRAZOLE SODIUM 40 MG TBEC One tablet by mouth daily PANTOPRAZOLE SODIUM [id number] Leslie Rivera RN pioglitazone 45 mg oral tablet (15 sources) Peroxisome Proliferator Receptor alpha Agonist, Peroxisome Proliferator Receptor gamma Agonist, Thiazolidinedione Start: 12-08-2011 End: 08-03-2012 take 0.5 tablet by mouth once daily ACTOS 45 MG TABS 1/2 tablet by mouth daily PIOGLITAZONE HCL [id number] Bud Troy MD Start: 03-10-2011 take 1 tablet by jena th once daily ACTOS 45 MG TABS One tablet by mouth daily PIOGLITAZONE HCL [id number] Summer Perez ramipril 10 mg oral capsule (20 sources) Angiotensin Converting Enzyme Inhibitor Start: 06-21-2012 End: 11-04-2017 take 1 capsule by mouth once daily Ramipril 10 MG capsule Discontinued 10 mg PO DAILY August 04, 2016 12:00am November 04, 2017 9:59am Start: 06-21-2012 End: 08-07-2016 take 1 tablet by mouth once daily ALTACE 10 MG CAPS One tablet by mouth daily RAMIPRIL [id number] Leslie Rivera RN Start: 03-10-2011 take 1 tablet by jena th twice daily ALTACE 10 MG CAPS One tablet by mouth twice daily RAMIPRIL [id number] Elkin Alonzo MD Start: 03-10-2011 take 1 tablet by jena th twice daily ALTACE 10 MG CAPS One tablet by mouth twice daily RAMIPRIL [id number] Elkin Alonzo MD tamsulosin hydrochloride 0.4 mg oral capsule (20 sources) alpha-Adrenergic Brigitte Start: 07-13-2020 End: 04-30-2023 Tamsulosin 0.4 mg capsule Discontinued 0.4 mg PO 1999July 13, 2020 12:00am April 30, 2023 9:05am Start: 11-05-2017 End: 03-18-2019 take 1 capsule by mouth once daily Tamsulosin 0.4 mg capsule,extended release 24hr Discontinued 0.4 mg PO daily November 05, 2017 1:00am March 18, 2019 9:14am vitamin b6 100 mg oral tablet (11 sources) Start: 03-18-2019 End: 12-16-2019 take 1 tablet by mouth once daily Pyridoxine (Vitamin B6) (Vitamin B-6) 100 mg tablet Discontinued 100 mg PO DAILY March 18, 2019 12:00am December 16, 2019 11:06am Problems Active Problems Problem Classification Problem Date Documented Date Episodic/Chronic Acute myocardial infarction (5 sources) Non-ST elevation (NSTEMI) myocardial infarction; Translations: [Non-ST elevation (NSTEMI) myocardial infarction] Onset: 08-07-2016 08-07-2016 Chronic Cardiac dysrhythmias (20 sources) Sinus bradycardia; Translations: [Paroxysmal atrial fibrillation] Onset: 04-08-2016 04-08-2016 Chronic Cardiac dysrhythmias (20 sources) Palpitations; Translations: [Palpitations] 03-17-2019 Episodic Complication of device; implant or graft (16 sources) Atherosclerosis of coronary artery bypass graft(s) without angina pectoris; Translations: [Arteriosclerosis of coronary artery bypass graft] Onset: 03-10-2011 03-10-2011 Chronic Coronary atherosclerosis and other heart disease (20 sources) Atherosclerotic heart disease of [place] coronary artery without angina pectoris; Translations: [Coronary arteriosclerosis] Onset: 03-10-2011 Resolved: 09-22-2016 09-22-2016 Chronic Comment on above: July 2016 Coronary atherosclerosis and other heart disease (18 sources) Presence of aortocoronary bypass graft; Translations: [Aortocoronary bypass status] Onset: 11-29-2002 03-10-2011 Episodic Diabetes mellitus with complications (6 sources) Peripheral circulatory disorder associated with type 2 diabetes mellitus; Translations: [Type 2 diabetes mellitus with hyperglycemia] Onset: 03-10-2011 03-10-2011 Chronic Disorders of lipid metabolism (20 sources) Hyperlipidemia; Translations: [Hyperlipidemia, unspecified] Onset: 03-10-2011 03-10-2011 Chronic Essential hypertension (20 sources) Hypertensive disorder; Translations: [Essential hypertension] Onset: 03-10-2011 03-10-2011 Chronic Genitourinary symptoms and ill-defined conditions (6 sources) Retention of urine; Translations: [Retention of urine, unspecified] 11-02-2022 Episodic Hyperplasia of prostate (6 sources) Benign prostatic hyperplasia; Translations: [Benign prostatic hyperplasia without lower urinary tract symptoms] 11-02-2022 Chronic Other lower respiratory disease (2 sources) Other forms of dyspnea; Translations: [Other forms of dyspnea] Onset: 02-20-2025 Episodic Other nutritional; endocrine; and metabolic disorders (11 sources) Gilbert's syndrome; 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] 09-20-2021 Chronic Other upper respiratory disease (1 source) Non-allergic rhinitis; Translations: [Chronic rhinitis] 04-28-2024 Chronic Residual codes; unclassified (11 sources) History of cardiac catheterization; Translations: [Other specified postprocedural states] 03-17-2019 Episodic Comment on above: 11/15/2002 @ [facility], @ [facility]; 08/04/16 @ [facility] with subsequent stent procedure Residual codes; unclassified (2 sources) Other specified postprocedural states; Translations: [Other postprocedural status] 09-24-2022 Episodic Skin and subcutaneous tissue infections (20 sources) Cyst ; Translations: [Pilonidal cyst without abscess] Episodic Spondylosis; intervertebral disc disorders; other back problems (9 sources) Pain in the coccyx; Translations: [Sacrococcygeal disorders, not elsewhere classified] 07-24-2022 Episodic Unclassified (3 sources) Placement of stent in coronary artery ; Translations: [Presence of cardiac and vascular implant and graft, unspecified] Onset: 08-07-2016 08-07-2016 Unclassified (2 sources) Long-term drug therapy; Translations: [Other custodial (current) drug therapy] Onset: 03-10-2011 03-10-2011 Urinary tract infections (6 sources) Acute urinary tract infection; Translations: [Urinary tract infection, site not specified] 11-02-2022 Episodic Past or Other Problems Problem Classification Problem Date Documented Da te Episodic/Chronic Other aftercare (3 sources) Other long goods drier (current) drug therapy; Translations: [Other custodial (current) drug therapy] Onset: 03-10-2011 03-10-2011 Episodic Other nutritional; endocrine; and metabolic disorders (16 sources) Body mass index (BMI) 28.0-28.9, adult; Translations: [Body mass index (BMI) 29.0-29.9, adult] Onset: 03-16-2014 Resolved: 10-09-2015 10-09-2015 Episodic Other nutritional; endocrine; and metabolic disorders (2 sources) Body mass index (BMI) 29.0-29.9, adult; Translations: [Body mass index (BMI) 29.0-29.9, adult] Onset: 03-28-2015 03-28-2015 Episodic Other screening for suspected conditions (not mental disorders or infectious disease) (1 source) Encounter for screening for malignant neoplasm of prostate; Translations: [Encounter for screening for malignant neoplasm of prostate] Onset: 04-13-2024 Episodic Residual codes; unclassified (5 sources) Family history of stroke; Translations: [Family history of stroke] 03-16-2014 Episodic Results Test Name Value Interpretation Reference Range Facility Cardiology Visit Reporton Cardiology Visit Report [facility] [address] [place] [address] OFFICE VISIT Date of Service: 02/20/25 MR#: [id number] Acct: [id number] Name: EMELY KILLIAN Rep #: [id number] : 1950 Provider: MIYA Simmons Age/Sex: 74/M Location: [facility] Status: Signed HPI HPI History of Present Illness Details: EMELY KILLIAN, is a 74 M with a history of coronary artery disease with bypass surgery in 2002. He had an ROSE to the LAD, left radial to the first diagonal and SVG to the first obtuse and PDA. He presented in 2016 with chest discomfort and underwent cardiac catheterization which demonstrated obstruction and he ended up requiring a drug-eluting stent to the saphenous vein graft to the right posterior descending artery, drug-eluting stent to the distal right coronary artery, and drug- eluting stent to the posterior descending artery and the posterolateral branch. He also has a history of paroxysmal atrial fibrillation, hypertension, hyperlipidemia, obstructive sleep apnea with a CPAP mask use and Gilbert's disease. In addition he also has diabetes. Pt has had 2 episodes of Afib the last 2 weeks. He woke up in afib, it felt like he was in afib. He notes that after he woke it only lasted a few minutes. He does not have any chest pain. He does have worsening SOB, this is with his sinuses being full. He does see ENT for this. Bps at home have been in the 140's. He is on metoprolol tartrate 12.5 mg daily. He is not on a full dose d/t low HR readings in the past. Intake Vital Signs 04/28/24 08:32 02/20/25 13:39 Height 5 ft 8 in 5 ft 8 in Weight: 190 lb 189 lb BMI 28.8 28.7 BP 127/71 H 153/77 H Blood Pressure Location Lt brachial Lt brachial Position Sitting Sitting Respiration 16 18 Pulse 52 L 75 Pulse Source NIBP NIBP Intake Visit Reasons: Atrial fibrillation Meteorological Equipment Repairer Required: No Is patient in pain?: No Allergies Penicillins Allergy (Severe, Verified 02/20/25 13:40) Anaphylaxis Medications ???Medication ???Instructions ???Recorded ???Confirmed ???Type multivitamin 1 tab PO QDAY 11/04/17 02/20/25 Hi story ipratropium bromide 42 mcg (0.06 2 spray intranasal DAILY 05/13/22 02/20/25 History %) nasal spray metoprolol tartrate 25 mg tablet 12.5 mg (1/2 x 25 mg) PO DAILY #45 01/02/23 02/20/25 Rx tabs losartan 100 mg tablet 100 mg PO DAILY 09/03/23 02/20/25 History nitroglycerin 0.4 mg sublingual 0.4 mg sublingual Q5M #25 tabs 02/20/25 Rx tablet rosuvastatin 10 mg tablet 10 mg PO QHS #90 tabs 02/16/24 Rx aspirin 81 mg tablet,delayed 81 mg PO MOWEFR 04/28/24 02/20/25 History release (Adult Low Dose Aspirin) fluticasone propionate 50 1 spray intranasal DAILY 04/28/24 02/20/25 History mcg/actuation nasal spray,suspension (Flonase Allergy Relief) metformin 500 mg tablet,extended 1,000 mg PO BID 04/28/24 02/20/25 History release 24 hr amlodipine 10 mg tablet 10 mg PO 1999 #90 tabs 10/17/24 Rx apixaban 5 mg tablet (Eliquis) 5 mg PO BID 02/20/25 02/20/25 Hist ory icosapent ethyl 1 gram capsule 2 g PO BID 02/20/25 02/20/25 Histo ry (Vascepa) Ejection fraction %: 53 Have you fallen in the past year?: [facility] Non-allergic rhinitis BPH (benign prostatic hyperplasia) Wears glasses Alcohol use Abrasion Diabetes Prostate disease High cholesterol Easy bruising Former smoker Sleep apnea CPAP (continuous positive airway pressure) dependence History of stress test History of echocardiogram Cardiology follow-up encounter History of atrial fibrillation Pilonidal abscess Acute coccygeal pain [place] disease Type 2 diabetes mellitus Atherosclerosis of coronary artery bypass graft without angina pectoris Essential (primary) hypertension Paroxysmal atrial fibrillation History of diverticulitis Palpitations History of non-ST elevation myocardial infarction (NSTEMI) (07/2016) Sinus bradycardia Hyperlipidemia Paroxysmal atrial fibrillation Atherosclerotic heart disease of [place] coronary artery without angina pectoris Surgical History History of excision of pilonidal cyst prostate lift History of coronary artery stent placement (08/04/16) H/O coronary artery bypass surgery (11/29/02) History of tonsillectomy History of partial colectomy History of appendectomy History of left heart catheterization Family History Father , age 81 blood clot in brain Congestive heart failure Heart valve disorder Mother , age 83 of CVA, had first CVA age 55 CVA (cerebral vascular accident) Sister , of lung ca (more content not included)... Normal [facility] Absolute lymphocyte countOrd ered By: Torito Azul on 11-14-2024 Lymphocytes Auto (Unsp spec) [#/Vol] 2.02 10*3/uL 0.83-4.51 [facility] Absolute neutrophil countOrd ered By: Torito Azul on 11-14-2024 Neutrophils (Bld) [#/Vol] 3.4 10*3/uL 2.0-7.7 [facility] Albumin to globulin ratioOrd ered By: Torito Azul on 11-14-2024 Albumin/Globulin [Mass ratio] 1.1 {ratio} 0.9-2.4 [facility] Automated lymphocyte count a s percentage of total leukocytesOrdered By: Torito Azul on 11-14-2024 Lymphocytes/100 WBC Auto (Unsp spec) 32.5 % 19-41 [facility] Basophil percentageOrdered B y: Torito Azul on 11-14-2024 Basophils/100 WBC (Bld) 0.8 % 0-1 [facility] Bilirubin directOrdered By: Paige Alvarado on 11-14-2024 Bilirubin.direct [Mass/Vol] 0.36 mg/dL High 0.00-0.30 [facility] Bilirubin, Directon 11-14-19 25 Bilirubin.direct [Mass/Vol] 0.36 mg/dL High 0.00-0.30 [facility] Comment on above: Order Comment: DR. Serena SOLIS ORDERED LIPID AND CMP WILL CC TO PAIGE GABRIELA Performed By: #### L 501.4700 #### [facility] [address] [place], [address] Bilirubin, totalOrdered By: Torito Azul on 11-14-2024 Bilirubin [Mass/Vol] 1.60 mg/dL High 0.20-1.[address] [facility] Comment on above: For patients on eltr ombopag therapy, use of Dimension [place] TBIL is not recommended. Blood urea nitrogen (BUN)/cr eatinine ratioOrdered By: Torito Azul on 11-14-2024 Urea nitrogen/Creatinine [Mass ratio] 22.0 mg/mg High 07-24 [facility] CBC W/Diff, Automatedon 11-05 Absolute Lymph 2.02 X10 3/uL Normal 0.83-4.51 [facility] Comment on above: Performed By: #### L 100.0100, L506.1000, L500.4050, L501.9520 #### [facility] [address] [place], [address] Absolute Neut 3.4 X10 3/uL Normal 2.0-7.7 [facility] Comment on above: Performed By: #### L 100.0100, L506.1000, L500.4050, [id number] #### [facility] [address] [place], [address] Basophils/100 WBC (Bld) 0.8 % Normal 0-1 [facility] Comment on above: Performed By: #### L 100.0100, L506.1000, L500.4050, [id number] #### [facility] [address] [place], [address] Eosinophils/100 WBC (Bld) 2.4 % Normal 0-5 [facility] Comment on above: Performed By: #### L 100.0100, L506.1000, L500.4050, [id number] #### [facility] [address] [place], [address] Erythrocyte distribution width (RBC) [Ratio] 12.3 % Normal 11.6-14.6 [facility] Comment on above: Performed By: #### L 100.0100, L506.1000, L500.4050, [id number] #### [facility] [address] [place], [address] Hematocrit (Bld) [Volume fraction] 41.1 % Normal 40-54 [facility] Comment on above: Performed By: #### L 100.0100, L506.1000, L500.4050, [id number] #### [facility] [address] [place], [address] Hemoglobin (Bld) [Mass/Vol] 14.2 g/dL Normal 13.0-16.5 [facility] Comment on above: Performed By: #### L 100.0100, L506.1000, L500.4050, [id number] #### [facility] [address] [place], [address] IG% 0.600 Normal 0.0-0.9 [facility] Comment on above: Result Comment: IG% - Immature Granulocytes (promyelocytes, myelocytes and metamyelocytes) > 1% indicates that a LEFT SHIFT is Present. Performed By: #### L 100.0100, L506.1000, L500.4050, [id number] #### [facility] [address] [place], [address] Lymphocytes/100 WBC (Bld) 32.5 % Normal 19-41 [facility] Comment on above: Performed By: #### L 100.0100, L506.1000, L500.4050, [id number] #### [facility] [address] [place], [address] MCH (RBC) [Entitic mass] 32.6 pg High 27.0-32.0 [facility] Comment on above: Performed By: #### L 100.0100, L506.1000, L500.4050, [id number] #### [facility] [address] [place], [address] MCHC (RBC) [Mass/Vol] 34.5 g/dL Normal 32-36 [facility] Comment on above: Performed By: #### L 100.0100, L506.1000, L500.4050, [id number] #### [facility] [address] [place], [address] MCV (RBC) [Entitic vol] 94.3 fL High 80-94 [facility] Comment on above: Performed By: #### L 100.0100, L506.1000, L500.4050, [id number] #### [facility] [address] [place], [address] Monocytes/100 WBC (Bld) 8.8 % Normal 0-10 [facility] Comment on above: Performed By: #### L 100.0100, L506.1000, L500.4050, [id number] #### [facility] [address] [place], [address] Neutrophils/100 WBC (Bld) 54.9 % Normal 47-70 [facility] Comment on above: Performed By: #### L 100.0100, L506.1000, L500.4050, [id number] #### [facility] [address] [place], [address] Nucleated RBC (Bld) [#/Vol] 0 10*3/uL Normal 0-5 [facility] Comment on above: Performed By: #### L 100.0100, L506.1000, L500.4050, [id number] #### [facility] [address] [place], [address] Platelet mean volume (Bld) [Entitic vol] 10.2 fL Normal 6.2-12.0 [facility] Comment on above: Performed By: #### L 100.0100, L506.1000, L500.4050, [id number] #### [facility] [address] [place], [address] Platelets (Bld) [#/Vol] 218 10*3/uL Normal 150-450 [facility] Comment on above: Performed By: #### L 100.0100, L506.1000, L500.4050, [id number] #### [facility] [address] [place], [address] RBC (Bld) [#/Vol] 4.36 10*6/uL Low 4.6-6.2 [facility] Comment on above: Performed By: #### L 100.0100, L506.1000, L500.4050, [id number] #### [facility] [address] [place], [address] RDW SD 43.0 fl Normal 35.1-43.9 [facility] Comment on above: Performed By: #### L 100.0100, L506.1000, L500.4050, [id number] #### [facility] [address] [place], [address] WBC (Bld) [#/Vol] 6.2 10*3/uL Normal 4.4-11.0 [facility] Comment on above: Performed By: #### L 100.0100, L506.1000, L500.4050, [id number] #### [facility] [address] [place], [address] Carbon dioxide measurementOr dered By: Torito Azul on 11-14-2024 CO2 [Moles/Vol] 27.0 mmol/L 21.0-32.0 [facility] Chloride measurementOrdered By: Torito Azul on 11-14-2024 Chloride [Moles/Vol] 104 mmol/L 98-[address] [facility] Comprehensive Metabolic Prof ilon 11-14-2024 Albumin [Mass/Vol] 3.9 g/dL Normal 3.2-5.0 [facility] Comment on above: Order Comment: CC CM P TO PAIGE ALVARADO Performed By: #### L 100.0100, L506.1000, L500.4050, [id number] #### [facility] [address] [place], [address] Albumin/Globulin [Mass ratio] 1.1 {ratio} Normal 0.9-2.4 [facility] Comment on above: Order Comment: CC CM P TO PAIGE ALVARADO Performed By: #### L 100.0100, L506.1000, L500.4050, [id number] #### [facility] [address] [place], [address] ALK P 55 U/L Normal 45-117 [facility] Comment on above: Order Comment: CC CM P TO PAIGE ALVARADO Performed By: #### L 100.0100, L506.1000, L500.4050, [id number] #### [facility] [address] [place], [address] ALT [Catalytic activity/Vol] 32 U/L Normal 16-61 [facility] Comment on above: Order Comment: CC CM P TO PAIGE ALVARADO Performed By: #### L 100.0100, L506.1000, L500.4050, [id number] #### [facility] [address] [place], [address] AST [Catalytic activity/Vol] 20 U/L Normal 15-37 [facility] Comment on above: Order Comment: CC CM P TO PAIGE ALVARADO Performed By: #### L 100.0100, L506.1000, L500.4050, [id number] #### [facility] [address] [place], [address] Bilirubin [Mass/Vol] 1.60 mg/dL High 0.20-1.[address] [facility] Comment on above: Order Comment: CC CM P TO PAIGE ALVARADO Result Comment: For patients on eltrombopag therapy, use of Dimension [place] TBIL is not recommended. Performed By: #### L 100.0100, L506.1000, L500.4050, [id number] #### [facility] [address] [place], [address] BUN/CRE 22.0 RATIO High 10-20 [facility] Comment on above: Order Comment: CC CM P TO PAIGE ALVARADO Performed By: #### L 100.0100, L506.1000, L500.4050, [id number] #### [facility] [address] [place], [address] CA,Total 9.6 mg/dL Normal 8.5-10.1 [facility] Comment on above: Order Comment: CC CM P TO PAIGE ALVARADO Performed By: #### L 100.0100, L506.1000, L500.4050, [id number] #### [facility] [address] [place], [address] Chloride [Moles/Vol] 104 mmol/L Normal 98-[address] [facility] Comment on above: Order Comment: CC CM P TO PAIGE ALVARADO Performed By: #### L 100.0100, L506.1000, L500.4050, [id number] #### [facility] [address] [place], [address] CO2 [Moles/Vol] 27.0 mmol/L Normal 21.0-32.0 [facility] Comment on above: Order Comment: CC CM P TO PAIGE ALVARADO Performed By: #### L 100.0100, L506.1000, L500.4050, [id number] #### [facility] [address] [place], [address] Creatinine [Mass/Vol] 0.82 mg/dL Normal 0.70-1.30 [facility] Comment on above: Order Comment: CC CM P TO PAIGE ALVARADO Result Comment: The validity of the calculated GFR GFRAA in patients over 70 years has not been determined. Clinical correlation is essential. Performed By: #### L 100.0100, L506.1000, L500.4050, [id number] #### [facility] [address] [place], [address] EST GFR - AA 118 mL/min Normal >60 [facility] Comment on above: Order Comment: CC CM P TO PAIGE ALVARADO Result Comment: Afri can [place] GFR Calc Performed By: #### L 100.0100, L506.1000, L500.4050, [id number] #### [facility] [address] [place], [address] GAP 8 Normal 5-15 [facility] Comment on above: Order Comment: CC CM P TO PAIGE ALVARADO Performed By: #### L 100.0100, L506.1000, L500.4050, [id number] #### [facility] [address] [place], [address] GFR/1.73 sq M.predicted among non-blacks MDRD (S/P/Bld) [Vol rate/Area] 98 mL/min/{1.73_m2} Normal >60 [facility] Comment on above: Order Comment: CC CM P TO PAIGE ALVARADO Result Comment: Non- GFR Calc Performed By: #### L 100.0100, L506.1000, L500.4050, [id number] #### [facility] [address] [place], [address] Globulin (S) [Mass/Vol] 3.6 g/dL Normal 2.2-4.2 [facility] Comment on above: Order Comment: CC CM P TO PAIGE ALVARADO Performed By: #### L 100.0100, L506.1000, L500.4050, [id number] #### [facility] [address] [place], [address] Glucose [Mass/Vol] 210 mg/dL High 74-106 [facility] Comment on above: Order Comment: CC CM P TO PAIGE ALVARADO Result Comment: Gluc ose result greater than or equal to 200 mg/dL suggests DIABETES MELLITUS per A.D.A. criteria. Performed By: #### L 100.0100, L506.1000, L500.4050, L501.9520 #### [facility] [address] [place], [address] Potassium [Moles/Vol] 3.7 mmol/L Normal 3.5-5.1 [facility] Comment on above: Order Comment: CC CM P TO PAIGE ALVARADO Performed By: #### L 100.0100, L506.1000, L500.4050, [id number] #### [facility] [address] [place], [address] Sodium [Moles/Vol] 138 mmol/L Normal 136-145 [facility] Comment on above: Order Comment: CC CM P TO PAIGE ALVARADO Performed By: #### L 100.0100, L506.1000, L500.4050, [id number] #### [facility] [address] [place], [address] T PROT 7.5 g/dL Normal 6.4-8.2 [facility] Comment on above: Order Comment: CC CM P TO PAIGE ALVARADO Performed By: #### L 100.0100, L506.1000, L500.4050, [id number] #### [facility] [address] [place], [place], [address] Urea nitrogen [Mass/Vol] 18 mg/dL Normal 7-18 [facility] Comment on above: Order Comment: CC CM P TO PAIGE ALVARADO Performed By: #### L 100.0100, L506.1000, L500.4050, L501.9520 #### [facility] [address] [place], [place], [id number] Eosinophil percentageOrdered By: Torito Jorge Alberto on 11-14-2024 Eosinophils/100 WBC (Bld) 2.4 % 0-5 [facility] Erythrocyte distribution wid th ratioOrdered By: [facility]24 Erythrocyte distribution width (RBC) [Ratio] 12.3 % 11.6-14.6 [facility] Erythrocyte distribution wid th standard deviationOrdered By: [facility] on 11-14-2024 Erythrocyte distribution width (RBC) [Ratio] 43.0 fl 35.1-43.9 [facility] Glomerular filtration rate ( GFR) estimationOrdered By: Torito Billingsok on 11-14-2024 GFR/1.73 sq M.predicted among non-blacks MDRD (S/P/Bld) [Vol rate/Area] 98 mL/min/{1.73_m2} >60 [facility] Comment on above: Non- GFR Calc Glucose measurementOrdered B y: Torito Billingsok on 11-14-2024 Glucose [Mass/Vol] 210 mg/dL High 74-106 [facility] Comment on above: Glucose result great er than or equal to 200 mg/dLsuggests DIABETES MELLITUS per A.D.A. criteria. Hematocrit Auto (Bld) [Volum e fraction]Ordered By: Torito Azul on 11-14-2024 Hematocrit (Bld) [Volume fraction] 41.1 % 40-54 [facility] Hemoglobin measurementOrdere d By: Torito Azul on 11-14-2024 Hemoglobin (Bld) [Mass/Vol] 14.2 g/dL 13.0-16.5 [facility] Immature granulocytes/100 WB C Auto (Bld)Ordered By: Torito Azul 11-14-2024 Immature granulocytes/100 WBC (Bld) 0.600 % 0.0-0.9 [facility] Comment on above: IG% - Immature Granu locytes (promyelocytes, myelocytes and metamyelocytes) > 1% indicates that a LEFT SHIFT is Present. Laboratory - Chemistry and C hemistry - challengeOrdered By: Torito Azul on 11-14-2024 AST [Catalytic activity/Vol] 20 U/L 15-37 [facility] MCV (mean corpuscular volume ) determinationOrdered By: Torito Azul on 11-14-2024 MCV (RBC) [Entitic vol] 94.3 fL High 80-94 [facility] Mean corpuscular hemoglobin (MCH) determinationOrdered By: Torito Azul 11-14-2024 MCH (RBC) [Entitic mass] 32.6 pg High 27.0-32.0 [facility] Mean corpuscular hemoglobin concentration (MCHC) determinationOrdered By: Torito Azul 11-14-2024 MCHC (RBC) [Mass/Vol] 34.5 g/dL 32-36 [facility] Mean platelet volume determi nationOrdered By: Torito Azul on 11-14-2024 Platelet mean volume (Bld) [Entitic vol] 10.2 fL 6.2-12.0 [facility] Monocyte percentageOrdered B y: Torito Azul on 11-14-2024 Monocytes/100 WBC (Bld) 8.8 % 0-10 [facility] Neutrophil percentageOrdered By: Torito Azul on 11-14-2024 Neutrophils/100 WBC (Bld) 54.9 % 47-70 [facility] Nucleated red blood cell per centageOrdered By: Torito Azul 11-14-2024 Nucleated RBC/100 WBC (Bld) [Ratio] 0 % 0-5 [facility] Platelet countOrdered By: Drew Azul on 11-14-2024 Platelets (Bld) [#/Vol] 218 10*3/uL 150-450 [facility] Potassium measurementOrdered By: Torito Azul 11-14-2024 Potassium [Moles/Vol] 3.7 mmol/L 3.5-5.1 [facility] RBC Auto (Bld) [#/Vol]Ordere d By: Torito Azul on 11-14-2024 RBC (Bld) [#/Vol] 4.36 10*6/uL Low 4.6-6.2 [facility] Serum anion gap measurementO rdered By: Torito Azul on 11-14-2024 Anion gap [Moles/Vol] 8 mmol/L 5-15 [facility] Serum globulin measurementOr dered By: Torito Azul 11-14-2024 Globulin (S) [Mass/Vol] 3.6 g/dL 2.2-4.2 [facility] Serum or plasma alanine lau otransferase (ALT) measurementOrdered By: Torito Azul 11-14-2024 ALT [Catalytic activity/Vol] 32 U/L 16-61 [facility] Serum or plasma albumin eusebio urement (mass/volume)Ordered By: Torito Azul 11-14-2024 Albumin [Mass/Vol] 3.9 g/dL 3.2-5.0 [facility] Serum or plasma alkaline rogelio sphatase measurementOrdered By: Torito Azul 11-14-2024 ALP [Catalytic activity/Vol] 55 U/L 45-117 [facility] Serum or plasma calcium eusebio urement (mass/volume)Ordered By: Torito Azul 11-14-2024 Calcium [Mass/Vol] 9.6 mg/dL 8.5-10.1 [facility] Serum or plasma creatinine m easurement (mass/volume)Ordered By: Torito Azul 11-14-2024 Creatinine [Mass/Vol] 0.82 mg/dL 0.70-1.30 [facility] Comment on above: The validity of the calculated GFR & GFRAA in patients over 70 years has not been determined. Clinical correlation is essential. Serum or plasma thyroid stim ulating hormone (TSH) measurement (units/volume)Ordered By: Torito Azul 11-14-2024 TSH Qn 1.710 uIU/mL 0.358-3.740 [facility] Serum or plasma urea nitroge n measurement (mass/volume)Ordered By: Torito Azul 11-14-2024 Urea nitrogen [Mass/Vol] 18 mg/dL 7-18 [facility] Sodium levelOrdered By: Torito Azul 11-14-2024 Sodium [Moles/Vol] 138 mmol/L 136-145 [facility] Thyroid Stim Hormone (TSH)on 11-14-2024 TSH 1.710 uIU/mL Normal 0.358-3.740 [facility] Comment on above: Order Comment: MOUNIKA Gonzalez TO PAIGE ALVARADO Performed By: #### L 100.0100, L506.1000, L500.4050, L501.9520 #### [facility] [address] [place], [address] Total proteinOrdered By: Torito Azul on 11-14-2024 Protein [Mass/Vol] 7.5 g/dL 6.4-8.2 [facility] Vitamin D,25 Hydroxyon 11-14 Vitamin D 25-OH 28.5 ng/mL Normal [facility] Comment on above: Result Comment: Roseline min D 25(OH) Status Range Deficiency <20 ng/mL (50nmol/L) Insufficiency 20 - 30 ng/mL (50 - 75 nmol/L) Sufficiency 30 - 100 ng/mL (75 - 250 nmol/L) Toxicity >100 ng/mL (>250 nmol/L) Performed By: #### L 100.0100, L506.1000, L500.4050, L501.9520 #### [facility] [address] [place], [address] White blood cell (WBC) count Ordered By: Torito Azul on 11-14-2024 WBC (Bld) [#/Vol] 6.2 10*3/uL 4.4-11.0 [facility] CBC W/Diff, Automatedon - Absolute Lymph 1.87 X10 3/uL Normal 0.83-4.51 [facility] Comment on above: Performed By: #### L 506.1000, L501.9520, L100.0100, L500.4050 #### [facility] [address] [place], [address] Absolute Neut 5.2 X10 3/uL Normal 2.0-7.7 [facility] Comment on above: Performed By: #### L 506.1000, L501.9520, L100.0100, L500.4050 #### [facility] [address] [place], [address] Basophils/100 WBC (Bld) 0.6 % Normal 0-1 [facility] Comment on above: Performed By: #### L 506.1000, L501.9520, L100.0100, L500.4050 #### [facility] [address] [place], [address] Eosinophils/100 WBC (Bld) 1.5 % Normal 0-5 [facility] Comment on above: Performed By: #### L 506.1000, L501.9520, L100.0100, L500.4050 #### [facility] [address] [place], [address] Erythrocyte distribution width (RBC) [Ratio] 12.5 % Normal 11.6-14.6 [facility] Comment on above: Performed By: #### L 506.1000, L501.9520, L100.0100, L500.4050 #### [facility] [address] [place], [address] Hematocrit (Bld) [Volume fraction] 40.4 % Normal 40-54 [facility] Comment on above: Performed By: #### L 506.1000, L501.9520, L100.0100, L500.4050 #### [facility] [address] [place], [address] Hemoglobin (Bld) [Mass/Vol] 13.6 g/dL Normal 13.0-16.5 [facility] Comment on above: Performed By: #### L 506.1000, L501.9520, L100.0100, L500.4050 #### [facility] [address] [place], [address] IG% 0.400 Normal 0.0-0.9 [facility] Comment on above: Result Comment: IG% - Immature Granulocytes (promyelocytes, myelocytes and metamyelocytes) > 1% indicates that a LEFT SHIFT is Present. Performed By: #### L 506.1000, L501.9520, L100.0100, L500.4050 #### [facility] [address] [place], [address] Lymphocytes/100 WBC (Bld) 23.5 % Normal 19-41 [facility] Comment on above: Performed By: #### L 506.1000, L501.9520, L100.0100, L500.4050 #### [facility] [address] [place], [address] MCH (RBC) [Entitic mass] 32.2 pg High 27.0-32.0 [facility] Comment on above: Performed By: #### L 506.1000, L501.9520, L100.0100, L500.4050 #### [facility] [facility] [address] [place], [address] MCHC (RBC) [Mass/Vol] 33.7 g/dL Normal 32-36 [facility] Comment on above: Performed By: #### L 506.1000, L501.9520, L100.0100, L500.4050 #### [facility] [address] [place], [address] MCV (RBC) [Entitic vol] 95.7 fL High 80-94 [facility] Comment on above: Performed By: #### L 506.1000, L501.9520, L100.0100, L500.4050 #### [facility] [address] [place], [address] Monocytes/100 WBC (Bld) 8.8 % Normal 0-10 [facility] Comment on above: Performed By: #### L 506.1000, L501.9520, L100.0100, L500.4050 #### [facility] [address] [place], [address] Neutrophils/100 WBC (Bld) 65.2 % Normal 47-70 [facility] Comment on above: Performed By: #### L 506.1000, L501.9520, L100.0100, L500.4050 #### [facility] [address] [place], [address] Nucleated RBC (Bld) [#/Vol] 0 10*3/uL Normal 0-5 [facility] Comment on above: Performed By: #### L 506.1000, L501.9520, L100.0100, L500.4050 #### [facility] [address] [place], [address] Platelet mean volume (Bld) [Entitic vol] 10.0 fL Normal 6.2-12.0 [facility] Comment on above: Performed By: #### L 506.1000, L501.9520, L100.0100, L500.4050 #### [facility] [address] [place], [address] Platelets (Bld) [#/Vol] 270 10*3/uL Normal 150-450 [facility] Comment on above: Performed By: #### L 506.1000, L501.9520, L100.0100, L500.4050 #### [facility] [address] [place], [address] RBC (Bld) [#/Vol] 4.22 10*6/uL Low 4.6-6.2 [facility] Comment on above: Performed By: #### L 506.1000, L501.9520, L100.0100, L500.4050 #### [facility] [address] [place], [address] RDW SD 43.1 fl Normal 35.1-43.9 [facility] Comment on above: Performed By: #### L 506.1000, L501.9520, L100.0100, L500.4050 #### [facility] [address] [place], [address] WBC (Bld) [#/Vol] 8.0 10*3/uL Normal 4.4-11.0 [facility] Comment on above: Performed By: #### L 506.1000, L501.9520, L100.0100, L500.4050 #### [facility] [address] [place], [address] Comprehensive Metabolic Prof [facility] 05-17-2024 Albumin [Mass/Vol] 3.8 g/dL Normal 3.2-5.0 [facility] Comment on above: Performed By: #### L 500.4100, L500.3400 #### [facility] [address] [place], [address] Albumin/Globulin [Mass ratio] 1.0 {ratio} Normal 0.9-2.4 [facility] Comment on above: Performed By: #### L 500.4100, L500.3400 #### [facility] [address] [place], [address] ALK P 60 U/L Normal 45-117 [facility] Comment on above: Performed By: #### L 500.4100, L500.3400 #### [facility] [address] [place], [address] ALT [Catalytic activity/Vol] 24 U/L Normal 16-61 [facility] Comment on above: Performed By: #### L 500.4100, L500.3400 #### [facility] [address] [place], [address] AST [Catalytic activity/Vol] 17 U/L Normal 15-37 [facility] Comment on above: Performed By: #### L 500.4100, L500.3400 #### [facility] [address] [place], [address] Bilirubin [Mass/Vol] 1.50 mg/dL High 0.20-1.[address] [facility] Comment on above: Result Comment: For patients on eltrombopag therapy, use of Dimension [place] TBIL is not recommended. Performed By: #### L 500.4100, L500.3400 #### [facility] [address] [place], [address] BUN/CRE 21.5 RATIO High 10-20 [facility] Comment on above: Performed By: #### L 500.4100, L500.3400 #### [facility] [address] [place], [address] CA,Total 10.0 mg/dL Normal 8.5-10.1 [facility] Comment on above: Performed By: #### L 500.4100, L500.3400 #### [facility] [address] [place], [address] Chloride [Moles/Vol] 103 mmol/L Normal 98-[address] [facility] Comment on above: Performed By: #### L 500.4100, L500.3400 #### [facility] [address] [place], [address] CO2 [Moles/Vol] 30.0 mmol/L Normal 21.0-32.0 [facility] Comment on above: Performed By: #### L 500.4100, L500.3400 #### [facility] [address] [place], [address] Creatinine [Mass/Vol] 0.93 mg/dL Normal 0.70-1.30 [facility] Comment on above: Result Comment: The validity of the calculated GFR GFRAA in patients over 70 years has not been determined. Clinical correlation is essential. Performed By: #### L 500.4100, L500.3400 #### [facility] [address] [place], [address] EST GFR - AA 102 mL/min Normal >60 [facility] Comment on above: Result Comment: Afri can [place] GFR Calc Performed By: #### L 500.4100, L500.3400 #### [facility] [address] [place], [address] GAP 5 Normal 5-15 [facility] Comment on above: Performed By: #### L 500.4100, L500.3400 #### [facility] [address] [place], [address] GFR/1.73 sq M.predicted among non-blacks MDRD (S/P/Bld) [Vol rate/Area] 84 mL/min/{1.73_m2} Normal >60 [facility] Comment on above: Result Comment: Non- GFR Calc Performed By: #### L 500.4100, L500.3400 #### [facility] [address] [place], [address] Globulin (S) [Mass/Vol] 4.0 g/dL Normal 2.2-4.2 [facility] Comment on above: Performed By: #### L 500.4100, L500.3400 #### [facility] [address] [place], [address] Glucose [Mass/Vol] 215 mg/dL High 74-106 [facility] Comment on above: Result Comment: Gluc ose result greater than or equal to 200 mg/dL suggests DIABETES MELLITUS per A.D.A. criteria. Performed By: #### L 500.4100, L500.3400 #### [facility] [address] [place], [address] Potassium [Moles/Vol] 3.7 mmol/L Normal 3.5-5.1 [facility] Comment on above: Performed By: #### L 500.4100, L500.3400 #### [facility] [address] [place], [address] Sodium [Moles/Vol] 138 mmol/L Normal 136-145 [facility] Comment on above: Performed By: #### L 500.4100, L500.3400 #### [facility] [address] [place], [address] T PROT 7.8 g/dL Normal 6.4-8.2 [facility] Comment on above: Performed By: #### L 500.4100, L500.3400 #### [facility] [address] [place], [address] Urea nitrogen [Mass/Vol] 20 mg/dL High 7-18 [facility] Comment on above: Performed By: #### L 500.4100, L500.3400 #### [facility] [address] [place], [address] Thyroid Stim Hormone (TSH)on 05-17-2024 TSH 1.090 uIU/mL Normal 0.358-3.740 [facility] Comment on above: Performed By: #### L 500.4100, L500.3400 #### [facility] [address] [place], [address] Vitamin D,25 Hydroxyon 05-17 Vitamin D 25-OH 45.6 ng/mL Normal [facility] Comment on above: Result Comment: Roseline min D 25(OH) Status Range Deficiency <20 ng/mL (50nmol/L) Insufficiency 20 - 30 ng/mL (50 - 75 nmol/L) Sufficiency 30 - 100 ng/mL (75 - 250 nmol/L) Toxicity >100 ng/mL (>250 nmol/L) Performed By: #### L 500.4100, L500.3400 #### [facility] [address] [place], [address] Cardiology Visit Reporton Cardiology Visit Report [facility] [address] [place] [address] OFFICE VISIT Date of Service: 04/28/24 MR#: [id number] Acct: [id number] Name: EMELY KILLIAN Rep #: [id number] : 1950 Provider: TEVIN lott Age/Sex: 73/M Location: [facility] Status: Signed HPI HPI History of Present Illness Details: EMELY KILLIAN, is a 73 M who presents to the office today for a cardiovascular follow-up. He has a history of coronary artery disease with bypass surgery in 2002. He had an ROSE to the LAD, left radial to the first diagonal and SVG to the first obtuse and PDA. He presented in 2016 with chest discomfort and underwent cardiac catheterization which demonstrated obstruction and he ended up requiring a drug-eluting stent to the saphenous vein graft to the right posterior descending artery, drug-eluting stent to the distal right coronary artery, and drug-eluting stent to the posterior descending artery and the posterolateral branch. He also has a history of paroxysmal atrial fibrillation, hypertension, hyperlipidemia, obstructive sleep apnea with a CPAP mask use and Gilbert's disease. In addition he also has diabetes. He told us that he thinks that some of his atrial fibrillation occurs when he struggles with his CPAP mask. He did have a 30-day event monitor which did not demonstrate any correlation of the above. He has been compliant with all his medications. He denies chest, arm, jaw, or neck discomfort. He denies palpitations. He denies bilateral lower extremity edema. He denies claudication. He denies shortness of breath with activity, shortness of breath at rest, orthopnea, or PND. He denies chronic cough. He denies significant, sudden weight gain. He denies lightheadedness, dizziness, near-syncope, or syncope. He denies blood in urine, blood in stool, or epistaxis. He denies fever with chills. He denies myalgia. He denies fatigue. His exercise level has remained stable. He states sinus issues related to CPAP that causes sense of anxiety and intermittent shortness of breath. Intake Vital Signs 04/30/23 07:51 09/03/23 08:31 04/28/24 08:32 Height 5 ft 8.11 in 5 ft 8.11 in 5 ft 8 in Weight: 190 lb BMI 28.8 BP 127/71 H Blood Pressure Location Lt brachial Position Sitting Respiration 16 Pulse 52 L Pulse Source NIBP Intake Visit Reasons: 1 Y FU [employer] Required: No Is patient in pain?: No Allergies Penicillins Allergy (Severe, Verified 04/28/24 08:35) Anaphylaxis Medications ???Medication ???Instructions ???Recorded ???Confirmed ???Type multivitamin 1 tab PO QDAY 11/04/17 04/28/24 History ipratropium bromide 42 mcg (0.06 2 spray intranasal DAILY 05/13/22 04/28/24 History %) nasal spray metoprolol tartrate 25 mg tablet 12.5 mg (1/2 x 25 mg) PO DAILY #45 01/02/23 04/28/24 Rx tabs losartan 100 mg tablet 100 mg PO DAILY 09/03/23 04/28/24 History nitroglycerin 0.4 mg sublingual 0.4 mg sublingual Q5M #25 tabs 09/03/23 04/28/24 Rx tablet amlodipine 10 mg tablet 10 mg PO 2000 #90 tabs 10/27/23 04/28/24 Rx icosapent ethyl 1 gram capsule See Rx Instructions .Route 01/25/24 04/28/24 Rx (Vascepa) .COMPLEX #360 caps apixaban 5 mg tablet (Eliquis) See Rx Instructions .Route 02/16/24 04/28/24 Rx .COMPLEX #180 tabs rosuvastatin 10 mg tablet 10 mg PO QHS #90 tabs 02/16/24 04/28/24 Rx aspirin 81 mg tablet,delayed 81 mg PO MOWEFR 04/28/24 History release (Adult Low Dose Aspirin) fluticasone propionate 50 1 spray intranasal DAILY 04/28/24 04/28/24 History mcg/actuation nasal spray,suspension (Flonase Allergy Relief) metformin 500 mg tablet,extended 1,000 mg PO BID 04/28/24 04/28/24 History release 24 hr Ejection fraction %: 53 Have you fallen in the past year?: Yes [facility] Medical History (Updated 04/28/24 @ 08:43 by Loraine Phillips) Non-allergic rhinitis BPH (benign prostatic hyperplasia) Wears glasses Alcohol use Abrasion Diabetes Prostate disease High cholesterol Easy bruising Former smoker Sleep apnea CPAP (continuous positive airway pressure) dependence History of stress test History of echocardiogram Cardiology follow-up encounter History of atrial fibrillation Pilonidal abscess Acute coccygeal pain [place] disease Type 2 diabetes mellitus Atherosclerosis of coronary artery bypass graft without angina pectoris Essential (primary) hypertension Paroxysmal atrial fibrillation History of diverticulitis Palpitations History of non-ST elevation myocardial infarction (NSTEMI) (07/2016) Sinus bradycardia Hyperlipidemia Paroxysmal atrial fibrillation Atherosclerotic heart disease of [place] coronary artery without angina pectoris Surgical History History of excision of pilonidal cyst prostat (more content not included)... Normal [facility] Lipid Profileon 04-19-2024 Cholesterol [Mass/Vol] 131 mg/dL Normal 200 [facility] Comment on above: Result Comment: <200 mg/dL Desirable 200-240 mg/dL Borderline >240 mg/dL High Risk Performed By: #### L 500.4100, L500.3400 #### [facility] [address] [place], [address] Cholesterol in HDL [Mass/Vol] 43 mg/dL Normal [facility] Comment on above: Result Comment: The drugs N-Acetylcysteine and Metamizole may falsely depress this assay. Reference Range HDL <40 mg/dL Low HDL Cholesterol HDL >or= 60 mg/dL High HDL Cholesterol Performed By: #### L 500.4100, L500.3400 #### [facility] [address] [place], [address] Cholesterol in LDL [Mass/Vol] 64 mg/dL Normal 0-130 [facility] Comment on above: Performed By: #### L 500.4100, L500.3400 #### [facility] [address] [place], [address] Cholesterol in VLDL [Mass/Vol] 24 mg/dL Normal 5-40 [facility] Comment on above: Performed By: #### L 500.4100, L500.3400 #### [facility] [address] [place], [address] Triglyceride [Mass/Vol] 120 mg/dL Normal [facility] Comment on above: Result Comment: The drugs N-Acetylcysteine and Metamizole may falsely depress this assay. Serum Triglycerides Reference Interval Normal <150 mg/dL Borderline high 150 - 199 mg/dL High 200 - 499 mg/dL Very High > or = 500 mg/dL Performed By: #### L 500.4100, L500.3400 #### [facility] [address] [place], [address] Liver Profileon 04-19-2024 Albumin [Mass/Vol] 4.1 g/dL Normal 3.2-5.0 [facility] Comment on above: Performed By: #### L 500.4100, L500.3400 #### [facility] [address] [place], [address] ALK P 56 U/L Normal 45-117 [facility] Comment on above: Performed By: #### L 500.4100, L500.3400 #### [facility] [address] [place], [address] ALT [Catalytic activity/Vol] 30 U/L Normal 16-61 [facility] Comment on above: Performed By: #### L 500.4100, L500.3400 #### [facility] [address] [place], [address] AST [Catalytic activity/Vol] 18 U/L Normal 15-37 [facility] Comment on above: Performed By: #### L 500.4100, L500.3400 #### [facility] [address] [place], [address] Bilirubin [Mass/Vol] 1.50 mg/dL High 0.20-1.[address] [facility] Comment on above: Result Comment: For patients on eltrombopag therapy, use of Dimension [place] TBIL is not recommended. Performed By: #### L 500.4100, L500.3400 #### [facility] [address] [place], [address] Bilirubin.direct [Mass/Vol] 0.34 mg/dL High 0.00-0.30 [facility] Comment on above: Performed By: #### L 500.4100, L500.3400 #### [facility] [address] [place], [address] Globulin (S) [Mass/Vol] 3.3 g/dL Normal 2.2-4.2 [facility] Comment on above: Performed By: #### L 500.4100, L500.3400 #### [facility] [address] [place], [address] T PROT 7.4 g/dL Normal 6.4-8.2 [facility] Comment on above: Performed By: #### L 500.4100, L500.3400 #### [facility] [address] [place], [address] PSA,Total - Annual Screenon 03-31-2024 PSA,TOT SCREEN 1.17 ng/mL Normal 0.00-4.00 [facility] Comment on above: Order Comment: PER P T-JUST THIS ORDER Result Comment: This test was performed using the TPSA assay method for the [employer] chemistry system. Values obtained with different assay methods cannot be used interchangably. When changing PSA assays in the course of monitoring a patient, additional sequential testing should be carried out to confirm baseline values. Performed By: #### L 500.4100, L500.3400 #### [facility] [address] [place], [address] Absolute lymphocyte countOrd ered By: Torito Azul on 11-11-2023 Lymphocytes Auto (Unsp spec) [#/Vol] 1.87 10*3/uL 0.83-4.51 [facility] Automated lymphocyte count a s percentage of total leukocytesOrdered By: Torito Azul on 11-11-2023 Lymphocytes/100 WBC Auto (Unsp spec) 27.1 % 19-41 [facility] Basophil percentageOrdered B y: Torito Azul on 11-11-2023 Basophils/100 WBC (Bld) 0.9 % 0-1 [facility] Bilirubin [Mass/Vol] 1.80 mg/dL 0.20-1.[address] [facility] Comment on above: For patients on eltr ombopag therapy, use of Dimension [place] TBIL is not recommended. Chloride [Moles/Vol] 107 mmol/L 98-[address] [facility] Cholesterol [Mass/Vol] 124 mg/dL <200 [facility] Comment on above: <200 mg/dL Desirable 200-240 mg/dL Borderline >240 mg/dL High Risk Eosinophils/100 WBC (Bld) 1.9 % 0-5 [facility] Glucose [Mass/Vol] 141 mg/dL 74-106 [facility] Comment on above: Fasting Glucose resu lt greater than or equal to 126 mg/dL suggests DIABETES MELLITUS per A.D.A. criteria. Hemoglobin (Bld) [Mass/Vol] 13.5 g/dL 13.0-16.5 [facility] Monocytes/100 WBC (Bld) 8.8 % 0-10 [facility] Neutrophils (Bld) [#/Vol] 4.2 10*3/uL 2.0-7.7 [facility] Neutrophils/100 WBC (Bld) 60.9 % 47-70 [facility] Potassium [Moles/Vol] 3.5 mmol/L 3.5-5.1 [facility] Protein [Mass/Vol] 6.9 g/dL 6.4-8.2 [facility] Sodium [Moles/Vol] 139 mmol/L 136-145 [facility] Triglyceride [Mass/Vol] 285 mg/dL <199 [facility] Comment on above: The drugs N-Acetylcy steine and Metamizole may falsely depress this assay.Serum Triglycerides Reference Interval Normal <150 mg/dL Borderline high 150 - 199 mg/dL High 200 - 499 mg/dL Very High > or = 500 mg/dL WBC (Bld) [#/Vol] 6.9 10*3/uL 4.4-11.0 [facility] Determination of erythrocyte mean corpuscular volume (MCV)Ordered By: Torito Azul on 11-11-2023 MCV (RBC) [Entitic vol] 93.9 fL 80-94 [facility] Erythrocyte distribution wid th ratioOrdered By: [facility]-11-[facility]23 Erythrocyte distribution width (RBC) [Ratio] 12.3 % 11.6-14.6 [facility] Erythrocyte distribution wid th standard deviationOrdered By: [facility] on 11-11-2023 Erythrocyte distribution width (RBC) [Entitic vol] 41.9 fL 35.1-43.9 [facility] Hematocrit Auto (Bld) [Volum e fraction]Ordered By: [facility] on 11-11-2023 Hematocrit (Bld) [Volume fraction] 40.1 % 40-54 [facility] Immature granulocytes/100 WB C Auto (Bld)Ordered By: Torito Jorge Alberto 11-11-2023 Immature granulocytes/100 WBC (Bld) 0.400 % 0.0-0.9 [facility] Comment on above: IG% - Immature Granu locytes (promyelocytes, myelocytes and metamyelocytes) > 1% indicates that a LEFT SHIFT is Present. Laboratory - Chemistry and C hemistry - challengeOrdered By: [facility] on 11-11-2023 Albumin/Globulin [Mass ratio] 1.4 {ratio} 0.9-2.4 [facility] ALP [Catalytic activity/Vol] 53 U/L 45-117 [facility] ALT [Catalytic activity/Vol] 35 U/L 16-61 [facility] Cholesterol in HDL [Mass/Vol] 37 mg/dL >40 [facility] Comment on above: The drugs N-Acetylcy steine and Metamizole may falsely depress this assay. Reference Range HDL <40 mg/dL Low HDL Cholesterol HDL >or= 60 mg/dL High HDL Cholesterol Cholesterol in LDL [Mass/Vol] 30 mg/dL 0-130 [facility] CO2 [Moles/Vol] 29.0 mmol/L 21.0-32.0 [facility] Globulin (S) [Mass/Vol] 2.9 g/dL 2.2-4.2 [facility] Urea nitrogen/Creatinine [Mass ratio] 24.2 mg/mg 10-20 [facility] - Hematology and Cell countsOrdered By: Torito Azul on 11-11-2023 MCH (RBC) [Entitic mass] 31.6 pg 27.0-32.0 [facility] MCHC (RBC) [Mass/Vol] 33.7 g/dL 32-36 [facility] Nucleated RBC/100 WBC (Bld) [Ratio] 0 % 0-5 [facility] Platelet mean volume (Bld) [Entitic vol] 10.2 fL 6.2-12.0 [facility] Platelets (Bld) [#/Vol] 238 10*3/uL 150-450 [facility] No Panel InformationOrdered By: Torito Azul on 11-11-2023 Estimated GFR (MDRD) Amer 100 mL/min >60 [facility] Comment on above: GFR Calc Estimated GFR (MDRD) Non-Af Amer 82 mL/min >60 [facility] Comment on above: Non- GFR Calc Vitamin D 25-Hydroxy 27.6 ng/mL [facility] Comment on above: Vitamin D 25(OH) Sta tus Range Deficiency <20 ng/mL (50nmol/L) Insufficiency 20 - 30 ng/mL (50 - 75 nmol/L) Sufficiency 30 - 100 ng/mL (75 - 250 nmol/L) Toxicity >100 ng/mL (>250 nmol/L) VLDL Cholesterol 57 mg/dL 5-40 [facility] RBC Auto (Bld) [#/Vol]Ordere d By: Torito Azul on 11-11-2023 RBC (Bld) [#/Vol] 4.27 10*6/uL 4.6-6.2 [facility] Serum or plasma calcium eusebio urement (mass/volume)Ordered By: Torito Azul on 11-11-2023 Calcium [Mass/Vol] 9.6 mg/dL 8.5-10.1 [facility] Serum or plasma creatinine m easurement (mass/volume)Ordered By: Torito Azul on 11-11-2023 Creatinine [Mass/Vol] 0.95 mg/dL 0.70-1.30 [facility] Comment on above: The validity of the calculated GFR & GFRAA in patients over 70 years has not been determined. Clinical correlation is essential. Serum or plasma thyroid stim ulating hormone (TSH) measurement (units/volume)Ordered By: Torito Azul on 11-11-2023 TSH Qn 1.26 uIU/mL 0.358-3.74 [facility] Serum or plasma urea nitroge n measurement (mass/volume)Ordered By: Torito Azul on 11-11-2023 Urea nitrogen [Mass/Vol] 23 mg/dL 7-18 [facility] Thin prep Papanicolaou smear with manual screeningOrdered By: Torito Azul on 11-11-2023 Thin prep Papanicolaou smear with manual screening 4.0 g/dL 3.2-5.0 [facility] Thin prep Papanicolaou smear with manual screening 21 U/L 15-37 [facility] Thin prep Papanicolaou smear with manual screening 3 5-15 [facility] Basophil percentageOrdered B y: Paige Alvarado on 04-20-2023 Bilirubin [Mass/Vol] 1.80 mg/dL 0.20-1.[address] [facility] [facility] Comment on above: For patients on eltr ombopag therapy, use of Dimension [place] TBIL is not recommended. Cholesterol [Mass/Vol] 113 mg/dL <200 [facility] Comment on above: <200 mg/dL Desirable 200-240 mg/dL Borderline >240 mg/dL High Risk Protein [Mass/Vol] 7.2 g/dL 6.4-8.2 [facility] Triglyceride [Mass/Vol] 131 mg/dL <199 [facility] Comment on above: The drugs N-Acetylcy steine and Metamizole may falsely depress this assay.Serum Triglycerides Reference Interval Normal <150 mg/dL Borderline high 150 - 199 mg/dL High 200 - 499 mg/dL Very High > or = 500 mg/dL Direct bilirubinOrdered By: Paige Alvarado on 04-20-2023 Bilirubin.direct [Mass/Vol] 0.36 mg/dL 0.00-0.30 [facility] Laboratory - Chemistry and C hemistry - challengeOrdered By: Paige Alvarado on 04-20-2023 ALP [Catalytic activity/Vol] 50 U/L 45-117 [facility] ALT [Catalytic activity/Vol] 29 U/L 16-61 [facility] Globulin (S) [Mass/Vol] 3.2 g/dL 2.2-4.2 [facility] Serum or plasma albumin eusebio urement (mass/volume)Ordered By: Paige Alvarado on 04-20-2023 Albumin [Mass/Vol] 4.0 g/dL 3.2-5.0 [facility] Serum or plasma cholesterol in HDL measurement (mass/volume)Ordered By: Paige Alvarado on 04-20-2023 Cholesterol in HDL [Mass/Vol] 41 mg/dL >40 [facility] Comment on above: The drugs N-Acetylcy steine and Metamizole may falsely depress this assay. Reference Range HDL <40 mg/dL Low HDL Cholesterol HDL >or= 60 mg/dL High HDL Cholesterol Serum or plasma cholesterol in VLDL measurement (mass/volume)Ordered By: Paige Alvarado on 04-20-2023 Cholesterol in VLDL [Mass/Vol] 26 mg/dL 5-40 [facility] Serum or plasma low density lipoprotein (LDL) cholesterol measurement (mass/volume)Ordered By: Paige Alvarado on 04-20-2023 Cholesterol in LDL [Mass/Vol] 46 mg/dL 0-130 [facility] Thin prep Papanicolaou smear with manual screeningOrdered By: Paige Alvarado on 04-20-2023 Thin prep Papanicolaou smear with manual screening 20 U/L 15-37 [facility] No Panel InformationOrdered By: Jeffery Hemphill on 03-30-2023 Prostate Specific Antigen Screen 1.35 ng/mL 0.00-4.00 [facility] Comment on above: This test was perfor med using the TPSA assay method [facility]. Values obtained with differentassay methods cannot be used interchangably.When changing PSA assays in the course of monitoring apatient, additional sequential testing should be carriedout to confirm baseline values. Glucose Glucometer (BldC) [M ass/Vol]Ordered By: Dr. Hemphill on 11-12-2022 Glucose [Mass/Vol] 137 mg/dL 74-106 [facility] Comment on above: MANAGEMENT OF PATIEN T CARE PER NURSING PROTOCOL Culture, urineOrdered By: Dr Brandee Grissom on 11-04-2022 Bacteria identified Cx Nom (U) Culture exhibits no growth. [facility] Absolute lymphocyte countOrd ered By: Dr. Grissom on 11-02-2022 Lymphocytes Auto (Unsp spec) [#/Vol] 1.72 10*3/uL 0.83-4.51 [facility] Basophil percentageOrdered B y: Dr. Grissom on 11-02-2022 Basophils/100 WBC (Bld) 0.4 % 0-1 [facility] Bilirubin [Mass/Vol] 2.00 mg/dL 0.20-1.[address] [facility] Comment on above: For patients on eltr ombopag therapy, use of Dimension [place] TBIL is not recommended. Chloride [Moles/Vol] 101 mmol/L 98-[address] [facility] Eosinophils/100 WBC (Bld) 0.3 % 0-5 [facility] Glucose [Mass/Vol] 204 mg/dL 74-106 [facility] Comment on above: Glucose result great er than or equal to 200 mg/dLsuggests DIABETES MELLITUS per A.D.A. criteria. Neutrophils (Bld) [#/Vol] 11.4 10*3/uL 2.0-7.7 [facility] Neutrophils/100 WBC (Bld) 78.5 % 47-70 [facility] Potassium [Moles/Vol] 3.8 mmol/L 3.5-5.1 [facility] Sodium [Moles/Vol] 137 mmol/L 136-145 [facility] WBC (Bld) [#/Vol] 14.5 10*3/uL 4.4-11.0 [facility] Basophil percentage 5-10 SEEN /hpf 0-5 [facility] Bilirubin Test strip Ql (U)O rdered By: Dr. Grissom on 11-02-2022 Bilirubin Ql (U) 3 mg/dL Negative [facility] Comment on above: COLOR OF URINE MAY A FFECT DIPSTICK RESULTS. Blood erythrocytes count (nu mber/volume)Ordered By: Dr. Grissom on 11-02-2022 RBC (Bld) [#/Vol] 4.25 10*6/uL 4.6-6.2 [facility] Blood hemoglobin measurement (mass/volume)Ordered By: Dr. Grissom on 11-02-2022 Hemoglobin (Bld) [Mass/Vol] 13.3 g/dL 13.0-16.5 [facility] Blood lymphocytes/100 leukoc ytesOrdered By: Dr. Grissom on 11-02-2022 Lymphocytes/100 WBC (Bld) 11.8 % 19-41 [facility] Blood monocytes/100 leukocyt esOrdered By: Dr. Grissom on 11-02-2022 Monocytes/100 WBC (Bld) 8.5 % 0-10 [facility] Blood platelet mean volumeOr dered By: Dr. Grissom on 11-02-2022 Platelet mean volume (Bld) [Entitic vol] 10.3 fL 6.2-12.0 [facility] Determination of erythrocyte mean corpuscular volume (MCV)Ordered By: Dr. Grissom on 11-02-2022 MCV (RBC) [Entitic vol] 93.4 fL 80-94 [facility] Hematocrit Auto (Bld) [Volum e fraction]Ordered By: Dr. Grissom on 11-02-2022 Hematocrit (Bld) [Volume fraction] 39.7 % 40-54 [facility] Ketones Test strip Ql (U)Ord ered By: Dr. Grissom on 11-02-2022 Ketones Ql (U) 15 mg/dl Negative [facility] Laboratory - Chemistry and C hemistry - challengeOrdered By: Dr. Grissom on 11-02-2022 ALP [Catalytic activity/Vol] 55 U/L 45-117 [facility] ALT [Catalytic activity/Vol] 23 U/L 16-61 [facility] CO2 [Moles/Vol] 28.0 mmol/L 21.0-32.0 [facility] Urea nitrogen/Creatinine [Mass ratio] 18.1 mg/mg 10-20 [facility] Laboratory - Hematology and Cell countsOrdered By: Dr. Grissom on 11-02-2022 Erythrocyte distribution width (RBC) [Entitic vol] 45.9 fL 35.1-43.9 [facility] Erythrocyte distribution width (RBC) [Ratio] 13.5 % 11.6-14.6 [facility] Immature granulocytes/100 WBC (Bld) 0.500 % 0.0-0.9 [facility] Comment on above: IG% - Immature Granu locytes (promyelocytes, myelocytes and metamyelocytes) > 1% indicates that a LEFT SHIFT is Present. MCH (RBC) [Entitic mass] 31.3 pg 27.0-32.0 [facility] Nucleated RBC/100 WBC (Bld) [Ratio] 0 % 0-5 [facility] MCHC Auto (RBC) [Mass/Vol]Or dered By: Dr. Grissom on 11-02-2022 MCHC (RBC) [Mass/Vol] 33.5 g/dL 32-36 [facility] Mucus LM Ql (Urine sed)Order ed By: Dr. Grissom on 11-02-2022 Mucus Ql (Urine sed) 0 SEEN /hpf [facility] Nitrite Test strip Ql (U)Ord ered By: Dr. Grissom on 11-02-2022 Nitrite Ql (U) Positive Negative [facility] No Panel InformationOrdered By: Dr. Grissom on 11-02-2022 Estimated Creatinine Clearance Calc 77.83 ml/min [facility] Estimated GFR (MDRD) Amer 117 mL/min >60 [facility] Comment on above: GFR Calc Estimated GFR (MDRD) Non-Af Amer 96 mL/min >60 [facility] Comment on above: Non- GFR Calc Thyroid Stimulating Hormone (TSH) 1.18 uIU/mL 0.358-3.74 [facility] Platelets bldOrdered By: Dr. Grissom on 11-02-2022 Platelets (Bld) [#/Vol] 200 10*3/uL 150-450 [facility] Protein Test strip Ql (U)Ord ered By: Dr. Grissom on 11-02-2022 Protein Ql (U) 30 mg/dl Negative [facility] Serum or plasma albumin eusebio urement (mass/volume)Ordered By: Dr. Grissom on 11-02-2022 Albumin [Mass/Vol] 3.5 g/dL 3.2-5.0 [facility] Serum or plasma calcium eusebio urement (mass/volume)Ordered By: Dr. Grissom on 11-02-2022 Calcium [Mass/Vol] 9.7 mg/dL 8.5-10.1 [facility] Serum or plasma creatinine m easurement (mass/volume)Ordered By: Dr. Grissom on 11-02-2022 Creatinine [Mass/Vol] 0.83 mg/dL 0.70-1.30 [facility] Comment on above: The validity of the calculated GFR & GFRAA in patients over 70 years has not been determined. Clinical correlation is essential. Serum or plasma urea nitroge n measurement (mass/volume)Ordered By: Dr. Grissom on 11-02-2022 Urea nitrogen [Mass/Vol] 15 mg/dL 7-18 [facility] Squamous epithelial cells de tection in urine sediment by light microscopyOrdered By: Dr. Grissom on 11-02-2022 Epithelial cells.squamous LM Ql (Urine sed) 0 SEEN /hpf 0-5 [facility] Thin prep Papanicolaou smear with manual screeningOrdered By: Dr. Grissom on 11-02-2022 Thin prep Papanicolaou smear with manual screening 8 5-15 [facility] Thin prep Papanicolaou smear with manual screening 21 U/L 15-37 [facility] Urine blood detectionOrdered By: Dr. Grissom on 11-02-2022 RBC Ql (U) 10 /ul Negative [facility] RBC Ql (U) 0 SEEN /hpf 0-5 [facility] Urine clarityOrdered By: Dr. Grissom on 11-02-2022 Clarity (U) Clear Clear [facility] Urine color determinationOrd ered By: Dr. Grissom on 11-02-2022 Color (U) Radha Yellow [facility] Urine glucose detectionOrder ed By: Dr. Grissom on 11-02-2022 Glucose Ql (U) Normal mg/dl Normal [facility] Urine leukocyte esterase det ection by dipstickOrdered By: Dr. Grissom on 11-02-2022 Leukocyte esterase Test strip Ql (U) 25 /ul Negative [facility] Urine pHOrdered By: Dr. Brittany gallardo on 11-02-2022 pH (U) 6.0 [pH] 5.0 - 8.0 [facility] Urine sediment bacteria coun t by microscopy (number/high power field)Ordered By: Dr. Grissom on 11-02-2022 Bacteria LM.HPF (Urine sed) [#/Area] 0 /[HPF] None Seen [facility] Urine specific gravity measu rementOrdered By: Dr. Grissom on 11-02-2022 Specific gravity (U) [Rel density] 1.015 1.002-1.030 [facility] Urobilinogen Auto test strip Ql (U)Ordered By: Dr. Grissom on 11-02-2022 Urobilinogen Ql (U) 4 mg/dl Normal [facility] Basophil percentageOrdered B y: Dr. Alonzo on 09-18-2022 Bilirubin [Mass/Vol] 1.20 mg/dL 0.20-1.[address] [facility] Comment on above: For patients on eltr ombopag therapy, use of Dimension [place] TBIL is not recommended. Cholesterol [Mass/Vol] 131 mg/dL <200 [facility] Comment on above: <200 mg/dL Desirable 200-240 mg/dL Borderline >240 mg/dL High Risk Protein [Mass/Vol] 7.1 g/dL 6.4-8.2 [facility] Triglyceride [Mass/Vol] 173 mg/dL <199 [facility] Comment on above: The drugs N-Acetylcy steine and Metamizole may falsely depress this assay.Serum Triglycerides Reference Interval Normal <150 mg/dL Borderline high 150 - 199 mg/dL High 200 - 499 mg/dL Very High > or = 500 mg/dL Direct bilirubinOrdered By: Dr. Alonzo on 09-18-2022 Bilirubin.direct [Mass/Vol] 0.29 mg/dL 0.00-0.30 [facility] Laboratory - Chemistry and C hemistry - challengeOrdered By: Dr. Alonzo on 09-18-2022 ALP [Catalytic activity/Vol] 50 U/L 45-117 [facility] ALT [Catalytic activity/Vol] 34 U/L 16-61 [facility] Globulin (S) [Mass/Vol] 3.2 g/dL 2.2-4.2 [facility] Serum or plasma albumin eusebio urement (mass/volume)Ordered By: Dr. Alonzo on 09-18-2022 Albumin [Mass/Vol] 3.9 g/dL 3.2-5.0 [facility] Serum or plasma cholesterol in HDL measurement (mass/volume)Ordered By: Dr. Alonzo on 09-18-2022 Cholesterol in HDL [Mass/Vol] 37 mg/dL >40 [facility] Comment on above: The drugs N-Acetylcy steine and Metamizole may falsely depress this assay. Reference Range HDL <40 mg/dL Low HDL Cholesterol HDL >or= 60 mg/dL High HDL Cholesterol Serum or plasma cholesterol in VLDL measurement (mass/volume)Ordered By: Dr. Alonzo on 09-18-2022 Cholesterol in VLDL [Mass/Vol] 35 mg/dL 5-40 [facility] Serum or plasma low density lipoprotein (LDL) cholesterol measurement (mass/volume)Ordered By: Dr. Alonzo on 09-18-2022 Cholesterol in LDL [Mass/Vol] 59 mg/dL 0-130 [facility] Thin prep Papanicolaou smear with manual screeningOrdered By: Dr. Alonzo on 09-18-2022 Thin prep Papanicolaou smear with manual screening 17 U/L 15-37 [facility] Glucose Glucometer (BldC) [M ass/Vol]Ordered By: Dr. oMntague on 07-17-2022 Glucose [Mass/Vol] 179 mg/dL 74-106 [facility] Comment on above: MANAGEMENT OF PATIEN T CARE PER NURSING PROTOCOL Basophil percentageOrdered B y: Dr. Montague on 07-14-2022 Chloride [Moles/Vol] 103 mmol/L 98-[address] [facility] Glucose [Mass/Vol] 194 mg/dL 74-106 [facility] Comment on above: Fasting Glucose resu lt greater than or equal to 126 mg/dL suggests DIABETES MELLITUS per A.D.A. criteria. Potassium [Moles/Vol] 3.7 mmol/L 3.5-5.1 [facility] Sodium [Moles/Vol] 138 mmol/L 136-145 [facility] WBC (Bld) [#/Vol] 6.2 10*3/uL 4.4-11.0 [facility] Blood erythrocytes count (nu mber/volume)Ordered By: Dr. Montague on 07-14-2022 RBC (Bld) [#/Vol] 4.27 10*6/uL 4.6-6.2 [facility] Blood hemoglobin measurement (mass/volume)Ordered By: Dr. Montague on 07-14-2022 Hemoglobin (Bld) [Mass/Vol] 13.8 g/dL 13.0-16.5 [facility] Blood platelet mean volumeOr dered By: Dr. Montague on 07-14-2022 Platelet mean volume (Bld) [Entitic vol] 10.3 fL 6.2-12.0 [facility] Determination of erythrocyte mean corpuscular volume (MCV)Ordered By: Dr. Montague on 07-14-2022 MCV (RBC) [Entitic vol] 95.6 fL 80-94 [facility] Hematocrit Auto (Bld) [Volum e fraction]Ordered By: Dr. Montague on 07-14-2022 Hematocrit (Bld) [Volume fraction] 40.8 % 40-54 [facility] Laboratory - Chemistry and C hemistry - challengeOrdered By: Dr. Montague on 07-14-2022 CO2 [Moles/Vol] 29.0 mmol/L 21.0-32.0 [facility] Urea nitrogen/Creatinine [Mass ratio] 21.2 mg/mg 10-20 [facility] Laboratory - Hematology and Cell countsOrdered By: Dr. Montague on 07-14-2022 Erythrocyte distribution width (RBC) [Entitic vol] 42.4 fL 35.1-43.9 [facility] Erythrocyte distribution width (RBC) [Ratio] 12.1 % 11.6-14.6 [facility] MCH (RBC) [Entitic mass] 32.3 pg 27.0-32.0 [facility] MCHC Auto (RBC) [Mass/Vol]Or dered By: Dr. Montague on 07-14-2022 MCHC (RBC) [Mass/Vol] 33.8 g/dL 32-36 [facility] No Panel InformationOrdered By: Dr. Montague on 07-14-2022 Estimated GFR (MDRD) Amer 122 mL/min >60 [facility] Comment on above: GFR Calc Estimated GFR (MDRD) Non-Af Amer 101 mL/min >60 [facility] Comment on above: Non- GFR Calc Platelets bldOrdered By: Dr. Montague on 07-14-2022 Platelets (Bld) [#/Vol] 211 10*3/uL 150-450 [facility] Serum or plasma calcium eusebio urement (mass/volume)Ordered By: Dr. Montague on 07-14-2022 Calcium [Mass/Vol] 9.4 mg/dL 8.5-10.1 [facility] Serum or plasma creatinine m easurement (mass/volume)Ordered By: Dr. Montague on 07-14-2022 Creatinine [Mass/Vol] 0.80 mg/dL 0.70-1.30 [facility] Comment on above: The validity of the calculated GFR & GFRAA in patients over 70 years has not been determined. Clinical correlation is essential. Serum or plasma urea nitroge n measurement (mass/volume)Ordered By: Dr. Montague on 07-14-2022 Urea nitrogen [Mass/Vol] 17 mg/dL 7-18 [facility] Thin prep Papanicolaou smear with manual screeningOrdered By: Dr. Montague on 07-14-2022 Thin prep Papanicolaou smear with manual screening 6 02-16 [facility] Absolute lymphocyte counton 05-05-2022 Lymphocytes Auto (Unsp spec) [#/Vol] 1.56 10*3/uL 0.83-4.51 [facility] Work Phone: Basophil percentageon 2021 Basophils/100 WBC (Bld) 1.2 % 0-1 [facility] Work Phone: Bilirubin [Mass/Vol] 1.70 mg/dL 0.20-1.[address] [facility] Work Phone: Comment on above: For patients on eltr ombopag therapy, use of Dimension [place] TBIL is not recommended. Chloride [Moles/Vol] 103 mmol/L 98-[address] [facility] Work Phone: Eosinophils/100 WBC (Bld) 2.6 % 0-5 [facility] Work Phone: Glucose [Mass/Vol] 192 mg/dL 74-106 [facility] Work Phone: Comment on above: Fasting Glucose resu lt greater than or equal to 126 mg/dL suggests DIABETES MELLITUS per A.D.A. criteria. Neutrophils (Bld) [#/Vol] 3.5 10*3/uL 2.0-7.7 [facility] Work Phone: Neutrophils/100 WBC (Bld) 60.4 % 47-70 [facility] Work Phone: Potassium [Moles/Vol] 3.7 mmol/L 3.5-5.1 [facility] Work Phone: Protein [Mass/Vol] 7.4 g/dL 6.4-8.2 [facility] Work Phone: Sodium [Moles/Vol] 138 mmol/L 136-145 [place] [facility] Work Phone: WBC (Bld) [#/Vol] 5.8 10*3/uL 4.4-11.0 [facility] Work Phone: Blood erythrocytes count (nu mber/volume)on 05-05-2022 RBC (Bld) [#/Vol] 4.53 10*6/uL 4.6-6.2 [place] [facility] Work Phone: Blood hemoglobin measurement (mass/volume)on 05-05-2022 Hemoglobin (Bld) [Mass/Vol] 14.7 g/dL 13.0-16.5 [facility] Work Phone: Blood lymphocytes/100 leukoc yteson 05-05-2022 Lymphocytes/100 WBC (Bld) 27.0 % 19-41 [facility] Work Phone: Blood monocytes/100 leukocyt eson 05-05-2022 Monocytes/100 WBC (Bld) 8.5 % 0-10 [facility] Work Phone: [phone] Blood platelet mean volumeon 05-05-2022 Platelet mean volume (Bld) [Entitic vol] 10.4 fL 6.2-12.0 [facility] Work Phone: Determination of erythrocyte mean corpuscular volume (MCV)on 05-05-2022 MCV (RBC) [Entitic vol] 94.3 fL 80-94 [facility] Work Phone: Hematocrit Auto (Bld) [Volum e fraction]on 05-05-2022 Hematocrit (Bld) [Volume fraction] 42.7 % 40-54 [facility] Work Phone: [phone] Laboratory - Chemistry and C hemistry - challengeon 05-05-2022 ALP [Catalytic activity/Vol] 49 U/L 45-117 [facility] Work Phone: [phone] ALT [Catalytic activity/Vol] 36 U/L 16-61 [facility] Work Phone: [phone] CO2 [Moles/Vol] 30.0 mmol/L 21.0-32.0 [facility] Work Phone: [phone] Globulin (S) [Mass/Vol] 3.3 g/dL 2.2-4.2 [facility] Work Phone: [phone] Urea nitrogen/Creatinine [Mass ratio] 18.0 mg/mg 10-20 [facility] Work Phone: [phone] Laboratory - Hematology and Cell countson 05-05-2022 Erythrocyte distribution width (RBC) [Entitic vol] 42.4 fL 35.1-43.9 [facility] Work Phone: [phone] Erythrocyte distribution width (RBC) [Ratio] 12.2 % 11.6-14.6 [facility] Work Phone: [phone] Immature granulocytes/100 WBC (Bld) 0.300 % 0.0-0.9 [facility] Work Phone: [phone] Comment on above: IG% - Immature Granu locytes (promyelocytes, myelocytes and metamyelocytes) > 1% indicates that a LEFT SHIFT is Present. MCH (RBC) [Entitic mass] 32.5 pg 27.0-32.0 [facility] Work Phone: [phone] Nucleated RBC/100 WBC (Bld) [Ratio] 0 % 0-5 [facility] Work Phone: [phone] MCHC Auto (RBC) [Mass/Vol]on 05-05-2022 MCHC (RBC) [Mass/Vol] 34.4 g/dL 32-36 [facility] Work Phone: [phone] Panel Informationon 05-05 Estimated GFR (MDRD) Amer 108 mL/min >60 [facility] Work Phone: Comment on above: GFR Calc Estimated GFR (MDRD) Non-Af Amer 90 mL/min >60 [facility] Work Phone: Comment on above: Non- GFR Calc Thyroid Stimulating Hormone (TSH) 1.44 uIU/mL 0.358-3.74 [facility] Work Phone: Vitamin D 25-Hydroxy 38.6 ng/mL [facility] Work Phone: Comment on above: Vitamin D 25(OH) Sta tus Range Deficiency <20 ng/mL (50nmol/L) Insufficiency 20 - 30 ng/mL (50 - 75 nmol/L) Sufficiency 30 - 100 ng/mL (75 - 250 nmol/L) Toxicity >100 ng/mL (>250 nmol/L) Platelets bldon 05-05-2022 Platelets (Bld) [#/Vol] 206 10*3/uL 150-450 [facility] Work Phone: Serum or plasma albumin eusebio urement (mass/volume)on 05-05-2022 Albumin [Mass/Vol] 4.1 g/dL 3.2-5.0 [facility] Work Phone: Serum or plasma albumin/glob ulin mass ratioon 05-05-2022 Albumin/Globulin [Mass ratio] 1.2 {ratio} 0.9-2.4 [facility] Work Phone: Serum or plasma calcium eusebio urement (mass/volume)on 05-05-2022 Calcium [Mass/Vol] 9.9 mg/dL 8.5-10.1 [facility] Work Phone: [phone] Serum or plasma creatinine m easurement (mass/volume)on 05-05-2022 Creatinine [Mass/Vol] 0.89 mg/dL 0.70-1.30 [facility] Work Phone: Comment on above: The validity of the calculated GFR & GFRAA in patients over 70 years has not been determined. Clinical correlation is essential. Serum or plasma urea nitroge n measurement (mass/volume)on 05-05-2022 Urea nitrogen [Mass/Vol] 16 mg/dL 7-18 [facility] Work Phone: [phone] Thin prep Papanicolaou smear with manual screeningon 05-05-2022 Thin prep Papanicolaou smear with manual screening 18 U/L 15-37 [facility] Work Phone: [phone] Thin prep Papanicolaou smear with manual screening 5 5-15 [facility] Work Phone: Basophil percentageon 2021 Bilirubin [Mass/Vol] 1.90 mg/dL 0.20-1.[address] [facility] Work Phone: [phone] Comment on above: For patients on eltr ombopag therapy, use of Dimension [place] TBIL is not recommended. Cholesterol [Mass/Vol] 128 mg/dL <200 [facility] Work Phone: [phone] Comment on above: <200 mg/dL Desirable 200-240 mg/dL Borderline >240 mg/dL High Risk Protein [Mass/Vol] 7.3 g/dL 6.4-8.2 [facility] Work Phone: [phone] Triglyceride [Mass/Vol] 160 mg/dL <199 [facility] Work Phone: [phone] Comment on above: The drugs N-Acetylcy steine and Metamizole may falsely depress this assay.Serum Triglycerides Reference Interval Normal <150 mg/dL Borderline high 150 - 199 mg/dL High 200 - 499 mg/dL Very High > or = 500 mg/dL Direct bilirubinon Bilirubin.direct [Mass/Vol] 0.32 mg/dL 0.00-0.30 [facility] Work Phone: [phone] Laboratory - Chemistry and C hemistry - challengeon 03-14-2022 ALP [Catalytic activity/Vol] 46 U/L 45-117 [facility] Work Phone: [phone] ALT [Catalytic activity/Vol] 40 U/L 16-61 [facility] Work Phone: [phone] Globulin (S) [Mass/Vol] 3.2 g/dL 2.2-4.2 [facility] Work Phone: Serum or plasma albumin eusebio urement (mass/volume)on 03-14-2022 Albumin [Mass/Vol] 4.1 g/dL 3.2-5.0 [facility] Work Phone: Serum or plasma cholesterol in HDL measurement (mass/volume)on 03-14-2022 Cholesterol in HDL [Mass/Vol] 40 mg/dL >40 [facility] Work Phone: Comment on above: The drugs N-Acetylcy steine and Metamizole may falsely depress this assay. Reference Range HDL <40 mg/dL Low HDL Cholesterol HDL >or= 60 mg/dL High HDL Cholesterol Serum or plasma cholesterol in VLDL measurement (mass/volume)on 03-14-2022 Cholesterol in VLDL [Mass/Vol] 32 mg/dL 5-40 [facility] Work Phone: Serum or plasma low density lipoprotein (LDL) cholesterol measurement (mass/volume)on 03-14-2022 Cholesterol in LDL [Mass/Vol] 56 mg/dL 0-130 [facility] Work Phone: Thin prep Papanicolaou smear with manual screeningon 03-14-2022 Thin prep Papanicolaou smear with manual screening 25 U/L 15-37 [facility] Work Phone: Comment on above: Slight Hemolysis, Re sult may be falsely increased. HGB A1C [CCL]on 07-17-2021 Glucose [Mass/Vol] 143 mg/dL Normal [facility] Comment on above: Result Comment: eAG: (Estimated average glucose) is a calculated value from HgbA1c and is accounts receivable representative of the average blood glucose level in the last 2-3 month period. [facility] [address] [place] [address] Warner Yousif III, M.D. [id number] Performed By: #### [id number] #### [facility],[address] [place], [place] [id number] HbA1c (Bld) [Mass fraction] 6.6 % High 4.3-5.6 [facility] Comment on above: Result Comment: Amer [place] Diabetes Association guidelines indicate that patients with HgbA1c in the range 5.7-6.4% are at increased risk for development of diabetes, and intervention by lifestyle modification may be beneficial. HgbA1c greater or equal to 6.5% is considered diagnostic of diabetes. Performed By: #### [id number] #### [facility],[address] [address] Hemoglobin A1con 07-17-2021 Glucose [Mass/Vol] 143 mg/dL Normal [facility] Comment on above: Performed By: #### H BA1C #### [facility] Routine Lab [address] [place], [place] [address] HbA1c (Bld) [Mass fraction] 6.6 % High 4.3-5.6 [facility] Comment on above: Performed By: #### H BA1C #### [facility] Routine Lab [address], [place] [address] Lab Report: Lipid Profileon 10-26-2017 Cholesterol 143 mg/dL Invalid Interpretation Code 200 [facility] Work Phone: [phone] HDL Cholesterol 46 mg/dL Invalid Interpretation Code [facility] Work Phone: [phone] LDL Cholesterol 64 mg/dL Invalid Interpretation Code 0-130 [facility] Work Phone: [phone] Triglyceride 163 mg/dL Invalid Interpretation Code [facility] Work Phone: [phone] very low density lipoproteins 33 mg/dL Invalid Interpretation Code 5-40 [facility] Work Phone: [phone] Lab Report: Liver Profileon 10-26-2017 Alanine aminotransferase (ALT) 48 U/L Invalid Interpretation Code 12-78 [facility] Work Phone: [phone] Albumin 4.1 g/dL Invalid Interpretation Code 3.4-5.0 [facility] Work Phone: [phone] Alkaline phosphatase (ALP) 51 U/L Invalid Interpretation Code 45-117 [facility] Work Phone: [phone] Aspartate aminotransferase (AST) 25 U/L Invalid Interpretation Code 15-37 [facility] Work Phone: [phone] Bilirubin (direct) 0.31 mg/dL High 0.00-0.30 [facility] Work Phone: [phone] Bilirubin (total) 2.00 mg/dL High 0.20-1.00 [facility] Work Phone: [phone] Globulin 3.3 g/dL Invalid Interpretation Code 2.2-4.2 [facility] Work Phone: [phone] Protein 7.4 g/dL Invalid Interpretation Code 6.4-8.2 [facility] Work Phone: [phone] Office Visit: [facility] 04-09-20 17 Documentation of current medications (procedure) Done Invalid Interpretation Code [facility] Work Phone: [phone] Fall risk assessment No Invalid Interpretation Code [facility] Work Phone: [phone] Protein mass conc Done [facility] Work Phone: [phone] Lab Report: Lipid Profileon 03-26-2017 Cholesterol in HDL mass conc 39 mg/dL Low [facility] Work Phone: [phone] Cholesterol in LDL mass conc 76 mg/dL 0-130 [facility] Work Phone: [phone] Cholesterol mass conc 140 mg/dL [address] [facility] Work Phone: [phone] Lipoprotein.pre-beta mass conc 25 mg/dL 5-40 [facility] Work Phone: [phone] Triglyceride mass conc 125 mg/dL [facility] Work Phone: [phone] Lab Report: Liver Profileon 03-26-2017 Albumin mass conc 4.1 g/dL 3.4-5.0 [facility] Work Phone: [phone] Alkaline phosphatase (ALP) 51 U/L Invalid Interpretation Code 45-117 [facility] Work Phone: [phone] ALP enzyme act/vol (Bld) 51 U/L 45-117 [facility] Work Phone: [phone] ALT enzyme act/vol 41 U/L 12-78 [facility] Work Phone: [phone] AST enzyme act/vol 21 U/L 15-37 [facility] Work Phone: [phone] Bilirubin mass conc 1.70 mg/dL High 0.20-1.00 [facility] Work Phone: [phone] Bilirubin.direct mass conc 0.30 mg/dL 0.00-0.30 [facility] Work Phone: [phone] Globulin 3.2 g/dL Invalid Interpretation Code 2.3-3.5 [facility] Work Phone: [phone] Globulin mass conc (S) 3.2 g/dL 2.3-3.5 [facility] Work Phone: [phone] Protein mass conc 7.3 g/dL 6.4-8.2 [facility] Work Phone: [phone] Office Visiton 10-07-2016 Documentation of current medications (procedure) Done Invalid Interpretation Code [facility] Work Phone: [phone] Protein mass conc Done [facility] Work Phone: [phone] Tobacco smoking status TNIS Tobacco smoking status TNIS Invalid Interpretation Code [facility] Work Phone: [phone] Tobacco smoking status [facility] Former smoker [facility] Work Phone: [phone] Tobacco use [facility] Former smoker Invalid Interpretation Code [facility] Work Phone: [phone]) Append: CR Referralon 2015 Clinical consultation report (record artifact) [id number]^08/12 Invalid Interpretation Code [facility] Work Phone: [phone] 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 Left ventricular Ejection fraction 50 % Invalid Interpretation Code [facility] Work Phone: [phone] 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 Anion gap 9 mmol/L Invalid Interpretation Code [facility] Work Phone: [phone] Anion gap molar conc 9 mmol/L [facility] Work Phone: [phone] Calcium mass conc 8.9 mg/dL Invalid Interpretation Code [facility] Work Phone: [phone] Chloride molar conc 108 mmol/L High [facility] Work Phone: [phone] CO2 26.0 mmol/L Invalid Interpretation Code [facility] Work Phone: [phone] CO2 ppres (BldV) 26.0 mmol/L [facility] Work Phone: [phone] Creatinine mass conc 0.80 mg/dL Invalid Interpretation Code [facility] Work Phone: [phone] Erythrocyte distribution width Ratio (RBC) 12.5 % [facility] Work Phone: [phone] Erythrocytes (RBC) 4.24 10*6/uL Low [facility] Work Phone: [phone] Globulin 3.3 g/dL Invalid Interpretation Code [facility] Work Phone: [phone] Globulin mass conc (S) 3.3 g/dL [facility] Work Phone: [phone] Glucose 158 mg/dL High [facility] Work Phone: [phone] Glucose mass conc 158 mg/dL High [facility] Work Phone: [phone] Hematocrit (HCT) 40.1 % Invalid Interpretation Code [facility] Work Phone: [phone] Hematocrit Volume Fraction (Bld) 40.1 % [facility] Work Phone: [phone] Hemoglobin A1c/Hemoglobin.total mass fraction (Bld) 6.2 % Invalid Interpretation Code [facility] Work Phone: [phone] Hemoglobin mass conc (Bld) 13.5 g/dL Invalid Interpretation Code [facility] Work Phone: [phone] MCH 31.8 pg Invalid Interpretation Code [facility] Work Phone: [phone] MCH Entitic mass (RBC) 31.8 pg [facility] Work Phone: [phone] MCHC 33.7 g/dL Invalid Interpretation Code [facility] Work Phone: [phone] MCHC mass conc (RBC) 33.7 g/dL [facility] Work Phone: [phone] MCV 94.6 fL High [facility] Work Phone: [phone] MCV Entitic volume (RBC) 94.6 fL High [facility] Work Phone: [phone] Platelet mean volume Entitic volume (Bld) 10.8 fL [facility] Work Phone: [phone] Platelets 188 10*3/mm3 Invalid Interpretation Code [facility] Work Phone: [phone] Platelets #/vol (Bld) 188 10*3/mm3 [employer] Work Phone: [phone] PMV by Marisa 10.8 fL Invalid Interpretation Code [facility] Work Phone: [phone] Potassium molar conc 4.1 mmol/L Invalid Interpretation Code [facility] Work Phone: [phone] RBC #/vol (Bld) 4.24 10*6/uL Low [facility] Work Phone: [phone] RDW-CA 12.5 % Invalid Interpretation Code [facility] Work Phone: [phone] Sodium molar conc 143 mmol/L Invalid Interpretation Code [facility] Work Phone: [phone] Thyrotropin Qn 0.97 u[iU]/mL Invalid Interpretation Code [facility] Work Phone: [phone] Urea nitrogen mass conc 21 mg/dL High [employer] Work Phone: [phone] Urea nitrogen/Creatinine mass ratio 26.2 mg/mg High [facility] Work Phone: [phone] WBC #/vol (Bld) 5.6 10*3/uL [facility] Work Phone: [phone] WBC (Leukocytes) 5.6 10*3/uL Invalid Interpretation Code [facility] Work Phone: [phone] Replaced Document: Letha Mcgrawon 08-12-2016 EKG QRS axis -29 deg [facility] Work Phone: [phone] electrocardiogram interpretation Sinus Bradycardia - frequent PAC s # PACs = 2.-Inferior infarct -probably not recent -Poor R-wave progression -nonspecific -consider old anterior infarct. ABNORMAL Invalid Interpretation Code [facility] Phone: [phone] GE use only - for [employer] import when terms are not otherwise specified 364 ms Invalid Interpretation Code [facility] Work Phone: [phone] Interpretation Sinus Bradycardia - frequent PAC s # PACs = 2.-Inferior infarct -probably not recent -Poor R-wave progression -nonspecific -consider old anterior infarct. ABNORMAL [facility] Work Phone: [phone] P Higden 26 deg [facility] Work Phone: [phone] P wave axis, electrocardiogram 26 deg Invalid Interpretation Code [facility] Work Phone: [phone] [place] Interval 194 ms [facility] Work Phone: [phone] [place] interval, electrocardiogram 194 ms Invalid Interpretation Code [facility] Work Phone: [phone] Pulse (Heart Rate) 55 /min Invalid Interpretation Code [facility] Work Phone: [phone] QRS axis, electrocardiogram -29 deg Invalid Interpretation Code [facility] Work Phone: [phone] QRS Duration 102 ms [facility] Work Phone: [phone] QRS duration, electrocardiogram 102 ms Invalid Interpretation Code [facility] Phone: [phone] QT Interval new path ms [facility] Work Phone: [phone] QT interval, electrocardiogram new path ms Invalid Interpretation Code [facility] Work Phone: [phone] QTc Martin 364 ms [facility] Work Phone: [phone] T Higden -1 deg [facility] Work Phone: [phone] T wave axis, electrocardiogram -1 deg Invalid Interpretation Code [facility] Phone: [phone] Office Visit: [facility] 04-08-20 Dietary management education, guidance, and counseling (procedure) yes Invalid Interpretation Code [facility] Work Phone: [phone] Office Visiton 09-26-2014 cardiac risk group C Invalid Interpretation Code [facility] Phone: [phone] General cardiovascular disease 10Y risk [#] [place].Beatriz'Andre N/A Invalid Interpretation Code [facility] Work Phone: [phone] Replaced Document: Letha Tolbert CG Observationson 08-05-2013 Pulse (Heart Rate) 395 ms Invalid Interpretation Code [facility] Phone: [phone] Lab Report: MGon 12-08-2011 Magnesium mass conc 2.1 mg/dL Normal 1.5-2.2 [facility] Work Phone: [phone] Lab Report: PTon 12-08-2011 INR Coag RelTime (PPP) 1.0 {INR} Normal [facility] Work Phone: [phone] INR in blood by coagulation 1.0 {INR} Normal [facility] Work Phone: [phone] prothrombin time, actual/normal, ratio 12.9 SECONDS Normal 11.9-14.4 [facility] Work Phone: [phone] PTP 12.9 SECONDS Normal 11.9-14.4 [facility] Work Phone: [phone] Lab Report: PTTon 12-08-2011 aPTT Coag time (Bld) 28.4 s Normal 24.1-36.[address] [facility] Work Phone: [phone] Lab Report: T4on 12-08-2011 T4 mass conc 9.2 ug/dL Normal 4.5-12.1 [facility] Work Phone: [phone] Office Visiton 12-08-2011 Alcoholism counseling (procedure) no Invalid Interpretation Code [facility] Work Phone: [phone] Protein mass conc no [facility] Work Phone: [phone] Vital Signs Date Time Vital Sign Value Performing Clinician Radha kiran 02-20-2025 13:39-0400 Body height 172.[address] Torito Azul MD Work Phone: [facility] 02-20-2025 13:39-0400 Body mass index (BMI) [Ratio] 28.7 kg/m2 Dr. Torito Azul MD Work Phone: [facility] 02-20-2025 13:39-0400 Body weight 85.[address] Torito Azul MD Work Phone: [facility] 02-20-2025 13:39-0400 Diastolic blood pressure 77 mm[Hg] Dr. Torito Azul MD Work Phone: [facility] 02-20-2025 13:39-0400 Heart rate 75 /min Dr. Torito Azul MD Work Phone: [facility] 02-20-2025 13:39-0400 Respiratory rate 18 /min Dr. Torito Azul MD Work Phone: [facility] 02-20-2025 13:39-0400 Systolic blood pressure 153 mm[Hg] Dr. Torito Azul MD Work Phone: [facility] 09-03-2023 08:31-0500 Body height [address] Torito Azul Work Phone: [facility] 09-03-2023 08:27-0500 Body mass index (BMI) [Ratio] 29.3 kg/m2 Dr. Torito Azul Work Phone: 4(205)631-606521 [place] [address] 09-03-2023 08:27-0500 Body weight 87.[address] Torito Azul Work Phone: [facility] 09-03-2023 08:27-0500 Diastolic blood pressure 78 mm[Hg] Dr. Torito Azul Work Phone: [facility] 09-03-2023 08:27-0500 Heart rate 59 /min Dr. Torito Azul Work Phone: [facility] 09-03-2023 08:27-0500 Respiratory rate 18 /min Dr. Torito Azul Work Phone: [facility] 09-03-2023 08:27-0500 SaO2% (BldA) [Mass fraction] 98 % Dr. Torito Azul Work Phone: [facility] 09-03-2023 08:27-0500 Systolic blood pressure 144 mm[Hg] Dr. Torito Azul Work Phone: [facility] 11-13-2022 09:12-0500 Body temperature 98 [degF] Dr. Torito Azul Work Phone: [facility] 11-13-2022 09:12-0500 Diastolic blood pressure 68 mm[Hg] Dr. Torito Azul Work Phone: [facility] 11-13-2022 09:12-0500 Heart rate 76 /min Dr. Torito Azul Work Phone: [facility] 11-13-2022 09:12-0500 Respiratory rate 18 /min Dr. Torito Azul Work Phone: [facility] 11-13-2022 09:12-0500 SaO2% (BldA) [Mass fraction] 97 % Dr. Torito Azul Work Phone: [facility] 11-13-2022 09:12-0500 Systolic blood pressure 148 mm[Hg] Dr. Torito Azul Work Phone: 7(290)661-878621 [place] [address] 11-12-2022 11:16-0500 Body height [address] Torito Azul Work Phone: 8(910)003-148490 [address] 11-12-2022 11:16-0500 Body mass index (BMI) [Ratio] 28.3 kg/m2 Dr. Torito Azul Work Phone: 0(004)540-746221 [place] [address] 11-12-2022 11:16-0500 Body weight [address] Torito Azul Work Phone: 4(714)571-081521 [place] [address] 11-12-2022 10:15-0500 Inhaled oxygen flow rate 4 L/min Dr. Torito Azul Work Phone: [facility] 11-02-2022 11:29-0500 Respiratory rate 18 /min Dr. Torito Azul Work Phone: [facility] 11-02-2022 08:36-0500 Body height 172.[address] Torito Azul Work Phone: [facility] 11-02-2022 08:36-0500 Body mass index (BMI) [Ratio] 29.4 kg/m2 Dr. Torito Azul Work Phone: [facility] 11-02-2022 08:36-0500 Body temperature 96.6 [degF] Dr. Torito Azul Work Phone: [facility] 11-02-2022 08:36-0500 Body weight 87.[address] Torito Azul Work Phone: [facility] 11-02-2022 08:36-0500 Diastolic blood pressure 75 mm[Hg] Dr. Torito Azul Work Phone: 1(393)644-458321 [place] [address] 11-02-2022 08:36-0500 Heart rate 75 /min Dr. Torito Azul Work Phone: 8(430)899-445304 [place] [address] 11-02-2022 08:36-0500 SaO2% (BldA) [Mass fraction] 94 % Dr. Torito Azul Work Phone: 3(806)823-201904 [place] [address] 11-02-2022 08:36-0500 Systolic blood pressure 122 mm[Hg] Dr. Torito Azul Work Phone: 8(833)125-400804 [place] [address] 09-23-2022 08:29-0500 Body mass index (BMI) [Ratio] 29.5 kg/m2 Dr. Torito Azul Work Phone: 7(832)438-198704 [place] [address] 09-23-2022 08:29-0500 Body weight 87.[address] Torito Azul Work Phone: 9(692)282-253004 [place] [address] 09-23-2022 08:29-0500 Diastolic blood pressure 86 mm[Hg] Dr. Torito Azul Work Phone: 4(267)359-590004 [place] [address] 09-23-2022 08:29-0500 Heart rate 74 /min Dr. Torito Azul Work Phone: 9(197)868-910304 [place] [address] 09-23-2022 08:29-0500 Respiratory rate 18 /min Dr. Torito Azul Work Phone: 3(152)943-993504 [place] [address] 09-23-2022 08:29-0500 SaO2% (BldA) [Mass fraction] 97 % Dr. Torito Azul Work Phone: 7(728)911-875721 [place] [address] 09-23-2022 08:29-0500 Systolic blood pressure 132 mm[Hg] Dr. Torito Azul Work Phone: 0(819)320-798804 [place] [address] 07-17-2022 14:35-0400 Body temperature 97.1 [degF] Dr. Torito Azul Work Phone: 2(981)977-814521 [place] [address] 07-17-2022 14:35-0400 Diastolic blood pressure 66 mm[Hg] Dr. Torito Azul Work Phone: [facility] 07-17-2022 14:35-0400 Heart rate 63 /min Dr. Torito Azul Work Phone: [facility] 07-17-2022 14:35-0400 Respiratory rate 18 /min Dr. Torito Azul Work Phone: [facility] 07-17-2022 14:35-0400 SaO2% (BldA) [Mass fraction] 97 % Dr. Torito Azul Work Phone: [facility] 07-17-2022 14:35-0400 Systolic blood pressure 127 mm[Hg] Dr. Torito Azul Work Phone: [facility] 07-17-2022 09:18-0400 Body height 172.[address] Torito Azul Work Phone: [facility] Work Phone: 07-17-2022 09:18-0400 Body mass index (BMI) [Ratio] 29.1 kg/m2 Dr. Torito Azul Work Phone: [facility] 07-17-2022 09:18-0400 Body weight 86.[address] Torito Azul Work Phone: [facility] 05-13-2022 13:24-0400 Body height 172.[address] Torito Azul Work Phone: [facility] Work Phone: 05-13-2022 13:24-0400 Body mass index (BMI) [Ratio] 28.9 kg/m2 Dr. Torito Azul Work Phone: [facility] Work Phone: 05-13-2022 13:24-0400 Body temperature 98.2 [degF] Dr. Torito Azul Work Phone: [facility] Work Phone: 05-13-2022 13:24-0400 Body weight 86.[address] Torito Azul Work Phone: [facility] Work Phone: 05-13-2022 13:24-0400 Diastolic blood pressure 74 mm[Hg] Dr. Torito Azul Work Phone: [facility] Work Phone: 05-13-2022 13:24-0400 Heart rate 70 /min Dr. Torito Azul Work Phone: [facility] Work Phone: 05-13-2022 13:24-0400 Respiratory rate 18 /min Dr. Torito Azul Work Phone: [facility] Work Phone: 05-13-2022 13:24-0400 SaO2% (BldA) [Mass fraction] 100 % Dr. Torito Azul Work Phone: [facility] Work Phone: 05-13-2022 13:24-0400 Systolic blood pressure 151 mm[Hg] Dr. Torito Azul Work Phone: [facility] Work Phone: 03-21-2022 08:23-0400 Body height 172.[address] Torito Azul Work Phone: [facility] Work Phone: 03-21-2022 08:23-0400 Body mass index (BMI) [Ratio] 29.2 kg/m2 Dr. Torito Azul Work Phone: [facility] Work Phone: 03-21-2022 08:23-0400 Body weight 87.[address] Torito Azul Work Phone: [facility] Work Phone: 03-21-2022 08:23-0400 Diastolic blood pressure 80 mm[Hg] Dr. Torito Azul Work Phone: [facility] Work Phone: 03-21-2022 08:23-0400 Heart rate 87 /min Dr. Torito Azul Work Phone: [facility] Work Phone: 03-21-2022 08:23-0400 Respiratory rate 18 /min Dr. Torito Azul Work Phone: [facility] Work Phone: 03-21-2022 08:23-0400 SaO2% (BldA) [Mass fraction] 97 % Dr. Torito Azlu Work Phone: [facility] Work Phone: 03-21-2022 08:23-0400 Systolic blood pressure 125 mm[Hg] Dr. Torito Azul Work Phone: [facility] Work Phone: 04-09-2017 07:42-0400 BMI (Body Mass Index) 28.43 kg/m2 [facility] Work Phone: 04-09-2017 07:42-0400 BP Diastolic 70 mm[Hg] [facility] Work Phone: 04-09-2017 07:42-0400 BP Systolic 130 mm[Hg] [facility] Work Phone: 04-09-2017 07:42-0400 Height 172.72 cm [facility] Work Phone: 04-09-2017 07:42-0400 Pulse (Heart Rate) 64 /min [facility] Work Phone: 04-09-2017 07:42-0400 Respiratory Rate 18 /min [facility] Work Phone: 04-09-2017 07:42-0400 Weight 84.82 kg [facility] Work Phone: 10-07-2016 09:01-0500 BMI (Body Mass Index) 30.1 kg/m2 Elkin Alonzo MD [facility] Work Phone: 10-07-2016 09:01-0500 BP Diastolic 60 mm[Hg] [facility] Work Phone: 10-07-2016 09:01-0500 BP Systolic 120 mm[Hg] MD [facility] Work Phone: 10-07-2016 09:01-0500 BSA (Body Surface Area) 2.04 m2 MD [facility] Work Phone: 10-07-2016 09:01-0500 Pulse (Heart Rate) 64 /min MD [facility] Work Phone: 10-07-2016 09:01-0500 Respiratory Rate 20 /min MD [facility] Work Phone: 10-07-2016 09:01-0500 Weight 89.81 kg MD [facility] Work Phone: 08-12-2016 10:33-0500 Heart rate 55 /min MD [facility] Work Phone: 03-28-2015 08:47-0400 BP Diastolic 92 mm[Hg] Elkin Alonzo MD [facility] Work Phone: 03-28-2015 08:47-0400 BP Systolic 150 mm[Hg] MD [facility] Work Phone: 03-16-2014 11:49-0400 Height 172.72 cm MD [facility] Work Phone: 08-05-2013 09:02-0400 Heart rate 395 ms MD [facility] Work Phone: Encounters Encounter Date Encounter Type Care Provider Facility Start: 03-31-2025 ambulatory Karina HOLLIDAY Facility:[facility] Start: 03-10-2025 ambulatory Karina HOLLIDAY Facility:[facility] Start: 02-20-2025 End: 02-20-2025 Patient encounter procedure Karina HOLLIDAY -[facility] Work Phone: Start: 02-20-2025 End: 02-20-[address] Torito Azul MD Work Phone: [facility] Work Phone: Start: 11-14-2024 End: 11-14-[address] Torito Azul MD -Laboratory Phy Office 3rd Flr Start: 11-14-2024 End: 11-14-2024 ambulatory Torito Chi Jorge Alberto Facility:[facility] Start: 05-17-2024 End: 05-17-2024 ambulatory Torito Chi Jorge Alberto Facility:[facility] Start: 04-28-2024 End: 04-28-2024 ambulatory Paige H Roof BEREAVEMENT COORDINATOR Facility:[facility] Start: 04-19-2024 End: 04-19-2024 ambulatory Paige H Roof BEREAVEMENT COORDINATOR Facility:[facility] Start: 03-31-2024 End: 03-31-2024 ambulatory Torito Chi Jorge Alberto Facility:[facility] Start: 11-11-2023 End: 11-11-[address] Torito Azul Work Phone: [facility] Work Phone: Start: 11-11-2023 End: 11-11-[address] Torito Azul Work Phone: [facility]-Laboratory, Phy Office 3rd Flr Start: 09-03-2023 End: 09-03-[address] Torito Azul Work Phone: [facility] Work Phone: Start: 04-20-2023 End: 04-20-2023 ambulatory [facility] Work Phone: Start: 04-20-2023 End: 04-20-2023 Patient encounter procedure [facility] Work Phone: Start: 03-30-2023 End: 03-30-2023 ambulatory [facility] Work Phone: Start: 03-30-2023 End: 03-30-2023 Patient encounter procedure [facility] Work Phone: Start: 11-12-2022 End: 11-13-2022 Evaluation and management of inpatient Dr. Torito Azul Work Phone: [facility] 3 Start: 11-12-2022 End: 11-13-[address] Torito Azul Work Phone: [facility] Work Phone: Start: 11-02-2022 End: 11-02-2022 Emergency department patient visit Dr. Torito Azul Work Phone: [facility] Start: 09-24-2022 End: 09-24-[address] Torito Azul Work Phone: [facility] Start: 09-23-2022 End: 09-23-[address] Torito Azul Work Phone: [facility] Start: 09-18-2022 End: 09-18-[address] Torito Azul Work Phone: [facility] Work Phone: Start: 09-18-2022 End: 09-18-[address] Torito Azul Work Phone: [facility] Start: 09-01-2022 End: 09-01-[address] Torito Azul Work Phone: [facility] Start: 08-25-2022 End: 08-25-[address] Torito Azul Work Phone: [facility] Start: 08-18-2022 End: 08-18-[address] Torito Azul Work Phone: [facility] Start: 08-04-2022 End: 08-04-[address] Torito Azul Work Phone: [facility] Start: 07-31-2022 End: 07-31-[address] Torito Azul Work Phone: [facility] Start: 07-28-2022 End: 07-28-[address] Torito Azul Work Phone: [facility] Start: 07-24-2022 End: 07-24-[address] Torito Azul Work Phone: [facility] Start: 07-17-2022 Non-patient / Non-visit Dr. Drew Azul Work Phone: [facility] Start: 07-17-2022 End: 07-17-2022 Admission to same day surgery center [facility] Torito [facility] Start: 07-17-2022 End: 07-17-[address] Torito Azul Work Phone: [facility] Work Phone: Start: 07-17-2022 End: 07-17-2022 Non-patient / Non-visit Dr. Torito Azul Work Phone: [facility] Start: 07-14-2022 End: 07-17-2022 Non-patient / Non-visit Dr. Torito Azul Work Phone: [facility] Start: 06-06-2022 End: 06-06-[address] Torito Azul Work Phone: [facility] Start: 05-13-2022 End: 05-13-[address] Torito Azul Work Phone: [facility] Start: 05-05-2022 End: 08-01-[address] Torito Azul Work Phone: [facility], Phy Office 3rd Flr Start: 03-21-2022 End: 03-21-[address] Torito Azul Work Phone: [facility] Start: 03-14-2022 End: 03-14-2022 Patient encounter procedure [facility] Start: 07-16-2021 End: 07-16-[address] [facility] Procedures Date Procedure Procedure Detail Performing Clinician Start: 11-14-2024 Measurement of renal function Dr. Torito Azul MD Work Phone: Comment on above: GFR Calc Start: 11-14-2024 Vitamin D, 25-hydrox y measurement Dr. Torito Azul MD Work Phone: Comment on above: Vitamin D 25(OH) Sta tus Range Deficiency <20 ng/mL (50nmol/L) Insufficiency 20 - 30 ng/mL (50 - 75 nmol/L) Sufficiency 30 - 100 ng/mL (75 - 250 nmol/L) Toxicity >100 ng/mL (>250 nmol/L) Start: 11-12-2022 Cysto,TUR,Prostate,O lympus (Not Applicable) Dr. Torito Azul Work Phone: Start: 07-17-2022 Removal of pilonidal cyst Dr. Torito Azul Work Phone: Start: 05-13-2022 Radiography of sacrococcygeal spine Dr. Torito Azul Work Phone: Start: 09-24-2017 End: 10-27-2017 *Hepatic Function Panel Ирина Castañeda Start: 09-24-2017 End: 10-27-2017 Lipid panel [AGGREGATE] Ирина Castañeda Start: 04-09-2017 End: 04-09-2017 ORDER DESK CALLER Paige Alvarado NP Work Phone: Start: 04-09-2017 End: 04-09-2017 Follow Up Appt 6 months Paige Alvarado NP Work Phone: Start: 03-20-2017 End: 03-26-2017 *Hepatic Function Panel Ирина Castañeda Start: 03-20-2017 End: 03-26-2017 Lipid panel [AGGREGATE] Ирина Castañeda Start: 10-07-2016 End: 10-07-2016 Follow Up Appt 6 months Ирина Castañeda Start: 10-07-2016 End: 10-07-2016 MMM Elkin Alonzo MD Start: 10-07-2016 End: 10-20-2016 Nuclear stress test -exercise Elkin Alonzo MD Start: 09-04-2016 End: 09-19-2016 Lipid panel [AGGREGATE] Ирина Castañeda Start: 08-18-2016 End: 03-26-2017 24 hour holter monitor Karina pelletier PA-C Work Phone: Start: 08-12-2016 End: 08-12-2016 ORDER DESK CALLER Karina Westbrook PA-C Work Phone: Start: 08-12-2016 End: 08-12-2016 Electrocardiogram, complete Karina Bernal PA-C Work Phone: Start: 08-12-2016 End: 08-12-2016 Follow Up Appt Other Karina sun PA-C Work Phone: Start: 08-12-2016 End: 08-13-2016 Referral to aquatic laborer Karina goode PA-C Work Phone: Start: 08-07-2016 Placement of stent i n coronary artery Coronary stent Elkin Alonzo MD Start: 08-04-2016 History of placement of stent for coronary artery disease History of coronary artery stent placement Karina HOLLIDAY Comment on above: PCI-Thrombectomy SVG -RPDA ,OLI-bifurcating distal RCA via SVG, OLI-RPDA w/ 4.0 x 18 mm Xience Alpine Rx, OLI-bifurcating distal RCA via [id number] w/ 2.75 x 15 mm Xience Alpine Rx 08/04/16 Start: 04-08-2016 End: 04-08-2016 Dietary management education, guidance, and counseling Elkin Alonzo MD Start: 04-08-2016 End: 04-08-2016 ORDER DESK CALLER Karina Westbrook PA-C Work Phone: Start: 04-08-2016 End: 04-08-2016 Electrocardiogram, complete Karina Bernal PA-C Work Phone: Start: 04-08-2016 End: 04-08-2016 Follow Up Appt 6 months Karina scales PA-C Work Phone: Start: 03-27-2016 End: 03-27-2016 *Hepatic Function Panel Ирина Castañeda Start: 03-27-2016 End: 03-27-2016 Lipid panel [AGGREGATE] Ирина Castañeda Start: 10-16-2015 End: 10-16-2015 Follow Up Appt 6 months Ирина Castañeda Start: 10-16-2015 End: 10-16-2015 ANDRE Alonzo MD Start: 09-19-2015 End: 10-09-2015 *Hepatic Function Panel Ирина Castañeda Start: 09-19-2015 End: 10-09-2015 Lipid panel [AGGREGATE] Ирина Castañeda Start: 03-28-2015 End: 03-24-2016 MICHELLE Westbrook PA-C Work Phone: Start: 03-28-2015 End: 03-24-2016 Follow Up Appt 6 months Karina scales PA-C Work Phone: Start: 03-20-2015 End: 03-20-2015 *Hepatic Function Panel Ирина Castañeda Start: 03-20-2015 End: 03-20-2015 Lipid panel [AGGREGATE] Ирина Castañeda Start: 09-26-2014 End: 09-26-2014 Follow Up Appt 6 months Ирина Castañeda Start: 09-26-2014 End: 09-26-2014 [facility] Elkin Alonzo MD Start: 09-04-2014 End: 09-20-2014 *Hepatic Function Panel Ирина Castañeda Start: 09-04-2014 End: 09-20-2014 Lipid panel [AGGREGATE] Ирина Castañeda Start: 03-16-2014 End: 03-16-2014 ORDER DESK CALLER Elkin Alonzo MD Start: 03-16-2014 End: 03-16-2014 Follow Up Appt 6 months Ирина Castañeda Start: 01-03-2014 End: 03-08-2014 *Hepatic Function Panel Ирина Castañeda Start: 01-03-2014 End: 03-08-2014 Lipid panel [AGGREGATE] Ирина Castañeda Start: 08-05-2013 End: 03-24-2016 Carotid duplex Karina Westbrook PA-C Work Phone: Start: 08-05-2013 End: 08-05-2013 ORDER DESK CALLER Karina Westbrook PA-C Work Phone: Start: 08-05-2013 End: 08-05-2013 Electrocardiogram, complete Karina Bernal PA-C Work Phone: Start: 08-05-2013 End: 08-05-2013 eRx Transmitted during this visit (Medicare only) Karina Westbrook PA-C Work Phone: Start: 08-05-2013 End: 08-05-2013 Follow Up Appt 6 months Karina scales PA-C Work Phone: Start: 07-05-2013 End: 07-28-2013 *Hepatic Function Panel Karina scales PA-C Work Phone: Start: 07-05-2013 End: 07-28-2013 Lipid panel [AGGREGATE] Karina scales PA-C Work Phone: Start: 02-03-2013 End: 02-03-2013 Follow Up Appt 6 months Ирина Castañeda Start: 02-03-2013 End: 02-03-2013 MM Elkin Alonzo MD Start: 01-03-2013 End: 01-18-2013 *Hepatic Function Panel Bud Troy MD Start: 01-03-2013 End: 01-18-2013 Lipid panel [AGGREGATE] Bud Troy MD Start: 08-03-2012 End: 08-03-2012 *Hepatic Function Panel Bud Troy MD Start: 08-03-2012 End: 08-03-2012 Follow Up Appt 6 months Bud Troy MD Start: 08-03-2012 End: 08-03-2012 Lipid panel [AGGREGATE] Bud Troy MD Start: 07-07-2012 End: 07-28-2012 *Hepatic Function Panel Bud Troy MD Start: 07-07-2012 End: 07-28-2012 Lipid panel [AGGREGATE] Bud Troy MD Start: 01-22-2012 End: 01-22-2012 Follow Up Appt 6 months Bud Troy MD Start: 12-08-2011 End: 12-08-2011 *BMP Bud Troy MD Start: 12-08-2011 End: 12-08-2011 *Hepatic Function Panel Bud Troy MD Start: 12-08-2011 End: 12-08-2011 24 hour holter monitor Bud Troy MD Start: 12-08-2011 End: 12-08-2011 aPTT Bud Troy MD Start: 12-08-2011 End: 12-08-2011 Coagulation factor induced.INR assay in platelet poor plasma Bud Troy MD Start: 12-08-2011 End: 12-08-2011 Echocardiography Bud Troy MD Start: 12-08-2011 End: 12-08-2011 Left Heart Cath Bud Troy MD Start: 12-08-2011 End: 12-08-2011 Lipid panel [AGGREGATE] Bud Troy MD Start: 12-08-2011 End: 12-08-2011 Magnesium Bud Troy MD Start: 12-08-2011 End: 12-08-2011 Thyroid stimulating hormone (TSH) Bud Troy MD Start: 12-08-2011 End: 12-08-2011 Thyroxine (T4) [Mass/volume] in Serum or Plasma Bud Troy MD Start: 11-29-2002 History of coronary artery bypass grafting H/O coronary artery bypass surgery Karina HOLLIDAY Comment on above: CABG x 4: ROSE-LAD, SVG-OM1, SVG-RPDA, Radial Artery-D1 11/29/2002 H/O: surgery S/P surgical removal of pilonidal cyst Dr. Torito Azul Work Phone: Urine culture Dr. Torito Azul Work Phone: Plan of Treatment Date Care Activity Detail Author Start: 11-13-2022 Patient discharge [facility] Start: 11-13-2022 Removal of urinary catheter [facility] Start: 11-12-2022 Following clinical pathway protocol [facility] Start: 11-12-2022 Admission procedure [facility] Start: 11-12-2022 Deep breathing and coughing exercises [facility] Start: 11-12-2022 Incentive spirometry [facility] Start: 11-12-2022 Provision of activity privileges [facility] Start: 11-12-2022 Irrigation of urinary bladder [facility] Start: 11-12-2022 Measuring intake and output [facility] Start: 11-12-2022 Patient education [facility] Start: 11-12-2022 [address] patient vital signs [facility] Start: 11-12-2022 Vital signs measurements [facility] Start: 11-12-2022 End: 11-12-2022 [facility] Start: 11-12-2022 [facility] Start: 11-02-2022 [facility] Start: 07-17-2022 Anes integ musc & nrv head neck&posterior trunk ANESTH HEAD/NECK/PTRUNK [facility] Start: 07-17-2022 Excision pilonidal cyst/sinus complicated REMOVE PILONIDAL CYST COMPL [facility] Start: 07-17-2022 Patient discharge [facility] Start: 11-05-2017 End: 11-05-2017 Appointment Appointment [facility] Work Phone: Start: 10-20-2017 End: 10-20-2017 Appointment Appointment [facility] Work Phone: Start: 09-24-2017 End: 10-27-2017 *Hepatic Function Panel *Hepatic Function Panel [facility] Work Phone: Start: 09-24-2017 End: 10-27-2017 Lipid panel [AGGREGATE] *Lipid Profile CC PCP [facility] Work Phone: Start: 04-09-2017 End: 04-09-2017 Appointment Appointment [facility] Work Phone: Start: 04-09-2017 End: 04-09-2017 ORDER DESK CALLER ORDER DESK CALLER [facility] Work Phone: Start: 04-09-2017 End: 04-09-2017 Follow Up Appt 6 months Follow Up Appt 6 months [facility] Work Phone: Start: 03-20-2017 End: 03-26-2017 *Hepatic Function Panel *Hepatic Function Panel [facility] Work Phone: Start: 03-20-2017 End: 03-26-2017 Lipid panel [AGGREGATE] *Lipid Profile CC PCP [facility] Work Phone: Start: 10-07-2016 End: 10-07-2016 Follow Up Appt 6 months Follow Up Appt 6 months [facility] Work Phone: Start: 10-07-2016 End: 10-07-2016 MMM MMM [facility] Work Phone: Start: 10-07-2016 End: 10-07-2016 Nuclear stress test -exercise Nuclear stress test -exercise [facility] Work Phone: Start: 09-04-2016 End: 09-19-2016 Lipid panel [AGGREGATE] *Lipid Profile CC PCP [facility] Work Phone: Start: 08-18-2016 End: 08-18-2016 24 hour holter monitor 24 hour holter monitor [facility] Work Phone: Start: 08-12-2016 End: 09-22-2016 Cardiac Rehab Card[facility] [address] [place], [address] [facility] Work Phone: Start: 08-12-2016 End: 08-12-2016 ORDER DESK CALLER ORDER DESK CALLER [facility] Work Phone: Start: 08-12-2016 End: 08-12-2016 Electrocardiogram, complete EKG (In office) [facility] Work Phone: Start: 08-12-2016 End: 08-12-2016 Follow Up Appt Other Follow Up Appt Other [facility] Work Phone: Start: 04-08-2016 End: 03-27-2016 *Hepatic Function Panel *Hepatic Function Panel [facility] Work Phone: Start: 04-08-2016 End: 04-08-2016 ORDER DESK CALLER ORDER DESK CALLER [facility] Work Phone: Start: 04-08-2016 End: 04-08-2016 Electrocardiogram, complete EKG (In office) [facility] Work Phone: Start: 04-08-2016 End: 04-08-2016 Follow Up Appt 6 months Follow Up Appt 6 months [facility] Work Phone: Start: 04-08-2016 End: 03-27-2016 Lipid panel [AGGREGATE] *Lipid Profile CC PCP [facility] Work Phone: Start: 10-16-2015 End: 10-16-2015 Follow Up Appt 6 months Follow Up Appt 6 months [facility] Work Phone: Start: 10-16-2015 End: 10-16-2015 MMM MMM [facility] Work Phone: Start: 09-19-2015 End: 10-09-2015 *Hepatic Function Panel *Hepatic Function Panel [facility] Work Phone: Start: 09-19-2015 End: 10-09-2015 Lipid panel [AGGREGATE] *Lipid Profile CC PCP [facility] Work Phone: Start: 03-28-2015 End: 03-24-2016 ORDER DESK CALLER ORDER DESK CALLER [facility] Work Phone: Start: 03-28-2015 End: 03-24-2016 Follow Up Appt 6 months Follow Up Appt 6 months [facility] Work Phone: Start: 03-20-2015 End: 03-20-2015 *Hepatic Function Panel *Hepatic Function Panel [facility] Work Phone: Start: 03-20-2015 End: 03-20-2015 Lipid panel [AGGREGATE] *Lipid Profile CC PCP [facility] Work Phone: Start: 09-26-2014 End: 09-26-2014 Follow Up Appt 6 months Follow Up Appt 6 months [facility] Work Phone: Start: 09-26-2014 End: 09-26-2014 MMM MMM [facility] Work Phone: Start: 09-04-2014 End: 09-20-2014 *Hepatic Function Panel *Hepatic Function Panel [facility] Work Phone: Start: 09-04-2014 End: 09-20-2014 Lipid panel [AGGREGATE] *Lipid Profile CC PCP [facility] Work Phone: Start: 03-16-2014 End: 03-16-2014 ORDER DESK CALLER ORDER DESK CALLER [facility] Work Phone: Start: 03-16-2014 End: 03-16-2014 Follow Up Appt 6 months Follow Up Appt 6 months [facility] Work Phone: Start: 01-03-2014 End: 03-08-2014 *Hepatic Function Panel *Hepatic Function Panel [facility] Work Phone: Start: 01-03-2014 End: 03-08-2014 Lipid panel [AGGREGATE] *Lipid Profile CC PCP [facility] Work Phone: Start: 08-05-2013 End: 08-05-2013 Carotid duplex Carotid duplex [facility] Work Phone: Start: 08-05-2013 End: 08-05-2013 ORDER DESK CALLER ORDER DESK CALLER [facility] Work Phone: Start: 08-05-2013 End: 08-05-2013 Electrocardiogram, complete EKG (In office) [facility] Work Phone: Start: 08-05-2013 End: 08-05-2013 Follow Up Appt 6 months Follow Up Appt 6 months [facility] Work Phone: Start: 07-05-2013 End: 07-28-2013 *Hepatic Function Panel *Hepatic Function Panel [facility] Work Phone: Start: 07-05-2013 End: 07-28-2013 Lipid panel [AGGREGATE] *Lipid Profile [facility] Work Phone: Start: 02-03-2013 End: 02-03-2013 Follow Up Appt 6 months Follow Up Appt 6 months [facility] Work Phone: Start: 02-03-2013 End: 02-03-2013 MMM MMM [facility] Work Phone: Start: 01-03-2013 End: 01-18-2013 *Hepatic Function Panel *Hepatic Function Panel [facility] Work Phone: Start: 01-03-2013 End: 01-18-2013 Lipid panel [AGGREGATE] *Lipid Profile [facility] Work Phone: Start: 08-03-2012 End: 08-03-2012 *Hepatic Function Panel *Hepatic Function Panel [facility] Work Phone: Start: 08-03-2012 End: 08-03-2012 Follow Up Appt 6 months Follow Up Appt 6 months [facility] Work Phone: Start: 08-03-2012 End: 08-03-2012 Lipid panel [AGGREGATE] *Lipid Profile [facility] Work Phone: Start: 07-07-2012 End: 07-28-2012 *Hepatic Function Panel *Hepatic Function Panel [facility] Work Phone: Start: 07-07-2012 End: 07-28-2012 Lipid panel [AGGREGATE] *Lipid Profile [facility] Work Phone: Start: 01-22-2012 End: 01-22-2012 Follow Up Appt 6 months Follow Up Appt 6 months [facility] Work Phone: Start: 12-08-2011 End: 12-08-2011 *BMP *BMP [facility] Work Phone: Start: 12-08-2011 End: 12-08-2011 *CBC with Differential *CBC with Differential [facility] Work Phone: Start: 12-08-2011 End: 12-08-2011 *Hepatic Function Panel *Hepatic Function Panel [facility] Work Phone: Start: 12-08-2011 End: 12-08-2011 24 hour holter monitor 24 hour holter monitor [facility] Work Phone: Start: 12-08-2011 End: 12-08-2011 aPTT *PTT-Partial Thromboplastin Time [facility] Work Phone: Start: 12-08-2011 End: 12-08-2011 aPTT Coag time (PPP) *PTT-Partial Thromboplastin Time [facility] Work Phone: Start: 12-08-2011 End: 12-08-2011 Chest x-ray X-Ray, Chest, PA & Lateral [facility] Work Phone: Start: 12-08-2011 End: 12-08-2011 Coagulation factor induced.INR assay in platelet poor plasma *PT/INR [facility] Work Phone: Start: 12-08-2011 End: 12-08-2011 Echocardiography Echocardiogram (complete) [facility] Work Phone: Start: 12-08-2011 End: 12-08-2011 Left Heart Cath Left Heart Cath [facility] Work Phone: Start: 12-08-2011 End: 12-08-2011 Lipid panel [AGGREGATE] *Lipid Profile [facility] Work Phone: Start: 12-08-2011 End: 12-08-2011 Magnesium *Magnesium [facility] Work Phone: Start: 12-08-2011 End: 12-08-2011 Office/outpatient visit, est, level 5 71041 Ofc Vst, Est Level V [facility] Work Phone: Start: 12-08-2011 End: 12-08-2011 Thyroid stimulating hormone (TSH) *TSH [facility] Work Phone: Start: 12-08-2011 End: 12-08-2011 Thyroxine (T4) *T4 (Total) [facility] Work Phone: 24 Hour ECG [facility] Electrocardiographic procedure [facility] Work Phone: Electrocardiographic procedure [facility] NM Heart Views W str ess and W radionuclide IV [facility] Patient Education [facility] Work Phone: Patient referral [facility] Work Phone: US Heart [facility] XR Sacrum and Coccyx GE 2 Views [facility] Work Phone: Immunizations Immunization Date Immunization Notes Care Provider Myrtle yoder 07-31-2020 influenza, injectabl e, quadrivalent, preservative free Dr. Torito Azul Work Phone: [facility] 07-31-2020 influenza, seasonal, injectable [facility] 07-31-2020 Fluad Quad (65yr up)(PF) 60 mcg (15 mcg x 4)/0.5mL IM syringe (flu vac [facility] Work Phone: Payers Date Payer Category Payer Self-pay [id number] 2023 Medicare [id number] [id number] Private Health Insurance [id number] 1950 Unknown [id number] [id number] Medicare [id number] Unknown [id number] 2.16.8 [id number] Unknown [id number] 2.16.8 [id number] Unknown [id number] 2.16.8 [id number] Unknown [id number] 2.16.8 [id number] Unknown [id number] 2.16.8 [id number] Unknown [id number] 2.16.8 [id number] Unknown [id number] 2.16.8 [id number] Unknown [id number] 2.16.8 [id number] Unknown [id number] 2.16.8 [id number] Social History Date Type Detail Facility Start: 09-20-2021 End: 09-03-2023 Tobacco smoking status TNIS Unknown if ever smoked [facility] Start: 1950 Sex Assigned At Male [facility] Start: 04-28-2024 Tobacco smoking stat us TNIS Ex-smoker (finding) [facility] Goals Date Patient Goal Desired Activity /State Functional Status Date Assessment Result Facility 11-13-2022 Functional status Ambulates [facility] Work Phone: Mental Status Date Assessment Result Facility 11-13-2022 Cognitive function Level Of Cons ciousness Awake;Alert;Appropriate;Follow s Commands [facility] Work Phone: 11-12-2022 Cognitive function Voice/Name [facility] Work Phone: 07-17-2022 Cognitive function Voice/Name [facility] Work Phone: Clinical Notes 11-29-2002 to 11-12-2022 Note Date & Type Note Facility 11-12-2022 Discharge summary Note Date/Time November 12, 2022 9:58am [facility] Medical Records Department [address] [place] [address] Instructions for Home/Discharge Instructions 11/12/22 0958 MR#: [id number] Acct: [id number] Name: EMELY KILLIAN Rep #:[id number] : 1950 71 From: Jeffery Hemphill MD PCP: Dr. Torito Azul MD Status:REG S DC Discharge Instructions Diet Discharge Diet: No restrictions, Light diet - advance as tolerated and Soft diet Follow Up Care Please Follow Up With: Jeffery Hemphill MD When: Call for appointment 2 weeks Test Results: Test results from this visit will be discussed in further detail at your follow-up appointment, if applicable. Discharge Plan Admission Primary Reason for Your Visit: turp Attending Provider: Jeffery Hemphill Primary Care Provider: Torito Azul Chi Discharge Orders/Prescriptions Prescriptions: New ciprofloxacin HCl [Cipro] 500 mg tablet 500 mg PO BID Qty: 10 0RF Continued multivitamin tablet 1 tab PO QDAY tamsulosin 0.4 mg capsule 0.4 mg PO DAILY aspirin [Adult Low Dose Aspirin] 81 mg tablet,delayed release (DR/EC) 81 mg PO .QOD Qty: 60 3RF nitroglycerin 0.4 mg tablet, sublingual 0.4 mg SUBLINGUAL Q5M Qty: 25 2RF ipratropium bromide 42 mcg (0.06 %) spray,non-aerosol 2 spray intranasal DAILY Label Comments: Take 2 Sprays intranasally once per Day for 30 Days Take in evening metformin 500 mg tablet 1,000 mg PO BIDCM ciprofloxacin HCl [Cipro] 500 mg tablet 500 mg PO BID 10 Days Qty: 20 0RF lisinopril 5 mg tablet 5 mg PO DAILY Qty: 90 3RF rosuvastatin [Crestor] 10 mg tablet 10 mg PO QDAY Qty: 90 3RF metoprolol tartrate 25 mg tablet 12.5 mg PO DAILY Qty: 45 3RF Vascepa 1 gram capsule See Rx Instructions .ROUTE .COMPLEX Qty: 360 4RF Dose Instruction: TAKE 2 CAPSULES TWICE A DAY Rx Instructions: TAKE 2 CAPSULES TWICE A DAY amlodipine [Norvasc] 10 mg tablet 10 mg PO DAILY Qty: 90 3RF Held Eliquis 5 mg tablet 5 mg PO BID Qty: 180 3RF Hold Instructions: Resume on 11/26/22. Rx Instructions: LAST DOSE 10/10 PM Referrals / Follow Up: Jeffery Hemphill MD [Med Staff - Active Staff] - Torito Azul Chi, MD [Primary Care Provider] - Disposition Disposition (needs filled in before D/C Order can be placed): Home, Self Care 11/12/22 0958<Electronically signed by Jeffery Hemphill MD>Jeffery Hemphill MD CC: Dr. Torito Azul MD ~ Signed [facility] Work Phone: 1([phone]) 520-354202-08-2023 History and physical note Author Dr. Hemphill [facility] November 12, 2022 9:58am Note Date/Time November 12, 2022 9 :58am [facility] Medical Records Department [address] [place] [address] History & Physical Exam 11/12/22956 MR#: [id number] Acct: [id number] Name: EMELY KILLIAN Rep #:[id number] : 1950 71 From: Jeffery Hemphill MD PCP: Dr. Torito Azul MD Status:REG S DC Location: [place] [address] HPI - General HPI Narrative EMELY KILLIAN, is a 71 M who presents for resection of a bladder obstructing prostate with BPH and also removal of stone and UroLift clips [facility] Medical History (Updated 11/10/22 @ 00:01 by Background Daemon) Abrasion Acute coccygeal pain Alcohol use Atherosclerosis of coronary artery bypass graft without angina pectoris Atherosclerotic heart disease of [place] coronary artery without angina pectoris BPH (benign prostatic hyperplasia) Cardiology follow-up encounter CPAP (continuous positive airway pressure) dependence Diabetes Easy bruising Essential (primary) hypertension Former smoker [place] disease High cholesterol History of atrial fibrillation History of diverticulitis History of echocardiogram History of non-ST elevation myocardial infarction (NSTEMI) (07/2016) History of stress test Hyperlipidemia Palpitations Paroxysmal atrial fibrillation Paroxysmal atrial fibrillation Pilonidal abscess Prostate disease Sinus bradycardia Sleep apnea Type 2 diabetes mellitus Wears glasses Home Medications multivitamin 1 tab PO QDAY 11/04/17 [History Last Taken 11/11/22] tamsulosin 0.4 mg capsule 0.4 mg PO DAILY 07/13/20 [History Last Taken 11/11/22] metformin 500 mg tablet 1,000 mg PO BIDCM 03/07/21 [History Last Taken 11/11/22] aspirin 81 mg tablet,delayed release (Adult Low Dose Aspirin) 81 mg PO .QOD #60 tabs 09/20/21 [Rx Last Taken 11/04/22] lisinopril 5 mg tablet 5 mg PO DAILY #90 tabs 11/15/21 [Rx Last Taken 11/12/22] rosuvastatin 10 mg tablet (Crestor) 10 mg PO QDAY #90 tabs 11/15/21 [Rx Last Taken 11/11/22] apixaban 5 mg tablet (Eliquis) 5 mg PO BID #180 tabs 12/23/21 [Rx Last Taken 11/08/22] metoprolol tartrate 25 mg tablet 12.5 mg PO DAILY #45 tabs 01/14/22 [Rx Last Taken 11/12/22] nitroglycerin 0.4 mg sublingual tablet 0.4 mg sublingual Q5M #25 tabs 03/21/22 [Rx Last Taken Unknown] ipratropium bromide 42 mcg (0.06 %) nasal spray 2 spray intranasal DAILY 05/13/22 [History Last Taken 11/11/22] ciprofloxacin HCl 500 mg tablet (Cipro) 500 mg PO BID 10 days #20 tabs 11/02/22 [Rx Last Taken 11/11/22] icosapent ethyl 1 gram capsule (Vascepa) See Rx Instructions .Route .COMPLEX #360 caps 11/03/22 [Rx Last Taken 11/11/22] amlodipine 10 mg tablet (Norvasc) 10 mg PO DAILY #90 tabs 11/10/22 [Rx Last Taken 11/11/22] ciprofloxacin HCl 500 mg tablet (Cipro) 500 mg PO BID #10 tabs 11/12/22 [Rx Last Taken Unknown] Allergy/AdvReac Type Severity Reaction Status Date / Time Penicillins Allergy Severe Anaphylaxis Verified 11/05/22 11:22 Family History Father , age 81 blood clot in brain Congestive heart failure Heart valve disorder Mother , age 83 of CVA, had first CVA age 55 CVA (cerebral vascular accident) Sister , of lung cancer Lung cancer CAD (coronary artery disease) Hx angioplasty Sister Cardiac pacemaker in situ Brother Heart disease Brother Heart disease Surgical History (Updated 11/02/22 @ 11:[address] Nathan Grissom MD) H/O coronary artery bypass surgery (11/29/02) History of appendectomy History of coronary artery stent placement (08/04/16) History of excision of pilonidal cyst History of left heart catheterization History of partial colectomy History of tonsillectomy prostate lift Social History Smoking Status: Former smoker alcohol intake: current alcohol intake frequency: 0-2 drinks per day Alcohol type: wine caffeine: Yes Type: coffee Number of servings: 1 Vital Signs Vital Signs Vital Signs: 11/12/22 07:38 11/12/22 07:38 Temperature 97.1 F L Temperature Source Temporal Pulse Rate 40 L Respiratory Rate 18 Respiratory Pattern Normal Blood Pressure 131/83 H Blood Pressure Mean 99 Blood Pressure Source Monitor Blood Pressure Position Semi-Fowlers Blood Pressure Location Left Arm Pulse Ox 97 Oxygen Delivery Method Room Air Weight Weight: 85 kg Body Mass Index (BMI) 28.5 11/12/22 0958 <Electronically signed by Jeffery Hemphill MD> Cosigner Signature (if applicable): CC: Dr. Jeffery Hemphill MD; Dr. Torito Azul MD~ Signed [facility] Work Phone: 1([phone]) 323-949302-08-2023 Procedure [facility] 11-02-[address] Grissom [facility] November 02, 2022 11:23am Note Date/Time November 02, 2022 9 :03am [facility] Medical Records Department [address] [place] [id number] Emergency Department Summary 11/02/22 MR#: [id number] Acct: [id number] Name: EMELY KILLIAN Rep #:[id number] : 1950 71 From: Nathan Grissom MD PCP: Dr. Torito Azul MD Status:REG E R Location: ED HPI History of Present Illness Chief Complaint: Complaint Detail of Chief Complaint: Dysuria and difficulty urinating. Informant: patient Pain Onset: Days Context: Gradual Onset Timing: Continuous Current Severity: Mild Maximum Severity: Mild Narrative Narrative: 71-year-old male history of BPH. Diabetes and hypertension. 86 prior [place]. He had mild hematuria 1 to 2 weeks ago. Had a scope done by his urologist Dr. Dandy Hemphill who found a large prostate and the patient's had a prior UroLift procedure. They found a loose staple. He is scheduled to have an upcoming TURPprocedure and removal that stable. In the last several days he has had difficulty urinating and urinary frequency with some dysuria. No gross blood orclots. No fever but he has had some chills. Prior similar symptoms: Yes Recent Illness/Hospitalization: No PFSH PFSH Medical History Abrasion Acute coccygeal pain Alcohol use Atherosclerosis of coronary artery bypass graft without angina pectoris Atherosclerotic heart disease of [place] coronary artery without angina pectoris BPH (benign prostatic hyperplasia) Cardiology follow-up encounter CPAP (continuous positive airway pressure) dependence Diabetes Easy bruising Essential (primary) hypertension Former smoker [place] disease High cholesterol History of atrial fibrillation History of diverticulitis History of echocardiogram History of non-ST elevation myocardial infarction (NSTEMI) (07/2016) History of stress test Hyperlipidemia Palpitations Paroxysmal atrial fibrillation Paroxysmal atrial fibrillation Pilonidal abscess Prostate disease Sinus bradycardia Sleep apnea Type 2 diabetes mellitus Wears glasses Home Medications multivitamin 1 tab PO QDAY 11/04/17 [History Last Taken 01/30/18] tamsulosin 0.4 mg capsule 0.4 mg PO DAILY 07/13/20 [History Last Taken Unknown] metformin 500 mg tablet 1,000 mg PO BIDCM 03/07/21 [History Last Taken Unknown] aspirin 81 mg tablet,delayed release (Adult Low Dose Aspirin) 81 mg PO .QOD #60 tabs 09/20/21 [Rx Last Taken 07/14/22] icosapent ethyl 1 gram capsule (Vascepa) See Rx Instructions .Route .COMPLEX #360 caps 10/24/21 [Rx Last Taken Unknown] lisinopril 5 mg tablet 5 mg PO DAILY #90 tabs 11/15/21 [Rx Last Taken Unknown] rosuvastatin 10 mg tablet (Crestor) 10 mg PO QDAY #90 tabs 11/15/21 [Rx Last Taken Unknown] apixaban 5 mg tablet (Eliquis) 5 mg PO BID #180 tabs 12/23/21 [Rx Last Taken Unknown] metoprolol tartrate 25 mg tablet 12.5 mg PO DAILY #45 tabs 01/14/22 [Rx Last Taken Unknown] nitroglycerin 0.4 mg sublingual tablet 0.4 mg sublingual Q5M #25 tabs 03/21/22 [Rx Last Taken Unknown] amlodipine 10 mg tablet (Norvasc) 10 mg PO DAILY 05/13/22 [History Last Taken 07/17/22 09:00] ipratropium bromide 42 mcg (0.06 %) nasal spray 2 spray intranasal DAILY 05/13/22 [History Last Taken Unknown] ciprofloxacin HCl 500 mg tablet (Cipro) 500 mg PO BID 10 days #20 tabs 11/02/22 [Rx Last Taken Unknown] Allergy/AdvReac Type Severity Reaction Status Date / Time Penicillins Allergy Severe Anaphylaxis Verified 11/02/22 08:35 Family History Father , age 81 blood clot in brain Congestive heart failure Heart valve disorder Mother , age 83 of CVA, had first CVA age 55 CVA (cerebral vascular accident) Sister , of lung cancer Lung cancer CAD (coronary artery disease) Hx angioplasty Sister Cardiac pacemaker in situ Brother Heart disease Brother Heart disease Surgical History H/O coronary artery bypass surgery (11/29/02) History of appendectomy History of coronary artery stent placement (08/04/16) History of excision of pilonidal cyst History of left heart catheterization History of partial colectomy History of tonsillectomy prostate lift Social History Smoking Status: Former smoker alcohol intake: current alcohol intake frequency: 0-2 drinks per day Alcohol type: wine caffeine: Yes Type: coffee Number of servings: 1 ROS ROS ED ROS Narrative Chills. Dysuria. Urinary frequency. Review of Systems ROS Unobtainable: Denies due to encephalopathy Constitutional Constitutional ED: Reports chills; Denies fever(s) Eyes Eyes: Denies blurry vision ENT ENT ED: Denies ear pain Cardiovascular Cardiovascular: Denies chest pain Respiratory/Chest Respiratory/Chest: Denies cough or dyspnea Gastrointestinal Gastrointestinal: Denies abdominal pain, constipation, diarrhea, melena, nausea or vomiting Genitourinary Genitourinary ED: Reports dysuria and urinary frequency; Denies hematuria Musculoskeletal Musculoskeletal: Denies arthralgias or back pain Integumentary Denies abscess Neurologic Neurologic: Denies headache(s) Psychiatric Psychiatric: Denies anxiety Endocrine Endocrinology: Denies polydipsia Hematologic/Lymphatic Hematologic/Lymphatic: Denies easy bleeding Allergic/Immunologic Allergic/Immunologic ED: Denies mouth swelling or tongue swelling EXAM Physical Exam Narrative Exam Narrative: Well-appearing 71-year-old male vital signs stable afebrile. He does not look septic or toxic. He is in no distress. Significant other at bedside. H EENT exam unremarkable. Moist Riis membranes. Lungs clear. Heart regular rhythm. Abdomen soft, nontender, nondistended normal bowel sounds no peritoneal signs. No suprapubic tenderness. Moving all 4 extremities. Calves are nontender without edema or cords. Neurologically is awake and alert. Back nontender. Const Vital Signs: 11/02/22 08:36 11/02/22 10:45 Temperature 96.6 F L Temperature Source Temporal Pulse Rate 75 Respiratory Rate 17 16 Blood Pressure 122/75 H Blood Pressure Mean 90 Pulse Ox 94 Oxygen Delivery Method Room Air Positive well nourished and well developed; Negative for obese, cachectic, contractures or unkempt General Appearance ED: well developed and NAD; Negative for unkempt, cachectic, contractures or pallor Nutritional Appearance: Negative for cachectic or obese HEENT Reports moist mucous membranes; Denies dry mucous membranes normocephalic and atraumatic; Negative for trauma or tenderness Mouth ED: No dry mucous membranes Mouth: No dry mucous membranes Eyes PERRL and EOMs intact bilaterally General Eye ED: Negative for pale conjunctiva or scleral icterus Neck no lymphadenopathy, supple and no JVD General: Negative for tenderness Resp normal respiratory effort and clear to auscultation bilaterally Effort and Inspection: Negative for retractions Auscultation: Negative for rales, rhonchi or wheezes Cardio regular rate, regular rhythm, S1 normal heart sound, S2 normal heart sound and no murmurs Rhythm: Negative for abnormal rhythm GI non-tender, non-distended and no masses Inspection: Negative for abdominal distention Auscultation: normoactive bowel sounds Palpation: soft; Negative for tender or guarding no CVA tenderness Bladder / Kidney Exam: No CVA tenderness Groin / Perineum Exam: Negative for edema or lesions Back/Spine no CVA tenderness General Back: Negative for CVA tenderness Cervical Spine: Negative for cervical spine tenderness Thoracic Spine / Upper Back: Negative for thoracic spinal tenderness Lumbar Spine / Lower Back: Negative for lumbar spinal tenderness Extremity normal to inspection General Extremety ED: Negative for edema or pulses abnormal General Extremity: Negative for edema or pulses abnormal Neuro oriented x3, CN's II-XII intact bilaterally, moves all extremities, no focal motor deficits and no sensory deficits noted Sensorium / Orientation: alert, oriented to person, oriented to place and oriented to time; Negative for orientation impaired, confused, lethargic or stuporous Motor Exam: strength 5/5 throughout Psych mental status grossly normal Appearance: Negative for unkempt Attitude: No agitated Mood & Affect: Negative for depressed, anxious or tearful Thought Process: normal thought process Thought Content: normal thought content Skin General Skin Exam: Negative for jaundice or pallor Lesions: no lesions Rashes: no rashes MDM MDM MDM Narrative Medical decision making narrative: 71-year-old male history of BPH prior UroLift procedure. Complaining of dysuriaand urinary frequency. Differential would include urinary retention secondary to BPH, UTI versus other etiologies. CBC and chemistry being obtained. Urinalysis and bladder scan. He is in no distress. Repeat exam at 11:12 AM patient is doing well. He is able to urinate urinated after they did a bladder scan. Will be treated as UTI. Urine culture be sent. He will be started on Cipro 500 twice daily for 10 days. He will follow-up withDr. Dr. Dandy Hemphill his urologist. He has a scheduled TURP procedure on November 12. He has been on the antibiotics Cipro before and it worked well for him. He knows return if he is unable to urinate. Patient is already on Flomax. Lab Data Attestation: I reviewed the patient's lab results. Lab results narrative: Bladder scan postvoid residual is 140. CBC shows elevated white count of 14.5. H&H 13.3 and 39. Platelets of 200. Electrolytes unremarkable gap of 8 normal BUN of 15 creatinine 0.8. Glucose 204. Urine had positive nitrates 5-10 white cells no bacteria. No red cells. A culture will be sent. This will be treatedas a UTI. Labs: Laboratory Results - last 24 hr 11/02/22 11/02/2211/02/23 09:00 09:10 09:10 WBC 14.5 H RBC 4.25 L Hgb 13.3 Hct 39.7 L MCV 93.4 MCH 31.3 MCHC 33.5 RDW Std Deviation 45.9 H RDW Coeff of Andrea 13.5 Plt Count 200 MPV 10.3 Immature Gran % (Auto) 0.500 Neut % (Auto) 78.5 H Lymph % (Auto) 11.8 L [place] % (Auto) 8.5 Eos % (Auto) 0.3 Baso % (Auto) 0.4 Absolute Neuts (auto) 11.4 H Absolute Lymphs (auto) 1.72 Nucleated RBC % 0 Sodium 137 Potassium 3.8 Chloride 101 Carbon Dioxide 28.0 Anion Gap 8 BUN 15 Creatinine 0.83 Estim Creat Clear Calc 77.83 Est GFR (MDRD) Af Amer 117 Est GFR (MDRD) Non-Af 96 BUN/Creatinine Ratio 18.1 Glucose 204 H Calcium 9.7 Urine Color Radha Urine Clarity Clear Urine pH 6.0 Ur Specific [place] 1.015 Urine Protein 30 H Urine Glucose (UA) Normal Urine Ketones 15 H Urine Occult Blood 10 H Urine Nitrite Positive H Urine Bilirubin 3 H Urine Urobilinogen 4 H Ur Leukocyte Esterase 25 H Urine RBC 0 SEEN Urine WBC 5-10 SEEN Ur Squamous Epith Cells 0 SEEN Urine Bacteria 0 SEEN Urine Mucus 0 SEEN Discharge Plan Triage Chief Complaint: Complaint ED Provider: Nathan Grissom Dx/Rx/DC Orders Clinical Impression: Acute UTI, Paroxysmal atrial fibrillation, History of coronary artery stent placement, Benign prostatic hyperplasia, Urinary retention Instructions: ED Urinary Tract Infections in Men Prescriptions: New ciprofloxacin HCl [Cipro] 500 mg tablet 500 mg PO BID 10 Days Qty: 20 0RF No Action multivitamin tablet 1 tab PO QDAY tamsulosin 0.4 mg capsule 0.4 mg PO DAILY aspirin [Adult Low Dose Aspirin] 81 mg tablet,delayed release (DR/EC) 81 mg PO .QOD Qty: 60 3RF nitroglycerin 0.4 mg tablet, sublingual 0.4 mg SUBLINGUAL Q5M Qty: 25 2RF amlodipine [Norvasc] 10 mg tablet 10 mg PO DAILY ipratropium bromide 42 mcg (0.06 %) spray,non-aerosol 2 spray intranasal DAILY Label Comments: Take 2 Sprays intranasally once per Day for 30 Days Take in evening metformin 500 mg tablet 1,000 mg PO BIDCM Vascepa 1 gram capsule See Rx Instructions .ROUTE .COMPLEX Qty: 360 3RF Dose Instruction: TAKE 2 CAPSULES TWICE A DAY Rx Instructions: TAKE 2 CAPSULES TWICE A DAY lisinopril 5 mg tablet 5 mg PO DAILY Qty: 90 3RF rosuvastatin [Crestor] 10 mg tablet 10 mg PO QDAY Qty: 90 3RF Eliquis 5 mg tablet 5 mg PO BID Qty: 180 3RF Rx Instructions: LAST DOSE 07/14 PM metoprolol tartrate 25 mg tablet 12.5 mg PO DAILY Qty: 45 3RF Primary Care Provider: Torito Azul Chi Referrals: Jeffery Hemphill MD [Med Staff - Active Staff] - As soon as possible Torito Azul Chi, MD [Primary Care Provider] - Activity Restrictions/Additional Instructions: The antibiotics Cipro 1 pill twice a day for the next 10 days for urinary tract infection. Continue your other medications. Follow-up with Dr. Hemphill. If it gets worse and you are unable to urinate return to the emergency department to have Zelaya catheter placed. Disposition Disposition: Home, Self Care What to do if you have Problems For any increased pain, shortness of breath, bleeding, nausea or vomiting, chestpain, or any unexpected problems, contact your Primary Care Provider. Call [facility] ([phone]) or report to the closest Emergency Room. Call 911 if necessary. 11/02/22 1123 <Electronically signed by Nathan Grissom MD> Cosigner Signature (if applicable): CC: Dr. Torito Azul MD ~ Signed [facility] Work Phone: 1(315) 528-687410-10-2022 Hospital Discharge instructionsAmbulatory Orders* 12 Lead EKG [[facility]] Time Frame: 07/14/22, Location: None Selected Additional Instructions Implant Used?: [facility] Work Phone: [phone]) 724-769210-31-2016 Evaluation note* Diagnosis Onset Date Resolution Status Essential (primary) hypertension chronic History of coronary artery stent placement July chronic Hyperlipidemia chronic Paroxysmal atrial fibrillation chronic H/O coronary artery bypass surgery November 29, 2002 resolved [facility] Work Phone: [phone]) 786-393310-31-2016 Evaluation note* Diagnosis Onset Date Resolution Status Admit Date Essential (primary) hypertension chronic February 20, 2025 1:14pm History of coronary artery stent placement August 04, 2016 chronic February 20 1:14pm Hyperlipidemia chronic February 20, 2025 1:14pm Paroxysmal atrial fibrillation chronic February 20, 2025 1:14pm H/O coronary artery bypass surgery November 29, 2002 resolved February 20 1:14pm [facility] Work Phone: [phone]) 751-919202-25-2003 Evaluation note* Diagnosis Onset Date Resolution Status Essential (primary) hypertension chronic Hyperlipidemia chronic Paroxysmal atrial fibrillation chronic H/O coronary artery bypass surgery November 29, 2002 resolved [facility] Work Phone: [phone] Evaluation note* Diagnosis Onset Date Resolution Status Essential (primary) hypertension chronic Hyperlipidemia chronic Paroxysmal atrial fibrillation chronic H/O coronary artery bypass surgery November 29, 2002 resolved Cyst near coccyx acute [facility] Work Phone: [phone]) 666-874902-25-2003 Evaluation note* Diagnosis Onset Date Resolution Status Essential (primary) hypertension chronic Hyperlipidemia chronic Paroxysmal atrial fibrillation chronic H/O coronary artery bypass surgery November 29, 2002 resolved Cyst near coccyx acute Pilonidal abscess acute [facility] Work Phone: Evaluation noteNo assessment information available [facility] Work Phone: Evaluation note* Diagnosis Onset Date Resolution Status Pilonidal abscess acute Pilonidal abscess acute Pilonidal abscess acute Pilonidal abscess acute Pilonidal abscess acute Pilonidal abscess acute Pilonidal abscess acute Pilonidal abscess acute [facility] Work Phone: Evaluation note* Diagnosis Onset Date Resolution Status Pilonidal abscess acute Pilonidal abscess acute Pilonidal abscess acute Pilonidal abscess acute Pilonidal abscess acute Pilonidal abscess acute Pilonidal abscess acute Essential (primary) hypertension chronic History of coronary artery stent placement July chronic Hyperlipidemia chronic Paroxysmal atrial fibrillation chronic H/O coronary artery bypass surgery November 29, 2002 resolved S/P surgical removal of pilonidal cyst acute [facility] Work Phone: Hospital Discharge instructions Additional Instructions The antibiotics Cipro 1 pill twice a day for the next 10 days for urinary tract infection. Continue your other medications. Follow-up with Dr. Hemphill. If it gets worse and you are unable to urinate return to the emergency department to have Zelaya catheter placed.[facility] Work Phone: Hospital Discharge instructions Additional Instructions Implant Used?: [facility] Work Phone: Reason for referral (narrative)No reason for referral information [facility] Work Phone: Summary Purpose Family History No Family History Records Found Relationship Condition Age at Onset Recorded Date/T mio father Congestive heart failure Unknown Heart valve disease Unknown mother Cerebrovascular accident (CVA) Unknown sister Malignant neoplasm of lung Unknown Coronary artery disease Unknown sister Presence of cardiac pacemaker Unknown brother Cardiac disease Unknown Advance Directives No Advanced Directives Records Found Advance Directive Response Recorded Date/ Time Living Will Yes January 30, 2018 1:23pm Power of Awning Spreader Yes January 30 1:23pm Advance Directive Response Recorded Date/ Time Name of Medical Power of Awning Spreader July 10, 2022 1:23pm Living Will Yes July 10 1:23pm Power of Awning Spreader Yes July 10 1:23pm Advance Directive Response Recorded Date/ Time Name of Medical Power of Awning Spreader July 10, 2022 12:23pm Living Will Yes July 10 12:23pm Power of Awning Spreader Yes July 10 12:23pm Advance Directive Response Recorded Date/ Time Name of Medical Power of Awning Spreader July 10, 2022 12:23pm Name of Medical Power of Awning Spreader mattie- November 02, 2022 8:44am Living Will Yes November 02 8:44am Power of Awning Spreader Yes November 02, 2022 8:44am Advance Directive Response Recorded Date/ Time Name of Medical Power of Awning Spreader July 10, 2022 12:23pm Name of Medical Power of Awning Spreader Mattie Sautter November 12, 2022 11:16am Living Will Yes November 12 11:16am Power of Awning Spreader Yes November 12, 2022 11:16am Name of Medical Power of Awning Spreader mattie- November 02, 2022 8:44am Advance Directive Response Recorded Date/ Time Living Will Yes November 12 12:16pm Power of Awning Spreader Yes November 12, 2022 12:16pm Advance Directive Response Recorded Date/ Time Living Will Yes November 12 11:16am Power of Awning Spreader Yes November 12, 2022 11:16am Chief Complaint and Reason for Visit Chief Complaint 6 M FU Reason for Visit Essential (primary) hypertension Hyperlipidemia Paroxysmal atrial fibrillation H/O coronary artery bypass surgery Chief Complaint 6 M FU PILONIDAL CYST Reason for Visit Essential (primary) hypertension Hyperlipidemia Paroxysmal atrial fibrillation H/O coronary artery bypass surgery Cyst near coccyx Chief Complaint 6 M FU PILONIDAL CYST RECHECK PILONIDAL AREA EXCISION PILONIDAL CYST EXCISION PILONIDAL CYST Reason for Visit Essential (primary) hypertension Hyperlipidemia Paroxysmal atrial fibrillation H/O coronary artery bypass surgery Cyst near coccyx Pilonidal abscess Chief Complaint RECHECK PILONIDAL AR EA EXCISION PILONIDAL CYST EXCISION PILONIDAL CYST EXCISION PILONIDAL CYST EXCISION PILONIDAL CYST F/U Pilonidal cystectomy F/U PILONIDAL CYSTECTOMY F/U PILONIDAL CYSTECTOMY F/U PILONIDAL CYSTECTOMY F/U PILONIDAL CYSTECTOMY F/U PILONIDAL CYSTECTOMY PILONIDAL CYSTECTOMY INT LABS Reason for Visit Pilonidal abscess Pilonidal abscess Pilonidal abscess Pilonidal abscess Pilonidal abscess Pilonidal abscess Pilonidal abscess Pilonidal abscess Chief Complaint EXCISION PILONIDAL C YST EXCISION PILONIDAL CYST EXCISION PILONIDAL CYST EXCISION PILONIDAL CYST F/U Pilonidal cystectomy F/U PILONIDAL CYSTECTOMY F/U PILONIDAL CYSTECTOMY F/U PILONIDAL CYSTECTOMY F/U PILONIDAL CYSTECTOMY F/U PILONIDAL CYSTECTOMY PILONIDAL CYSTECTOMY INT LABS 6 M FU PILONIDAL CYSTECTOMY COMPLAINT Reason for Visit Pilonidal abscess Pilonidal abscess Pilonidal abscess Pilonidal abscess Pilonidal abscess Pilonidal abscess Pilonidal abscess Essential (primary) hypertension History of coronary artery stent placement Hyperlipidemia Paroxysmal atrial fibrillation H/O coronary artery bypass surgery S/P surgical removal of pilonidal cyst Chief Complaint EXCISION PILONIDAL C YST EXCISION PILONIDAL CYST EXCISION PILONIDAL CYST F/U Pilonidal cystectomy F/U PILONIDAL CYSTECTOMY F/U PILONIDAL CYSTECTOMY F/U PILONIDAL CYSTECTOMY F/U PILONIDAL CYSTECTOMY F/U PILONIDAL CYSTECTOMY PILONIDAL CYSTECTOMY INT LABS 6 M FU PILONIDAL CYSTECTOMY COMPLAINT CYSTO, TURP, OLYMPUS Reason for Visit Pilonidal abscess Pilonidal abscess Pilonidal abscess Pilonidal abscess Pilonidal abscess Pilonidal abscess Pilonidal abscess Essential (primary) hypertension History of coronary artery stent placement Hyperlipidemia Paroxysmal atrial fibrillation H/O coronary artery bypass surgery S/P surgical removal of pilonidal cyst Chief Complaint E ORDERS Chief Complaint Pt wants seen before traveling see note Reason for Visit Essential (primary) hypertension History of coronary artery stent placement Hyperlipidemia Paroxysmal atrial fibrillation H/O coronary artery bypass surgery Chief Complaint Admit Date Atrial fibrillation February 20, 2025 1:14p m Reason for Visit Admit Date Essential (primary) hypertension February 1:14pm History of coronary artery stent placeme nt February 20, 2025 1:14pm Hyperlipidemia February 20, 2025 1:14p m Paroxysmal atrial fibrillation February 20, 2025 1:14pm H/O coronary artery bypass surgery February [id number] 1:14pm Additional Source Comments (unrecognized sect ion and content) No Status Records FoundNo Status Records FoundNo Status Records Found INFORMATION SOURCE (unrecogn ized section and content) DATE CREATED AUTHOR 07/18/2021 [facility] DATE CREATED AUTHOR AUTHOR'S ORGANIZ ATION 07/18/2021 [facility] DATE CREATED AUTHOR AUTHOR'S ORGANIZ ATION 03/26/2025 [facility] Goals (unrecognized section and content) Goals may be documented in a n alternate sectionGoals may be documented in an alternate sectionGoals may be documented in an alternate sectionGoals may be documented in an alternate sectionGoals may be documented in an alternate sectionGoals may be documented in an alternate sectionGoals may be documented in an alternate section Care Teams (unrecognized sec tion and content) Team Status: Active Member Role Status Dates Dr. Torito Azul MD Family Provider Active Dr. Torito Azul MD Primary Care Provider Active Team Status: Inactive Member Role Status Dates Dr. Torito Azul MD Primary Care Provider, Referring Provider Active Paige Alvarado BEREAVEMENT COORDINATOR, BEREAVEMENT COORDINATOR-C Attending Provider Active Team Status: Active Member Role Status Dates Dr. Torito Azul MD Primary Care Provider Active Dr. Félix Montague MD Attending Provid er, Referring Provider, Other Provider Active Team Status: Inactive Member Role Status Dates Dr. Torito Azul MD Primary Care Provider, Referring Provider Active Carly Britt PA PA-C Attending Provider Active Team Status: Active Member Role Status Dates Dr. Torito Azul MD Primary Care Provider Active Dr. Elkin Alonzo MD Attending Provider Active Dr. Félix Montague MD Referring Provider Active Team Status: Active Member Role Status Dates Dr. Torito Azul MD Primary Care Provider Active Dr. Rohit Green MD Attending Provider Active Dr. Félix Montague MD Referring Provider Active Team Status: Inactive Member Role Status Dates Dr. Torito Azul MD Primary Care Provider Active Dr. Félix Montague MD Attending Provider, Referring Provider Active Team Status: Inactive Member Role Status Dates Dr. Torito Azul MD Primary Care Provider Active Dr. Elkin Alonzo MD Attending Provider, Referring Pro vider Active Team Status: Inactive Member Role Status Dates Dr. Torito Azul MD Primary Care Provider Active Dr. Nathan Grissom MD Emergency Provider Active Team Status: Inactive Member Role Status Dates Dr. Torito Azul MD Primary Care Provider Active Dr. Jeffery Hemphill MD Admit Provid er, Attending Provider, Referring Provider Active Team Status: Inactive Member Role Status Dates Dr. Torito Azul MD Primary Care Provider Active Dr. Jeffery Hemphill MD Attending Provider, Referr ing Provider Active Team Status: Inactive Member Role Status Dates Dr. Torito Azul MD Primary Care Provider Active Paige Alvarado BEREAVEMENT COORDINATOR, BEREAVEMENT COORDINATOR-C Attending Provider, Referring Pro vider Active Team Status: Inactive Member Role Status Dates Dr. Torito Azul MD Primary Care Provider, Attending Provider Active Team Status: Inactive Member Role Status Dates Dr. Torito Azul MD Primary Care Provider Active Start: November 14, 2024 End: November 14, 2024 Dr. Torito Azul MD Attending Provider Active Start: November 14, 2024 End: November 14, 2024 Team Status: Inactive Member Role Status Dates Dr. Torito Azul MD Primary Care Provider Active Start: February 20, 2025 End: February 20, 2025 Dr. Torito Azul MD Referring Provider Active Start: February 20, 2025 End: February 20, 2025 Karina HOLLIDAY, PA Attending Provider Active Start: February 20, 2025 End: February 20, 2025 FOR RECORDS PERTAINING TO PATIENTS WHO ARE OR HAVE BEEN ENROLLED IN A CHEMICAL DEPENDENCY/SUBSTANCEABUSE PROGRAM, SOME INFORMATION MAY BE OMITTED. This clinical summary was aggregated from multiple sources. Caution should be exercised in using it in the provision of clinical care. This summary normalizes information from multiple sources, and as a consequence, information in this document may materially change the coding, format and clinical context of patient data. In addition, data may be omitted in some cases. CLINICAL DECISIONS SHOULD BE BASED ON THE PRIMARY CLINICAL RECORDS. [employer] provides no warranty or guarantee of the accuracy or completeness of information in this document.
--- NOTE | 2025-04-04 07:59 | STRESSREP ---
Stress Test Report Pharmacologic myocardial perfusion stress test. 74-year-old male with a history of coronary disease status post coronary bypass surgery Resting EKG demonstrates sinus bradycardia with a rate of 58 bpm. Resting blood pressure is 140/82 mmHg. 0.4 mg of regadenoson was infused per usual protocol followed by rapid intravenous saline flush injection. Continuous EKG monitoring was performed. The maximum heart rate was 67 bpm which was 46% of max impacted heart rate the maximum workload was 1 metabolic equivalent. At rest there were no ST or T wave changes noted to suggest ischemia and at peak infusion nonspecific ST changes were noted which did not meet the criteria for ischemia. No clinical angina is noted. The final blood pressure was 140/82 mmHg. Myocardial perfusion protocol. 13.1 mCi of technetium 99m sestamibi was injected at rest. 0.4 mg of regadenoson was infused per usual protocol. At peak infusion 42.3 mCi of technetium 99m sestamibi was injected stress images were obtained stress and rest images were reconstructed and compared in the short axis vertical long and horizontal long axis. Gated images were also obtained. Perfusion SPECT analysis: Review of the stress images demonstrate normal uptake of tracer noted in all areas of the myocardium. The resting images similar demonstrated normal uptake of tracer noted in all areas of the myocardium. No areas of reversibility are noted to suggest ischemia and no previous infarct is noted. Gated SPECT analysis: The gated ejection fraction is 58%. Conclusion: Normal pharmacologic myocardial perfusion stress test. Preserved ejection fraction.
== END | disposition home or self-care (01) ==
LOC: CVS 06:35
PROVIDERS: PCP Family Medicine Geriatric Medicine; Referring Provider Physician Assistant Medical; Visit Provider Physician Assistant Medical
DX: R06.09 Other forms of dyspnea (principal); I48.0 Paroxysmal atrial fibrillation; Z95.1 Presence of aortocoronary bypass graft; Z95.5 Presence of coronary angioplasty implant and graft; I10 Essential (primary) hypertension
CPT/HCPCS: 78452; 93017; 93306; A9500; Q9957; A4216; C8929; J2785

== ENCOUNTER → 2025-05-06 | Outpatient (CLI) | payer MEDICARE, OTHER, SELFPAY ==
--- OUTSIDE RECORDS SUMMARY | 2025-05-06 08:31 | XMS RPT_ITS | CCD ---
Author Organization [facility] Care Team Providers Care Machine Builder Name Role Phone Evon Cyr Unavailable Unavailable Zuleyma Olson Unavailable Unavailable Alexandria BROCK, Tere Murrieta Unavailable Unavailable MD Alonzo Cyril S Unavailable Zuleyma Olson Unavailable Unavailable ORIN LANCASTER DR Attending Unavailable ORIN LANCASTER DR Primary Care Unavailable ORIN LANCASTER DR Admitting Unavailable Dr. Torito Azul Chi Primary Care Provider 1([facility])[phone] Dr. Torito Azul Chi Referring Provider [facility] MOVIE OPERATOR, MOVIE OPERATOR-C Paige Devries Attending Provider Dr. Félix Montague Attending Provider Dr. Félix Montague Referring Provider Dr. Félix Montague Other Provider Dr. Torito Azul Chi Primary Care Provider 1([facility])[phone] Dr. Torito Azul Chi Referring Provider Dr. Félix Montague Attending Provider Dr. Elkin Alonzo Attending Provider Dr. Félix Montague Referring Provider Dr. Rohit Green Attending Provider Dr. Félix Montague Other Provider GT Pugh Attending Provider Dr. Torito Azul Chi Primary Care Provider 1([facility])[phone] Dr. Félix Montague Attending Provider Dr. Torito Azul Chi Referring Provider Roof MOVIE OPERATOR, MOVIE OPERATOR-C Paige Devries Attending Provider Jorge Alberto, Dr. Torito Greenfield Primary Care Provider Dr. Félix Montague Referring Provider Jorge Alberto, Dr. Torito Greenfield Primary Care Provider Jorge Alberto, Dr. Torito Greenfield Referring Provider Roof MOVIE OPERATOR, MOVIE OPERATOR-C Paige Devries Attending Provider Jorge Alberto ENCARNACION, Dr. Torito Greenfield Primary Care Provider Jorge Alberto ENCARNACION, Dr. Torito Greenfield Attending Provider Jorge Alberto ENCARNACION, Dr. Torito Greenfield Referring Provider Karina Jorgensen Attending Provider Jorge Alberto ENCARNACION, Dr. Tortio Greenfield Primary Care Provider [phone] Karina Jorgensen Referring Provider [place] ENCARNACION, Dr. Love Attending Provider [place] ENCARNACION, Dr. Granger Attending Provider Karina Jorgensen Other Provider Elkin Alonzo Attending Unavailable Jorge Alberto, Torito Chi Primary Care Unavailable Kate Storey Attending Unavailable Jorge Alberto, Torito Chi Primary Care Unavailable Karina Jorgensen Referring Unavail able Karina Jorgensen Referring Unavail able Elkin Alonzo Attending Unavailable Jorge Alberto, Torito Chi Primary Care Unavailable Karina Jorgensen Consulting Unavail able Jorge Alberto, Torito Chi Referring Unavailable Jorge Alberto, Torito Chi Primary Care Unavailable Roof Paige KILLIAN Attending Unavailable Jorge Alberto, Torito Chi Referring Unavailable Jorge Alberto, Torito Chi Primary Care Unavailable Karina Jorgensen Attending Unavail able Jorge Alberto, Torito Chi Referring Unavailable Karina Jorgensen Attending Unavail able Jorge Alberto, Torito Chi Primary Care Unavailable Karina Jorgensen Attending Unavail able Jorge Alberto, Torito Chi Primary Care Unavailable Karina Jorgensen Referring Unavail able Jorge Alberto, Torito Chi Attending Unavailable Jorge Alberto, Torito Chi Primary Care Unavailable Karian Jorgensen Attending Unavail able Jorge Alberto Torito Chi Primary Care Unavailable Karina Jorgensen Referring Unavail able Jorge Alberto Torito Chi Attending Unavailable Jorge Alberto Torito Jean Pierre Primary Care Unavailable Allergies Allergy Classification Reported Allergen(s) Allergy Type Date of Onset Reaction(s) Facility (5 sources) Chocolate; Translations: [CHOCOLATE] food allergy 1 Respiratory distress [facility] Work Phone: (5 sources) penicillin drug allergy 1 Respiratory distress [facility] Work Phone: (14 sources) Penicillins; Translations: [Penicillins] Allergy to substance 1 Anaphylaxis [facility] Medications Current Medications Medication Drug Class(es) Dates Sig (Normalized) Sig (Original) acetaminophen 325 mg / HYDROcodone bitartrate 5 mg oral tablet (2 sources) Opioid Agonist Start: 07-17-2022 take 1 tablet by mouth every eight hours Hydrocodone-Acet aminophen Active 1 TABLET PO Q8H 6 2 July 17, 2022 aspirin 81 mg delayed release oral tablet [...] TABS One tablet by mouth daily ASPIRIN [id number] Elkin Alonzo MD Start: 02-03-2013 take 1 tablet by jena th once daily ASPIRIN 81 MG TABS One tablet by mouth daily ASPIRIN [id number] Elkin Alonzo MD Start: 03-10-2011 End: 02-03-2013 take 1 tablet by mouth once daily ASPIRIN 325 MG TABS One tablet by mouth daily ASPIRIN [id number] Elkin Alonzo MD diphenhydrAMINE hydrochloride 25 mg oral tablet (1 source) Histamine-1 Receptor Antagonist Start: 04-21-2025 take 1 tablet by mouth at bedtime Diphenhydramine Hcl (Allergy (Diphenhydramine)) 25 mg tablet Active 25 mg PO AT BEDTIME April 21, 2025 12:00am fluticasone propionate 0.05 mg/actuat metered dose nasal spray (3 sources) Corticosteroid Start: 04-28-2024 take 50 ug nasal route once daily Fluticasone Propionate (Flonase Allergy Relief) 50 mcg/actuation spray,suspension Active 1 NMA INTRANASAL DAILY April 28, 2024 12:00am administer into each nostril hydroCHLOROthiazide 25 mg oral tablet (1 source) Thiazide Diuretic Start: 04-21-2025 take 1 tablet by mouth once daily Hydrochlorothiazide 25 mg tablet Active 25 mg PO DAILY 03 04April 21, 2025 12:00am ipratropium bromide 0.042 mg/actuat metered dose nasal spray (11 sources) Anticholinergic Start: 05-13-2022 Ipratropium [place] 42 mcg (0.06 %) spray,non-aerosol Active 2 NMA INTRANASAL DAILY May 13, 2022 12:00am Start: 05-13-2022 Ipratropium Br omide Active 2 SPRAY INTRANASAL DAILY May 12, 2022 11:00pm Start: 05-13-2022 Ipratropium Br omide Active 2 SPRAY INTRANASAL THREE TIMES A DAY May 13, 2022 12:00am losartan potassium 100 mg oral tablet (4 sources) Angiotensin 2 Receptor Brigitte Start: 09-03-2023 [...] April 28, 2024 12:00am Start: 09-03-2023 End: 07-25-2024 take 1 tablet by mouth twice daily [...] 25 mg oral tablet (20 sources) beta-Adrenergic Brigitte Start: 04-21-2025 Metopr olol Tartrate 25 mg tablet Active 12.5 mg PO TWICE A DAY 90 April 21, 2025 8:35am Start: 11-25-2019 End: 04-21-2025 Metoprolol Tartrate 25 mg ta blet Discontinued 12.5 mg PO DAILY 45 March 23, 2025 11:32am April 21, 2025 8:36am Start: 11-25-2019 End: 01-02-2023 take 12.5 mg by mouth once daily Metoprolol Tartrate Discontinued 12.5 MG PO DAILY 45 January 14, 2022 12:03pm January 02, 2023 3:31pm Start: 03-10-2011 End: 10-07-2016 take 0.5 tablet by mouth twice daily METOPROLOL TARTRATE 25 MG TABS 0.5 tablets by mouth twice daily METOPROLOL TARTRATE [id number] Elkin Alonzo MD Multivitamin preparation (10 sources) Start: 11-04-2017 take 1 tablet by mouth once daily Multivitamin Active 1 TABLET PO daily November 04, 2017 9:58am Start: 11-04-2017 take 1 tablet by jena once daily Multivitamin Active 1 TABLET PO daily November 04, 2017 12:00am Start: 11-04-2017 take 1 tablet by jena th once daily Multivitamin Active 1 TABLET PO daily November 04, 2017 1:00am Multivitamin tablet (3 sources) Start: 11-04-2017 Multivitamin t ablet Active 1 {tbl} PO daily November 04, 2017 1:00am Completed/Discontinued Medications Medication Drug Class(es) Dates Sig (Normalized) Sig (Original) amLODIPine 10 mg oral tablet (20 sources) Dihydropyridine Calcium Channel Brigitte Start: 11-12-2022 End: 10-17-2024 Amlodipine 10 mg tablet Discontinued 10 mg PO 2000 90 3 October 27, 2023 10:51am October 17, 2024 1:53pm Start: 04-03-2015 End: 11-10-2022 take 1 tablet by mouth once daily Amlodipine 10 mg tablet Discontinued 10 mg PO DAILY 3 November 15, 2021 4:25pm May 13, 2022 1:32pm Start: 04-03-2015 take 1 tablet by jena th once daily NORVASC 5 MG TABS One tablet by mouth daily AMLODIPINE BESYLATE [id number] Karina Westbrook PA-C apixaban 5 mg oral tablet (20 sources) Factor Xa Inhibitor Start: 11-22-2019 End: 03-08-2025 Apixaban (Eliquis) 5 mg tablet Discontinued 0 .ROUTE .COMPLEX 180 3 February 16, 2024 1:09pm February 20, 2025 1:44pm TAKE 1 TABLET TWICE A DAY Start: 08-07-2016 End: 11-04-2017 take 1 tablet by mouth twice daily Apixaban 5 MG tablet Discontinued 5 mg PO TWICE A DAY August 21, 2016 1:00am November 04, 2017 10:00am ciprofloxacin 500 mg oral tablet (15 sources) Quinolone Antimicrobial Start: 11-02-2022 End: 09-03-2023 take 1 tablet by mouth twice daily Ciprofloxacin Hcl (Cipro) 500 mg tablet Discontinued 500 mg PO TWICE A DAY 10 0 November 12, 2022 1:00am September 03, 2023 [...] TABS One tablet by mouth daily EZETIMIBE [id number] Elkin Alonzo MD icosapent ethyl 1000 mg oral capsule (20 sources) Start: 01-13-2020 End: 02-20-2025 Icosapent Ethyl (Vascepa) 1 gram capsule Discontinued 0 .ROUTE .COMPLEX 360 4 February 06, 2025 8:25am February 20, 2025 1:44pm TAKE 2 CAPSULES TWICE A DAY ISOSORBIDE MONONITRATE (10 sources) Nitrate Vasodilator Start: 12-08-2011 End: 01-22-2012 take 1 tablet by mouth once daily IMDUR 30 MG [id number] One half tablet by mouth daily ISOSORBIDE MONONITRATE [id number] Bud Troy MD Start: 12-08-2011 take 1 tablet by jena th once daily IMDUR 30 MG [id number] One half tablet by mouth daily ISOSORBIDE MONONITRATE [id number] Bud Troy MD Start: 12-08-2011 End: 01-22-2012 IMDUR 30 MG [id number] One bone lf tablet by mouth daily ISOSORBIDE MONONITRATE [id number] Bud Troy MD Start: 12-08-2011 IMDUR 30 MG XR 24H-TAB One half tablet by mouth daily ISOSORBIDE MONONITRATE [id number] Bud Troy MD lisinopril 10 mg oral [...] MELOXICAM 7.5 MG TABS as needed MELOXICAM [id number] Karina Westbrook PA-C MULTIPLE VITAMIN (3 sources) Start: 03-10-2011 take 1 tablet by mouth once daily MULTIVITAMINS TABS One tablet by mouth daily MULTIPLE VITAMIN [id number] Summer Perez MULTIPLE VITAMIN (2 sources) Start: 03-10-2011 take 1 tablet by mouth once daily MULTIVITAMINS TABS One tablet by mouth daily MULTIPLE VITAMIN [id number] Summer M Perez nitroglycerin 0.4 mg sublingual tablet (20 sources) Nitrate Vasodilator Start: 08-21-2016 End: 09-03-2023 Nitroglycerin 0.4 mg tablet, sublingual Discontinued 0.4 mg SL Q5M 29 11March 21, 2022 8:47am September 03, 2023 9:46am Start: 08-21-2016 End: 09-03-2023 Nitroglycerin Active 0.4 MG SL Q5M September 03, 2023 8:45am Start: 03-10-2011 NITROSTAT 0.4 MG SUBL 1 tablet under tongue every 5 min up to 3 X NITROGLYCERIN [id number] Elkin Alonzo MD nystatin 100 unt/mg topical powder (9 sources) Polyene Antifungal Start: 07-31-2022 End: 09-23-2022 [...] of the incision omega-3 acid ethyl esters (mcfp) 1000 mg oral capsule (20 sources) Start: 12-18-2011 End: 09-20-2021 take 1 capsule by mouth twice daily [place]-3 Acid Ethyl Esters 1 gram capsule Discontinued 1 g PO TWICE A DAY 180 3 December 01, 2019 10:28am September 20, 2021 10:48am Start: 12-18-2011 take 1 tablet by jena th twice daily LOVAZA 1 GM CAPS One tablet by mouth twice daily [id number] ETHYL ESTERS [id number] Elkin Alonzo MD Start: 12-18-2011 take 1 tablet by jena th twice daily LOVAZA 1 GM CAPS One tablet by mouth twice daily [id number] ETHYL ESTERS [id number] Elkin Alonzo MD [place]-3 Fatty Acids-Fish Oil (10 sources) Start: 08-04-2016 End: 10-28-2017 [place]-3 Fatty Acids-Fish Oil Discontinued 1 EACH PO DAILY August 04, 2016 9:43am October 28, 2017 1:46pm Start: 08-04-2016 End: 10-28-2017 [place]-3 Fatty Acids-Fish Oil Discontinued 1 EACH PO DAILY August 03, 2016 11:00pm October 28, 2017 12:46pm Start: 08-04-2016 End: 10-28-2017 [place]-3 Fatty Acids-Fish Oil Discontinued 1 EACH PO DAILY August 04, 2016 12:00am October 28, 2017 1:46pm [place]-3 Fatty Acids-Fish Oil 1 EACH capsule (3 sources) Start: 08-04-2016 End: 10-28-2017 [place]-3 Fatty Acids-Fish Oil 1 EACH capsule Discontinued [...] Start: 08-07-2016 take 1 tablet by jena th once daily OMEPRAZOLE 20 MG CPDR One tablet by mouth daily OMEPRAZOLE [id number] Paige Alvarado NP Start: 08-07-2016 take 2 tablets by mo [facility] once daily OMEPRAZOLE 20 MG CPDR Two tablets by mouth daily OMEPRAZOLE [id number] Karina Westbrook PA-C pantoprazole 40 mg delayed release oral tablet (5 sources) Proton Pump Inhibitor Start: 08-07-2016 take 1 tablet by mouth once daily PANTOPRAZOLE SODIUM 40 MG TBEC One tablet by mouth daily PANTOPRAZOLE SODIUM [id number] Leslie Rivera RN pioglitazone 45 mg oral tablet (15 sources) Peroxisome Proliferator Receptor alpha Agonist, Peroxisome Proliferator Receptor gamma Agonist, Thiazolidinedione Start: 12-08-2011 End: 08-03-2012 take 0.5 tablet by mouth once daily ACTOS 45 MG TABS 1/2 tablet by mouth daily PIOGLITAZONE HCL [id number] Bud Troy MD Start: 03-10-2011 [facility] ACTOS 45 MG TABS One tablet by mouth daily PIOGLITAZONE HCL [id number] Summer Perez ramipril 10 mg oral capsule (20 sources) Angiotensin Converting Enzyme Inhibitor Start: 06-21-2012 End: 11-04-2017 take 1 capsule by mouth once daily Ramipril 10 MG capsule Discontinued 10 mg PO DAILY August 04, 2016 12:00am November 04, 2017 9:59am Start: 06-21-2012 End: 08-07-2016 take 1 tablet by mouth once daily ALTACE 10 MG CAPS One tablet by mouth daily RAMIPRIL [id number] Leslie Rivera RN Start: 03-10-2011 take 1 tablet by jena twice daily ALTACE 10 MG CAPS One tablet by mouth twice daily RAMIPRIL [id number] Elkin Alonzo MD Start: 03-10-2011 take 1 tablet by jena twice daily ALTACE 10 MG CAPS One tablet by mouth twice daily RAMIPRIL [id number] Elkin Alonzo MD rosuvastatin calcium 10 mg oral tablet (20 sources) HMG-CoA Reductase Inhibitor Start: 11-12-2022 End: 02-16-2024 take 1 tablet by mouth at bedtime Rosuvastatin 10 mg tablet Discontinued 10 mg PO AT BEDTIME 90 4 December 19, 2022 2:58pm February 16, 2024 1:09pm Start: 01-06-2018 End: 11-15-2021 take 1 tablet by mouth once daily Rosuvastatin (Crestor) 10 mg tablet Discontinued 10 mg PO daily 90 3 November 05, 2020 3:04pm November 15, 2021 4:26pm Start: 10-27-2013 End: 01-06-2018 take 1 tablet by mouth once daily Rosuvastatin 20 MG tablet Discontinued 20 mg PO DAILY 90 3 October 28, 2017 1:46pm January 06, 2018 6:42pm Start: 03-10-2011 CRESTOR 40 MG TABS One half tablet by mouth daily ROSUVASTATIN CALCIUM [id number] Karina Westbrook PA-C tamsulosin hydrochloride 0.4 mg oral capsule (20 [...] 9:14am vitamin b6 100 mg oral tablet (13 sources) Start: 03-18-2019 End: 12-16-2019 take 1 [...] Episodic Complication of device; implant or graft (18 sources) Atherosclerosis of coronary artery bypass graft(s) without angina pectoris; Translations: [Arteriosclerosis of coronary artery bypass graft] Onset: 03-10-2011 03-10-2011 Chronic Coronary atherosclerosis and other heart disease (20 sources) Atherosclerotic heart disease of [place] coronary artery without angina pectoris; Translations: [Coronary [...] 03-10-2011 Chronic Genitourinary symptoms and ill-defined conditions (8 sources) Retention of urine; Translations: [Retention of urine, unspecified] 11-02-2022 Episodic Hyperplasia of prostate (8 sources) Benign prostatic hyperplasia; Translations: [Benign prostatic hyperplasia without lower urinary tract symptoms] 11-02-2022 Chronic Other lower respiratory disease (2 sources) Other forms of dyspnea; Translations: [Other forms of dyspnea] Onset: 04-17-2025 Episodic Other nutritional; endocrine; and metabolic disorders (13 sources) Gilbert's syndrome; 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] 09-20-2021 Chronic Other upper respiratory disease (3 sources) Non-allergic rhinitis; Translations: [Chronic rhinitis] 04-28-2024 Chronic Residual codes; unclassified (13 sources) History of cardiac catheterization; Translations: [Other specified postprocedural states] 03-17-2019 Episodic Comment on above: [facility] 08[facility]16 @ [facility] with subsequent stent procedure Residual codes; unclassified (2 sources) Other specified postprocedural states; Translations: [Other postprocedural status] 09-24-2022 Episodic Skin and subcutaneous tissue infections (20 sources) Cyst ; Translations: [Pilonidal cyst without abscess] Episodic Spondylosis; intervertebral disc disorders; other back problems (11 sources) Pain in the coccyx; Translations: [Sacrococcygeal disorders, not elsewhere classified] 07-24-2022 Episodic Unclassified (3 sources) Placement of stent in coronary artery ; Translations: [Presence of cardiac and vascular implant and graft, unspecified] Onset: 08-07-2016 08-07-2016 Unclassified (2 sources) Long-term drug therapy; Translations: [Other intermediate designer (current) drug therapy] Onset: 03-10-2011 03-10-2011 Urinary tract infections (8 sources) Acute urinary tract infection; Translations: [Urinary tract infection, site not specified] 11-02-2022 Episodic Past or Other Problems Problem Classification Problem Date Documented Da te Episodic/Chronic Other aftercare (3 sources) Other intermediate designer (current) drug therapy; Translations: [Other intermediate designer (current) drug therapy] Onset: 03-10-2011 03-10-2011 Episodic Other nutritional; endocrine; and metabolic disorders (16 sources) Body mass index (BMI) 28.0-28.9, adult; Translations: [Body mass index (BMI) 29.0-29.9, adult] Onset: 03-16-2014 Resolved: 10-09-2015 10-09-2015 Episodic Other nutritional; endocrine; and metabolic disorders (2 sources) Body mass index (BMI) 29.0-29.9, adult; Translations: [Body mass index (BMI) 29.0-29.9, adult] Onset: 03-28-2015 03-28-2015 Episodic Residual codes; unclassified (5 sources) Family history of stroke; Translations: [Family history of stroke] 03-16-2014 Episodic Results Test Name Value Interpretation Reference Range Facility Cardiology Visit Reporton Cardiology Visit Report [facility] [address] [place] [address] OFFICE VISIT Date of Service: 04/21/25 MR#: [id number] Acct: [id number] Name: EMELY GUERRERO Rep #: [id number] : 1950 Provider: MIYA Simmons Age/Sex: 74/M Location: [facility] Status: Signed HPI HPI History of Present Illness Details: EMELY GUERRERO, is a 74 M with a history of coronary artery disease with bypass surgery in 2002. He had an ROSE to the LAD, left radial to the first diagonal and SVG to the first obtuse and PDA. He presented in 2015 with chest discomfort and underwent cardiac catheterization [...] disease. In addition he also has diabetes. At her last office visit we had talked about concerns over atrial fibrillation at night. Did discuss if he is having would consider possible ablation. Holter monitor did not demonstrate any atrial fibrillation. He does not have any chest pain or worsening shortness of breath. He is very active. Intake Vital Signs 02/20/25 13:39 04/21/25 06:38 Height 5 ft 8 in 5 ft 8 in Weight: 183 lb BMI 27.8 BP 160/87 H Blood Pressure Location Lt brachial Position Sitting Respiration 16 Pulse 54 L Pulse Source Monitor Pulse Oximetry (%) 96 Oxygen Delivery Method room air Intake Visit Reasons: 2 M FU Deck Worker Required: No Accompanied by: Self Is patient in pain?: No Allergies Penicillins Allergy (Severe, Verified 04/21/25 08:09) Anaphylaxis Medications ???Medication ???Instructions ???Recorded ???Confirmed ???Type multivitamin 1 tab PO QDAY 11/04/17 04/21/25 Hi story ipratropium bromide 42 mcg (0.06 2 spray intranasal DAILY 05/13/22 04/21/25 History %) nasal spray losartan 100 mg tablet 100 mg PO DAILY 09/03/23 04/21/25 History nitroglycerin 0.4 mg sublingual 0.4 mg sublingual Q5M #25 tabs 02/20/25 Rx tablet rosuvastatin 10 mg tablet 10 mg PO QHS #90 tabs 02/16/24 Rx aspirin 81 mg tablet,delayed 81 mg PO MOWEFR 04/28/24 04/21/25 History release (Adult Low Dose Aspirin) fluticasone propionate 50 1 spray intranasal DAILY 04/28/24 04/21/25 History mcg/actuation nasal spray,suspension (Flonase Allergy Relief) metformin 500 mg tablet,extended 1,000 mg PO BID 04/28/24 04/21/25 History release 24 hr amlodipine 10 mg tablet 10 mg PO 2000 #90 tabs 10/17/24 Rx icosapent ethyl 1 gram capsule 2 g PO BID 02/20/25 04/21/25 Histo ry (Vascepa) apixaban 5 mg tablet (Eliquis) 5 mg PO BID #180 TABLETS 03/08/25 04/21/25 Rx diphenhydramine HCl 25 mg tablet 25 mg PO QHS 04/21/25 04/21/25 His tory (Allergy (diphenhydramine)) hydrochlorothiazide 25 mg tablet 25 mg PO DAILY #30 tabs 04/21/25 0 04/21/25 Rx metoprolol tartrate 25 mg tablet 12.5 mg (1/2 x 25 mg) PO BID #90 0 04/21/25 04/21/25 Rx tabs Ejection fraction %: 55 Have you fallen in the past year?: No PFSH Medical History Non-allergic rhinitis BPH (benign prostatic hyperplasia) Wears glasses Alcohol use Abrasion Diabetes Prostate disease High cholesterol Easy bruising Former smoker Sleep apnea CPAP (continuous positive airway pressure) dependence History of stress test History of echocardiogram Cardiology follow-up encounter History of atrial fibrillation Pilonidal abscess Acute coccygeal pain [place] disease Type 2 diabetes mellitus Atherosclerosis of coronary artery bypass graft without angina pectoris Essential (primary) hypertension Paroxysmal atrial fibrillation History of diverticulitis Palpitations History of non-ST elevation myocardial infarction (NSTEMI) (07/2016) Sinus bradycardia Hyperlipidemia Paroxysmal atrial fibrillation Atherosclerotic heart disease of [place] coronary artery without angina pectoris Surgical History History of excision of pilonidal cyst prostate lift History of coronary artery stent placement (08/04/16) H/O coronary artery bypass surgery (11/29/02) History of tonsillectomy History of partial colectomy History of appendectomy History of left heart catheterization Family History Father , age 81 blood clot in brain Congestive heart failure Heart valve disorder (more content not included)... Normal [facility] Cardiovascular stress test r eportOrdered By: Elkin Alonzo on 04-04-2025 Study report [facility] [address] [place] [address] MR#: [id number] Acct: [id number] Name: EMELY GUERRERO Rep #: [id number] : 1950 74 From: Elkin Alonzo MD Primary Care: Dr. Torito Azul MD Status : REG CLI Referring Dr: Karina Westbrook Sex : M C Stress Test Report Pharmacologic myocardial perfusion stress test. 74-year-old male with a history of coronary disease status post coronary bypass surgery Resting EKG demonstrates sinus bradycardia with a rate of 58 bpm. Resting bloodpressure is 140/82 mmHg. 0.4 mg of regadenoson was infused per usual protocol followed by rapid intravenous saline flush injection. Continuous EKG monitoringwas performed. The maximum heart rate was 67 bpm which was 46% of max impacted heart rate the maximum workload was 1 metabolic equivalent. At rest there were no ST or T wave changes noted to suggest ischemia and at peak infusion nonspecific ST changes were noted which did not meet the criteria for ischemia. No clinical angina is noted. The final blood pressure was 140/82 mmHg. Myocardial perfusion protocol. 13.1 mCi of technetium 99m sestamibi was injected at rest. 0.4 mg of regadenoson was infused per usual protocol. At peak infusion 42.3 mCi of technetium 99m sestamibi was injected stress images were obtained stress and rest images were reconstructed and compared in the short axis vertical long and horizontal long axis. Gated images were also obtained. Perfusion SPECT analysis: Review of the stress images demonstrate normal uptake of tracer noted in all areas of the myocardium. The resting images similar demonstrated normal uptake of tracer noted in all areas of the myocardium. No areas of reversibility are noted to suggest ischemia and no previous infarct is noted. Gated SPECT analysis: The gated ejection fraction is 58%. Conclusion: Normal pharmacologic myocardial perfusion stress test. Preserved ejection fraction. 04/04/25 0759 Date _ Elkin Alonzo MD CC: Dr. Torito Azul MD; MIYA Phillips ~ Date Dictated: 04/04/25758 Date Transcribed: 04/04/25758 Powersaw Supervisor: [place] Signed [facility] Work Phone: Echocardiogram study reportO rdered By: Elkin Alonzo on 04-04-2025 Study report [facility] [address] [place] [address] Echo Complete W/ Contrast 03/31/25 0846 MR#: [id number] Acct: [id number] Name: EMELY GUERRERO Rep #:[id number] : 1950 74 From: Elkin Henderson Attending Dr: MIYA Phillips Status: REG CLI Ordering Dr: Karina Westbrook Date: 03/31/25 Location: [facility] Sex: M C Admitted: Reason For Study Reason For Study: DYSPNEA Procedure This was a 2D Doppler, Color Flow transthoracic echocardiogram. The study was technically difficult. Contrast injection was performed. Exam performed in department. Left Ventricle Normal LV size. Left ventricular systolic function is normal. The left ventricular ejection fraction is 55 %. No regional wall motion abnormalities noted. Right Ventricle Normal RV size. Normal systolic function. Tricuspid Valve Normal tricuspid valve. Mild to moderate (1-2+) tricuspid valve insufficiency. Pulmonary artery systolic pressure is 44 mmHg. Aortic Valve Trisinus/trileaflet aortic valve. Mild focal aortic valve calcification. Great Vessels Normal aortic root. Pericardium/Pleural No pericardial effusion. Medication Diluted definity 3ml given slow IV push to enhance endocardial definition. MMode/2D Measurements & Calculations LVIDd: 5.0 cm IVSd: 1.3 cm LVOT diam: 2.0 cm LVIDs: 3.5 cm LVPWd: 1.1 cm LVOT area: 3.0 cm2 FS: 30.6 % ____ Ao root diam: 3.8 cm LAV(MOD-bp): 62.3 ml LVAd ap4: 35.9 cm2 LAV(MOD-bp) Indexed: 31.3 ml/m2 LVLd ap4: 8.2 cm LAV(MOD-sp2): 62.2 ml EDV(MOD-sp4): 130.0 ml LAV(MOD-sp4): 58.1 ml EDV(sp4-el): 132.8 ml LVAs ap4: 19.6 cm2 LVLs ap4: 6.0 cm ESV(MOD-sp4): 50.9 ml ESV(sp4-el): 54.2 ml EF(MOD-sp4): 60.8 % EF(sp4-el): 59.2 % __ SV(MOD-sp4): 79.0 ml SV(sp4-el): 78.6 ml LA A4 area: 21.5 cm2 SI(MOD-sp4): 39.7 ml/m2 ____ LA dimension(2D): 4.3 cm RA A4 area: 9.6 cm2 Time Measurements MV dec time: 0.23 sec Doppler Measurements & Calculations MV E max hayes: 74.8 cm/sec Lat Peak E' Hayes: 10.1 cm/sec Med Peak E' Hayes: 7.7 cm/sec MV A max hayes: 78.5 cm/sec E/E' lat: 7.4 E/E' med: 9.7 MV E/A: 0.95 ____ MV V2 max: 85.6 cm/sec Ao V2 max: 181.5 cm/sec MV max P.9 mmHg MV dec slope: 321.8 cm/sec2 Ao max P.2 mmHg MV V2 mean: 52.9 cm/sec Ao V2 mean: 125.4 cm/sec MV mean P.3 mmHg Ao mean P.2 mmHg MV V2 VTI: 41.3 cm Ao V2 VTI: 44.3 cm AV (velocity ratio): 0.72 MVA(VTI): 2.3 cm2 KASSANDRA(I,D): 2.2 cm2 KASSANDRA(V,D): 2.2 cm2 ____ LV V1 max: 130.8 cm/sec SV(LVOT): 95.8 ml PA V2 max: 95.2 cm/sec LV V1 max P.9 mmHg PA V2 mean: 61.6 cm/sec LV V1 mean P.5 mmHg LV V1 mean: 85.2 cm/sec LV V1 VTI: 31.8 cm ____ TR max hayes: 316.7 cm/sec TR max P.1 mmHg ECHO/Echo Complete W/ Contrast Interpretation Summary Normal LV size. Left ventricular systolic function is normal. The left ventricular ejection fraction is 55 %. Pulmonary artery systolic pressure is 44 mmHg. Contrast injection was performed. __ Ordering Physician: Karina Westbrook Referring Physician: Karina Westbrook Performed By: Ana Rosa Lorenzo and Student 04/04/25 1014 Date _ Elkin Alonzo MD CC: Dr. Torito Azul MD; MIYA Phillips ~ Date Dictated: 03/31/25 0846 Date Transcribed: 04/04/25 101 Powersaw Supervisor: Signed [facility] Work Phone: Stress Reporton 04-04-2025 Stress Report [facility] [address] [place] [address] MR#: [id number] Acct: [id number] Name: EMELY GUERRERO Rep #: [id number] : 1950 74 From: Elkin Alonzo MD Primary Care: Dr. Torito Azul MD Status: REG CLI Referring Dr: Karina Westbrook Sex: M C Stress Test Report Pharmacologic myocardial perfusion stress test. 74-year-old male with a history of coronary disease status post coronary bypass surgery Resting EKG demonstrates sinus bradycardia with a rate of 58 bpm. Resting blood pressure is 140/82 mmHg. 0.4 mg of regadenoson was infused per usual protocol followed by rapid intravenous saline flush injection. Continuous EKG monitoring was performed. The maximum heart rate was 67 bpm which was 46% of max impacted heart rate the maximum workload was 1 metabolic equivalent. At rest there were no ST or T wave changes noted to suggest ischemia and at peak infusion nonspecific ST changes were noted which did not meet the criteria for ischemia. No clinical angina is noted. The final blood pressure was 140/82 mmHg. Myocardial perfusion protocol. 13.1 mCi of technetium 99m sestamibi was injected at rest. 0.4 mg of regadenoson was infused per usual protocol. At peak infusion 42.3 mCi of technetium 99m sestamibi was injected stress images were obtained stress and rest images were reconstructed and compared in the short axis vertical long and horizontal long axis. Gated images were also obtained. Perfusion SPECT analysis: Review of the stress images demonstrate normal uptake of tracer noted in all areas of the myocardium. The resting images similar demonstrated normal uptake of tracer noted in all areas of the myocardium. No areas of reversibility are noted to suggest ischemia and no previous infarct is noted. Gated SPECT analysis: The gated ejection fraction is 58%. Conclusion: Normal pharmacologic myocardial perfusion stress test. Preserved ejection fraction. 04/04/25758 Date Elkin Alonzo MD CC: Dr. Torito Azul MD; MIYA Phillips Date Dictated: 04/04/25758 Date Transcribed: 04/04/25758 Powersaw Supervisor: [place] Signed Normal [facility] Echo Complete W/ Contraston 03-31-2025 Echo Complete W/ Contrast [facility] Cardiovascular Services [address] [place] [address] Echo Complete W/ Contrast 03/31/25 0846 MR#: [id number] Acct: [id number] Name: EMELY GUERRERO Rep #: [id number] : 1950 74 From: Elkin Alonzo MD Attending Dr: MIYA Phillips Status: REG CLI Ordering Dr: Karina Westbrook PA Date: 03/06 04/28 Location: [facility] Sex: M C Admitted: Reason For Study Reason For Study: DYSPNEA Procedure This was a 2D Doppler, Color Flow transthoracic echocardiogram. The study was technically difficult. Contrast injection was performed. Exam performed in department. Left Ventricle Normal LV size. Left ventricular systolic function is normal. The left ventricular ejection fraction is 55 %. No regional wall motion abnormalities noted. Right Ventricle Normal RV size. Normal systolic function. Tricuspid Valve Normal tricuspid valve. Mild to moderate (1-2+) tricuspid valve insufficiency. Pulmonary artery systolic pressure is 44 mmHg. Aortic Valve Trisinus/trileaflet aortic valve. Mild focal aortic valve calcification. Great Vessels Normal aortic root. Pericardium/Pleural No pericardial effusion. Medication Diluted definity 3ml given slow IV push to enhance endocardial definition. MMode/2D Measurements Calculations LVIDd: 5.0 cm IVSd: 1.3 cm LVOT diam: 2.0 cm LVIDs: 3.5 cm LVPWd: 1.1 cm LVOT area: 3.0 cm2 FS: 30.6 % __ Ao root diam: 3.8 cm LAV(MOD-bp): 62.3 ml LVAd ap4: 35.9 cm2 LAV(MOD-bp) Indexed: 31.3 ml/m2 LVLd ap4: 8.2 cm LAV(MOD-sp2): 62.2 ml EDV(MOD-sp4): 130.0 ml LAV(MOD-sp4): 58.1 ml EDV(sp4-el): 132.8 ml LVAs ap4: 19.6 cm2 LVLs ap4: 6.0 cm ESV(MOD-sp4): 50.9 ml ESV(sp4-el): 54.2 ml EF(MOD-sp4): 60.8 % EF(sp4-el): 59.2 % __ SV(MOD-sp4): 79.0 ml SV(sp4-el): 78.6 ml LA A4 area: 21.5 cm2 SI(MOD-sp4): 39.7 ml/m2 __ LA dimension(2D): 4.3 cm RA A4 area: 9.6 cm2 Time Measurements MV dec time: 0.23 sec Doppler Measurements Calculations MV E max hayes: 74.8 cm/sec Lat Peak E' Hayes: 10.1 cm/sec Med Peak E' Hayes: 7.7 cm/sec MV A max hayes: 78.5 cm/sec E/E' lat: 7.4 E/E' med: 9.7 MV E/A: 0.95 __ MV V2 max: 85.6 cm/sec Ao V2 max: 181.5 cm/sec MV max P.9 mmHg MV dec slope: 321.8 cm/sec2 Ao max P.2 mmHg MV V2 mean: 52.9 cm/sec Ao V2 mean: 125.4 cm/sec MV mean P.3 mmHg Ao mean P.2 mmHg MV V2 VTI: 41.3 cm Ao V2 VTI: 44.3 cm AV (velocity ratio): 0.72 MVA(VTI): 2.3 cm2 KASSANDRA(I,D): 2.2 cm2 KASSANDRA(V,D): 2.2 cm2 __ LV V1 max: 130.8 cm/sec SV(LVOT): 95.8 ml PA V2 max: 95.2 cm/sec LV V1 max P.9 mmHg PA V2 mean: 61.6 cm/sec LV V1 mean P.5 mmHg LV V1 mean: 85.2 cm/sec LV V1 VTI: 31.8 cm __ TR max hayes: 316.7 cm/sec TR max P.1 mmHg ECHO/Echo Complete W/ Contrast Interpretation Summary Normal LV size. Left ventricular systolic function is normal. The left ventricular ejection fraction is 55 %. Pulmonary artery systolic pressure is 44 mmHg. Contrast injection was performed. __ Ordering Physician: Karina Westbrook Referring Physician: Karina Westbrook Performed By: Ana Rosa Lorenzo and Student 04/04/25 1014 Date Elkin Alonzo MD CC: Dr. Torito Azul MD; MIYA Phillips Date Dictated: 03/31/25 0846 Date Transcribed: 04/04/25 1014 Powersaw Supervisor: Signed Normal [facility] Cardiology Visit Reporton Cardiology Visit Report [facility] [address] [place] [address] OFFICE VISIT Date of Service: 02/20/25 MR#: [id number] Acct: [id number] Name: EMELY GUERRERO Rep #: [id number] : 1950 Provider: MIYA Simmons Age/Sex: 74/M Location: [facility] Status: Signed HPI HPI History of Present Illness Details: EMELY GUERRERO, is a 74 M with a history of coronary artery disease with bypass surgery in 2002. He had an ROSE to the LAD, left radial to the first diagonal and SVG to the first obtuse and PDA. He presented in 2015 with chest discomfort and underwent cardiac catheterization [...] NIBP NIBP Intake Visit Reasons: Atrial fibrillation Deck Worker Required: No Is patient in pain?: No [...] you fallen in the past year?: No PFSH Medical History Non-allergic rhinitis BPH (benign prostatic hyperplasia) Wears glasses Alcohol use Abrasion Diabetes Prostate disease High cholesterol Easy bruising Former smoker Sleep apnea CPAP (continuous positive airway pressure) dependence History of stress test History of echocardiogram Cardiology follow-up encounter History of atrial fibrillation Pilonidal abscess Acute coccygeal pain [place] disease Type 2 diabetes mellitus Atherosclerosis of coronary artery bypass graft without angina pectoris Essential (primary) hypertension Paroxysmal atrial fibrillation History of diverticulitis Palpitations History of non-ST elevation myocardial infarction (NSTEMI) (07/2016) Sinus bradycardia Hyperlipidemia Paroxysmal atrial fibrillation Atherosclerotic heart disease of [place] coronary artery without angina pectoris Surgical History [...] lung ca (more content not included)... Normal [facility] Absolute lymphocyte countOrd ered By: Torito Azul on 11-14-2024 Lymphocytes Auto (Unsp spec) [#/Vol] 2.02 10*3/uL 0.83-4.51 [facility] Absolute neutrophil countOrd ered By: Torito Azul on 11-14-2024 Neutrophils (Bld) [#/Vol] 3.4 10*3/uL 2.0-7.7 [facility] Albumin to globulin ratioOrd ered By: Torito Azul on 11-14-2024 Albumin/Globulin [Mass ratio] 1.1 {ratio} 0.9-2.4 [facility] Automated lymphocyte count a s percentage of total leukocytesOrdered By: Torito Azul on 11-14-2024 Lymphocytes/100 WBC Auto (Unsp spec) 32.5 % 19-41 [facility] Basophil percentageOrdered B y: Torito Azul on 11-14-2024 Basophils/100 WBC (Bld) 0.8 % 0-1 [facility] Bilirubin directOrdered By: Paige Alvarado on 11-14-2024 Bilirubin.direct [Mass/Vol] 0.36 mg/dL High 0.00-0.30 [facility] Bilirubin, Directon 11-14-19 25 Bilirubin.direct [Mass/Vol] 0.36 mg/dL High 0.00-0.30 [facility] Comment on above: Order Comment: DR. Serena SOLIS ORDERED LIPID AND CMP WILL CC TO PAIGE ALVARADO Performed By: #### L 501.4700 ####[facility] [address] [place], [place], [address] Bilirubin, totalOrdered By: Torito Azul on 11-14-2024 Bilirubin [Mass/Vol] 1.60 mg/dL High 0.20-1.00 [facility] Comment on above: For patients on eltr ombopag therapy, use of Dimension [place] TBIL is not recommended. Blood urea nitrogen (BUN)/cr eatinine ratioOrdered By: Torito Azul on 11-14-2024 Urea nitrogen/Creatinine [Mass ratio] 22.0 mg/mg High 07-24 [facility] CBC W/Diff, Automatedon 11-05 Absolute Lymph 2.02 X10 3/uL Normal 0.83-4.51 [facility] Comment on above: Performed By: #### L 100.0100, L506.1000, L500.4050, L501.9520 #### [facility] [address] [place], [address] Absolute Neut 3.4 X10 3/uL Normal 2.0-7.7 [facility] Comment on above: Performed By: #### L 100.0100, L506.1000, L500.4050, L501.9520 #### [facility] [address] [place], [address] Basophils/100 WBC (Bld) 0.8 % Normal 0-1 [facility] Comment on above: Performed By: #### L 100.0100, L506.1000, L500.4050, L501.9520 #### [facility] [address] [place], [address] Eosinophils/100 WBC (Bld) 2.4 % Normal 0-5 [facility] Comment on above: Performed By: #### L 100.0100, L506.1000, L500.4050, L501.9520 #### [facility] [address] [place], [address] Erythrocyte distribution width (RBC) [Ratio] 12.3 % Normal 11.6-14.6 [facility] Comment on above: Performed By: #### L 100.0100, L506.1000, L500.4050, L501.9520 #### [facility] [address] [place], [address] Hematocrit (Bld) [Volume fraction] 41.1 % Normal 40-54 [facility] Comment on above: Performed By: #### L 100.0100, L506.1000, L500.4050, L501.9520 #### [facility] [address] [place], [address] Hemoglobin (Bld) [Mass/Vol] 14.2 g/dL Normal 13.0-16.5 [facility] Comment on above: Performed By: #### L 100.0100, L506.1000, L500.4050, L501.9520 #### [facility] [address] [place], [address] IG% 0.600 Normal 0.0-0.9 [facility] Comment on above: Result Comment: IG% - Immature Granulocytes (promyelocytes, myelocytes and metamyelocytes) > 1% indicates that a LEFT SHIFT is Present. Performed By: #### L 100.0100, L506.1000, L500.4050, L501.9520 #### [facility] [address] [place], [address] Lymphocytes/100 WBC (Bld) 32.5 % Normal 19-41 [facility] Comment on above: Performed By: #### L 100.0100, L506.1000, L500.4050, L501.9520 #### [facility] [address] [place], [address] MCH (RBC) [Entitic mass] 32.6 pg High 27.0-32.0 [facility] Comment on above: Performed By: #### L 100.0100, L506.1000, L500.4050, L501.9520 #### [facility] [address] [place], [address] MCHC (RBC) [Mass/Vol] 34.5 g/dL Normal 32-36 [facility] Comment on above: Performed By: #### L 100.0100, L506.1000, L500.4050, L501.9520 #### [facility] [address] [place], [address] MCV (RBC) [Entitic vol] 94.3 fL High 80-94 [facility] Comment on above: Performed By: #### L 100.0100, L506.1000, L500.4050, L501.9520 #### [facility] [address] [place], [address] Monocytes/100 WBC (Bld) 8.8 % Normal 0-10 [facility] Comment on above: Performed By: #### L 100.0100, L506.1000, L500.4050, L501.9520 #### [facility] [address] [place], [address] Neutrophils/100 WBC (Bld) 54.9 % Normal 47-70 [facility] Comment on above: Performed By: #### L 100.0100, L506.1000, L500.4050, L501.9520 #### [facility] [address] [place], [address] Nucleated RBC (Bld) [#/Vol] 0 10*3/uL Normal 0-5 [facility] Comment on above: Performed By: #### L 100.0100, L506.1000, L500.4050, L501.9520 #### [facility] [address] [place], [address] Platelet mean volume (Bld) [Entitic vol] 10.2 fL Normal 6.2-12.0 [facility] Comment on above: Performed By: #### L 100.0100, L506.1000, L500.4050, L501.9520 #### [facility] [address] [place], [address] Platelets (Bld) [#/Vol] 218 10*3/uL Normal 150-450 [facility] Comment on above: Performed By: #### L 100.0100, L506.1000, L500.4050, L501.9520 #### [facility] [address] [place], [address] RBC (Bld) [#/Vol] 4.36 10*6/uL Low 4.6-6.2 [facility] Comment on above: Performed By: #### L 100.0100, L506.1000, L500.4050, L501.9520 #### [facility] [address] [place], [address] RDW SD 43.0 fl Normal 35.1-43.9 [facility] Comment on above: Performed By: #### L 100.0100, L506.1000, L500.4050, L501.9520 #### [facility] [address] [place], [address] WBC (Bld) [#/Vol] 6.2 10*3/uL Normal 4.4-11.0 [facility] Comment on above: Performed By: #### L 100.0100, L506.1000, L500.4050, L501.9520 #### [facility] [address] [place], [address] Carbon dioxide measurementOr dered By: Torito Azul on 11-14-2024 CO2 [Moles/Vol] 27.0 mmol/L 21.0-32.0 [facility] Chloride measurementOrdered By: Torito Azul on 11-14-2024 Chloride [Moles/Vol] 104 mmol/L 98-107 [facility] Comprehensive Metabolic Prof ilon 11-14-2024 Albumin [Mass/Vol] 3.9 g/dL Normal 3.2-5.0 [facility] Comment on above: Order Comment: CC CM P TO PAIGE ALVARADO Performed By: #### L 100.0100, L506.1000, L500.4050, L501.9520 #### [facility] [address] [place], [address] Albumin/Globulin [Mass ratio] 1.1 {ratio} Normal 0.9-2.4 [facility] Comment on above: Order Comment: CC CM P TO PAIGE ALVARADO Performed By: #### L 100.0100, L506.1000, L500.4050, L501.9520 #### [facility] [address] [place], [address] ALK P 55 U/L Normal 45-117 [facility] Comment on above: Order Comment: CC CM P TO PAIGE ALVARADO Performed By: #### L 100.0100, L506.1000, L500.4050, L501.9520 #### [facility] [address] [place], [address] ALT [Catalytic activity/Vol] 32 U/L Normal 16-61 [facility] Comment on above: Order Comment: CC CM P TO PAIGE ALVARADO Performed By: #### L 100.0100, L506.1000, L500.4050, L501.9520 #### [facility] [address] [place], [address] AST [Catalytic activity/Vol] 20 U/L Normal 15-37 [facility] Comment on above: Order Comment: CC CM P TO PAIGE ALVARADO Performed By: #### L 100.0100, L506.1000, L500.4050, L501.9520 #### [facility] [address] [place], [address] Bilirubin [Mass/Vol] 1.60 mg/dL High 0.20-1.00 [facility] Comment on above: Order Comment: CC CM P TO PAGIE ALVARADO Result Comment: For patients on eltrombopag therapy, use of Dimension [place] TBIL is not recommended. Performed By: #### L 100.0100, L506.1000, L500.4050, L501.9520 #### [facility] [address] [place], [address] BUN/CRE 22.0 RATIO High 10-20 [facility] Comment on above: Order Comment: CC CM P TO PAIGE ALVARADO Performed By: #### L 100.0100, L506.1000, L500.4050, L501.9520 #### [facility] [address] [place], [address] CA,Total 9.6 mg/dL Normal 8.5-10.1 [facility] Comment on above: Order Comment: CC CM P TO PAIGE ALVARADO Performed By: #### L 100.0100, L506.1000, L500.4050, L501.9520 #### [facility] [address] [place], [address] Chloride [Moles/Vol] 104 mmol/L Normal 98-107 [facility] Comment on above: Order Comment: CC CM P TO PAIGE ALVARADO Performed By: #### L 100.0100, L506.1000, L500.4050, L501.9520 #### [facility] [address] [place], [address] CO2 [Moles/Vol] 27.0 mmol/L Normal 21.0-32.0 [facility] Comment on above: Order Comment: CC CM P TO PAIGE ALVARADO Performed By: #### L 100.0100, L506.1000, L500.4050, L501.9520 #### [facility] [address] [place], [address] Creatinine [Mass/Vol] 0.82 mg/dL Normal 0.70-1.30 [facility] Comment on above: Order Comment: CC CM P TO PAIGE ALVARADO Result Comment: The validity of the calculated GFR GFRAA in patients over 70 years has not been determined. Clinical correlation is essential. Performed By: #### L 100.0100, L506.1000, L500.4050, L501.9520 #### [facility] [address] [place], [address] EST GFR - AA 118 mL/min Normal >60 [facility] Comment on above: Order Comment: CC CM P TO PAIGE ALVARADO Result Comment: Afri can [place] GFR Calc Performed By: #### L 100.0100, L506.1000, L500.4050, L501.9520 #### [facility] [address] [place], [address] GAP 8 Normal 5-15 [facility] Comment on above: Order Comment: CC CM P TO PAIGE ALVARADO Performed By: #### L 100.0100, L506.1000, L500.4050, L501.9520 #### [facility] [address] [place], [address] GFR/1.73 sq M.predicted among non-blacks MDRD (S/P/Bld) [Vol rate/Area] 98 mL/min/{1.73_m2} Normal >60 [facility] Comment on above: Order Comment: CC CM P TO PAIGE ALVARADO Result Comment: Non- GFR Calc Performed By: #### L 100.0100, L506.1000, L500.4050, L501.9520 #### [facility] [address] [place], [address] Globulin (S) [Mass/Vol] 3.6 g/dL Normal 2.2-4.2 [facility] Comment on above: Order Comment: CC CM P TO PAIGE ALVARADO Performed By: #### L 100.0100, L506.1000, L500.4050, L501.9520 #### [facility] [address] [place], [address] Glucose [Mass/Vol] 210 mg/dL High 74-106 [facility] Comment on above: Order Comment: CC CM P TO PAIGE ALVARADO Result Comment: Gluc ose result greater than or equal to 200 mg/dL suggests DIABETES MELLITUS per A.D.A. criteria. Performed By: #### L 100.0100, L506.1000, L500.4050, L501.9520 #### [facility] [address] [place], [address] Potassium [Moles/Vol] 3.7 mmol/L Normal 3.5-5.1 [facility] Comment on above: Order Comment: CC CM P TO PAIGE ALVARADO Performed By: #### L 100.0100, L506.1000, L500.4050, L501.9520 #### [facility] [address] [place], [address] Sodium [Moles/Vol] 138 mmol/L Normal 136-145 [facility] Comment on above: Order Comment: CC CM P TO PAIGE ALVARADO Performed By: #### L 100.0100, L506.1000, L500.4050, L501.9520 #### [facility] [address] [place], [address] T PROT 7.5 g/dL Normal 6.4-8.2 [facility] Comment on above: Order Comment: CC CM P TO PAIGE ALVARADO Performed By: #### L 100.0100, L506.1000, L500.4050, L501.9520 #### [facility] [address] [place], [address] Urea nitrogen [Mass/Vol] 18 mg/dL Normal 7-18 [facility] Comment on above: Order Comment: CC CM P TO PAIGE ALVARADO Performed By: #### L 100.0100, L506.1000, L500.4050, L501.9520 #### [facility] [address] [place], [address] Eosinophil percentageOrdered By: Torito Azul on 11-14-2024 Eosinophils/100 WBC (Bld) 2.4 % 0-5 [facility] Erythrocyte distribution wid th ratioOrdered By: Torito Azul on 11-14-2024 Erythrocyte distribution width (RBC) [Ratio] 12.3 % 11.6-14.6 [facility] Erythrocyte distribution wid th standard deviationOrdered By: Torito Azul on 11-14-2024 Erythrocyte distribution width (RBC) [Ratio] 43.0 fl 35.1-43.9 [facility] Glomerular filtration rate ( GFR) estimationOrdered By: Torito Azul on 11-14-2024 GFR/1.73 sq M.predicted among non-blacks MDRD (S/P/Bld) [Vol rate/Area] 98 mL/min/{1.73_m2} >60 [facility] Comment on above: Non- GFR Calc Glucose measurementOrdered B y: Torito Azul on 11-14-2024 Glucose [Mass/Vol] 210 mg/dL High 74-106 [facility] Comment on above: Glucose result great er than or equal to 200 mg/dLsuggests DIABETES MELLITUS per A.D.A. criteria. Hematocrit Auto (Bld) [Volum e fraction]Ordered By: Torito Azul on 11-14-2024 Hematocrit (Bld) [Volume fraction] 41.1 % 40-54 [facility] Hemoglobin measurementOrdere d By: Torito Azul on 11-14-2024 Hemoglobin (Bld) [Mass/Vol] 14.2 g/dL 13.0-16.5 [facility] [facility] Immature granulocytes/100 WB C Auto (Bld)Ordered By: Torito Azul 11-14-2024 Immature granulocytes/100 WBC (Bld) 0.600 % 0.0-0.9 [facility] Comment on above: IG% - Immature Granu locytes (promyelocytes, myelocytes and metamyelocytes) > 1% indicates that a LEFT SHIFT is Present. Laboratory - Chemistry and C hemistry - challengeOrdered By: Torito Azul on 11-14-2024 AST [Catalytic activity/Vol] 20 U/L 15-37 [facility] MCV (mean corpuscular volume ) determinationOrdered By: Torito Azul 11-14-2024 MCV (RBC) [Entitic vol] 94.3 fL High 80-94 [facility] Mean corpuscular hemoglobin (MCH) determinationOrdered By: Torito Azul 11-14-2024 MCH (RBC) [Entitic mass] 32.6 pg High 27.0-32.0 [facility] Mean corpuscular hemoglobin concentration (MCHC) determinationOrdered By: Torito Azul 11-14-2024 MCHC (RBC) [Mass/Vol] 34.5 g/dL 32-36 [facility] Mean platelet volume determi nationOrdered By: Torito Azul 11-14-2024 Platelet mean volume (Bld) [Entitic vol] 10.2 fL 6.2-12.0 [facility] Monocyte percentageOrdered B y: Torito Azul on 11-14-2024 Monocytes/100 WBC (Bld) 8.8 % 0-10 [facility] Neutrophil percentageOrdered By: Torito Azul on 11-14-2024 Neutrophils/100 WBC (Bld) 54.9 % 47-70 [facility] Nucleated red blood cell per centageOrdered By: Torito Azul on 11-14-2024 Nucleated RBC/100 WBC (Bld) [Ratio] 0 % 0-5 [facility] Platelet countOrdered By: Drew Azul on 11-14-2024 Platelets (Bld) [#/Vol] 218 10*3/uL 150-450 [facility] Potassium measurementOrdered By: Torito Azul on 11-14-2024 Potassium [Moles/Vol] 3.7 mmol/L 3.5-5.1 [facility] RBC Auto (Bld) [#/Vol]Ordere d By: Torito Azul on 11-14-2024 RBC (Bld) [#/Vol] 4.36 10*6/uL Low 4.6-6.2 [facility] Serum anion gap measurementO rdered By: Torito Azul on 11-14-2024 Anion gap [Moles/Vol] 8 mmol/L 5-15 [facility] Serum globulin measurementOr dered By: Torito Azul 11-14-2024 Globulin (S) [Mass/Vol] 3.6 g/dL 2.2-4.2 [facility] Serum or plasma alanine lau otransferase (ALT) measurementOrdered By: Torito Azul 11-14-2024 ALT [Catalytic activity/Vol] 32 U/L 16-61 [facility] Serum or plasma albumin eusebio urement (mass/volume)Ordered By: Torito Azul 11-14-2024 Albumin [Mass/Vol] 3.9 g/dL 3.2-5.0 [facility] Serum or plasma alkaline rogelio sphatase measurementOrdered By: Torito Azul 11-14-2024 ALP [Catalytic activity/Vol] 55 U/L 45-117 [facility] Serum or plasma calcium eusebio urement (mass/volume)Ordered By: Torito Azul 11-14-2024 Calcium [Mass/Vol] 9.6 mg/dL 8.5-10.1 [facility] Serum or plasma creatinine m easurement (mass/volume)Ordered By: Torito Azul on 11-14-2024 Creatinine [Mass/Vol] 0.82 mg/dL 0.70-1.30 [facility] Comment on above: The validity of the calculated GFR & GFRAA in patients over 70 years has not been determined. Clinical correlation is essential. Serum or plasma thyroid stim ulating hormone (TSH) measurement (units/volume)Ordered By: Torito Azul on 11-14-2024 TSH Qn 1.710 uIU/mL 0.358-3.740 [facility] Serum or plasma urea nitroge n measurement (mass/volume)Ordered By: Torito Azul on 11-14-2024 Urea nitrogen [Mass/Vol] 18 mg/dL 7-18 [facility] Sodium levelOrdered By: Torito Azul on 11-14-2024 Sodium [Moles/Vol] 138 mmol/L 136-145 [facility] Thyroid Stim Hormone (TSH)on 11-14-2024 TSH 1.710 uIU/mL Normal 0.358-3.740 [facility] Comment on above: Order Comment: CC CM P TO PAIGE ALVARADO Performed By: #### L 100.0100, L506.1000, L500.4050, L501.9520 #### [facility] [address] [place], [address] Total proteinOrdered By: Torito Azul on 11-14-2024 Protein [Mass/Vol] 7.5 g/dL 6.4-8.2 [facility] Vitamin D,25 Hydroxyon 11-14 Vitamin D 25-OH 28.5 ng/mL Normal [facility] Comment on above: Result Comment: Roseline min D 25(OH) Status Range Deficiency <20 ng/mL (50nmol/L) Insufficiency 20 - 30 ng/mL (50 - 75 nmol/L) Sufficiency 30 - 100 ng/mL (75 - 250 nmol/L) Toxicity >100 ng/mL (>250 nmol/L) Performed By: #### L 100.0100, L506.1000, L500.4050, L501.9520 #### [facility] [address] [place], [address] White blood cell (WBC) count Ordered By: Torito Azul on 11-14-2024 WBC (Bld) [#/Vol] 6.2 10*3/uL 4.4-11.0 [facility] CBC W/Diff, Automatedon 05-05 Absolute Lymph 1.87 X10 3/uL Normal 0.83-4.51 [facility] Comment on above: Performed By: #### L 501.9520, L100.0100, L500.4050, L506.1000 #### [facility] [address] [place], [address] Absolute Neut 5.2 X10 3/uL Normal 2.0-7.7 [facility] Comment on above: Performed By: #### L [id number], L100.0100, L500.4050, L506.1000 #### [facility] [address] [place], [address] Basophils/100 WBC (Bld) 0.6 % Normal 0-1 [facility] Comment on above: Performed By: #### L 501.9520, L100.0100, L500.4050, L506.1000 #### [facility] [address] [place], [address] Eosinophils/100 WBC (Bld) 1.5 % Normal 0-5 [facility] Comment on above: Performed By: #### L 501.9520, L100.0100, L500.4050, L506.1000 #### [facility] [address] [place], [address] Erythrocyte distribution width (RBC) [Ratio] 12.5 % Normal 11.6-14.6 [facility] Comment on above: Performed By: #### L 501.9520, L100.0100, L500.4050, L506.1000 #### [facility] [address] [place], [address] Hematocrit (Bld) [Volume fraction] 40.4 % Normal 40-54 [facility] Comment on above: Performed By: #### L 501.9520, L100.0100, L500.4050, L506.1000 #### [facility] [address] [place], [address] Hemoglobin (Bld) [Mass/Vol] 13.6 g/dL Normal 13.0-16.5 [facility] Comment on above: Performed By: #### L 501.9520, L100.0100, L500.4050, L506.1000 #### [facility] [address] [place], [address] IG% 0.400 Normal 0.0-0.9 [facility] Comment on above: Result Comment: IG% - Immature Granulocytes (promyelocytes, myelocytes and metamyelocytes) > 1% indicates that a LEFT SHIFT is Present. Performed By: #### L 501.9520, L100.0100, L500.4050, L506.1000 #### [facility] [address] [place], [address] Lymphocytes/100 WBC (Bld) 23.5 % Normal 19-41 [facility] Comment on above: Performed By: #### L [id number], L100.0100, L500.4050, L506.1000 #### [facility] [address] [place], [address] MCH (RBC) [Entitic mass] 32.2 pg High 27.0-32.0 [facility] Comment on above: Performed By: #### L 501.9520, L100.0100, L500.4050, L506.1000 #### [facility] [address] [place], [address] MCHC (RBC) [Mass/Vol] 33.7 g/dL Normal 32-36 [facility] Comment on above: Performed By: #### L 501.9520, L100.0100, L500.4050, L506.1000 #### [facility] [address] [place], [address] MCV (RBC) [Entitic vol] 95.7 fL High 80-94 [facility] Comment on above: Performed By: #### L 501.9520, L100.0100, L500.4050, L506.1000 #### [facility] [address] [place], [address] Monocytes/100 WBC (Bld) 8.8 % Normal 0-10 [facility] Comment on above: Performed By: #### L 501.9520, L100.0100, L500.4050, L506.1000 #### [facility] [address] [place], [address] Neutrophils/100 WBC (Bld) 65.2 % Normal 47-70 [facility] Comment on above: Performed By: #### L 501.9520, L100.0100, L500.4050, L506.1000 #### [facility] [address] [place], [address] Nucleated RBC (Bld) [#/Vol] 0 10*3/uL Normal 0-5 [facility] Comment on above: Performed By: #### L 501.9520, L100.0100, L500.4050, L506.1000 #### [facility] [address] [place], [address] Platelet mean volume (Bld) [Entitic vol] 10.0 fL Normal 6.2-12.0 [facility] Comment on above: Performed By: #### L 501.9520, L100.0100, L500.4050, L506.1000 #### [facility] [address] [place], [address] Platelets (Bld) [#/Vol] 270 10*3/uL Normal 150-450 [facility] Comment on above: Performed By: #### L 501.9520, L100.0100, L500.4050, L506.1000 #### [facility] [address] [place], [address] RBC (Bld) [#/Vol] 4.22 10*6/uL Low 4.6-6.2 [facility] Comment on above: Performed By: #### L 501.9520, L100.0100, L500.4050, L506.1000 #### [facility] [address] [place], [address] RDW SD 43.1 fl Normal 35.1-43.9 [facility] Comment on above: Performed By: #### L 501.9520, L100.0100, L500.4050, L506.1000 #### [facility] [address] [place], [address] WBC (Bld) [#/Vol] 8.0 10*3/uL Normal 4.4-11.0 [facility] Comment on above: Performed By: #### L 501.9520, L100.0100, L500.4050, L506.1000 #### [facility] [address] [place], [address] Comprehensive Metabolic [facility] 05-17-2024 Albumin [Mass/Vol] 3.8 g/dL Normal 3.2-5.0 [facility] Comment on above: Performed By: #### L 501.9520, L100.0100, L500.4050, L506.1000 #### [facility] [address] [place], [address] Albumin/Globulin [Mass ratio] 1.0 {ratio} Normal 0.9-2.4 [facility] Comment on above: Performed By: #### L 501.9520, L100.0100, L500.4050, L506.1000 #### [facility] [address] [place], [address] ALK P 60 U/L Normal 45-117 [facility] Comment on above: Performed By: #### L 501.9520, L100.0100, L500.4050, L506.1000 #### [facility] [address] [place], [address] ALT [Catalytic activity/Vol] 24 U/L Normal 16-61 [facility] Comment on above: Performed By: #### L 501.9520, L100.0100, L500.4050, L506.1000 #### [facility] [address] [place], [address] AST [Catalytic activity/Vol] 17 U/L Normal 15-37 [facility] Comment on above: Performed By: #### L 501.9520, L100.0100, L500.4050, L506.1000 #### [facility] [address] [place], [address] Bilirubin [Mass/Vol] 1.50 mg/dL High 0.20-1.00 [facility] Comment on above: Result Comment: For patients on eltrombopag therapy, use of Dimension [place] TBIL is not recommended. Performed By: #### L 501.9520, L100.0100, L500.4050, L506.1000 #### [facility] [address] [place], [address] BUN/CRE 21.5 RATIO High 10-20 [facility] Comment on above: Performed By: #### L 501.9520, L100.0100, L500.4050, L506.1000 #### [facility] [address] [place], [address] CA,Total 10.0 mg/dL Normal 8.5-10.1 [facility] Comment on above: Performed By: #### L 501.9520, L100.0100, L500.4050, L506.1000 #### [facility] [address] [place], [address] Chloride [Moles/Vol] 103 mmol/L Normal 98-107 [facility] Comment on above: Performed By: #### L 501.9520, L100.0100, L500.4050, L506.1000 #### [facility] [address] [place], [address] CO2 [Moles/Vol] 30.0 mmol/L Normal 21.0-32.0 [facility] Comment on above: Performed By: #### L 501.9520, L100.0100, L500.4050, L506.1000 #### [facility] [address] [place], [address] Creatinine [Mass/Vol] 0.93 mg/dL Normal 0.70-1.30 [facility] Comment on above: Result Comment: The validity of the calculated GFR GFRAA in patients over 70 years has not been determined. Clinical correlation is essential. Performed By: #### L 501.9520, L100.0100, L500.4050, L506.1000 #### [facility] [address] [place], [address] EST GFR - AA 102 mL/min Normal >60 [facility] Comment on above: Result Comment: Afri can [place] GFR Calc Performed By: #### L 501.9520, L100.0100, L500.4050, L506.1000 #### [facility] [address] [place], [address] GAP 5 Normal 5-15 [facility] Comment on above: Performed By: #### L 501.9520, L100.0100, L500.4050, L506.1000 #### [facility] [address] [place], [address] GFR/1.73 sq M.predicted among non-blacks MDRD (S/P/Bld) [Vol rate/Area] 84 mL/min/{1.73_m2} Normal >60 [facility] Comment on above: Result Comment: Non- GFR Calc Performed By: #### L 501.9520, L100.0100, L500.4050, L506.1000 #### [facility] [address] [place], [address] Globulin (S) [Mass/Vol] 4.0 g/dL Normal 2.2-4.2 [facility] Comment on above: Performed By: #### L 501.9520, L100.0100, L500.4050, L506.1000 #### [facility] [address] [place], [address] Glucose [Mass/Vol] 215 mg/dL High 74-106 [facility] Comment on above: Result Comment: Gluc ose result greater than or equal to 200 mg/dL suggests DIABETES MELLITUS per A.D.A. criteria. Performed By: #### L 501.9520, L100.0100, L500.4050, L506.1000 #### [facility] [address] [place], [address] Potassium [Moles/Vol] 3.7 mmol/L Normal 3.5-5.1 [facility] Comment on above: Performed By: #### L 501.9520, L100.0100, L500.4050, L506.1000 #### [facility] [address] [place], [address] Sodium [Moles/Vol] 138 mmol/L Normal 136-145 [facility] Comment on above: Performed By: #### L 501.9520, L100.0100, L500.4050, L506.1000 #### [facility] [address] [place], [address] T PROT 7.8 g/dL Normal 6.4-8.2 [facility] Comment on above: Performed By: #### L 501.9520, L100.0100, L500.4050, L506.1000 #### [facility] [address] [place], [address] Urea nitrogen [Mass/Vol] 20 mg/dL High 7-18 [facility] Comment on above: Performed By: #### L 501.9520, L100.0100, L500.4050, L506.1000 #### [facility] [address] [place], [address] Thyroid Stim Hormone (TSH)on 05-17-2024 TSH 1.090 uIU/mL Normal 0.358-3.740 [facility] Comment on above: Performed By: #### L 501.9520, L100.0100, L500.4050, L506.1000 ####[facility] [address] [place], [address] Vitamin D,25 Hydroxyon 05-17 Vitamin D 25-OH 45.6 ng/mL Normal [facility] Comment on above: Result Comment: Roseline min D 25(OH) Status Range Deficiency <20 ng/mL (50nmol/L) Insufficiency 20 - 30 ng/mL (50 - 75 nmol/L) Sufficiency 30 - 100 ng/mL (75 - 250 nmol/L) Toxicity >100 ng/mL (>250 nmol/L) Performed By: #### L 501.9520, L100.0100, L500.4050, L506.1000 #### [facility] [address] [place], [address] Cardiology Visit Reporton Cardiology Visit Report [facility] 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 Is patient in pain?: No [...] you fallen in the past year?: Yes [facility] Medical History (Updated 04/28/24 @ 08:43 by Loraine Phillips) Non-allergic rhinitis BPH (benign prostatic hyperplasia) Wears glasses Alcohol use Abrasion Diabetes Prostate disease High cholesterol Easy bruising Former smoker Sleep apnea CPAP (continuous positive airway pressure) dependence History of stress test History of echocardiogram Cardiology follow-up encounter History of atrial fibrillation Pilonidal abscess Acute coccygeal pain [place] disease Type 2 diabetes mellitus Atherosclerosis of coronary artery bypass graft without angina pectoris Essential (primary) hypertension Paroxysmal atrial fibrillation History of diverticulitis Palpitations History of non-ST elevation myocardial infarction (NSTEMI) (07/2016) Sinus bradycardia Hyperlipidemia Paroxysmal atrial fibrillation Atherosclerotic heart disease of [place] coronary artery without angina pectoris Surgical History History of excision of pilonidal cyst prostat (more content not included)... Normal [facility] Absolute lymphocyte countOrd ered By: Torito Azul on 11-11-2023 Lymphocytes Auto (Unsp spec) [#/Vol] 1.87 10*3/uL 0.83-4.51 [facility] Automated lymphocyte count a s percentage of total leukocytesOrdered By: Torito Azul on 11-11-2023 Lymphocytes/100 WBC Auto (Unsp spec) 27.1 % 19-41 [facility] Basophil percentageOrdered B y: Torito Azul on 11-11-2023 Basophils/100 WBC (Bld) 0.9 % 0-1 [facility] Bilirubin [Mass/Vol] 1.80 mg/dL 0.20-1.00 [facility] Comment on above: For patients on eltr ombopag therapy, use of Dimension [place] TBIL is not recommended. Chloride [Moles/Vol] 107 mmol/L 98-107 [facility] Cholesterol [Mass/Vol] 124 mg/dL <200 [facility] Comment on above: <200 mg/dL Desirable 200-240 mg/dL Borderline >240 mg/dL High Risk Eosinophils/100 WBC (Bld) 1.9 % 0-5 [facility] Glucose [Mass/Vol] 141 mg/dL 74-106 [facility] Comment on above: Fasting Glucose resu lt greater than or equal to 126 mg/dL suggests DIABETES MELLITUS per A.D.A. criteria. Hemoglobin (Bld) [Mass/Vol] 13.5 g/dL 13.0-16.5 [facility] Monocytes/100 WBC (Bld) 8.8 % 0-10 [facility] Neutrophils (Bld) [#/Vol] 4.2 10*3/uL 2.0-7.7 [facility] Neutrophils/100 WBC (Bld) 60.9 % 47-70 [facility] Potassium [Moles/Vol] 3.5 mmol/L 3.5-5.1 [facility] Protein [Mass/Vol] 6.9 g/dL 6.4-8.2 [facility] Sodium [Moles/Vol] 139 mmol/L 136-145 [facility] Triglyceride [Mass/Vol] 285 mg/dL <199 [facility] Comment on above: The drugs N-Acetylcy steine and Metamizole may falsely depress this assay.Serum Triglycerides Reference Interval Normal <150 mg/dL Borderline high 150 - 199 mg/dL High 200 - 499 mg/dL Very High > or = 500 mg/dL WBC (Bld) [#/Vol] 6.9 10*3/uL 4.4-11.0 [facility] Determination of erythrocyte mean corpuscular volume (MCV)Ordered By: Torito Azul on 11-11-2023 MCV (RBC) [Entitic vol] 93.9 fL 80-94 [facility] Erythrocyte distribution wid th ratioOrdered By: Torito Azul on 11-11-2023 Erythrocyte distribution width (RBC) [Ratio] 12.3 % 11.6-14.6 [facility] Erythrocyte distribution wid th standard deviationOrdered By: Torito Azul on 11-11-2023 Erythrocyte distribution width (RBC) [Entitic vol] 41.9 fL 35.1-43.9 [facility] Hematocrit Auto (Bld) [Volum e fraction]Ordered By: Torito Azul on 11-11-2023 Hematocrit (Bld) [Volume fraction] 40.1 % 40-54 [facility] Immature granulocytes/100 WB C Auto (Bld)Ordered By: Torito Azul on 11-11-2023 Immature granulocytes/100 WBC (Bld) 0.400 % 0.0-0.9 [facility] Comment on above: IG% - Immature Granu locytes (promyelocytes, myelocytes and metamyelocytes) > 1% indicates that a LEFT SHIFT is Present. Laboratory - Chemistry and C hemistry - challengeOrdered By: Torito Azul on 11-11-2023 Albumin/Globulin [Mass ratio] 1.4 {ratio} 0.9-2.4 [facility] ALP [Catalytic activity/Vol] 53 U/L 45-117 [facility] ALT [Catalytic activity/Vol] 35 U/L 16-61 [facility] Cholesterol in HDL [Mass/Vol] 37 mg/dL >40 [facility] Comment on above: The drugs N-Acetylcy steine and Metamizole may falsely depress this assay. Reference Range HDL <40 mg/dL Low HDL Cholesterol HDL >or= 60 mg/dL High HDL Cholesterol Cholesterol in LDL [Mass/Vol] 30 mg/dL 0-130 [facility] CO2 [Moles/Vol] 29.0 mmol/L 21.0-32.0 [facility] Globulin (S) [Mass/Vol] 2.9 g/dL 2.2-4.2 [facility] Urea nitrogen/Creatinine [Mass ratio] 24.2 mg/mg 10-20 [facility] - Hematology and Cell countsOrdered By: Torito Azul on 11-11-2023 MCH (RBC) [Entitic mass] 31.6 pg 27.0-32.0 [facility] MCHC (RBC) [Mass/Vol] 33.7 g/dL 32-36 [facility] Nucleated RBC/100 WBC (Bld) [Ratio] 0 % 0-5 [facility] Platelet mean volume (Bld) [Entitic vol] 10.2 fL 6.2-12.0 [facility] Platelets (Bld) [#/Vol] 238 10*3/uL 150-450 [facility] No Panel InformationOrdered By: Torito Azul on 11-11-2023 Estimated GFR (MDRD) Amer 100 mL/min >60 [facility] Comment on above: GFR Calc Estimated GFR (MDRD) Non-Af Amer 82 mL/min >60 [facility] Comment on above: Non- GFR Calc Vitamin D 25-Hydroxy 27.6 ng/mL [facility] Comment on above: Vitamin D 25(OH) Sta tus Range Deficiency <20 ng/mL (50nmol/L) Insufficiency 20 - 30 ng/mL (50 - 75 nmol/L) Sufficiency 30 - 100 ng/mL (75 - 250 nmol/L) Toxicity >100 ng/mL (>250 nmol/L) VLDL Cholesterol 57 mg/dL 5-40 [facility] RBC Auto (Bld) [#/Vol]Ordere d By: Torito Azul on 11-11-2023 RBC (Bld) [#/Vol] 4.27 10*6/uL 4.6-6.2 [facility] Serum or plasma calcium eusebio urement (mass/volume)Ordered By: Torito Azul on 11-11-2023 Calcium [Mass/Vol] 9.6 mg/dL 8.5-10.1 [facility] Serum or plasma creatinine m easurement (mass/volume)Ordered By: Torito Azul on 11-11-2023 Creatinine [Mass/Vol] 0.95 mg/dL 0.70-1.30 [facility] Comment on above: The validity of the calculated GFR & GFRAA in patients over 70 years has not been determined. Clinical correlation is essential. Serum or plasma thyroid stim ulating hormone (TSH) measurement (units/volume)Ordered By: Torito Azul on 11-11-2023 TSH Qn 1.26 uIU/mL 0.358-3.74 [facility] Serum or plasma urea nitroge n measurement (mass/volume)Ordered By: Torito Azul on 11-11-2023 Urea nitrogen [Mass/Vol] 23 mg/dL 7-18 [facility] Thin prep Papanicolaou smear with manual screeningOrdered By: Torito Azul on 11-11-2023 Thin prep Papanicolaou smear with manual screening 4.0 g/dL 3.2-5.0 [facility] Thin prep Papanicolaou smear with manual screening 21 U/L 15-37 [facility] Thin prep Papanicolaou smear with manual screening 3 5-15 [facility] Basophil percentageOrdered B y: Paige Christiano on 04-20-2023 Bilirubin [Mass/Vol] 1.80 mg/dL 0.20-1.00 [facility] Comment on above: For patients on eltr ombopag therapy, use of Dimension [place] TBIL is not recommended. Cholesterol [Mass/Vol] 113 mg/dL <200 [facility] Comment on above: <200 mg/dL Desirable 200-240 mg/dL Borderline >240 mg/dL High Risk Protein [Mass/Vol] 7.2 g/dL 6.4-8.2 [facility] Triglyceride [Mass/Vol] 131 mg/dL <199 [facility] Comment on above: The drugs N-Acetylcy steine and Metamizole may falsely depress this assay.Serum Triglycerides Reference Interval Normal <150 mg/dL Borderline high 150 - 199 mg/dL High 200 - 499 mg/dL Very High > or = 500 mg/dL Direct bilirubinOrdered By: Paige Alvarado on 04-20-2023 Bilirubin.direct [Mass/Vol] 0.36 mg/dL 0.00-0.30 [facility] - Chemistry and C hemistry - challengeOrdered By: Paige Alvarado on 04-20-2023 ALP [Catalytic activity/Vol] 50 U/L 45-117 [facility] ALT [Catalytic activity/Vol] 29 U/L 16-61 [facility] Globulin (S) [Mass/Vol] 3.2 g/dL 2.2-4.2 [facility] Serum or plasma albumin eusebio urement (mass/volume)Ordered By: Paige Alvarado on 04-20-2023 Albumin [Mass/Vol] 4.0 g/dL 3.2-5.0 [facility] Serum or plasma cholesterol in HDL measurement (mass/volume)Ordered By: Paige Alvarado on 04-20-2023 Cholesterol in HDL [Mass/Vol] 41 mg/dL >40 [facility] Comment on above: The drugs N-Acetylcy steine and Metamizole may falsely depress this assay. Reference Range HDL <40 mg/dL Low HDL Cholesterol HDL >or= 60 mg/dL High HDL Cholesterol Serum or plasma cholesterol in VLDL measurement (mass/volume)Ordered By: Paige Alvarado on 04-20-2023 Cholesterol in VLDL [Mass/Vol] 26 mg/dL 5-40 [facility] Serum or plasma low density lipoprotein (LDL) cholesterol measurement (mass/volume)Ordered By: Paige Alvarado on 04-20-2023 Cholesterol in LDL [Mass/Vol] 46 mg/dL 0-130 [facility] Thin prep Papanicolaou smear with manual screeningOrdered By: Paige Alvarado on 04-20-2023 Thin prep Papanicolaou smear with manual screening 20 U/L 15-37 [facility] No Panel InformationOrdered By: Jeffery Hemphill on 03-30-2023 Prostate Specific Antigen Screen 1.35 ng/mL 0.00-4.00 [facility] Comment on above: This test was perfor med using the TPSA assay method for theBioVidria chemistry system. Values obtained with differentassay methods cannot be used interchangably.When changing PSA assays in the course of monitoring apatient, additional sequential testing should be carriedout to confirm baseline values. Glucose Glucometer (BldC) [M ass/Vol]Ordered By: Dr. Hemphill on 11-12-2022 Glucose [Mass/Vol] 137 mg/dL 74-106 [facility] Comment on above: MANAGEMENT OF PATIEN T CARE PER NURSING PROTOCOL Culture, urineOrdered By: Dr Brandee Grissom on 11-04-2022 Bacteria identified Cx Nom (U) Culture exhibits no growth. [facility] Absolute lymphocyte countOrd ered By: Dr. Grissom on 11-02-2022 Lymphocytes Auto (Unsp spec) [#/Vol] 1.72 10*3/uL 0.83-4.51 [facility] Basophil percentageOrdered B y: Dr. Grissom on 11-02-2022 Basophils/100 WBC (Bld) 0.4 % 0-1 [facility] Bilirubin [Mass/Vol] 2.00 mg/dL 0.20-1.00 [facility] Comment on above: For patients on eltr ombopag therapy, use of Dimension [place] TBIL is not recommended. Chloride [Moles/Vol] 101 mmol/L 98-107 [facility] Eosinophils/100 WBC (Bld) 0.3 % 0-5 [facility] Glucose [Mass/Vol] 204 mg/dL 74-106 [facility] Comment on above: Glucose result great er than or equal to 200 mg/dLsuggests DIABETES MELLITUS per A.D.A. criteria. Neutrophils (Bld) [#/Vol] 11.4 10*3/uL 2.0-7.7 [facility] Neutrophils/100 WBC (Bld) 78.5 % 47-70 [facility] Potassium [Moles/Vol] 3.8 mmol/L 3.5-5.1 [facility] Sodium [Moles/Vol] 137 mmol/L 136-145 [facility] WBC (Bld) [#/Vol] 14.5 10*3/uL 4.4-11.0 [facility] Basophil percentage 5-10 SEEN /hpf 0-5 [facility] Bilirubin Test strip Ql (U)O rdered By: Dr. Grissom on 11-02-2022 Bilirubin Ql (U) 3 mg/dL Negative [facility] Comment on above: COLOR OF URINE MAY A FFECT DIPSTICK RESULTS. Blood erythrocytes count (nu mber/volume)Ordered By: Dr. Grissom on 11-02-2022 RBC (Bld) [#/Vol] 4.25 10*6/uL 4.6-6.2 [facility] Blood hemoglobin measurement (mass/volume)Ordered By: Dr. Grissom on 11-02-2022 Hemoglobin (Bld) [Mass/Vol] 13.3 g/dL 13.0-16.5 [facility] Blood lymphocytes/100 leukoc ytesOrdered By: Dr. Grissom on 11-02-2022 Lymphocytes/100 WBC (Bld) 11.8 % 19-41 [facility] Blood monocytes/100 leukocyt esOrdered By: Dr. Grissom on 11-02-2022 Monocytes/100 WBC (Bld) 8.5 % 0-10 [facility] Blood platelet mean volumeOr dered By: Dr. Grissom on 11-02-2022 Platelet mean volume (Bld) [Entitic vol] 10.3 fL 6.2-12.0 [facility] Determination of erythrocyte mean corpuscular volume (MCV)Ordered By: Dr. Grissom on 11-02-2022 MCV (RBC) [Entitic vol] 93.4 fL 80-94 [facility] Hematocrit Auto (Bld) [Volum e fraction]Ordered By: Dr. Grissom on 11-02-2022 Hematocrit (Bld) [Volume fraction] 39.7 % 40-54 [facility] Ketones Test strip Ql (U)Ord ered By: Dr. Grissom on 11-02-2022 Ketones Ql (U) 15 mg/dl Negative [facility] Laboratory - Chemistry and C hemistry - challengeOrdered By: Dr. Grissom on 11-02-2022 ALP [Catalytic activity/Vol] 55 U/L 45-117 [facility] ALT [Catalytic activity/Vol] 23 U/L 16-61 [facility] CO2 [Moles/Vol] 28.0 mmol/L 21.0-32.0 [facility] Urea nitrogen/Creatinine [Mass ratio] 18.1 mg/mg 10-20 [facility] Laboratory - Hematology and Cell countsOrdered By: Dr. Grissom on 11-02-2022 Erythrocyte distribution width (RBC) [Entitic vol] 45.9 fL 35.1-43.9 [facility] Erythrocyte distribution width (RBC) [Ratio] 13.5 % 11.6-14.6 [facility] Immature granulocytes/100 WBC (Bld) 0.500 % 0.0-0.9 [facility] Comment on above: IG% - Immature Granu locytes (promyelocytes, myelocytes and metamyelocytes) > 1% indicates that a LEFT SHIFT is Present. MCH (RBC) [Entitic mass] 31.3 pg 27.0-32.0 [facility] Nucleated RBC/100 WBC (Bld) [Ratio] 0 % 0-5 [facility] MCHC Auto (RBC) [Mass/Vol]Or dered By: Dr. Grissom on 11-02-2022 MCHC (RBC) [Mass/Vol] 33.5 g/dL 32-36 [facility] Mucus LM Ql (Urine sed)Order ed By: Dr. Grissom on 11-02-2022 Mucus Ql (Urine sed) 0 SEEN /hpf [facility] Nitrite Test strip Ql (U)Ord ered By: Dr. Grissom on 11-02-2022 Nitrite Ql (U) Positive Negative [facility] No Panel InformationOrdered By: Dr. Grissom on 11-02-2022 Estimated Creatinine Clearance Calc 77.83 ml/min [facility] Estimated GFR (MDRD) Amer 117 mL/min >60 [facility] Comment on above: GFR Calc Estimated GFR (MDRD) Non-Af Amer 96 mL/min >60 [facility] Comment on above: Non- GFR Calc Thyroid Stimulating Hormone (TSH) 1.18 uIU/mL 0.358-3.74 [facility] Platelets bldOrdered By: Dr. Grissom on 11-02-2022 Platelets (Bld) [#/Vol] 200 10*3/uL 150-450 [facility] Protein Test strip Ql (U)Ord ered By: Dr. Grissom on 11-02-2022 Protein Ql (U) 30 mg/dl Negative [facility] Serum or plasma albumin eusebio urement (mass/volume)Ordered By: Dr. Grissom on 11-02-2022 Albumin [Mass/Vol] 3.5 g/dL 3.2-5.0 [facility] Serum or plasma calcium eusebio urement (mass/volume)Ordered By: Dr. Grissom on 11-02-2022 Calcium [Mass/Vol] 9.7 mg/dL 8.5-10.1 [facility] Serum or plasma creatinine m easurement (mass/volume)Ordered By: Dr. Grissom on 11-02-2022 Creatinine [Mass/Vol] 0.83 mg/dL 0.70-1.30 [facility] Comment on above: The validity of the calculated GFR & GFRAA in patients over 70 years has not been determined. Clinical correlation is essential. Serum or plasma urea nitroge n measurement (mass/volume)Ordered By: Dr. Grissom on 11-02-2022 Urea nitrogen [Mass/Vol] 15 mg/dL 7-18 [facility] Squamous epithelial cells de tection in urine sediment by light microscopyOrdered By: Dr. Grissom on 11-02-2022 Epithelial cells.squamous LM Ql (Urine sed) 0 SEEN /hpf 0-5 [facility] Thin prep Papanicolaou smear with manual screeningOrdered By: Dr. Grissom on 11-02-2022 Thin prep Papanicolaou smear with manual screening 8 5-15 [facility] Thin prep Papanicolaou smear with manual screening 21 U/L 15-37 [facility] Urine blood detectionOrdered By: Dr. Grissom on 11-02-2022 RBC Ql (U) 10 /ul Negative [facility] RBC Ql (U) 0 SEEN /hpf 0-5 [facility] Urine clarityOrdered By: Dr. Grissom on 11-02-2022 Clarity (U) Clear Clear [facility] Urine color determinationOrd ered By: Dr. Grissom on 11-02-2022 Color (U) Radha Yellow [facility] Urine glucose detectionOrder ed By: Dr. Grissom on 11-02-2022 Glucose Ql (U) Normal mg/dl Normal [facility] Urine leukocyte esterase det ection by dipstickOrdered By: Dr. Grissom on 11-02-2022 Leukocyte esterase Test strip Ql (U) 25 /ul Negative [facility] Urine pHOrdered By: Dr. Brittany gallardo on 11-02-2022 pH (U) 6.0 [pH] 5.0 - 8.0 [facility] Urine sediment bacteria coun t by microscopy (number/high power field)Ordered By: Dr. Grissom on 11-02-2022 Bacteria LM.HPF (Urine sed) [#/Area] 0 /[HPF] None Seen [facility] Urine specific gravity measu rementOrdered By: Dr. Grissom on 11-02-2022 Specific gravity (U) [Rel density] 1.015 1.002-1.030 [facility] Urobilinogen Auto test strip Ql (U)Ordered By: Dr. Grissom on 11-02-2022 Urobilinogen Ql (U) 4 mg/dl Normal [facility] Basophil percentageOrdered B y: Dr. Alonzo on 09-18-2022 Bilirubin [Mass/Vol] 1.20 mg/dL 0.20-1.00 [facility] Comment on above: For patients on eltr ombopag therapy, use of Dimension [place] TBIL is not recommended. Cholesterol [Mass/Vol] 131 mg/dL <200 [facility] Comment on above: <200 mg/dL Desirable 200-240 mg/dL Borderline >240 mg/dL High Risk Protein [Mass/Vol] 7.1 g/dL 6.4-8.2 [facility] Triglyceride [Mass/Vol] 173 mg/dL <199 [facility] Comment on above: The drugs N-Acetylcy steine and Metamizole may falsely depress this assay.Serum Triglycerides Reference Interval Normal <150 mg/dL Borderline high 150 - 199 mg/dL High 200 - 499 mg/dL Very High > or = 500 mg/dL Direct bilirubinOrdered By: Dr. Alonzo on 09-18-2022 Bilirubin.direct [Mass/Vol] 0.29 mg/dL 0.00-0.30 [facility] Laboratory - Chemistry and C hemistry - challengeOrdered By: Dr. Alonzo on 09-18-2022 ALP [Catalytic activity/Vol] 50 U/L 45-117 [facility] ALT [Catalytic activity/Vol] 34 U/L 16-61 [facility] Globulin (S) [Mass/Vol] 3.2 g/dL 2.2-4.2 [facility] Serum or plasma albumin eusebio urement (mass/volume)Ordered By: Dr. Alonzo on 09-18-2022 Albumin [Mass/Vol] 3.9 g/dL 3.2-5.0 [facility] Serum or plasma cholesterol in HDL measurement (mass/volume)Ordered By: Dr. Alonzo on 09-18-2022 Cholesterol in HDL [Mass/Vol] 37 mg/dL >40 [facility] Comment on above: The drugs N-Acetylcy steine and Metamizole may falsely depress this assay. Reference Range HDL <40 mg/dL Low HDL Cholesterol HDL >or= 60 mg/dL High HDL Cholesterol Serum or plasma cholesterol in VLDL measurement (mass/volume)Ordered By: Dr. Alonzo on 09-18-2022 Cholesterol in VLDL [Mass/Vol] 35 mg/dL 5-40 [facility] Serum or plasma low density lipoprotein (LDL) cholesterol measurement (mass/volume)Ordered By: Dr. Alonzo on 09-18-2022 Cholesterol in LDL [Mass/Vol] 59 mg/dL 0-130 [facility] Thin prep Papanicolaou smear with manual screeningOrdered By: Dr. Alonzo on 09-18-2022 Thin prep Papanicolaou smear with manual screening 17 U/L 15-37 [facility] Glucose Glucometer (BldC) [M ass/Vol]Ordered By: Dr. Montague on 07-17-2022 Glucose [Mass/Vol] 179 mg/dL 74-106 [facility] Comment on above: MANAGEMENT OF PATIEN T CARE PER NURSING PROTOCOL Basophil percentageOrdered B y: Dr. Montague on 07-14-2022 Chloride [Moles/Vol] 103 mmol/L 98-107 [facility] Glucose [Mass/Vol] 194 mg/dL 74-106 [facility] Comment on above: Fasting Glucose resu lt greater than or equal to 126 mg/dL suggests DIABETES MELLITUS per A.D.A. criteria. Potassium [Moles/Vol] 3.7 mmol/L 3.5-5.1 [facility] Sodium [Moles/Vol] 138 mmol/L 136-145 [facility] WBC (Bld) [#/Vol] 6.2 10*3/uL 4.4-11.0 [facility] Blood erythrocytes count (nu mber/volume)Ordered By: Dr. Montague on 07-14-2022 RBC (Bld) [#/Vol] 4.27 10*6/uL 4.6-6.2 [facility] Blood hemoglobin measurement (mass/volume)Ordered By: Dr. Montague on 07-14-2022 Hemoglobin (Bld) [Mass/Vol] 13.8 g/dL 13.0-16.5 [facility] Blood platelet mean volumeOr dered By: Dr. Montague on 07-14-2022 Platelet mean volume (Bld) [Entitic vol] 10.3 fL 6.2-12.0 [facility] Determination of erythrocyte mean corpuscular volume (MCV)Ordered By: Dr. Montague on 07-14-2022 MCV (RBC) [Entitic vol] 95.6 fL 80-94 [facility] Hematocrit Auto (Bld) [Volum e fraction]Ordered By: Dr. Montague on 07-14-2022 Hematocrit (Bld) [Volume fraction] 40.8 % 40-54 [facility] Laboratory - Chemistry and C hemistry - challengeOrdered By: Dr. Montague on 07-14-2022 CO2 [Moles/Vol] 29.0 mmol/L 21.0-32.0 [facility] Urea nitrogen/Creatinine [Mass ratio] 21.2 mg/mg 10-20 [facility] Laboratory - Hematology and Cell countsOrdered By: Dr. Montague on 07-14-2022 Erythrocyte distribution width (RBC) [Entitic vol] 42.4 fL 35.1-43.9 [facility] Erythrocyte distribution width (RBC) [Ratio] 12.1 % 11.6-14.6 [facility] MCH (RBC) [Entitic mass] 32.3 pg 27.0-32.0 [facility] MCHC Auto (RBC) [Mass/Vol]Or dered By: Dr. Montague on 07-14-2022 MCHC (RBC) [Mass/Vol] 33.8 g/dL 32-36 [facility] No Panel InformationOrdered By: Dr. Montague on 07-14-2022 Estimated GFR (MDRD) Amer 122 mL/min >60 [facility] Comment on above: GFR Calc Estimated GFR (MDRD) Non-Af Amer 101 mL/min >60 [facility] Comment on above: Non- GFR Calc Platelets bldOrdered By: Dr. Montague on 07-14-2022 Platelets (Bld) [#/Vol] 211 10*3/uL 150-450 [facility] Serum or plasma calcium eusebio urement (mass/volume)Ordered By: Dr. Montague on 07-14-2022 Calcium [Mass/Vol] 9.4 mg/dL 8.5-10.1 [facility] Serum or plasma creatinine m easurement (mass/volume)Ordered By: Dr. Montague on 07-14-2022 Creatinine [Mass/Vol] 0.80 mg/dL 0.70-1.30 [facility] Comment on above: The validity of the calculated GFR & GFRAA in patients over 70 years has not been determined. Clinical correlation is essential. Serum or plasma urea nitroge n measurement (mass/volume)Ordered By: Dr. Montague on 07-14-2022 Urea nitrogen [Mass/Vol] 17 mg/dL 7-18 [facility] Thin prep Papanicolaou smear with manual screeningOrdered By: Dr. Montague on 07-14-2022 Thin prep Papanicolaou smear with manual screening 6 5-15 [facility] Absolute lymphocyte counton 05-05-2022 Lymphocytes Auto (Unsp spec) [#/Vol] 1.56 10*3/uL 0.83-4.51 [facility] Work Phone: Basophil percentageon 2021 Basophils/100 WBC (Bld) 1.2 % 0-1 [facility] Work Phone: Bilirubin [Mass/Vol] 1.70 mg/dL 0.20-1.00 [facility] Work Phone: Comment on above: For patients on eltr ombopag therapy, use of Dimension [place] TBIL is not recommended. Chloride [Moles/Vol] 103 mmol/L 98-107 [facility] Work Phone: Eosinophils/100 WBC (Bld) 2.6 % 0-5 [facility] Work Phone: Glucose [Mass/Vol] 192 mg/dL 74-106 [facility] Work Phone: Comment on above: Fasting Glucose resu lt greater than or equal to 126 mg/dL suggests DIABETES MELLITUS per A.D.A. criteria. Neutrophils (Bld) [#/Vol] 3.5 10*3/uL 2.0-7.7 [facility] Work Phone: Neutrophils/100 WBC (Bld) 60.4 % 47-70 [facility] Work Phone: Potassium [Moles/Vol] 3.7 mmol/L 3.5-5.1 [facility] Work Phone: Protein [Mass/Vol] 7.4 g/dL 6.4-8.2 [facility] Work Phone: Sodium [Moles/Vol] 138 mmol/L 136-145 [facility] Work Phone: WBC (Bld) [#/Vol] 5.8 10*3/uL 4.4-11.0 [facility] Work Phone: Blood erythrocytes count (nu mber/volume)on 05-05-2022 RBC (Bld) [#/Vol] 4.53 10*6/uL 4.6-6.2 [facility] Work Phone: Blood hemoglobin measurement (mass/volume)on 05-05-2022 Hemoglobin (Bld) [Mass/Vol] 14.7 g/dL 13.0-16.5 [facility] Work Phone: Blood lymphocytes/100 leukoc yteson 05-05-2022 Lymphocytes/100 WBC (Bld) 27.0 % 19-41 [facility] Work Phone: Blood monocytes/100 leukocyt eson 05-05-2022 Monocytes/100 WBC (Bld) 8.5 % 0-10 [facility] Work Phone: [phone] Blood platelet mean volumeon 05-05-2022 Platelet mean volume (Bld) [Entitic vol] 10.4 fL 6.2-12.0 [facility] Work Phone: [phone] Determination of erythrocyte mean corpuscular volume (MCV)on 05-05-2022 MCV (RBC) [Entitic vol] 94.3 fL 80-94 [facility] Work Phone: [phone] Hematocrit Auto (Bld) [Volum e fraction]on 05-05-2022 Hematocrit (Bld) [Volume fraction] 42.7 % 40-54 [facility] Work Phone: [phone] Laboratory - Chemistry and C hemistry - challengeon 05-05-2022 ALP [Catalytic activity/Vol] 49 U/L 45-117 [facility] Work Phone: [phone] ALT [Catalytic activity/Vol] 36 U/L 16-61 [facility] Work Phone: [phone] CO2 [Moles/Vol] 30.0 mmol/L 21.0-32.0 [facility] Work Phone: [phone] Globulin (S) [Mass/Vol] 3.3 g/dL 2.2-4.2 [facility] Work Phone: [phone] Urea nitrogen/Creatinine [Mass ratio] 18.0 mg/mg 10-20 [facility] Work Phone: [phone] Laboratory - Hematology and Cell countson 05-05-2022 Erythrocyte distribution width (RBC) [Entitic vol] 42.4 fL 35.1-43.9 [facility] Work Phone: [phone] Erythrocyte distribution width (RBC) [Ratio] 12.2 % 11.6-14.6 [facility] Work Phone: [phone] Immature granulocytes/100 WBC (Bld) 0.300 % 0.0-0.9 [facility] Work Phone: [phone] Comment on above: IG% - Immature Granu locytes (promyelocytes, myelocytes and metamyelocytes) > 1% indicates that a LEFT SHIFT is Present. MCH (RBC) [Entitic mass] 32.5 pg 27.0-32.0 [facility] Work Phone: [phone] Nucleated RBC/100 WBC (Bld) [Ratio] 0 % 0-5 [facility] Work Phone: [phone] MCHC Auto (RBC) [Mass/Vol]on 05-05-2022 MCHC (RBC) [Mass/Vol] 34.4 g/dL 32-36 [facility] Work Phone: [phone] No Panel Informationon 05-05 Estimated GFR (MDRD) Amer 108 mL/min >60 [facility] Work Phone: [phone] Comment on above: GFR Calc Estimated GFR (MDRD) Non-Af Amer 90 mL/min >60 [facility] Work Phone: [phone] Comment on above: Non- GFR Calc Thyroid Stimulating Hormone (TSH) 1.44 uIU/mL 0.358-3.74 [facility] Work Phone: [phone] Vitamin D 25-Hydroxy 38.6 ng/mL [facility] Work Phone: [phone] Comment on above: Vitamin D 25(OH) Sta tus Range Deficiency <20 ng/mL (50nmol/L) Insufficiency 20 - 30 ng/mL (50 - 75 nmol/L) Sufficiency 30 - 100 ng/mL (75 - 250 nmol/L) Toxicity >100 ng/mL (>250 nmol/L) Platelets bldon 05-05-2022 Platelets (Bld) [#/Vol] 206 10*3/uL 150-450 [facility] Work Phone: [phone] Serum or plasma albumin eusebio urement (mass/volume)on 05-05-2022 Albumin [Mass/Vol] 4.1 g/dL 3.2-5.0 [facility] Work Phone: [phone] Serum or plasma albumin/glob ulin mass ratioon 05-05-2022 Albumin/Globulin [Mass ratio] 1.2 {ratio} 0.9-2.4 [facility] Work Phone: [phone] Serum or plasma calcium eusebio urement (mass/volume)on 05-05-2022 Calcium [Mass/Vol] 9.9 mg/dL 8.5-10.1 [facility] Work Phone: [phone] Serum or plasma creatinine m easurement (mass/volume)on 05-05-2022 Creatinine [Mass/Vol] 0.89 mg/dL 0.70-1.30 [facility] Work Phone: Comment on above: The validity of the calculated GFR & GFRAA in patients over 70 years has not been determined. Clinical correlation is essential. Serum or plasma urea nitroge n measurement (mass/volume)on 05-05-2022 Urea nitrogen [Mass/Vol] 16 mg/dL 7-18 [facility] Work Phone: [phone] Thin prep Papanicolaou smear with manual screeningon 05-05-2022 Thin prep Papanicolaou smear with manual screening 18 U/L 15-37 [facility] Work Phone: Thin prep Papanicolaou smear with manual screening 5 5-15 [facility] Work Phone: [phone] Basophil percentageon 2021 Bilirubin [Mass/Vol] 1.90 mg/dL 0.20-1.00 [facility] Work Phone: Comment on above: For patients on eltr ombopag therapy, use of Dimension [place] TBIL is not recommended. Cholesterol [Mass/Vol] 128 mg/dL <200 [facility] Work Phone: Comment on above: <200 mg/dL Desirable 200-240 mg/dL Borderline >240 mg/dL High Risk Protein [Mass/Vol] 7.3 g/dL 6.4-8.2 [facility] Work Phone: [phone] Triglyceride [Mass/Vol] 160 mg/dL <199 [facility] Work Phone: Comment on above: The drugs N-Acetylcy steine and Metamizole may falsely depress this assay.Serum Triglycerides Reference Interval Normal <150 mg/dL Borderline high 150 - 199 mg/dL High 200 - 499 mg/dL Very High > or = 500 mg/dL Direct bilirubinon Bilirubin.direct [Mass/Vol] 0.32 mg/dL 0.00-0.30 [facility] Work Phone: Laboratory - Chemistry and C hemistry - challengeon 03-14-2022 ALP [Catalytic activity/Vol] 46 U/L 45-117 [facility] Work Phone: ALT [Catalytic activity/Vol] 40 U/L 16-61 [facility] Work Phone: Globulin (S) [Mass/Vol] 3.2 g/dL 2.2-4.2 [facility] Work Phone: Serum or plasma albumin eusebio urement (mass/volume)on 03-14-2022 Albumin [Mass/Vol] 4.1 g/dL 3.2-5.0 [facility] Work Phone: Serum or plasma cholesterol in HDL measurement (mass/volume)on 03-14-2022 Cholesterol in HDL [Mass/Vol] 40 mg/dL >40 [facility] Work Phone: Comment on above: The drugs N-Acetylcy steine and Metamizole may falsely depress this assay. Reference Range HDL <40 mg/dL Low HDL Cholesterol HDL >or= 60 mg/dL High HDL Cholesterol Serum or plasma cholesterol in VLDL measurement (mass/volume)on 03-14-2022 Cholesterol in VLDL [Mass/Vol] 32 mg/dL 5-40 [facility] Work Phone: Serum or plasma low density lipoprotein (LDL) cholesterol measurement (mass/volume)on 03-14-2022 Cholesterol in LDL [Mass/Vol] 56 mg/dL 0-130 [facility] Work Phone: Thin prep Papanicolaou smear with manual screeningon 03-14-2022 Thin prep Papanicolaou smear with manual screening 25 U/L 15-37 [facility] Work Phone: Comment on above: Slight Hemolysis, Re sult may be falsely increased. HGB A1C [CCL]on 07-17-2021 Glucose [Mass/Vol] 143 mg/dL Normal [facility] Comment on above: Result Comment: eAG: (Estimated average glucose) is a calculated value from HgbA1c and is assistance representative of the average blood glucose level in the last 2-[address] [facility] [address] [place] [address] Warner Yousif III, M.D. [id number] Performed By: #### [id number] #### [address] [address] HbA1c (Bld) [Mass fraction] 6.6 % High 4.3-5.6 [facility] Comment on above: Result Comment: [place] Diabetes Association guidelines indicate that patients with HgbA1c in the range 5.7-6.4% are at increased risk for development of diabetes, and intervention by lifestyle modification may be beneficial. HgbA1c greater or equal to 6.5% is considered diagnostic of diabetes. Performed By: #### [id number] #### [place] [id number] Hemoglobin A1con 07-17-2021 Glucose [Mass/Vol] 143 mg/dL Normal [facility] Comment on above: Performed By: #### H BA1C #### [facility] Routine Lab [address] [place] [id number] HbA1c (Bld) [Mass fraction] 6.6 % High 4.3-5.6 [facility] Comment on above: Performed By: #### H BA1C #### [facility] Routine Lab [address] [place] [id number] Lab Report: Lipid Profileon 10-26-2017 Cholesterol 143 mg/dL Invalid Interpretation Code [address] [facility] Work Phone: [phone] HDL Cholesterol 46 mg/dL Invalid Interpretation Code [facility] Work Phone: [phone] LDL Cholesterol 64 mg/dL Invalid Interpretation Code 0-130 [facility] Work Phone: [phone] Triglyceride 163 mg/dL Invalid Interpretation Code [facility] Work Phone: very low density lipoproteins 33 mg/dL Invalid Interpretation Code 5-40 [facility] Work Phone: [phone] Lab Report: Liver Profileon 10-26-2017 Alanine aminotransferase (ALT) 48 U/L Invalid Interpretation Code 12-78 [facility] Work Phone: [phone] Albumin 4.1 g/dL Invalid Interpretation Code 3.4-5.0 [facility] Work Phone: [phone] Alkaline phosphatase (ALP) 51 U/L Invalid Interpretation Code 45-117 [facility] Work Phone: [phone] Aspartate aminotransferase (AST) 25 U/L Invalid Interpretation Code 15-37 [facility] Work Phone: [phone] Bilirubin (direct) 0.31 mg/dL High 0.00-0.30 [facility] [facility] Work Phone: [phone] Bilirubin (total) 2.00 mg/dL High 0.20-1.00 [facility] Work Phone: [phone] Globulin 3.3 g/dL Invalid Interpretation Code 2.2-4.2 [facility] Work Phone: [phone] Protein 7.4 g/dL Invalid Interpretation Code 6.4-8.2 [facility] Work Phone: [phone] Office Visit: [facility] 04-09-20 17 Documentation of current medications (procedure) Done Invalid Interpretation Code [facility] Work Phone: [phone] Fall risk assessment No Invalid Interpretation Code [facility] Work Phone: [phone] Protein mass conc Done [facility] Work Phone: [phone] Lab Report: Lipid Profileon 03-26-2017 Cholesterol in HDL mass conc 39 mg/dL Low [facility] Work Phone: [phone] Cholesterol in LDL mass conc 76 mg/dL 0-130 [facility] Work Phone: [phone] Cholesterol mass conc 140 mg/dL [address] [facility] Work Phone: [phone] Lipoprotein.pre-beta mass conc 25 mg/dL 5-40 [facility] Work Phone: [phone] Triglyceride mass conc 125 mg/dL [facility] Work Phone: [phone] Lab Report: Liver Profileon 03-26-2017 Albumin mass conc 4.1 g/dL 3.4-5.0 [facility] Work Phone: [phone] Alkaline phosphatase (ALP) 51 U/L Invalid Interpretation Code 45-117 [facility] Work Phone: [phone] ALP enzyme act/vol (Bld) 51 U/L 45-117 [facility] Work Phone: [phone] ALT enzyme act/vol 41 U/L 12-78 [facility] Work Phone: [phone] AST enzyme act/vol 21 U/L 15-37 [facility] Work Phone: [phone] Bilirubin mass conc 1.70 mg/dL High 0.20-1.00 [facility] Work Phone: [phone] Bilirubin.direct mass conc 0.30 mg/dL 0.00-0.30 [facility] Work Phone: [phone] Globulin 3.2 g/dL Invalid Interpretation Code 2.3-3.5 [facility] Work Phone: [phone] Globulin mass conc (S) 3.2 g/dL 2.3-3.5 [facility] Work Phone: [phone] Protein mass conc 7.3 g/dL 6.4-8.2 [facility] Work Phone: [phone] Office Visiton 10-07-2016 Documentation of current medications (procedure) Done Invalid Interpretation Code [facility] Work Phone: [phone] Protein mass conc Done [facility] Work Phone: [phone] Tobacco smoking status NHIS Tobacco smoking status NHIS Invalid Interpretation Code [facility] Work Phone: [phone] Tobacco smoking status NHIS Former smoker [facility] Work Phone: [phone] Tobacco use [facility] Former smoker Invalid Interpretation Code [facility] Work Phone: [phone] Append: CR Referralon 2015 Clinical consultation report (record artifact) [id number]^08/12 Invalid Interpretation Code [facility] Work Phone: [phone] Clinical Lists Update: 09-22-2016 Left ventricular Ejection fraction 50 % Invalid Interpretation Code [facility] Work Phone: [phone] Clinical Lists Update: 08-27-2016 Anion gap 9 mmol/L Invalid Interpretation Code [facility] Work Phone: [phone] Anion gap molar conc 9 mmol/L [facility] Work Phone: [phone] Calcium mass conc 8.9 mg/dL Invalid Interpretation Code [facility] Work Phone: [phone] Chloride molar conc 108 mmol/L High [facility] Work Phone: [phone] CO2 26.0 mmol/L Invalid Interpretation Code [facility] Work Phone: [phone] CO2 ppres (BldV) 26.0 mmol/L [facility] Work Phone: [phone] Creatinine mass conc 0.80 mg/dL Invalid Interpretation Code [facility] Work Phone: [phone] Erythrocyte distribution width Ratio (RBC) 12.5 % [facility] Work Phone: [phone] Erythrocytes (RBC) 4.24 10*6/uL [facility] Work Phone: [phone] Globulin 3.3 g/dL Invalid Interpretation Code [facility] Work Phone: [phone] Globulin mass conc (S) 3.3 g/dL [facility] Work Phone: [phone] Glucose 158 mg/dL High [facility] Work Phone: [phone] Glucose mass conc 158 mg/dL High [facility] Work Phone: [phone] Hematocrit (HCT) 40.1 % Invalid Interpretation Code [facility] Work Phone: [phone] Hematocrit Volume Fraction (Bld) 40.1 % [facility] Work Phone: [phone] Hemoglobin A1c/Hemoglobin.total mass fraction (Bld) 6.2 % Invalid Interpretation Code [facility] Work Phone: [phone] Hemoglobin mass conc (Bld) 13.5 g/dL Invalid Interpretation Code [facility] Work Phone: [phone] MCH 31.8 pg Invalid Interpretation Code [facility] Work Phone: [phone] Entitic mass (RBC) 31.8 pg [facility] Work Phone: [phone] MCHC 33.7 g/dL Invalid Interpretation Code [facility] Work Phone: [phone] MCHC mass conc (RBC) 33.7 g/dL [facility] Work Phone: [phone] MCV 94.6 fL High [facility] Work Phone: [phone] MCV Entitic volume (RBC) 94.6 fL High [facility] Work Phone: [phone] Platelet mean volume Entitic volume (Bld) 10.8 fL [facility] Work Phone: [phone] Platelets 188 10*3/mm3 Invalid Interpretation Code [facility] Work Phone: [phone] Platelets #/vol (Bld) 188 10*3/mm3 [facility] Work Phone: [phone] PMV by Marisa 10.8 fL Invalid Interpretation Code [facility] Work Phone: [phone] Potassium molar conc 4.1 mmol/L Invalid Interpretation Code [facility] Work Phone: [phone] RBC #/vol (Bld) 4.24 10*6/uL Low [facility] Work Phone: [phone] RDW-CA 12.5 % Invalid Interpretation Code [facility] Work Phone: [phone] Sodium molar conc 143 mmol/L Invalid Interpretation Code [facility] Work Phone: [phone] Thyrotropin Qn 0.97 u[iU]/mL Invalid Interpretation Code [facility] Work Phone: [phone] Urea nitrogen mass conc 21 mg/dL High [facility] Work Phone: [phone] Urea nitrogen/Creatinine mass ratio 26.2 mg/mg High [facility] Work Phone: [phone] WBC #/vol (Bld) 5.6 10*3/uL [facility] Work Phone: WBC (Leukocytes) 5.6 10*3/uL Invalid Interpretation Code [facility] Work Phone: Replaced Document: Letha Franklin 08-12-2016 EKG QRS axis -29 deg [facility] Work Phone: electrocardiogram interpretation Sinus Bradycardia - frequent PAC s # PACs = 2.-Inferior infarct -probably not recent -Poor R-wave progression -nonspecific -consider old anterior infarct. ABNORMAL Invalid Interpretation Code [facility] Work Phone: GE use only - for [employer] import when terms are not otherwise specified 364 ms Invalid Interpretation Code [facility] Work Phone: Interpretation Sinus Bradycardia - frequent PAC s # PACs = 2.-Inferior infarct -probably not recent -Poor R-wave progression -nonspecific -consider old anterior infarct. ABNORMAL [facility] Work Phone: P Safford 26 deg [facility] Work Phone: P wave axis, electrocardiogram 26 deg Invalid Interpretation Code [facility] Phone: ND Interval 194 ms [facility] Work Phone: ND interval, electrocardiogram 194 ms Invalid Interpretation Code [facility] Phone: Pulse (Heart Rate) 55 /min Invalid Interpretation Code [facility] Phone: QRS axis, electrocardiogram -29 deg Invalid Interpretation Code [facility] Phone: QRS Duration 102 ms [facility] Work Phone: QRS duration, electrocardiogram 102 ms Invalid Interpretation Code [facility] Phone: QT Interval new path ms [facility] Work Phone: QT interval, electrocardiogram new path ms Invalid Interpretation Code [facility] Phone: QTc Martin 364 ms [facility] Work Phone: T Safford -1 deg [facility] Work Phone: T wave axis, electrocardiogram -1 deg Invalid Interpretation Code [employer] Phone: Office Visit: [facility] 04-08-20 16 Dietary management education, guidance, and counseling (procedure) yes Invalid Interpretation Code [facility] Work Phone: [phone] Office Visiton 09-26-2014 cardiac risk group C Invalid Interpretation Code [facility] Work Phone: [phone] General cardiovascular disease 10Y risk [#] [place] N/A Invalid Interpretation Code [facility] Work Phone: [phone] Replaced Document: [facility] CG Observationson 08-05-2013 Pulse (Heart Rate) 395 ms Invalid Interpretation Code [facility] Work Phone: [phone] Lab Report: MGon 12-08-2011 Magnesium mass conc 2.1 mg/dL Normal 1.5-2.2 [facility] Work Phone: [phone] Lab Report: PTon 12-08-2011 INR Coag RelTime (PPP) 1.0 {INR} Normal [facility] Work Phone: [phone] INR in blood by coagulation 1.0 {INR} Normal [facility] Work Phone: [phone] prothrombin time, actual/normal, ratio 12.9 SECONDS Normal 11.9-14.4 [facility] Work Phone: [phone] PTP 12.9 SECONDS Normal 11.9-14.4 [facility] Work Phone: [phone] Lab Report: PTTon 12-08-2011 aPTT Coag time (Bld) 28.4 s Normal 24.1-36.[address] [facility] [address] [facility] Work Phone: [phone] Lab Report: T4on 12-08-2011 T4 mass conc 9.2 ug/dL Normal 4.5-12.1 [facility] Work Phone: [phone] Office Visiton 12-08-2011 Alcoholism counseling (procedure) no Invalid Interpretation Code [facility] Work Phone: [phone] Protein mass conc no [facility] Work Phone: [phone] Vital Signs Date Time Vital Sign Value Performing Clinician Faci lity 04-21-2025 06:38-0400 Body mass index (BMI) [Ratio] 27.8 kg/m2 Dr. Torito Azul MD Work Phone: [facility] 04-21-2025 06:38-0400 Body weight [address] Torito Azul MD Work Phone: 9(653)844-197289 [place] [address] 04-21-2025 06:38-0400 Diastolic blood pressure 87 mm[Hg] Dr. Torito Azul MD Work Phone: 2(214)888-179889 [place] [address] 04-21-2025 06:38-0400 Heart rate 54 /min Dr. Torito Azul MD Work Phone: 8(278)717-312389 [place] [address] 04-21-2025 06:38-0400 Respiratory rate 16 /min Dr. Torito Azul MD Work Phone: 4(911)517-589095 [place] [address] 04-21-2025 06:38-0400 SaO2% (BldA) [Mass fraction] 96 % Dr. Torito Azul MD Work Phone: 9(902)669-088495 [place] [address] 04-21-2025 06:38-0400 Systolic blood pressure 160 mm[Hg] Dr. Torito Azul MD Work Phone: 8(575)893-615889 [place] [address] 02-20-2025 13:39-0400 Body height 172.[address] Torito Azul MD Work Phone: 6(324)008-339495 [place] [address] 02-20-2025 13:39-0400 Body mass index (BMI) [Ratio] 28.7 kg/m2 Dr. Torito Azul MD Work Phone: 9(124)667-868089 [place] [address] 02-20-2025 13:39-0400 Body weight 85.[address] Torito Azul MD Work Phone: 3(113)548-891789 [place] [address] 02-20-2025 13:39-0400 Diastolic blood pressure 77 mm[Hg] Dr. Torito Azul MD Work Phone: 2(093)775-106189 [place] [address] 02-20-2025 13:39-0400 Heart rate 75 /min Dr. Torito Azul MD Work Phone: 0(060)187-270089 [place] [address] 02-20-2025 13:39-0400 Respiratory rate 18 /min Dr. Torito Azul MD Work Phone: [facility] 02-20-2025 13:39-0400 Systolic blood pressure 153 mm[Hg] Dr. Torito Azul MD Work Phone: [facility] 09-03-2023 08:31-0500 Body height [address] Torito Azul Work Phone: [facility] 09-03-2023 08:27-0500 Body mass index (BMI) [Ratio] 29.3 kg/m2 Dr. Torito Azul Work Phone: [facility] 09-03-2023 08:27-0500 Body weight 87.[address] Torito Azul Work Phone: [facility] 09-03-2023 08:27-0500 Diastolic blood pressure 78 mm[Hg] Dr. Torito Azul Work Phone: [facility] 09-03-2023 08:27-0500 Heart rate 59 /min Dr. Torito Azul Work Phone: [facility] 09-03-2023 08:27-0500 Respiratory rate 18 /min Dr. Torito Azul Work Phone: [facility] 09-03-2023 08:27-0500 SaO2% (BldA) [Mass fraction] 98 % Dr. Torito Azul Work Phone: [facility] 09-03-2023 08:27-0500 Systolic blood pressure 144 mm[Hg] Dr. Torito Azul Work Phone: [facility] 11-13-2022 09:12-0500 Body temperature 98 [degF] Dr. Torito Azul Work Phone: [facility] 11-13-2022 09:12-0500 Diastolic blood pressure 68 mm[Hg] Dr. Torito Azul Work Phone: [facility] 11-13-2022 09:12-0500 Heart rate 76 /min Dr. Torito Azul Work Phone: [facility] 11-13-2022 09:12-0500 Respiratory rate 18 /min Dr. Torito Azul Work Phone: [facility] 11-13-2022 09:12-0500 SaO2% (BldA) [Mass fraction] 97 % Dr. Torito Azul Work Phone: [facility] 11-13-2022 09:12-0500 Systolic blood pressure 148 mm[Hg] Dr. Torito Azul Work Phone: [facility] 11-12-2022 11:16-0500 Body height [address] Torito Azul Work Phone: [facility] 11-12-2022 11:16-0500 Body mass index (BMI) [Ratio] 28.3 kg/m2 Dr. Torito Azul Work Phone: [facility] 11-12-2022 11:16-0500 Body weight [address] Torito Azul Work Phone: [facility] 11-12-2022 10:15-0500 Inhaled oxygen flow rate 4 L/min Dr. Torito Azul Work Phone: [facility] 11-02-2022 11:29-0500 Respiratory rate 18 /min Dr. Torito Azul Work Phone: [facility] 11-02-2022 08:36-0500 Body height 172.[address] Torito Azul Work Phone: [facility] 11-02-2022 08:36-0500 Body mass index (BMI) [Ratio] 29.4 kg/m2 Dr. Torito Azul Work Phone: [facility] 11-02-2022 08:36-0500 Body temperature 96.6 [degF] Dr. Torito Azul Work Phone: [facility] 11-02-2022 08:36-0500 Body weight 87.[address] Torito Azul Work Phone: [facility] 11-02-2022 08:36-0500 Diastolic blood pressure 75 mm[Hg] Dr. Torito Azul Work Phone: 0(933)906-708698 [place] [address] 11-02-2022 08:36-0500 Heart rate 75 /min Dr. Torito Azul Work Phone: 2(260)923-690689 [place] [address] 11-02-2022 08:36-0500 SaO2% (BldA) [Mass fraction] 94 % Dr. Torito Azul Work Phone: 0(179)391-933089 [place] [address] 11-02-2022 08:36-0500 Systolic blood pressure 122 mm[Hg] Dr. Torito Azul Work Phone: 6(154)785-678595 [place] [address] 09-23-2022 08:29-0500 Body mass index (BMI) [Ratio] 29.5 kg/m2 Dr. Torito Azul Work Phone: 0(935)805-840395 [place] [address] 09-23-2022 08:29-0500 Body weight 87.[address] Torito Azul Work Phone: 3(773)467-484195 [place] [address] 09-23-2022 08:29-0500 Diastolic blood pressure 86 mm[Hg] Dr. Torito Azul Work Phone: 3(196)638-414795 [place] [address] 09-23-2022 08:29-0500 Heart rate 74 /min Dr. Torito Azul Work Phone: 1(205)358-840495 [place] [address] 09-23-2022 08:29-0500 Respiratory rate 18 /min Dr. Torito Azul Work Phone: 1(902)070-982695 [place] [address] 09-23-2022 08:29-0500 SaO2% (BldA) [Mass fraction] 97 % Dr. Torito Azul Work Phone: 2(926)232-407348 [address] 09-23-2022 08:29-0500 Systolic blood pressure 132 mm[Hg] Dr. Torito Azul Work Phone: 6(680)179-958889 [place] [address] 07-17-2022 14:35-0400 Body temperature 97.1 [degF] Dr. Torito Azul Work Phone: 7(322)077-793189 [place] [address] 07-17-2022 14:35-0400 Diastolic blood pressure 66 mm[Hg] Dr. Torito Azul Work Phone: 8(420)428-877689 [place] [address] 07-17-2022 14:35-0400 Heart rate 63 /min Dr. Torito Azul Work Phone: [facility] 07-17-2022 14:35-0400 Respiratory rate 18 /min Dr. Torito Azul Work Phone: [facility] 07-17-2022 14:35-0400 SaO2% (BldA) [Mass fraction] 97 % Dr. Torito Azul Work Phone: [facility] 07-17-2022 14:35-0400 Systolic blood pressure 127 mm[Hg] Dr. Torito Azul Work Phone: [facility] 07-17-2022 09:18-0400 Body height 172.[address] Torito Azul Work Phone: [facility] Work Phone: 07-17-2022 09:18-0400 Body mass index (BMI) [Ratio] 29.1 kg/m2 Dr. Torito Azul Work Phone: [facility] 07-17-2022 09:18-0400 Body weight 86.[address] Torito Azul Work Phone: [facility] 05-13-2022 13:24-0400 Body height 172.[address] Torito Azul Work Phone: [facility] Work Phone: 05-13-2022 13:24-0400 Body mass index (BMI) [Ratio] 28.9 kg/m2 Dr. Torito Azul Work Phone: [facility] Work Phone: 05-13-2022 13:24-0400 Body temperature 98.2 [degF] Dr. Torito Azul Work Phone: [facility] Work Phone: 05-13-2022 13:24-0400 Body weight 86.[address] Torito Azul Work Phone: [facility] Work Phone: 05-13-2022 13:24-0400 Diastolic blood pressure 74 mm[Hg] Dr. Torito Azul Work Phone: [facility] Work Phone: 05-13-2022 13:24-0400 Heart rate 70 /min Dr. Torito Azul Work Phone: [facility] Work Phone: 05-13-2022 13:24-0400 Respiratory rate 18 /min Dr. Torito Azul Work Phone: [facility] Work Phone: 05-13-2022 13:24-0400 SaO2% (BldA) [Mass fraction] 100 % Dr. Torito Azul Work Phone: [facility] Work Phone: 05-13-2022 13:24-0400 Systolic blood pressure 151 mm[Hg] Dr. Torito Azul Work Phone: [facility] Work Phone: 03-21-2022 08:23-0400 Body height 172.[address] Torito Azul Work Phone: [facility] Work Phone: 03-21-2022 08:23-0400 Body mass index (BMI) [Ratio] 29.2 kg/m2 Dr. Torito Azul Work Phone: [facility] Work Phone: 03-21-2022 08:23-0400 Body weight 87.[address] Torito Azul Work Phone: [facility] Work Phone: 03-21-2022 08:23-0400 Diastolic blood pressure 80 mm[Hg] Dr. Torito Azul Work Phone: [facility] Work Phone: 03-21-2022 08:23-0400 Heart rate 87 /min Dr. Torito Azul Work Phone: [facility] Work Phone: 03-21-2022 08:23-0400 Respiratory rate 18 /min Dr. Torito Azul Work Phone: [facility] Work Phone: 03-21-2022 08:23-0400 SaO2% (BldA) [Mass fraction] 97 % Dr. Torito Azul Work Phone: [facility] Work Phone: 03-21-2022 08:23-0400 Systolic blood pressure 125 mm[Hg] Dr. Torito Azul Work Phone: [facility] Work Phone: 04-09-2017 07:42-0400 BMI (Body Mass Index) 28.43 kg/m2 [facility] Work Phone: 04-09-2017 07:42-0400 BP Diastolic 70 mm[Hg] [facility] Work Phone: 04-09-2017 07:42-0400 BP Systolic 130 mm[Hg] [facility] Work Phone: 04-09-2017 07:42-0400 Height 172.72 cm [facility] Work Phone: 04-09-2017 07:42-0400 Pulse (Heart Rate) 64 /min [facility] Work Phone: 04-09-2017 07:42-0400 Respiratory Rate 18 /min [facility] Work Phone: 04-09-2017 07:42-0400 Weight 84.82 kg [facility] Work Phone: 10-07-2016 09:01-0500 BMI (Body Mass Index) 30.1 kg/m2 Elkin Alonzo MD [facility] Work Phone: 10-07-2016 09:01-0500 BP Diastolic 60 mm[Hg] Elkin Alonzo MD [facility] Work Phone: 10-07-2016 09:01-0500 BP Systolic 120 mm[Hg] Elkin Alonzo MD [facility] Work Phone: 10-07-2016 09:01-0500 BSA (Body Surface Area) 2.04 m2 Elkin Alonzo MD [facility] Work Phone: 10-07-2016 09:01-0500 Pulse (Heart Rate) 64 /min Elkin Alonzo MD [facility] Work Phone: 10-07-2016 09:01-0500 Respiratory Rate 20 /min Elkin Alonzo MD [facility] Work Phone: 10-07-2016 09:01-0500 Weight 89.81 kg Elkin Alonzo MD [facility] Work Phone: 08-12-2016 10:33-0500 Heart rate 55 /min Elkin Alonzo MD [facility] Work Phone: 03-28-2015 08:47-0400 BP Diastolic 92 mm[Hg] Elkin Alonzo MD [facility] Work Phone: 03-28-2015 08:47-0400 BP Systolic 150 mm[Hg] Elkin Alonzo MD [facility] Work Phone: 03-16-2014 11:49-0400 Height 172.72 cm Elkin Alonzo MD [facility] Work Phone: 08-05-2013 09:02-0400 Heart rate 395 ms Elkin Alonzo MD [facility] Work Phone: Encounters Encounter Date Encounter Type Care Provider Facility Start: 04-21-2025 End: 04-21-2025 Patient encounter procedure Karina HOLLIDAY -[facility] Work Phone: Start: 04-21-2025 End: 04-21-[address] Torito Azul MD Work Phone: -[facility] Start: 04-04-2025 ambulatory Karina HOLLIDAY Facility:[facility] Start: 04-04-2025 Non-patient / Non-visit [facility] Start: 03-31-2025 ambulatory Elkin Alonzo Facility:[facility] Start: 03-31-2025 Non-patient / Non-visit [facility] Start: 03-31-2025 End: 03-31-[address] Torito Azul MD Work Phone: -Cardiovascular Services Start: 03-31-2025 End: 03-31-2025 Patient encounter procedure Karina HOLLIDAY -Cardi[facility] Services Work Phone: Start: 03-31-2025 End: 03-31-2025 ambulatory Karina HOLLIDAY Facility:[facility] Start: 03-10-2025 Non-patient / Non-visit Dr. Kate su MD -[facility] Work Phone: Start: 03-10-2025 Patient encounter procedure Karina HOLLIDAY -Pulmonary Services/Neurology Work Phone: Start: 03-10-2025 ambulatory Kate Storey Facility:[facility] Start: 02-20-2025 End: 02-20-2025 Patient encounter procedure Karina HOLLIDAY -[facility] Work Phone: Start: 02-20-2025 End: 02-20-[address] Torito Azul MD Work Phone: [facility] Work Phone: Start: 11-14-2024 End: 11-14-[address] Torito Azul MD -Laboratory Phy Office 3rd [facility] Start: 11-14-2024 End: 11-14-2024 ambulatory Torito Azul Facility:[facility] Start: 05-17-2024 End: 05-17-2024 ambulatory Torito Azul Facility:[facility] Start: 04-28-2024 End: 04-28-2024 ambulatory Torito Azul Facility[place] Start: 11-11-2023 End: 02-07-[address] Torito Azul Work Phone: [facility] Work Phone: Start: 11-11-2023 End: 11-11-[address] Torito Azul Work Phone: [facility]-Laboratory, Phy Office 3rd Flr Start: 09-03-2023 End: 09-03-[address] Torito Azul Work Phone: [facility] Work Phone: Start: 04-20-2023 End: 04-20-2023 ambulatory [facility] Work Phone: Start: 04-20-2023 End: 04-20-2023 [facility] Start: 03-30-2023 End: 03-30-2023 ambulatory [facility] Work Phone: Start: 03-30-2023 End: 03-30-2023 [facility] Start: 11-12-2022 End: 11-13-2022 Evaluation and management of inpatient [facility] Start: 11-12-2022 End: 11-13-[address] Torito Azul Work Phone: [facility] Work Phone: Start: 11-02-2022 End: 11-02-2022 Emergency department patient visit Dr. Torito Azul Work Phone: [facility]-Emergency Department Start: 09-24-2022 End: 09-24-[address] Torito Azul Work Phone: [facility] Start: 09-23-2022 End: 09-23-[address] Torito Azul Work Phone: [facility] Start: 09-18-2022 End: 09-18-[address] Torito Azul Work Phone: [facility] Work Phone: Start: 09-18-2022 End: 09-18-[address] Torito Azul Work Phone: [facility]Laboratory Start: 09-01-2022 End: 09-01-[address] Torito Azul Work Phone: [facility] Start: 08-25-2022 End: 08-25-[address] Torito Azul Work Phone: [facility] Start: 08-18-2022 End: 08-18-[address] Torito Azul Work Phone: [facility] Start: 08-04-2022 End: 08-04-[address] Torito Azul Work Phone: [facility] Start: 07-31-2022 End: 07-31-[address] Torito Azul Work Phone: [facility] Start: 07-28-2022 End: 07-28-[address] Torito Azul Work Phone: [facility] Start: 07-24-2022 End: 07-24-[address] Torito Azul Work Phone: [facility] Start: 07-17-2022 Non-patient / Non-visit Dr. Drew Azul Work Phone: [facility] Start: 07-17-2022 End: 07-17-2022 Admission to same day surgery center [facility] Start: 07-17-2022 End: 10-13-[address] Torito Azul Work Phone: [facility] Work Phone: Start: 07-17-2022 End: 07-17-2022 Non-patient / Non-visit Dr. Torito Azul Work Phone: [facility] Start: 07-14-2022 End: 07-17-2022 Non-patient / Non-visit Dr. Torito Azul Work Phone: [facility] Start: 06-06-2022 End: 06-06-[address] Torito Azul Work Phone: [facility] Start: 05-13-2022 End: 05-13-[address] Torito Azul Work Phone: [facility] Start: 05-05-2022 End: 05-05-[address] Torito Azul Work Phone: [facility] Phy Office 3rd Flr Start: 03-21-2022 End: 03-21-[address] Torito Azul Work Phone: [facility] Start: 03-14-2022 End: 03-14-2022 Patient encounter procedure [facility] Start: 07-16-2021 End: 07-16-[address] [facility] Procedures Date Procedure Procedure Detail Performing Clinician Start: 03-31-2025 Cardiovascular stres s test using pharmacologic stress agent Dr. Torito Azul MD Work Phone: Start: 11-14-2024 Measurement of renal function Dr[address] [...] [AGGREGATE] Ирина Castañeda Start: 04-09-2017 End: 04-09-2017 ADMISSION NURSE Paige Alvarado MOVIE OPERATOR Work Phone: Start: 04-09-2017 End: 04-09-2017 Follow Up Appt 6 months Paige Alvarado MOVIE OPERATOR Work Phone: Start: 03-20-2017 End: 03-26-2017 *Hepatic [...] PA-C Work Phone: Start: 08-12-2016 End: 08-12-2016 ADMISSION NURSE Karina Westbrook PA-C Work Phone: Start: 08-12-2016 End: 08-12-2016 Electrocardiogram, complete Karina Bernal PA-C Work Phone: Start: 08-12-2016 End: 08-12-2016 Follow Up Appt Other Karina sun PA-C Work Phone: Start: 08-12-2016 End: 08-13-2016 Referral to post office manager Karina goode PA-C Work Phone: Start: 08-07-2016 Placement of stent i n coronary artery Coronary stent Elkin Alonzo MD Start: 08-04-2016 History of placement of stent for coronary artery disease History of coronary artery stent placement Karina HOLLIDAY Comment on above: PCI-Thrombectomy SVG -RPDA ,OLI-bifurcating distal RCA via SVG, OLI-RPDA w/ 4.0 x 18 mm Xience Alpine Rx, OLI-bifurcating distal RCA via [id number] w/ 2.75 x 15 mm Xience Alpine Rx 08/04/16 Start: 04-08-2016 End: 04-08-2016 Dietary management education, guidance, and counseling Elkin Alonzo MD Start: 04-08-2016 End: 04-08-2016 ADMISSION NURSE Karina Westbrook PA-C Work Phone: Start: 04-08-2016 [...] [AGGREGATE] Ирина Castañeda Start: 03-28-2015 End: 03-24-2016 ADMISSION NURSE Karina Westbrook PA-C Work Phone: Start: 03-28-2015 End: 03-24-2016 Follow Up Appt 6 months Karina scales PA-C Work Phone: Start: 03-20-2015 End: 03-20-2015 *Hepatic Function Panel Ирина Castañeda Start: 03-20-2015 End: 03-20-2015 Lipid panel [AGGREGATE] Ирина Castañeda Start: 09-26-2014 End: 09-26-2014 Follow Up Appt 6 months Ирина Castañeda Start: 09-26-2014 End: 09-26-2014 ANDRE Alonzo MD Start: 09-04-2014 End: 09-20-2014 *Hepatic Function Panel Ирина Castañeda Start: 09-04-2014 End: 09-20-2014 Lipid panel [AGGREGATE] Ирина Castañeda Start: 03-16-2014 End: 03-16-2014 ADMISSION NURSE Elkin Alonzo MD Start: 03-16-2014 End: 03-16-2014 Follow Up Appt 6 months Ирина Castañeda Start: 01-03-2014 End: 03-08-2014 *Hepatic Function Panel Ирина Castañeda Start: 01-03-2014 End: 03-08-2014 Lipid panel [AGGREGATE] Ирина Castañeda Start: 08-05-2013 End: 03-24-2016 Carotid duplex Karina Westbrook PA-C Work Phone: Start: 08-05-2013 End: 08-05-2013 ADMISSION NURSE Karina Westbrook PA-C Work Phone: Start: 08-05-2013 [...] months Ирина Castañeda Start: 02-03-2013 End: 02-03-2013 MMИрина Alonzo MD Start: 01-03-2013 End: 01-18-2013 *Hepatic [...] Activity Detail Author Start: 11-13-2022 Patient discharge [facility] Start: 11-13-2022 Removal of urinary catheter [facility] Start: 11-12-2022 Following clinical pathway protocol [facility] Start: 11-12-2022 Admission procedure [facility] Start: 11-12-2022 Deep breathing and coughing exercises [facility] Start: 11-12-2022 Incentive spirometry [facility] Start: 11-12-2022 Provision of activity privileges [facility] Start: 11-12-2022 Irrigation of urinary bladder [facility] Start: 11-12-2022 Measuring intake and output [facility] Start: 11-12-2022 Patient education [facility] Start: 11-12-2022 Taking patient vital signs [facility] Start: 11-12-2022 Vital signs measurements [facility] Start: 11-12-2022 End: 11-12-2022 [facility] Start: 11-12-2022 [facility] Start: 11-02-2022 [facility] Start: 07-17-2022 Anes integ musc & nrv head neck&posterior trunk ANESTH HEAD/NECK/PTRUNK [facility] Start: 07-17-2022 Excision pilonidal cyst/sinus complicated REMOVE PILONIDAL CYST COMPL [facility] Start: 07-17-2022 Patient discharge [facility] Start: 11-05-2017 End: 11-05-2017 Appointment Appointment [facility] Work Phone: Start: 10-20-2017 End: 10-20-2017 Appointment Appointment [facility] Work Phone: Start: 09-24-2017 End: 10-27-2017 *Hepatic Function Panel *Hepatic Function Panel [facility] Work Phone: Start: 09-24-2017 End: 10-27-2017 Lipid panel [AGGREGATE] *Lipid Profile CC PCP [facility] Work Phone: Start: 04-09-2017 End: 04-09-2017 Appointment Appointment [facility] Work Phone: Start: 04-09-2017 End: 04-09-2017 ADMISSION NURSE ADMISSION NURSE [facility] Work Phone: Start: 04-09-2017 End: 04-09-2017 Follow Up Appt 6 months Follow Up Appt 6 months [facility] Work Phone: Start: 03-20-2017 End: 03-26-2017 *Hepatic Function Panel *Hepatic Function Panel [facility] Work Phone: Start: 03-20-2017 End: 03-26-2017 Lipid panel [AGGREGATE] *Lipid Profile CC PCP [facility] Work Phone: Start: 10-07-2016 End: 10-07-2016 Follow Up Appt 6 months Follow Up Appt 6 months [facility] Work Phone: Start: 10-07-2016 End: 10-07-2016 MMM MMM [facility] Work Phone: Start: 10-07-2016 End: 10-07-2016 Nuclear stress test -exercise Nuclear stress test -exercise [facility] Work Phone: Start: 09-04-2016 End: 09-19-2016 Lipid panel [AGGREGATE] *Lipid Profile CC PCP [facility] Work Phone: Start: 08-18-2016 End: 08-18-2016 24 hour holter monitor 24 hour holter monitor [facility] Work Phone: Start: 08-12-2016 End: 09-22-2016 Cardiac Rehab [facility] [address] [place], [address] [facility] Work Phone: Start: 08-12-2016 End: 08-12-2016 ADMISSION NURSE ADMISSION NURSE [facility] Work Phone: Start: 08-12-2016 End: 08-12-2016 Electrocardiogram, complete EKG (In office) [facility] Work Phone: Start: 08-12-2016 End: 08-12-2016 Follow Up Appt Other Follow Up Appt Other [facility] Work Phone: Start: 04-08-2016 End: 03-27-2016 *Hepatic Function Panel *Hepatic Function Panel [facility] Work Phone: Start: 04-08-2016 End: 04-08-2016 ADMISSION NURSE ADMISSION NURSE [facility] Work Phone: Start: 04-08-2016 End: 04-08-2016 Electrocardiogram, complete EKG (In office) [facility] Work Phone: Start: 04-08-2016 End: 04-08-2016 Follow Up Appt 6 months Follow Up Appt 6 months [facility] Work Phone: Start: 04-08-2016 End: 03-27-2016 Lipid panel [AGGREGATE] *Lipid Profile CC PCP [facility] Work Phone: Start: 10-16-2015 End: 10-16-2015 Follow Up Appt 6 months Follow Up Appt 6 months [facility] Work Phone: Start: 10-16-2015 End: 10-16-2015 MMM MMM [facility] Work Phone: Start: 09-19-2015 End: 10-09-2015 *Hepatic Function Panel *Hepatic Function Panel [facility] Work Phone: Start: 09-19-2015 End: 10-09-2015 Lipid panel [AGGREGATE] *Lipid Profile CC PCP [facility] Work Phone: Start: 03-28-2015 End: 03-24-2016 ADMISSION NURSE ADMISSION NURSE [facility] Work Phone: Start: 03-28-2015 End: 03-24-2016 Follow Up Appt 6 months Follow Up Appt 6 months [facility] Work Phone: Start: 03-20-2015 End: 03-20-2015 *Hepatic Function Panel *Hepatic Function Panel [facility] Work Phone: Start: 03-20-2015 End: 03-20-2015 Lipid panel [AGGREGATE] *Lipid Profile CC PCP [facility] Work Phone: Start: 09-26-2014 End: 09-26-2014 Follow Up Appt 6 months Follow Up Appt 6 months [facility] Work Phone: Start: 09-26-2014 End: 09-26-2014 MMM MMM [facility] Work Phone: Start: 09-04-2014 End: 09-20-2014 *Hepatic Function Panel *Hepatic Function Panel [facility] Work Phone: Start: 09-04-2014 End: 09-20-2014 Lipid panel [AGGREGATE] *Lipid Profile CC PCP [facility] Work Phone: Start: 03-16-2014 End: 03-16-2014 ADMISSION NURSE ADMISSION NURSE [facility] Work Phone: Start: 03-16-2014 End: 03-16-2014 Follow Up Appt 6 months Follow Up Appt 6 months [facility] Work Phone: Start: 01-03-2014 End: 03-08-2014 *Hepatic Function Panel *Hepatic Function Panel [facility] Work Phone: Start: 01-03-2014 End: 03-08-2014 Lipid panel [AGGREGATE] *Lipid Profile CC PCP [facility] Work Phone: Start: 08-05-2013 End: 08-05-2013 Carotid duplex Carotid duplex [facility] Work Phone: Start: 08-05-2013 End: 08-05-2013 ADMISSION NURSE ADMISSION NURSE [facility] Work Phone: Start: 08-05-2013 End: 08-05-2013 Electrocardiogram, complete EKG (In office) [facility] Work Phone: Start: 08-05-2013 End: 08-05-2013 Follow Up Appt 6 months Follow Up Appt 6 months [facility] Work Phone: Start: 07-05-2013 End: 07-28-2013 *Hepatic Function Panel *Hepatic Function Panel [facility] Work Phone: Start: 07-05-2013 End: 07-28-2013 Lipid panel [AGGREGATE] *Lipid Profile [facility] Work Phone: Start: 02-03-2013 End: 02-03-2013 Follow Up Appt 6 months Follow Up Appt 6 months [facility] Work Phone: Start: 02-03-2013 End: 02-03-2013 MMM MMM [facility] Work Phone: Start: 01-03-2013 End: 01-18-2013 *Hepatic Function Panel *Hepatic Function Panel [facility] Work Phone: Start: 01-03-2013 End: 01-18-2013 Lipid panel [AGGREGATE] *Lipid Profile [facility] Work Phone: Start: 08-03-2012 End: 08-03-2012 *Hepatic Function Panel *Hepatic Function Panel [facility] Work Phone: Start: 08-03-2012 End: 08-03-2012 Follow Up Appt 6 months Follow Up Appt 6 months [facility] Work Phone: Start: 08-03-2012 End: 08-03-2012 Lipid panel [AGGREGATE] *Lipid Profile [facility] Work Phone: Start: 07-07-2012 End: 07-28-2012 *Hepatic Function Panel *Hepatic Function Panel [facility] Work Phone: Start: 07-07-2012 End: 07-28-2012 Lipid panel [AGGREGATE] *Lipid Profile [facility] Work Phone: Start: 01-22-2012 End: 01-22-2012 Follow Up Appt 6 months Follow Up Appt 6 months [facility] Work Phone: Start: 12-08-2011 End: 12-08-2011 *BMP *BMP [facility] Work Phone: Start: 12-08-2011 End: 12-08-2011 *CBC with Differential *CBC with Differential [facility] Work Phone: Start: 12-08-2011 End: 12-08-2011 *Hepatic Function Panel *Hepatic Function Panel [facility] Work Phone: Start: 12-08-2011 End: 12-08-2011 24 hour holter monitor 24 hour holter monitor [facility] Work Phone: Start: 12-08-2011 End: 12-08-2011 aPTT *PTT-Partial Thromboplastin Time [facility] Work Phone: Start: 12-08-2011 End: 12-08-2011 aPTT Coag time (PPP) *PTT-Partial Thromboplastin Time [facility] Work Phone: Start: 12-08-2011 End: 12-08-2011 Chest x-ray X-Ray, Chest, PA & Lateral [facility] Work Phone: Start: 12-08-2011 End: 12-08-2011 Coagulation factor induced.INR assay in platelet poor plasma *PT/INR [facility] Work Phone: Start: 12-08-2011 End: 12-08-2011 Echocardiography Echocardiogram (complete) [facility] Work Phone: Start: 12-08-2011 End: 12-08-2011 Left Heart Cath Left Heart Cath [facility] Work Phone: Start: 12-08-2011 End: 12-08-2011 Lipid panel [AGGREGATE] *Lipid Profile [facility] Work Phone: Start: 12-08-2011 End: 12-08-2011 Magnesium *Magnesium [facility] Work Phone: Start: 12-08-2011 End: 12-08-2011 Office/outpatient visit, est, level 5 [id number] Ofc Vst, Est Level V [facility] Work Phone: Start: 12-08-2011 End: 12-08-2011 Thyroid stimulating hormone (TSH) *TSH [facility] Work Phone: Start: 12-08-2011 End: 12-08-2011 Thyroxine (T4) *T4 (Total) [facility] Work Phone: 24 Hour ECG [facility] Basic metabolic 2008 panel with ionized calcium - Serum or Plasma [facility] Electrocardiographic procedure [facility] Work Phone: Electrocardiographic procedure [facility] NM Heart Views W str ess and W radionuclide IV [facility] Patient Education [facility] Work Phone: Patient referral [facility] Work Phone: US Heart [facility] XR Sacrum and Coccyx GE 2 Views [facility] Work Phone: Immunizations Immunization Date Immunization Notes Care Provider [facility] 07-31-2020 influenza, injectabl e, quadrivalent, preservative free Dr. Torito Azul Work Phone: [facility] 07-31-2020 influenza, seasonal, injectable [facility] 07-31-2020 Fluad Quad [id number](65yr up)(PF) 60 mcg (15 mcg x 4)/0.5mL IM syringe (flu vac [facility] Work Phone: Payers Date Payer Category Payer Self-pay [id number] 2023 Medicare [id number] [id number] Private Health Insurance [id number] 1950 Unknown [id number] [id number] Medicare [id number] Unknown [id number] 2.16.8 [id number] Unknown [id number] 2.16.8 [id number] Unknown [id number] 2.16.8 [id number] Unknown [id number] 2.16.8 [id number] Unknown [id number] 2.16.8 [id number] Unknown [id number] 2.16.8 [id number] Unknown [id number] 2.16.8 [id number] Unknown [id number] 2.16.8 [id number] Unknown [id number] 2.16.8 [id number] Unknown [id number] 2.16.8 [id number] Social History Date Type Detail Facility Start: 09-20-2021 End: 09-03-2023 Tobacco smoking status NHIS Unknown if ever smoked [facility] Start: 1950 Sex Assigned At Male W [facility] Start: 04-28-2024 Tobacco smoking stat us NHIS Ex-smoker (finding) [facility] Goals Date Patient Goal Desired Activity /State Functional Status Date Assessment Result Facility 11-13-2022 Functional status Ambulates [facility] Work Phone: Mental Status Date Assessment Result Facility 11-13-2022 Cognitive function Level Of Cons ciousness Awake;Alert;Appropriate;Follow s Commands [facility] Work Phone: 11-12-2022 Cognitive function Voice/Name [facility] Work Phone: 07-17-2022 Cognitive function Voice/Name [facility] Work Phone: Clinical Notes 11-29-2002 to 02-20-2025 Note Date & Type Note Facility 02-20-2025 Evaluation note Diagnosis Onset Date Resolution Essential (primary) hypertension chronic February 20, 2025 1:14pm History of coronary artery stent placement August 04, 2016 chronic February 20, 2025 1:14pm Hyperlipidemia chronic February 20, 2025 1:14pm Paroxysmal atrial fibrillation chronic February 20, 2025 1:14pm H/O coronary artery bypass surgery November 29, 2002 resolved February 20, 2025 1:14pm [facility] Work Phone: 1(132) 128-635605-19-2025 Evaluation note* Diagnosis Onset Date Resolution Status Admit Date Essential (primary) hypertension chronic February 20, 2025 1:14pm History of coronary artery stent placement August 04, 2016 chronic February 20 1:14pm Hyperlipidemia chronic February 20, 2025 1:14pm Paroxysmal atrial fibrillation chronic February 20, 2025 1:14pm H/O coronary artery bypass surgery November 29, 2002 resolved February 20 1:14pm Essential (primary) hypertension chronic April 21, 2025 8:05am History of coronary artery stent placement August 04, 2016 chronic April 21 8:05am Hyperlipidemia chronic April 21, 2025 8:05am Paroxysmal atrial fibrillation chronic April 21, 2025 8:05am H/O coronary artery bypass surgery November 29, 2002 resolved April 21 8:05am [facility] Work Phone: 1(666) 444-719802-08-[address] Hemphill [facility] November 12, 2022 9:58am Note Date/Time November 12, 2022 9 :58am [facility] Medical Records Department [address] [place] [address] Instructions for Home/Discharge Instructions 11/12/22 0958 MR#: [id number] Acct: [id number] Name: EMELY GUERRERO Rep #:[id number] : 1950 71 From: [...] be discussed in further detail at your follow- up appointment, if applicable. Discharge Plan Admission Primary Reason for Your Visit: ally Attending Provider: Jeffery Hemphill Primary Care Provider: [...] CC: Dr. Torito Azul MD ~ Signed [facility] Work Phone: 1(160) 461-768502-08-2023 History and physical note Author Dr. Hemphill [facility] November 12, 2022 9:58am Note Date/Time November 12, 2022 9 :58am [facility] Medical Records Department [address] [place] [address] History & Physical Exam 11/12/22 0957 MR#: [id number] Acct: [id number] Name: EMELY GUERRERO Rep #:[id number] : 1950 71 From: Jeffery Hemphill MD PCP: Dr. Torito Azul MD Status:REG S DC Location: [place] [address] HPI - General HPI Narrative EMELY GUERRERO, is a 71 M who presents for resection of a bladder obstructing prostate with BPH and also removal of stone and UroLift clips [facility] Medical History (Updated 11/10/22 @ 00:01 by Background Daemon) Abrasion Acute coccygeal pain Alcohol use Atherosclerosis of coronary artery bypass graft without angina pectoris Atherosclerotic heart disease of [place] coronary artery without angina pectoris BPH (benign prostatic hyperplasia) Cardiology follow-up encounter CPAP (continuous positive airway pressure) dependence Diabetes Easy bruising Essential (primary) hypertension Former smoker [place] disease High cholesterol History of atrial fibrillation [...] Hemphill MD; Dr. Torito Azul MD~ Signed [facility] Work Phone: 1(865) 322-375602-08-2023 Procedure [facility] 11-02-[address] Grissom [facility] November 02, 2022 11:23am Note Date/Time November 02, 2022 9 :03am [facility] Medical Records Department [address] [place] [address] Emergency Department Summary 11/02/22 MR#: [id number] Acct: [id number] Name: EMELY GUERRERO Rep #:[id number] : 1950 71 From: [...] of BPH. Diabetes and hypertension. 86 prior [place]. He had mild hematuria 1 to 2 [...] without angina pectoris Atherosclerotic heart disease of [place] coronary artery without angina pectoris BPH (benign prostatic hyperplasia) Cardiology follow-up encounter CPAP (continuous positive airway pressure) dependence Diabetes Easy bruising Essential (primary) hypertension Former smoker [place] disease High cholesterol History of atrial fibrillation [...] Laboratory Results - last 24 hr 11/02/22 11/02/22 11/02/22 09:00 09:10 09:10 WBC 14.5 H RBC 4.25 L Hgb 13.3 Hct 39.7 L MCV 93.4 MCH 31.3 MCHC 33.5 RDW Std Deviation 45.9 H RDW Coeff of Andrea 13.5 Plt Count 200 MPV 10.3 Immature Gran % (Auto) 0.500 Neut % (Auto) 78.5 H Lymph % (Auto) 11.8 L Carroll % (Auto) 8.5 Eos % (Auto) 0.3 [...] Clarity Clear Urine pH 6.0 Ur Specific Henderson 1.015 Urine Protein 30 H Urine Glucose [...] Qty: 180 3RF Rx Instructions: LAST DOSE 10/10 PM metoprolol tartrate 25 mg tablet 12.5 [...] your Primary Care Provider. Call [facility] ([phone]) or report to the closest Emergency Room. Call 911 if necessary. 11/02/22 1123 <Electronically signed by Nathan Grissom MD> Cosigner Signature (if applicable): CC: Dr. Torito Azul MD ~ Signed [facility] Work Phone: 1(414) 304-401510-10-2022 Hospital Discharge instructionsAmbulatory Orders* 12 Lead EKG [[facility]] Time Frame: 07/14/22, Location: None Selected Additional Instructions Implant Used?: [facility] Work Phone: 1(861) 558-215910-31-2016 Evaluation note* Diagnosis Onset Date Resolution Status Essential (primary) hypertension chronic History of coronary artery stent placement July chronic Hyperlipidemia chronic Paroxysmal atrial fibrillation chronic H/O coronary artery bypass surgery November 29, 2002 resolved [facility] Work Phone: 1(418) 172-998210-31-2016 Evaluation note* Diagnosis Onset Date Resolution Status Admit Date Essential (primary) hypertension chronic February 20, 2025 1:14pm History of coronary artery stent placement August 04, 2016 chronic February 20 1:14pm Hyperlipidemia chronic February 20, 2025 1:14pm Paroxysmal atrial fibrillation chronic February 20, 2025 1:14pm H/O coronary artery bypass surgery November 29, 2002 resolved February 20 1:14pm [facility] Work Phone: 1(431) 319-203502-25-2003 Evaluation note* Diagnosis Onset Date Resolution Status Essential (primary) hypertension chronic Hyperlipidemia chronic Paroxysmal atrial fibrillation chronic H/O coronary artery bypass surgery November 29, 2002 resolved [facility] Work Phone: 1(208) 369-559802-25-2003 Evaluation note* Diagnosis Onset Date Resolution Status Essential (primary) hypertension chronic Hyperlipidemia chronic Paroxysmal atrial fibrillation chronic H/O coronary artery bypass surgery November 29, 2002 resolved Cyst near coccyx acute [facility] Work Phone: 1(940) 603-358802-25-2003 Evaluation note* Diagnosis Onset Date Resolution Status Essential (primary) hypertension chronic Hyperlipidemia chronic Paroxysmal atrial fibrillation chronic H/O coronary artery bypass surgery November 29, 2002 resolved Cyst near coccyx acute Pilonidal abscess acute [facility] Work Phone: Evaluation noteNo assessment information available [facility] Work Phone: Evjstation note* Diagnosis Onset Date Resolution Status Pilonidal abscess acute Pilonidal abscess acute Pilonidal abscess acute Pilonidal abscess acute Pilonidal abscess acute Pilonidal abscess acute Pilonidal abscess acute Pilonidal abscess acute [facility] Work Phone: Evaluation note* Diagnosis [...] S/P surgical removal of pilonidal cyst acute [facility] Work Phone: Hospital Discharge instructions Additional Instructions The antibiotics Cipro 1 pill twice a day for the next 10 days for urinary tract infection. Continue your other medications. Follow-up with Dr. Hemphill. If it gets worse and you are unable to urinate return to the emergency department to have Zelaya catheter placed.[facility] Work Phone: Hospital Discharge instructions Additional Instructions Implant Used?: [facility] Work Phone: Reason for referral (narrative)No [facility] for [facility] Work [facility]: Summary Purpose Family History [...] Yes January 30, 2018 1:23pm Power of Card Sorter Yes January 30 1:23pm Advance Directive Response Recorded Date/ Time Name of Medical Power of Card Sorter July 10, 2022 1:23pm Living Will Yes July 10 1:23pm Power of Card Sorter Yes July 10 1:23pm Advance Directive Response Recorded Date/ Time Name of Medical Power of Card Sorter July 10, 2022 12:23pm Living Will Yes July 10 12:23pm Power of Card Sorter Yes July 10 12:23pm Advance Directive Response Recorded Date/ Time Name of Medical Power of Card Sorter July 10, 2022 12:23pm Name of Medical Power of Card Sorter mattie- November 02, 2022 8:44am Living Will Yes November 02 8:44am Power of Card Sorter Yes November 02, 2022 8:44am Advance Directive Response Recorded Date/ Time Name of Medical Power of Card Sorter July 10, 2022 12:23pm Name of Medical Power of Card Sorter Mattie Guerrero November 12, 2022 11:16am Living Will Yes November 12 11:16am Power of Card Sorter Yes November 12, 2022 11:16am Name of Medical Power of Card Sorter mattie- November 02, 2022 8:44am Advance Directive Response Recorded Date/ Time Living Will Yes November 12 12:16pm Power of Card Sorter Yes November 12, 2022 12:16pm Advance Directive Response Recorded Date/ Time Living Will Yes November 12 11:16am Power of Card Sorter Yes November 12, 2022 11:16am Chief Complaint [...] coronary artery bypass surgery February 022024 1:14pm Chief Complaint Admit Date Atrial fibrillation February 20, 2025 1:14p m PAROXYSMAL ATRIAL FIBRILLATION March 10, 2025 8:14am PAF March 10, 2025 8:29a m ALEX/CAD March 31, 2025 6:34 am ALEX/CAD April 04, 2025 7:59a m Chief Complaint Admit Date Atrial fibrillation February 20, 2025 1:14p m PAROXYSMAL ATRIAL FIBRILLATION March 10, 2025 8:14am PAF March 10, 2025 8:29a m ALEX/CAD March 31, 2025 6:34 am ALEX/CAD April 04, 2025 7:59a m 2 M FU April 21, 2025 8:05 am Reason for Visit Admit Date Essential (primary) hypertension February 1:14pm History of coronary artery stent placeme nt February 20, 2025 1:14pm Hyperlipidemia February 20, 2025 1:14p m Paroxysmal atrial fibrillation February 20, 2025 1:14pm H/O coronary artery bypass surgery February [id number] 1:14pm Essential (primary) hypertension April [id number] 8:05am History of coronary artery stent placeme nt April 21, 2025 8:05am Hyperlipidemia April 21, 2025 8:05 am Paroxysmal atrial fibrillation April 8:05am H/O coronary artery bypass surgery April 21, 2025 8:05am Additional Source Comments (unrecognized sect ion and content) No Status Records FoundNo Status Records FoundNo Status Records Found INFORMATION SOURCE (unrecogn ized section and content) DATE CREATED AUTHOR 07/18/2021 [facility] DATE CREATED AUTHOR AUTHOR'S ORGANIZ ATION 07/18/2021 [facility] DATE CREATED AUTHOR AUTHOR'S ORGANIZ ATION 04/24/2025 [facility] Goals (unrecognized section and content) Goals may [...] Care Provider, Referring Provider Active Paige Alvarado MOVIE OPERATOR, MOVIE OPERATOR-C Attending Provider Active Team Status: Active Member [...] MD Primary Care Provider Active Paige Alvarado MOVIE OPERATOR, MOVIE OPERATOR-C Attending Provider, Referring Pro vider Active Team [...] 20, 2025 End: February 20, 2025 Karina Westbrook PA, PA Attending Provider Active Start: February 20, 2025 End: February 20, 2025 Team Status: Active Member Role/Relationship Status Dates Dr. Torito Azul MD Primary Care Provider Active Team Status: Inactive Member Role/Relationship Status Dates Dr. Torito Azul MD Primary Care Provider Active Start: February 20, 2025 End: February 20, 2025 Dr. Torito Azul MD Referring Provider Active Start: February 20, 2025 End: February 20, 2025 Karina Westbrook PA, PA Attending Provider Active Start: February 20, 2025 End: February 20, 2025 Team Status: Active Member Role/Relationship Status Dates Dr. Torito Azul MD Primary Care Provider Active Start: March 10, 2025 Karina Westbrook PA, PA Attending Provider Active Start: March 10, 2025 Karina Westbrook PA, PA Referring Provider Active Start: March 10, 2025 Team Status: Active Member Role/Relationship Status Dates Dr. Torito Azul MD Primary Care Provider Active Start: March 10, 2025 Dr. Kate Storey MD Attending Provider Active Start: March 10, 2025 Karina Westbrook PA, PA Referring Provider Active Start: March 10, 2025 Team Status: Inactive Member Role/Relationship Status Dates Dr. Torito Azul MD Primary Care Provider Active Start: March 31, 2025 End: March 31, 2025 Karina Westbrook PA, PA Attending Provider Active Start: March 31, 2025 End: March 31, 2025 Karina Westbrook PA, PA Referring Provider Active Start: March 31, 2025 End: March 31, 2025 Team Status: Active Member Role/Relationship Status Dates Dr. Torito Azul MD Primary Care Provider Active Start: March 31, 2025 Dr. Elkin Alonzo MD Attending Provider Active S tart: March 31, 2025 Team Status: Active Member Role/Relationship Status Dates Dr. Torito Azul MD Primary Care Provider Active Start: April 04, 2025 MIYA Do Referring Provider Active Start: April 04, 2025 MIYA Do Other Provider Active Start: April 04, 2025 Dr. Elkin Alonzo MD Attending Provider Active S tart: April 04, 2025 Team Status: Inactive Member Role/Relationship Status Dates Dr. Torito Azul MD Primary Care Provider Active Start: April 21, 2025 End: April 21, 2025 Dr. Torito Azul MD Referring Provider Active Start: April 21, 2025 End: April 21, 2025 MIYA Do Attending Provider Active Start: April 21, 2025 End: April 21, 2025 FOR RECORDS PERTAINING TO PATIENTS WHO [...] BE BASED ON THE PRIMARY CLINICAL RECORDS. [employer] provides no warranty or guarantee of the accuracy or completeness of information in this document.
[2025-05-06 09:42] LABS: Anion Gap 13 (5-15); BUN 16 mg/dL (4-19); BUN/Creat Ratio 19.4 RATIO (10-20); Calcium,Total 10.4 mg/dL (7.6-11.0); Carbon Dioxide 29.7 mmol/L (21.0-32.0); Chloride 96 mmol/L (98-108); Glucose 268 mg/dL (70-99); Potassium 3.3 mmol/L (3.3-5.1)
== END | disposition home or self-care (01) ==
LOC: LAB 08:19
PROVIDERS: PCP Family Medicine Geriatric Medicine; Referring Provider Physician Assistant Medical; Visit Provider Physician Assistant Medical
DX: I10 Essential (primary) hypertension (principal)
CPT/HCPCS: 36415; 80048

== ENCOUNTER → 2025-05-22 | Outpatient (CLI) | payer MEDICARE, OTHER, SELFPAY ==
[2025-05-22 09:30] LABS: Hematocrit 42.1 % (40-54); Hemoglobin 15.0 g/dL (13.0-16.5); Immature Granulocytes Count 0.030 X10^3/uL (0.0-0.0); Mean Corp Hgb Conc 35.6 g/dL (32-36); Mean Corpuscular Volume 91.7 fL (80-94); Mean Platelet Vol. 10.6 fl (6.2-12.0); NRBC Flagged by Analyzer 0 % (0-5); Platelet Count 222 K/mm3 (150-450); RBC Distribution Width CV 12.0 % (11.6-14.6); RBC Distribution Width SD 40.4 fl (35.1-43.9); Red Blood Count 4.59 M/mm3 (4.6-6.2); White Blood Count 7.0 K/mm3 (4.4-11.0)
[2025-05-22 10:19] LABS: AST(SGOT) 26 U/L (<=37); Alanine Aminotransfer ALT/SGPT 33 U/L (<=46); Albumin, Serum 4.6 g/dL (3.4-4.8); Alkaline Phosphatase 58 U/L (40-129); Anion Gap 12 (5-15); BUN 22 mg/dL (4-19); BUN/Creat Ratio 25.9 RATIO (10-20); Calcium,Total 10.4 mg/dL (7.6-11.0); Carbon Dioxide 29.0 mmol/L (21.0-32.0); Chloride 97 mmol/L (98-108); Globulin 2.7 g/dL (2.2-4.2); Glucose 223 mg/dL (70-99); Potassium 3.5 mmol/L (3.3-5.1); Vitamin D,25 Hydroxy 33.6 ng/mL (30-100)
[2025-05-22 16:59] LABS: Xtra Tube Kwok EXTRA TUBE
== END | disposition home or self-care (01) ==
LOC: POLAB3 08:58
PROVIDERS: PCP Family Medicine Geriatric Medicine; Visit Provider Family Medicine Geriatric Medicine
DX: E11.22 Type 2 diabetes mellitus with diabetic chronic kidney disease (principal); E11.65 Type 2 diabetes mellitus with hyperglycemia; I10 Essential (primary) hypertension; E55.9 Vitamin D deficiency, unspecified
CPT/HCPCS: 36415; 80053; 82306; 84443; 85025